=== PATIENT | female | born 1960 | race Caucasian/White ===

== ENCOUNTER 2024-12-14 06:14 | Inpatient (IN) | payer OTHER, SELFPAY ==
[2024-12-14] VITALS (10 sets, daily range): BP systolic 98–126; BP diastolic 49–64; BMI 45.6; BMI 44.3
[2024-12-14 02:16] LABS: % Basophils 0.4 % (0-2); % Eosinophils 2.7 % (0-6); % Immature Granulocytes 0.3 % (0-0.5); % Lymphocytes 16.2 % (20.5-51.1); % Monocytes 7.2 % (1.7-9.3); % Neutrophils 73.2 % (42.2-75.2); Absolute Eosinophils 0.2 10^3/uL (0-0.7); Absolute Lymphocytes 1.2 10^3/uL (1.2-3.4); Absolute Monocytes 0.5 10^3/uL (0.1-0.6); Absolute Neutrophils 5.5 10^3/uL (1.4-6.5); Hematocrit 30.4 % (37.0-47.0); Hemoglobin 9.9 g/dL (12.0-16.0); Mean Corp Hgb Conc. 32.6 g/dL (33.0-37.0); Mean Corpuscular Hgb 28.9 pg (27.0-31.0); Mean Corpuscular Volume 88.6 fL (81.0-99.0); Nucleated Red Blood Cells % 0 %; Platelet Count 250 10^3/uL (130-400); Red Blood Cell Count 3.43 10^6/uL (4.20-5.40); Red Cell Dist. Width 14.7 % (11.5-14.5); White Blood Cell Count 7.5 10^3/uL (4.8-10.8)
--- NOTE | 2024-12-14 02:23 | ED.GENMED ---
History of Present Illness
General
Chief Complaint: Chest Pain
Source: patient
Exam Limitations: none
Time Seen by Provider: 12/14/24 01:48
Nursing documentation reviewed up to this point in time: agreed with
History of Present Illness
History of Present Illness:
Pleasant 63-year-old female presents to the emergency department with substernal chest pain under her left breast. She does report some pain with inspiration. Patient took 2 nitroglycerin prior to arrival with some relief of her pain. EMS gave
aspirin. Patient states that she has an extensive cardiac history and has an ejection fraction of 30%. She recently moved here and spent some time in a psychiatric hospital before being discharged to [facility]. 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
and states that she would like to establish care in [place] with our cardiology group. Patient denies any current chest pain. Reports no fever or chills.
Review of Systems
Review of Systems
Allergies reviewed?: Yes
All Other Systems: ROS reviewed and negative except as documented in HPI and ROS
Constitutional: Reports no symptoms
EENT: Reports no symptoms
Respiratory: Reports no symptoms
Cardiac: Reports chest pain; Denies diaphoresis, palpitations, syncope or other
ABD/GI: Denies no symptoms
: Reports no symptoms
Musculoskeletal: Reports no symptoms
Skin: Reports no symptoms
Neurological: Reports no symptoms
Endocrine: Reports no symptoms
Hematologic/Lymphatic: Reports no symptoms
Psychiatric: Reports no symptoms
Phy Exam
General Physical Exam
General Presentation: well appearing and no apparent distress
General Skin: warm and dry
General Habitus: normal
General Mental: alert
General Hydration: appears well hydrated
ENT Exam
ENT Exam: EOMI, pharynx normal, neck supple and normocephalic
Eye Exam
Eye Exam: PERRL, cornea clear and conjunctiva normal
Cardiovascular Exam
Cardiovascular Exam: regular rate/rhythm, no edema, no murmur and normal peripheral pulses
Pulmonary Exam
Pulmonary Exam: lungs clear, no respiratory distress, no rales, no crackles, no rhonchi, no stridor, no wheezing and no cough
Gastrointestinal Exam
Gastrointestinal Exam: normal bowel sounds, non tender, soft, no organomegaly, no pulsatile mass and non distended
Neurological Exam
Neurological Exam: alert, oriented x3, no motor deficits and speech normal
Musculoskeletal Exam
Musculoskeletal Exam: full ROM and no edema
Skin Exam
Skin Exam: normal color, warm/dry, no rash and no petechia
Psychiatric Exam
Psychiatric Exam: normal mood/affect
Scores
Heart Score for Chest Pain Patients
STEMI patient?: Not applicable
Course
Orders/Labs/Results
Orders:
Orders
12/14/24 01:50
EKG [Electrocardiogram (*1)] Urgent
Reason for Study: Tachycardia
Cardiac Monitoring- Treatment ONCE
EKG- Treatment ONCE
EKG- Treatment ONCE
12/14/24 02:01
Comprehensive Metabolic Panel Urgent
D-Dimer Urgent
Comment: ADDED
Magnesium Urgent
PTT Urgent
Prothrombin Time Urgent
TSH Urgent
12/14/24 02:02
Complete Blood Count/With Diff Urgent
NT-proBNP Urgent
Troponin I Urgent
Comment: ADDED
12/14/24 02:24
Add On- LAB Urgent
Tests Added?: ddimer
12/14/24 04:39
Potassium Chloride [KCl] 20 meq 0.9% Sodium Chloride 150 ml [Nss] 150 ml IV NOW
12/14/24 05:44
Admit/Transfer Patient As Directed
Co-Sign Provider:
Level of Care: Inpatient admission
Assign to:: Telemetry
Physician / Group: Wade
Diagnosis: Chest Pain, Hypokalemia
Reason for Telemetry: Chest Pain syndromes
Date to Stop Telemetry: 12/16/24
Time to Stop Telemetry: 11:00
Reason for Hospitalization: Chest Pain, Hypokalemia
Expected length of stay greater than two midnights?: Yes
ELOS- Estimated Length of Stay in days: 2
I certify the patient meets the requirements for IP care: Yes
12/14/24 05:45
PRN Pain Medication Management As Directed
May give lesser potent ordered pain med per pt: Yes
preference::
Protocol:: Medication orders for pain may be administered in a
manner that supports deferring to patient preference
when the pt is:
- Requesting an ordered lesser potent pain medication.
Least to most potent pain medications are defined
as: acetaminophen < NSAID < tramadol < opioids
(morphine, oxycodone, hydromorphone).
- Requesting a lesser dose of the same medication IF
ORDERED.
- Requesting a less intrusive route of administration
if both routes are prescribed by the provider (PO <
IV).
12/14/24 05:47
Code Status As Directed
Resuscitation Status: Do not resuscitate
Reached after discussion with pt or family/Healthcare POA: Yes
DNR Bracelet Application ONCE
12/14/24 05:59
CR Chest - 2 Views Urgent
Comment:
Reason For Exam: cp
12/14/24 Breakfast
NPO
Allow oral meds: Yes
Allow clear liquids: Sips of Clears
12/14/24 09:54
Acetaminophen [Tylenol] 650 mg PO Q4HPRN PRN
Dextrose 50%-Water [Dextrose 50% Syringe] 12.5 grams IV [id number] PRN
Glucagon [GlucaGen] 1 mg IM PRN PRN
Insulin Aspart Corrective Low [Novolog Flexpen-Low Resistance] See Protocol SC AC
Lorazepam [Ativan] 1 mg IV Q6HPRN PRN
Magnesium Sulfate 2 Gram/50 ml [Magnesium Sulfate] 2 gram in 50 ml IV NOW
Nitroglycerin Sublingual [Nitrostat (Sublingual)] 0.4 mg SL [id number] PRN
12/14/24 09:54
WOUND/OSTOMY CONSULT Routine
Reason for Consult: Abdominal wound / healing incision
Activity As Directed
Activity Level: Ambulate
With Assistance
Bedside Glucose Monitoring As Directed
Frequency: AC&HS
Additional Instructions:: Change to q6h if pt on TPN, tube feeding or not eating
Bladder Scan As Directed
Follow Bladder Retention/Intermittent Cath Algorithm?: Yes
PRN if no void in __ hours: 6
Frequency: Per Retention Algorithm
If Bladder Scan Result >: 400
then:: Straight cath
EKG with chest pain [ECG as needed] As Directed
ECG as needed for:: Chest Pain
I/O [Intake/ Output] As Directed
Frequency: Per unit guidelines
Records Request [Obtain Records] As Directed
Dates of Information to be Released: Most Recent
Type of Information Requested: Entire Record
Obtain Records from: [facility]
Straight Cath As Directed
Frequency: Per Retention Algorithm
Additional Instructions: straight cath as needed per acute urinary retention algorithm for 24 hrs
Additional Instructions: for bladder scan greater than 400 mL
Vital Signs As Directed
Frequency: Per unit guidelines
Weight As Directed
Frequency: Daily
Oxygen Therapy [O2 Therapy] [RESP] Routine
Titrate/Wean O2 to maintain O2 sat greater than (%): 94
Ot Eval And Treat Routine
PT Consult [Pt Eval And Treat] Routine
Activity Level: Ambulate
With Assistance
12/14/24 11:00
Aspirin Chewable [Low Strength Aspirin] 81 mg PO DAILY
Famotidine [Pepcid] 20 mg PO BID
Lamotrigine [Lamictal] 25 mg PO DAILY
Miconazole Nitrate [Desenex/Mitrazol/Zeasorb] 1 applic TOPICAL BID
Tamsulosin [Flomax] 0.4 mg PO DAILY
Ziprasidone [Geodon] 40 mg PO BID
12/14/24 11:48
B12 [Vitamin B12] Routine
BMP [Basic Metabolic Panel] Routine
Folate Routine
Iron Routine
Reticulocyte Count Routine
Total Iron Binding Routine
Troponin I Q6H
12/14/24 12:46
Triamcinolone Cream [Triamcinolone Acetonide 0.1% Cream] See Dose Instructions TOPICAL BID
12/14/24 18:00
Rivaroxaban [Xarelto] 20 mg PO QPM
12/14/24 22:00
Atorvastatin [Lipitor] 40 mg PO HS
12/14/24 23:50
Troponin I Q6H
12/15/24 06:00
EKG [Electrocardiogram (*1)] IN AM
Reason for Study: Chest Pain
12/16/24 11:00
DC Protocol for Telemetry ONCE
Abnormal Lab Results
12/14/24 12/14/24
02:01 02:02
RBC 3.43 L 10^6/uL
(4.20-5.40)
Hgb 9.9 L g/dL
(12.0-16.0)
Hct 30.4 L %
(37.0-47.0)
MCHC 32.6 L g/dL
(33.0-37.0)
RDW 14.7 H %
(11.5-14.5)
Lymphocytes % 16.2 L %
(20.5-51.1)
PT 24.1 H Sec
(11.4-14.6)
APTT 42.6 H Sec
(23.4-35.0)
Potassium 2.4 L* mmol/L
(3.5-5.1)
Chloride 95 L mmol/L
(98-107)
Carbon Dioxide 37 H mmol/L
(22-30)
Creatinine 1.6 H mg/dL
(0.6-1.0)
Glucose 168 H mg/dl
(70-99)
Alkaline Phosphatase 336 H U/L
(38-126)
Total Protein 6.2 L g/dl
(6.3-8.2)
12/14/24 02:02
12/14/24 02:01
Vital Signs
Initial and Last Documented VS:
Initial Vital Signs
Resp Pulse Ox
16 91
12/14/24 01:44 12/14/24 01:44
Last Documented Vital Signs
Temp Pulse Resp BP Pulse Ox
97.5 F 77 16 114/64 97
12/15/24 20:00 12/15/24 20:00 12/15/24 20:00 12/15/24 20:00 12/15/24 20:00
MDM/Problems Addressed
Differential Diagnosis Includes:
63-year-old female from [facility] presents with chest pain. Differential diagnosis is ACS. Patient has a known cardiac history but it is unavailable at this time., Musculoskeletal chest pain, pleuritic chest pain
She also has hypokalemia. We attempted to replenish her potassium. She refused oral potassium. We are giving her IV supplementation. Given the ongoing chest pain, lack of records including old EKGs and previous lab work, the patient being a poor
historian, she will be brought into the continue potassium replenishment.
*Critical Care Note
Total Time (30-74mins, 75-104mins- exclusive of procedures): Not Applicable
Data Reviewed
Source: patient
Patient Management
Social determinants of health affecting care: Living situation and Poor social support
Discussion with other providers: Hospitalist
ED Attending Note
-
Portions of this chart may have been created with voice recognition software.� Occasional wrong word or��sound alike� substitutions may have occurred due to the inherent limitations of voice recognition software.
Discharge Plan
Departure
Patient Disposition: Admit
Date of Disposition: 12/14/24
Time of Disposition: 05:58
Admit to: Med/Surg
Presentation/result/management discussed w/ accepting MD/DO: Hospitalist
Condition: Good
Discharge Problem:
Chest pain, Acute hypokalemia
Interventions
Interventions:
*General Assessment Last Done: 12/14/24 01:48
*Neglect/Abuse Screening Last Done: 12/14/24 01:48
ED- Fall Risk Assessment Last Done: 12/14/24 01:48
*ED COVID-19 Vaccine History Last Done: 12/14/24 01:48
*Nursing Disposition Last Done: 12/14/24 12:40
ED- Cardiac Assessment Last Done: 12/14/24 01:48
Discharge Date and Time
Discharge Date/Time: 12/14/24 12:41
[2024-12-14 02:42] LABS: PT 24.1 Sec (11.4-14.6)
[2024-12-14 02:43] LABS: APTT 42.6 Sec (23.4-35.0)
[2024-12-14 02:53] LABS: Troponin I < 0.012 ng/ml
[2024-12-14 02:58] LABS: ALT (SGPT) 12 U/L (0-35); AST (SGOT) 20 U/L (14-36); Albumin 3.6 g/dl (3.5-5.0); Alkaline Phosphatase 336 U/L (38-126); Blood Urea Nitrogen 17 mg/dl (7-17); Calcium 9.2 mg/dl (8.4-10.2); Carbon Dioxide 37 mmol/L (22-30); Chloride 95 mmol/L (98-107); Estimated Creatinine Clearance 51 ml/min; Glucose 168 mg/dl (70-99); Magnesium 1.6 mg/dl (1.6-2.3); Potassium 2.4 mmol/L (3.5-5.1); Sodium 138 mmol/L (135-145); Total Bilirubin 0.7 mg/dl (0.2-1.3); Total Protein 6.2 g/dl (6.3-8.2); eGFR 36.47
[2024-12-14 03:10] LABS: TSH 1.29 uIU/ml (0.47-4.68)
[2024-12-14 03:11] LABS: NT-proBNP 456 pg/ml
[2024-12-14] MEDS: KCL 160 MEQ IV (05:28)
--- NOTE | 2024-12-14 05:53 | HPS.HSE ---
Family Physician
-
Family Physician: NOT KNOW UNKNOWN - PT DOES
Chief Complaint
-
Chest Pain
History of Present Illness
Patient is a 63y F with PMH significant for major depression, DM-II and A-Fib who presents to ED complaining of chest pain that woke her from sleep. Patient states that she was having palpitations this PM prior to going to sleep. She states
that this is not unusual. She otherwise felt well and had no recent complaints or issues. She woke around 12:30 AM with left-sided chest pain. She indicates pain along the lower anterior chest and the upper anterior chest. Pain worse with deep
breathing. Mild nausea without emesis. No other associated symptoms. Patient reports multiple previous episodes of similar symptoms - reportedly without clear origin / diagnosis. Patient received SL NTG and was transported to the ED for further
evaluation.
At the time of my examination she is pain free.
Patient states that she had a cardiac catheterization on 10/15/24 at [facility]. She states that this showed her 'heart worked at 30%' but did not show any significant coronary disease / 'blockages'.
Patient is on daily diuretic therapy. She does not take any potassium supplementation and notes that oral potassium 'makes me sick'.
Medical History
Past Medical History
Past Medical History: Reports Other
Additional Past Medical History:
Major Depression
Sarcoidosis
Paroxysmal Atrial Fibrillation
Chronic RBBB
Cardiomyopathy - Unknown Type
GERD / Gastroparesis
DM-II
Obesity
Cauda Equina Syndrome
Chronic Urinary Retention
Lumbar DDD
Left 'Drop Foot'
Past Surgical History: Reports Other
Additional Past Surgical History:
Vocal Cord Tumor Excised (benign)
6 Prior Back Surgeries
Hernia Repair
[place] Pouch / Subsequent Reversal
Social History
Tobacco: Non-smoker
Alcohol: None
Drug: None
Living: Prison
Family History
Family History: Diabetes and Other (Father: COPD Mother: Breast Cancer)
Allergies / Home Medications
Allergies reflects when Allergies were last updated in [employer].
Home Medications with original date entered in [employer]
Allergy/Medication List:
Allergies
Allergy/AdvReac Type Severity Reaction Status Date / Time
acetaminophen [From Percocet] Allergy Unknown Verified 12/14/24 02:04
adhesive Allergy Unknown Verified 12/14/24 02:04
oxycodone [From Percocet] Allergy Unknown Verified 12/14/24 02:04
seafood Allergy Unknown Uncoded 12/14/24 02:04
Home Medications
acetaminophen 325 mg tablet 650 mg PO Q6H PRN mild pain / temp > 100.4 12/14/24
atorvastatin 40 mg tablet 40 mg PO HS 12/14/24
baclofen 10 mg tablet 10 mg PO TID PRN spasms 12/14/24
bisacodyl 10 mg rectal suppository 10 mg MN DAILY PRN constipation 12/14/24
bumetanide 1 mg tablet 1 mg PO DAILY 12/14/24
cholecalciferol (vitamin D3) 25 mcg (1,000 unit) tablet 25 mcg PO DAILY 12/14/24
doxepin 25 mg capsule 25 mg PO HS PRN insomnia 12/14/24
famotidine 20 mg tablet 20 mg PO BID 12/14/24
hydroxyzine HCl 25 mg tablet 25 mg PO BID 12/14/24
hydroxyzine HCl 25 mg tablet 25 mg PO Q6HPRN PRN anxiety 12/14/24
insulin lispro 100 unit/mL subcutaneous solution (Humalog U-100 Insulin) 1 sliding scale dose SC DIRECTED 12/14/24
lamotrigine 25 mg tablet 25 mg PO DAILY 12/14/24
lidocaine 4 % topical patch 1 patch topical DAILY PRN pain 12/14/24
nystatin 100,000 unit/gram topical powder 1 applic topical BID 12/14/24
pantoprazole 40 mg tablet,delayed release 40 mg PO BID 12/14/24
rivaroxaban 20 mg tablet 20 mg PO QPM 12/14/24
tamsulosin 0.4 mg capsule 0.4 mg PO DAILY 12/14/24
triamcinolone acetonide 0.1 % topical cream 1 applic topical BID 12/14/24
ziprasidone HCl 40 mg capsule 40 mg PO BID 12/14/24
Review of Systems
-
History Source: Patient
A 12 point ROS was completed and negative except as noted: Yes
Constitutional: Reports Fatigue; Denies Fever or Chills
EENT: Denies Sore Throat
Respiratory: Denies Cough or Trouble Breathing
Cardiac: Reports Chest Pain and Palpitations; Denies Diaphoresis or Syncope
Abdomen/GI: Reports Nausea; Denies Abdominal Pain, Vomiting, Diarrhea or Constipated
: Reports Difficulty Voiding; Denies Dysuria or Frequency
Musculoskeletal: Denies Joint Pain or Edema
Neurological: Denies Dizzy or Headache
Psych: Denies Depression or Anxiety
Physical Exam
Vital Signs
Vital Signs
Temp Pulse Resp BP Pulse Ox
98.0 F 69 16 101/59 97
12/14/24 02:05 12/14/24 02:05 12/14/24 02:05 12/14/24 02:05 12/14/24 02:05
Physical Exam
General: Other (63y F in no acute distress.)
HEENT: Moist mucous membranes, PERRLA and Other (Thick neck. No JVD.)
Respiratory: Clear; No Wheezes, Rales or Rhonchi
Cardiac: S1/S2, Regular Rhythm (with ectopy) and Murmur (II/ SHIRLEY)
GI: Non Tender, Non Distended, Normal Bowel Sounds and Other (Obese. LLQ / anterior selene pouch site with residual wound / healing incision. Hernia superior to this as well. No focal tenderness. Bowel sounds present.)
Musculoskeletal: No Clubbing, No Cyanosis and No Edema
Neuro: AO x 3
Laboratory Results
-
12/14/24 02:02
12/14/24 02:01
Laboratory Results
PT 24.1 Sec (11.4-14.6) H 12/14/24 02:01
INR 2.10 12/14/24 02:01
APTT 42.6 Sec (23.4-35.0) H 12/14/24 02:01
Total Bilirubin 0.7 mg/dl (0.2-1.3) 12/14/24 02:01
AST 20 U/L (14-36) 12/14/24 02:01
ALT 12 U/L (0-35) 12/14/24 02:01
Alkaline Phosphatase 336 U/L (38-126) H 12/14/24 02:01
Troponin I < 0.012 ng/ml 12/14/24 02:02
Troponin I Cancelled 12/14/24 02:02
Impression/Plan
-
A/P: Patient is a 63y F with PMH significant for A-Fib, DM-II and depression who presents to ED complaining of chest pain that woke her from sleep.
Chest Pain
- Admit for further evaluation and treatment.
- EKG with 1st degree AVB, RBBB (known per patient) and occasional PVCs. No prior tracing for comparison.
- Initial troponin is undetectable. Currently pain-free in the ED.
- Monitor for any recurrence of pain.
- Try to obtain records from recent cath done at [facility].
- Follow troponin.
- Cardiology evaluation if recurrent pain or elevation in troponin, etc.
- Continue current CV med regimen including statin, etc.
Hypokalemia
- Likely secondary to loop diuretic use.
- Patient states that she cannot tolerate oral potassium supplementation.
- IV KCl replacement in the ED.
- Will give Mg as well for goal Mg > 2.
- Hold PPI therapy.
- Follow for improvement in lytes (repeat BMP ordered for 10 AM).
Cardiomyopathy
Chronic HF - ? HFrEF by history
- Stable. No evidence of volume overload by exam.
- Hold diuretic for now given hypokalemia.
- Follow I/Os, daily weights, etc.
- Obtain outside records of cardiac function as noted above.
Renal Insufficiency
- SIMÓN v CKD with no prior values for comparison.
- Follow for changes while holding diuretic therapy.
Paroxysmal Atrial Fibrillation
- Stable. In 1st degree AVB at present with PVCs / ectopy.
- Monitor on telemetry.
- Continue Xarelto for stroke risk reduction.
DM-II
- Stable. Follow glucose and cover with SSI as needed.
- Update A1C.
Normocytic Anemia
- Unknown acuity / etiology.
- Obtain prior labs if able.
- Check iron studies, B12, etc.
- Follow for changes.
Lumbar DDD
History of Cauda Equina
Urinary Retention
Chronic Left Drop Foot
- Stable. Bladder scan protocol.
- Straight cath +/- Smith if needed.
- Patient previously had [place] pouch for self-cath to prevent retention. This was reversed; however, she does not cath from below now.
- Wound Care to evaluate prior pouch site / slow healing incision.
- Continue tamsulosin.
GERD / Gastroparesis
- Patient on BID H2 kassy and BID PPI - will hold PPI for now.
- Follow for any changes in symptoms.
Sarcoidosis
- Stable. No evident / active symptoms.
- Not on any chronic rheumatologic / immunosuppressive medications.
Major Depression
- Stable on multidrug regimen.
- Continue with ziprasidone, lamotrigine.
- Hold hydroxyzine for now given QT prolongation interactions. (QTC on EKG = 527).
- Ativan PRN anxiety for now.
Morbid Obesity due to excess calories
- Affects all aspects of care.
- Encourage increased activity as able and healthy diet with goal of weight reduction.
DVT Prophylaxis: Continue Xarelto
Code Status: DNR
[2024-12-14] MEDS: MAGNESIUM SULFATE 50 IV (10:02)
--- NOTE | 2024-12-14 10:16 | W.PN.UPDATE ---
Update Note
Progress Note Update
I saw and evaluated the patient. I reviewed the resident�s note and agree with findings and plan as documented in the resident�s note. Follow up from admission from 552 today.
Currently without CP.
Gen: NAD, AAOx3.
Eyes: EOMI, PERRLA, no scleral icterus.
Neck: supple.
CV: RRR, +S1/S2, no m/r/g.
Resp: CTAB, no rales, wheezes, or rhonchi.
Skin: No rashes.
Neuro: CN 2-12 intact, non-focal.
Psych: Normal mood and affect.
CXR:
1. Mild cardiomegaly.
2. Mild interstitial prominence, suggestive of mild pulmonary vascular congestion.
Chest pain:
-Trops NEG so far
-ECG (read by me)) SR with 1st deg AVB @ 77, L-axis, RBBB
-c/s cards
-obtain records (cath) from [facility] from Oct 2024
Other problems:
Hypokalemia: Apparently pt cannot take PO K? Repleting IV currently. Mg 1.6, received 2g IV Mg. 40meq PO and 40meq IV K now.
? h/o HFrEF
PAF: cont Xarelto
DM2: check a1c, SSI/accuchecks
Morbid obesity due to excess calories
Normocytic anemia: Check B12, folate, Fe studies
Renal insufficiency, baseline Cr unknown, awaiting outside records
Lumbar DDD
History of Cauda Equina Syndrome
Urinary Retention: cont Flomax
Chronic Left Drop Foot
GERD: cont H2 kassy for now but will restart PPI prior to d/c
Sarcoidosis
Major depression: cont ziprasidone/lamotrigine
DNR/Xarelto
Total time spent on today's encounter was 50 minutes which included time spent in counseling the patient/family regarding diagnosis and treatment plan as listed above, goals of care, and symptom management. Case was discussed with nursing staff,
specialists, and care coordinators/case management. All labs and imaging personally reviewed by me. Remainder the time spent in detailed review of previous records, lab data, imaging, and other medical provider documentation.
--- NOTE | 2024-12-14 10:54 | W.PN.HOSP.TC ---
Today's Communication/Plan
-
.
Assessment / Plan
Assessment / Plan
1. Chest Pain
- EKG (12/14): 1st degree AVB, RBBB (known per patient) and occasional PVCs. No prior tracing for comparison.
- Initial troponin is undetectable. Currently pain-free in the ED.
- Monitor for any recurrence of pain.
- Try to obtain records from recent cath done at [facility].
- Cardiology consult
- 2D ECHO
- Continue current CV med regimen including statin, etc.
2. Hypokalemia
- 2/2 Bumex?
- K 2.4 last evening
- Only 20mEQ given last night; 40mEQ oral and 40 mEQ IV today
- Mg repleted last night, follow up BMP at 10 AM
- Hold PPI therapy.
3. Cardiomyopathy
- Chronic HF - ? HFrEF by history (per patient EF ~30%)
- Await records from [facility]
- 2D echo
- Stable. No evidence of volume overload by exam.
- Hold diuretic for now given hypokalemia.
- Follow I/Os, daily weights, etc.
4. Renal Insufficiency
- SIMÓN v CKD with no prior values for comparison.
- Follow for changes while holding diuretic therapy.
5. Paroxysmal Atrial Fibrillation
- Stable. In 1st degree AVB at present with PVCs / ectopy.
- Monitor on telemetry.
- Continue Xarelto for stroke risk reduction.
6. DM-II
- Stable. Follow glucose and cover with SSI as needed.
- Update A1C.
7. Normocytic Anemia
- Unknown acuity / etiology.
- Obtain prior labs if able.
- Check iron studies, B12, etc.
- Follow for changes.
Lumbar DDD
History of Cauda Equina
Urinary Retention
Chronic Left Drop Foot
- Stable. Bladder scan protocol.
- Straight cath +/- Smith if needed.
- Patient previously had Selene pouch for self-cath to prevent retention. This was reversed; however, she does not cath from below now.
- Wound Care to evaluate prior pouch site / slow healing incision.
- Continue tamsulosin.
GERD / Gastroparesis
- Patient on BID H2 kassy and BID PPI - will hold PPI for now.
- Follow for any changes in symptoms.
Sarcoidosis
- Stable. No evident / active symptoms.
- Not on any chronic rheumatologic / immunosuppressive medications.
Major Depression
- Stable on multidrug regimen.
- Continue with ziprasidone, lamotrigine.
- Hold hydroxyzine for now given QT prolongation interactions. (QTC on EKG = 527).
- Ativan PRN anxiety for now.
Morbid Obesity due to excess calories
- Affects all aspects of care.
- Encourage increased activity as able and healthy diet with goal of weight reduction.
DVT Prophylaxis: Continue Xarelto
Code Status: DNR
POA: Colby Forrest
Anticipated Discharge: 24 - 48 hours
Subjective/Interval History
-
Date of Service: December 14, 2024
Patient seen and examined while resting in bed, no acute distress.
Went over the patient's history (thought patient's historical reliability is questionable). Briefly, patient has a history of multiorgan sarcoidosis (not currently on medication). Patient has been having intermittent episodes of chest pain
underneath the left breast, described as achy since August of 2024. Patient is usually given a medication at the [facility] which relieves the pain, but yesterday (pain woke her from sleep), and the medication did not help prompting her ER visit.
Importantly, per the patient, extensive workup has been done to try to find the cause of the chest pain, most recently underwent a cath at [facility]. Per patient, they found her EF to be 30%?, fluid around heart?, and going theory is
cardiomyopathy 2/2 infiltrative disease?.
Patient states chest pain has markedly improved since yesterday, almost resolved. Patient denies any shortness of breath, palpitations, nausea, vomiting, or lower extremity edema. Additionally, patient is agreeable to trying PO potassium, though in
the past it has made her nauseous.
Objective Data
-
Labs:
Laboratory Results
12/14/24 12/14/24 12/14/24
02:01 02:02 09:54
WBC 7.5
Hgb 9.9 L
Hct 30.4 L
Plt Count 250
PT 24.1 H
INR 2.10
APTT 42.6 H
Sodium 138 Pending
Potassium 2.4 L* Pending
Chloride 95 L Pending
Carbon Dioxide 37 H Pending
BUN 17 Pending
Creatinine 1.6 H Pending
Glucose 168 H Pending
Calcium 9.2 Pending
Total Bilirubin 0.7
AST 20
ALT 12
Alkaline Phosphatase 336 H
Vital Signs:
Vital Signs
Temp Pulse Resp BP Pulse Ox
98.0 F 66 14 102/64 94
12/14/24 02:05 12/14/24 08:00 12/14/24 08:00 12/14/24 08:00 12/14/24 08:00
Review of Systems
-
History Source: Patient
Constitutional: Reports No Symptoms
Respiratory: Reports No Symptoms
Cardiac: Denies Chest Pain, Diaphoresis or Palpitations
Abdomen/GI: Reports No Symptoms
Musculoskeletal: Denies Edema
Neuro: Reports No Symptoms
Physical Exam
-
General: No Apparent Distress, Comfortable, Conversant and Other (morbidly obese)
HEENT: Normocephalic and Atraumatic
Respiratory: Clear to Auscultation; Negative Wheezes, Rales or Rhonchi
Cardiac: Regular Rhythm, S1/S2 and Murmur (2/6 systolic ejection murmur)
GI: Soft, Nontender and Nondistended
Musculoskeletal: No Clubbing, No Cyanosis and Other (chronic lymphedematous swelling, no pitting edema, no venous stasis changes)
Skin: Warm and Dry
Neuro: Awake and Alert
Psych: Calm
Data Reviewed
-
Diagnostic Radiology: Report Reviewed by me
Labs: Labs Reviewed by me and Discussed with Patient
--- NOTE | 2024-12-14 11:13 | CON.CAR ---
Addendum entered and electronically signed by Thanh Mesa MD 12/14/24 14:28:
I saw and examined the patient.
The VINEYARDIST's note was reviewed and I agree with the note.
Comment: 63 yo female with paroxysmal Afib on Xarelto, RBBB, cardiomyopathy EF 30-35% (per patient), IDDM, GERD, obesity, chronic urinary retention, and sarcoidosis, who presents from [facility] with complaints of chest pain.
It is unclear what her cause of CP is, my suspicion is MSK in nature. She has negative troponins and per her report no significant CAD on cath jsut a couple of months ago. It appears she has a NICMO and we will start GDMT.
- start spironolactone and dose of lasix
- GDMT as tolerated
.
CONCLUSIONS
Normal LV size with mildly reduced systolic function.
LVEF is 40-45% by visual estimation. Global diffuse hypokinesis.
Normal right ventricular size and function.
Mild mitral regurgitation.
Mild tricuspid regurgitation.
Estimated pulmonary artery pressure of 32 mmHg, assuming a right atrial
pressure of 3 mmHg.
No prior study available for comparison.
Original Note:
Consultation
Consultation Request
Date/Time Consultation Requested: 12/14/24 10:15a
Date/Time Consultation Performed: 12/14/24 11:15a
Requesting Provider: Dr. Singer
Performing Provider: EVERETT Hernandez for Dr. Mesa
Reason for Consultation: chest pain
Medical History
-
Chief Complaint: chest pain
History of Present Illness:
Ms. Forrest is a 63 yo female with paroxysmal Afib on Xarelto, RBBB, cardiomyopathy EF 30-35% (per patient), IDDM, GERD, obesity, chronic urinary retention, and sarcoidosis, who presents from [facility] with complaints of chest pain.
Chest pain woke her from sleeping, sharp pain to left breast area that radiates to her back. It lasted for hours then resolved later after given SL NTG. Initial troponin was < 0.012. She is admitted to the hospitalist service and we are consulted
for chest pain. She states this is the same pain she has been having for several months. Her dye can operator is Dr. Arlen Woodard at [facility] in [place]. She had a cath 10/15/24 at [facility] that showed no obstructive CAD and EF 30%
(per patient), records have been requested. Also by her report, an echo showed EF 35%, which prompted the cath. She did not tolerate GDMT due to hypotension, and Dr. Woodard ordered an outpatient cardiac MRI and etcher hand, which she is
currently wearing. Currently she denies any chest pain. Her EKG does not show ischemia.
She reports having a mental breakdown recently and was hospitalized at [facility], then was placed at [facility] at discharge.
Past Medical History
Past Medical History: Other (as above)
Social History
Tobacco: Non-Smoker
Alcohol: None
Personal: Single
Living: Retirement ([facility])
Family History
Family History: Reviewed & Not Pertinent
Allergies / Home Medications
Allergy/AdvReac Type Severity Reaction Status Date / Time
acetaminophen [From Percocet] Allergy Unknown Verified 12/14/24 02:04
adhesive Allergy Unknown Verified 12/14/24 02:04
oxycodone [From Percocet] Allergy Unknown Verified 12/14/24 02:04
seafood Allergy Unknown Uncoded 12/14/24 02:04
�Medication �Instructions �Recorded �Confirmed �Type
acetaminophen 325 mg tablet 650 mg PO Q6HPRN PRN mild pain / 12/14/24 12/14/24 History
temp > 100.4
atorvastatin 40 mg tablet 40 mg PO HS 12/14/24 12/14/24 History
baclofen 10 mg tablet 10 mg PO TIDPRN PRN spasms 12/14/24 12/14/24 History
bisacodyl 10 mg rectal suppository 10 mg DC DAILYPRN PRN if no bm 12/14/24 12/14/24 History
aftr mom
bumetanide 1 mg tablet 1 mg PO DAILY 12/14/24 12/14/24 History
cholecalciferol (vitamin D3) 25 25 mcg PO DAILY 12/14/24 12/14/24 History
mcg (1,000 unit) tablet
doxepin 25 mg capsule 25 mg PO HSPRN PRN insomnia 12/14/24 12/14/24 History
famotidine 20 mg tablet 20 mg PO BID 12/14/24 12/14/24 History
hydroxyzine pamoate 25 mg capsule 25 mg PO BID 12/14/24 12/14/24 History
hydroxyzine pamoate 25 mg capsule 25 mg PO Q6HPRN PRN anxiety 12/14/24 12/14/24 History
insulin lispro 100 unit/mL 1 sliding scale dose SC ACHS 12/14/24 12/14/24 History
subcutaneous solution (Humalog
U-100 Insulin)
lamotrigine 25 mg tablet 25 mg PO DAILY 12/14/24 12/14/24 History
lidocaine 4 % topical patch 1 patch topical DAILYPRN PRN right 12/14/24 12/14/24 History
shoulder
nystatin 100,000 unit/gram topical 1 applic topical BID breasts and 12/14/24 12/14/24 History
powder groin
pantoprazole 40 mg tablet,delayed 40 mg PO BID 12/14/24 12/14/24 History
release
rivaroxaban 20 mg tablet 20 mg PO QPM 12/14/24 12/14/24 History
sodium phosphates 19 gram-7 118 ml DC DAILYPRN PRN if no bm 12/14/24 12/14/24 History
gram/118 mL enema (Fleet Enema) aftr dulolcax
tamsulosin 0.4 mg capsule 0.4 mg PO DAILY 12/14/24 12/14/24 History
triamcinolone acetonide 0.1 % 1 applic topical BID breasts and 12/14/24 12/14/24 History
topical cream groin
ziprasidone HCl 40 mg capsule 40 mg PO BID 12/14/24 12/14/24 History
Review of Systems
-
History Source: Patient
All other systems: Negative unless noted
Physical Exam
Vital Signs
Temp Pulse Resp BP Pulse Ox
98.0 F 66 14 102/64 94
12/14/24 02:05 12/14/24 08:00 12/14/24 08:00 12/14/24 08:00 12/14/24 08:00
Lab Results
12/14/24 02:02
Troponin I < 0.012 ng/ml 12/14/24 02:02
Troponin I Cancelled 12/14/24 02:02
Jik-H-Tscdqvdpjrb Pept 456 pg/ml 12/14/24 02:02
Physical Exam
General: Well Developed, Well Nourished, No Apparent Distress and Other (morbidly obese)
HEENT: Normocephalic, Anicteric and Moist Mucous Membranes
Respiratory: Clear (diminished b/l bases) and Non Labored Respirations
Cardiac: S1/S2 and Regular Rhythm
Breast: Deferred by me
GI: Soft, Non Tender and Normal Bowel Sounds
Rectal: Deferred by Provider
Genito-urinary: Clear Urine
Musculoskeletal: No Clubbing, No Cyanosis and No Edema
Skin: Warm and Dry
Neuro: AO x 3
Hematologic/Lymphatic: No Lymphadenopathy
Psych: Calm
Impression / Plan
-
Chest pain - recurrent since 10/2024.
- initial troponin was < 0.012, trend.
- recent cath 10/15/24 w/o CAD, will obtain records.
- EKG stable.
- assess for non-cardiac causes as well.
CM - EF 30-35% by patient report.
- will obtain records.
- likely nonischemic cardiomyopathy.
- she states not tolerating GDMT due to hypotension.
- consider Aldactone due to hypokalemia, if BP permits.
- mild pulmonary edema on CXR but with hypotension.
Afib - paroxysmal.
- stable in NSR.
- continue Xarelto for OAC.
- currently wearing a etcher hand from her dye can operator office Dr. Vance SHAIKH [place].
RBBB - chronic, stable.
GERD - stable on PPI.
IDDM - on insulin per hospitalist.
Data Reviewed
-
EKG: Tracing Personally Visualized and interpreted (SR with first degree AVB 77 bpm, RBBB, prior inferior and anterolateral infarct.)
Radiology: Report Reviewed by me (CXR with mild pulmonary edema)
Labs: Labs Reviewed by me
Old Records: Requested
--- NOTE | 2024-12-14 11:31 | WOUNDNOTE ---
[facility] RN note: Patient admitted with chest pain, hypokalemia. Patient admitted from [facility].
See H&P for complete history.
PMH: reversal of Selene pouch 11/2023 with chronic superficial appearing opening and linear scab suspect from hernia, major depression, DM, a fib (Xarelto), cardiac cath at [facility] [place] 10/15/24, sarcoidosis, CM, gastroparesis, urinary retention, lumbar
DDD, L foot drop.
Wound Location and type/assessment: Patient admitted with: chronic superficial appearing opening and linear scab suspect from stretched skin from hernia, s/p reversal of [place] pouch 11/2023. No surrounding erythema, no purulence. Unable to assess
sacral/buttocks d/t patient having an echo. ED GIAN Zimmer stated patient can move self.
Appetite:currently NPO.
Pressure redistribution devices in place: ED stretcher. Patient will be going to room 424-1. Heels off end of stretcher mattress and having no pressure. She is wearing comfortable slippers.
Plan: Silicone border foam applied to LLQ wound.
Will confirm orders with hospitalist and discussed with GIAN Zimmer.
Care plan to be updated and will follow as needed.
Recommend follow up with wound healthcare analyst or at wound care center upon discharge.
[2024-12-14 11:39] LABS: Glucose - Point of Care 116 mg/dl (70-99)
--- NOTE | 2024-12-14 11:50 | WOUNDNOTE ---
[facility] RN note: Patient admitted with chest pain, hypokalemia. Patient admitted from [facility].
See H&P for complete history.
PMH: reversal of Selene pouch 11/2023 with chronic superficial appearing opening and linear scab suspect from hernia, major depression, DM, a fib (Xarelto), cardiac cath at [facility] 10/15/24, sarcoidosis, CM, gastroparesis, urinary retention, lumbar
DDD, L foot drop.
Wound Location and type/assessment: Patient admitted with: chronic superficial appearing opening and linear scab suspect from stretched skin from hernia, s/p reversal of [place] pouch 11/2023. No surrounding erythema, no purulence. Sacral crease
with minimal MASD, skin intact. Small dermal pink and scabbed scratch areas bilateral lateral thigh and knee from patient scratching.
Appetite:currently NPO.
Pressure redistribution devices in place: ED stretcher. Patient stated she can ambulate. She turns self in bed/stretcher. Patient will be going to room 424-1. She is wearing comfortable slippers.
Plan: Silicone border foam applied to LLQ wound. Patient incontinent of urine. She has a PurWick currently. Blossom care given. Heels off bed with pillow. Instructed patient pressure injury prevention measures.
Updated and confirm order with Dr. Garcia who was in to see patient. Discussed with ED RN Charito.
Care plan updated, will sign off. Call if needed.
Recommend follow up with wound direct care supervisor or at wound care center upon discharge.
--- NOTE | 2024-12-14 11:58 | WOUNDNOTE ---
L THIGH (LOWER LATERAL)
--- NOTE | 2024-12-14 11:58 | WOUNDNOTE ---
R THIGH (UPPER LATERAL)
[2024-12-14] MEDS: NOVOLOG FLEXPEN-LOW RESISTANCE SC ×2 (12:06→13:14)
[2024-12-14] MEDS: KCL 40 MEQ PO ×3 (12:12→21:29)
[2024-12-14] MEDS: GEODON 40 MG PO ×2 (12:13→19:20)
[2024-12-14] MEDS: LAMICTAL 25 MG PO (12:13)
[2024-12-14] MEDS: PEPCID 20 MG PO ×2 (12:13→19:22)
[2024-12-14] MEDS: FLOMAX 0.4 MG PO (12:13)
[2024-12-14] MEDS: LOW STRENGTH ASPIRIN 81 MG PO (12:14)
[2024-12-14 12:20] LABS: Blood Urea Nitrogen 17 mg/dl (7-17); Calcium 9.3 mg/dl (8.4-10.2); Carbon Dioxide 38 mmol/L (22-30); Chloride 97 mmol/L (98-107); Estimated Creatinine Clearance 54 ml/min; Glucose 125 mg/dl (70-99); Iron 73 ug/dl (37-170); Potassium 2.8 mmol/L (3.5-5.1); Sodium 139 mmol/L (135-145)
[2024-12-14 12:29] LABS: Percent Saturation 27 % (20-50); Total Iron Binding Capacity 266 ug/dl (265-497)
[2024-12-14 12:32] LABS: Troponin I < 0.012 ng/ml
[2024-12-14 14:08] LABS: Folate 8.5 ng/ml (2.76-20); Vitamin B12 379 pg/ml (239-931)
[2024-12-14 14:23] LABS: Glycohemoglobin (HgbA1c) 6.7 % (4.0-5.6)
[2024-12-14] MEDS: DESENEX/MITRAZOL/ZEASORB 1 APPLIC TOPICAL ×2 (15:24→19:22)
[2024-12-14] MEDS: TRIAMCINOLONE ACETONIDE 0.1% CREAM 1 APPLIC TOPICAL ×2 (15:25→19:23)
[2024-12-14] MEDS: ALDACTONE 12.5 MG PO (15:26)
[2024-12-14] MEDS: LASIX 40 MG IV (15:27)
[2024-12-14 17:58] LABS: Glucose - Point of Care 236 mg/dl (70-99)
[2024-12-14 18:25] LABS: Blood Urea Nitrogen 19 mg/dl (7-17); Calcium 9.1 mg/dl (8.4-10.2); Carbon Dioxide 34 mmol/L (22-30); Chloride 98 mmol/L (98-107); Estimated Creatinine Clearance 53 ml/min; Glucose 204 mg/dl (70-99); Potassium 3.1 mmol/L (3.5-5.1); Sodium 136 mmol/L (135-145)
[2024-12-14] MEDS: NOVOLOG FLEXPEN-LOW RESISTANCE 2 UNITS SC (18:36)
[2024-12-14 18:38] LABS: Troponin I < 0.012 ng/ml
[2024-12-14] MEDS: XARELTO 20 MG PO (18:38)
[2024-12-14] MEDS: LIPITOR 40 MG PO (21:28)
[2024-12-14 22:16] LABS: Glucose - Point of Care 167 mg/dl (70-99)
[2024-12-15] VITALS (7 sets, daily range): BP systolic 101–119; BP diastolic 53–64; BMI 43.6
[2024-12-15 00:25] LABS: Troponin I 0.015 ng/ml
[2024-12-15 02:04] LABS: Blood Urea Nitrogen 18 mg/dl (7-17); Calcium 9.2 mg/dl (8.4-10.2); Carbon Dioxide 36 mmol/L (22-30); Chloride 96 mmol/L (98-107); Estimated Creatinine Clearance 57 ml/min; Glucose 150 mg/dl (70-99); Potassium 3.6 mmol/L (3.5-5.1); Sodium 139 mmol/L (135-145)
--- NOTE | 2024-12-15 03:01 | PTCARENOTE ---
Pt heart rhythm noticed to have changed from NSR, pt denied chest pain. ANESTHESIA TECHNICIAN notified, EKG and labs ordered. VS: BP 113/55, HR 75, O2 97% 2L NC, T98.5, RR16.
[2024-12-15 07:35] LABS: Glucose - Point of Care 182 mg/dl (70-99)
--- NOTE | 2024-12-15 07:35 | W.PN.CD ---
Today's Communication / Plan
-
-With improving creatinine, we will add metoprolol and lisinopril for GDMT.
-Continue diuresis.
Impression / Plan
-
Chest pain - recurrent since 10/2024.
- initial troponin was < 0.012, trend.
- recent cath 10/15/24 w/o CAD, will obtain records.
- EKG stable.
- assess for non-cardiac causes as well.
CM - EF 30-35% by patient report.
- will obtain records.
- likely nonischemic cardiomyopathy.
- she states not tolerating GDMT due to hypotension.
- consider Aldactone due to hypokalemia, if BP permits.
- mild pulmonary edema on CXR but with hypotension.
Afib - paroxysmal.
- stable in NSR.
- continue Xarelto for OAC.
- currently wearing a surveillance system monitor from her emt paramedic office Dr. Vance SHAIKH [place].
RBBB - chronic, stable.
GERD - stable on PPI.
IDDM - on insulin per hospitalist.
Physical Exam
Vital Signs/Labs
Vital Signs
Temp Pulse Resp BP Pulse Ox
98.0 F 65 18 118/53 98
12/15/24 03:00 12/15/24 03:00 12/15/24 03:00 12/15/24 03:00 12/15/24 03:00
12/14/24 12/15/24 12/16/24
06:59 06:59 06:59
Actual Weight 128 kg 122.555 kg
12/14/24 02:02
PT 24.1 Sec (11.4-14.6) H 12/14/24 02:01
INR 2.10 12/14/24 02:01
APTT 42.6 Sec (23.4-35.0) H 12/14/24 02:01
Magnesium 2.0 mg/dl (1.6-2.3) 12/15/24 01:30
TSH 1.29 uIU/ml (0.47-4.68) 12/14/24 02:01
12/14/24
02:02
Ict-H-Sqavneuaako Pept 456
LAB Results
12/14/24 12/14/24 12/14/24
02:02 02:02 11:48
Troponin I < 0.012 Cancelled < 0.012
12/14/24 12/14/24 12/14/24
17:31 18:02 23:50
Troponin I Cancelled < 0.012 0.015 D
Physical Exam
Constitutional: No acute distress, Comfortable and Other (On oxygen nasal)
EENT: Anicteric and Moist mucous membranes
Cardiovascular: Rhythm & rate is regular, Pedal edema present, JVD present and Systolic murmur present
Respiratory: Respiratory effort normal, Crackles Present and Rhonchi Present
GI: Soft, Non tender and Normal bowel sounds
Neuro/Psych: Alert, Oriented and AO x 3
Data Reviewed
-
Date of Service: December 15, 2024
Medical Decision Making: Reviewed Test Results, Independent Historian Assessment, Test Interpretation and Review of Case with other Provider
EKG: Tracing Personally Visualized and interpreted
Echo: Report Reviewed by me
X-Ray/CT/US/MRI/NUC/PET: Image Personally Visualized and interpreted
Labs: Labs Reviewed by me
Old Records: Reviewed
[2024-12-15 08:23] LABS: Blood Urea Nitrogen 20 mg/dl (7-17); Calcium 9.2 mg/dl (8.4-10.2); Carbon Dioxide 31 mmol/L (22-30); Chloride 96 mmol/L (98-107); Estimated Creatinine Clearance 61 ml/min; Glucose 169 mg/dl (70-99); Potassium 3.9 mmol/L (3.5-5.1); Sodium 137 mmol/L (135-145); eGFR 46.78
[2024-12-15] MEDS: NOVOLOG FLEXPEN-LOW RESISTANCE 1 UNITS SC (09:00)
[2024-12-15] MEDS: ALDACTONE 12.5 MG PO (09:02)
[2024-12-15] MEDS: LAMICTAL 25 MG PO (09:03)
[2024-12-15] MEDS: LOW STRENGTH ASPIRIN 81 MG PO (09:03)
[2024-12-15] MEDS: FLOMAX 0.4 MG PO (09:03)
[2024-12-15] MEDS: GEODON 40 MG PO ×2 (09:04→19:24)
[2024-12-15] MEDS: PEPCID 20 MG PO ×2 (09:05→19:24)
[2024-12-15] MEDS: TRIAMCINOLONE ACETONIDE 0.1% CREAM 1 APPLIC TOPICAL ×2 (09:06→19:25)
[2024-12-15] MEDS: DESENEX/MITRAZOL/ZEASORB 1 APPLIC TOPICAL ×2 (09:08→19:22)
--- NOTE | 2024-12-15 09:58 | W.PN.UPDATE ---
Update Note
Progress Note Update
I saw and evaluated the patient. I reviewed the resident�s note and agree with findings and plan as documented in the resident�s note.
Denies chest pain or shortness of breath.
Gen: NAD, AAOx3.
Eyes: EOMI, PERRLA, no scleral icterus.
Neck: supple.
CV: remains RRR, +S1/S2, no m/r/g.
Resp: CTAB anteriorly, no rales, wheezes, or rhonchi.
Skin: No rashes.
Neuro: remains CN 2-12 intact, non-focal.
Psych: Normal mood and affect.
CXR:
1. Mild cardiomegaly.
2. Mild interstitial prominence, suggestive of mild pulmonary vascular congestion.
Echo: Normal LV size with mildly reduced systolic function.
LVEF is 40-45% by visual estimation. Global diffuse hypokinesis.
Normal right ventricular size and function.
Mild mitral regurgitation.
Mild tricuspid regurgitation.
Estimated pulmonary artery pressure of 32 mmHg, assuming a right atrial
pressure of 3 mmHg.
No prior study available for comparison.
Chest pain, noncardiac:
-Trops NEG x 4
-ECG (read by me)) SR with 1st deg AVB @ 77, L-axis, RBBB
-obtain records (cath) from [facility] from Oct 2024
-cards following
Acute on chronic HFrEF:
-echo above
-s/p 1 dose IV lasix
-cont aldactone, adjusting GMDT as per cards
Other problems:
Hypokalemia: resolved with repletion
PAF: cont Xarelto
DM2: a1c 6.7%, SSI/accuchecks
Morbid obesity due to excess calories
Normocytic anemia: B12, folate, Fe studies normal
Renal insufficiency, baseline Cr unknown, awaiting outside records
Lumbar DDD
History of Cauda Equina Syndrome
Urinary Retention: cont Flomax
Chronic Left Drop Foot
GERD: cont H2 kassy for now but will restart PPI prior to d/c
Sarcoidosis
Major depression: cont ziprasidone/lamotrigine
DNR/Xarelto
--- NOTE | 2024-12-15 10:15 | W.PN.HOSP.TC ---
Today's Communication/Plan
-
.
Assessment / Plan
Assessment / Plan
1. Chest Pain
- EKG (12/14): 1st degree AVB, RBBB (known per patient) and occasional PVCs.
- Initial troponin is undetectable.
- Monitor for any recurrence of pain.
- Try to obtain records from recent cath done at [facility].
- Appreciate Cards: non-ischemic cardiomyopathy; patient started on GDMT therapy
- 2D ECHO: LVEF is 40-45% by visual estimation. Global diffuse hypokinesis.
- Continue current CV med regimen including statin, etc.
2. Hypokalemia
- K 2.4 on admission
- s/p 20 mEQ IV, 120 mEQ PO
- K 3.9 this AM
- Mg repleted on admission, stable
- Hold PPI therapy.
3. Nonischemic Cardiomyopathy
- Chronic HF - ? HFrEF by history (per patient EF ~30%)
- 2D echo: - LVEF is 40-45% by visual estimation. Global diffuse hypokinesis.
- Stable. No evidence of volume overload by exam.
- Transitioned to Spiranolactone
- Follow I/Os, daily weights, etc.
4. SIMÓN
- Improving
- Cr 1.3, continue to monitor
5. Paroxysmal Atrial Fibrillation
- Stable. In 1st degree AVB at present with PVCs / ectopy.
- Monitor on telemetry.
- Continue Xarelto for stroke risk reduction.
6. DM-II
- Stable. Follow glucose and cover with SSI as needed.
- Update A1C.
7. Normocytic Anemia
- Unknown acuity / etiology.
- Obtain prior labs if able.
- Check iron studies, B12, etc.
- Follow for changes.
Lumbar DDD
History of Cauda Equina
Urinary Retention
Chronic Left Drop Foot
- Stable. Bladder scan protocol.
- Straight cath +/- Smith if needed.
- Patient previously had Selene pouch for self-cath to prevent retention. This was reversed; however, she does not cath from below now.
- Wound Care to evaluate prior pouch site / slow healing incision.
- Continue tamsulosin.
GERD / Gastroparesis
- Patient on BID H2 kassy and BID PPI - will hold PPI for now.
- Follow for any changes in symptoms.
Sarcoidosis
- Stable. No evident / active symptoms.
- Not on any chronic rheumatologic / immunosuppressive medications.
Major Depression
- Stable on multidrug regimen.
- Continue with ziprasidone, lamotrigine.
- Hold hydroxyzine for now given QT prolongation interactions. (QTC on EKG = 527).
- Ativan PRN anxiety for now.
Morbid Obesity due to excess calories
- Affects all aspects of care.
- Encourage increased activity as able and healthy diet with goal of weight reduction.
DVT Prophylaxis: Continue Xarelto
Code Status: DNR
POA: Colby Forrest
Disposition Planning: Back to [facility], likely tomorrow
Anticipated Discharge: Within 24 hours
Subjective/Interval History
-
Date of Service: December 15, 2024
Patient seen and examined while resting comfortably in bed. Patient has no acute complaints at the current moment. Had more chest pain overnight, EKG was done and did not show ischemia. Patient said CP quickly resolved and has had no episodes since.
Denies shortness of breath, palpitations, lower extremity edema.
Objective Data
-
Labs:
Laboratory Results
12/15/24 12/15/24
01:30 07:06
Sodium 139 137
Potassium 3.6 3.9
Chloride 96 L 96 L
Carbon Dioxide 36 H 31 H
BUN 18 H 20 H
Creatinine 1.4 H 1.3 H
Glucose 150 H 169 H
Calcium 9.2 9.2
Vital Signs:
Vital Signs
Temp Pulse Resp BP Pulse Ox
97.3 F 67 18 119/57 98
12/15/24 08:44 12/15/24 08:44 12/15/24 08:44 12/15/24 08:44 12/15/24 08:44
I&O
12/14/24 12/15/24 12/16/24
06:59 06:59 06:59
Intake Total 1800 / 1800
Balance 1800 / 1800
Review of Systems
-
History Source: Patient
Constitutional: Reports No Symptoms
Respiratory: Reports No Symptoms
Cardiac: Reports No Symptoms
Abdomen/GI: Reports No Symptoms
Neuro: Reports No Symptoms
Physical Exam
-
General: No Apparent Distress, Comfortable, Conversant and Obese
HEENT: Normocephalic, Atraumatic and Moist Mucous Membranes
Respiratory: Clear to Auscultation; Negative Wheezes, Rales or Rhonchi
Cardiac: Regular Rhythm and S1/S2
GI: Soft, Nontender and Nondistended
Musculoskeletal: No Clubbing, No Cyanosis, Edema, Right Lower Extrem (chronic), Edema, Left Lower Extrem (chronic) and Other (no pitting edema)
Skin: Warm and Dry
Neuro: Awake and Alert
Psych: Calm
Data Reviewed
-
Medical Tests (Nuc Med, Echo etc): Report Reviewed by me
Labs: Labs Reviewed by me and Discussed with Patient
[2024-12-15 12:20] LABS: Glucose - Point of Care 256 mg/dl (70-99)
[2024-12-15] MEDS: NOVOLOG FLEXPEN-LOW RESISTANCE 3 UNITS SC (12:40)
[2024-12-15] MEDS: ZESTRIL 2.5 MG PO (12:41)
[2024-12-15] MEDS: LASIX 40 MG IV (12:42)
[2024-12-15 17:18] LABS: Glucose - Point of Care 229 mg/dl (70-99)
[2024-12-15] MEDS: XARELTO 20 MG PO (18:18)
[2024-12-15] MEDS: NOVOLOG FLEXPEN-LOW RESISTANCE 2 UNITS SC (18:19)
[2024-12-15] MEDS: LIPITOR 40 MG PO (21:18)
[2024-12-15 21:54] LABS: Glucose - Point of Care 216 mg/dl (70-99)
[2024-12-16 04:00] VITALS: BP 114/55
[2024-12-16 04:07] VITALS: BMI 44.5
[2024-12-16 07:18] LABS: Glucose - Point of Care 175 mg/dl (70-99)
[2024-12-16 08:11] LABS: Blood Urea Nitrogen 23 mg/dl (7-17); Calcium 9.2 mg/dl (8.4-10.2); Carbon Dioxide 35 mmol/L (22-30); Chloride 91 mmol/L (98-107); Estimated Creatinine Clearance 57 ml/min; Glucose 168 mg/dl (70-99); Potassium 3.8 mmol/L (3.5-5.1); Sodium 135 mmol/L (135-145)
[2024-12-16] MEDS: LAMICTAL 25 MG PO (08:19)
[2024-12-16] MEDS: GEODON 40 MG PO ×2 (08:19→19:28)
[2024-12-16] MEDS: NOVOLOG FLEXPEN-LOW RESISTANCE 1 UNITS SC (08:19)
[2024-12-16] MEDS: PEPCID 20 MG PO ×2 (08:21→19:28)
[2024-12-16] MEDS: LOW STRENGTH ASPIRIN 81 MG PO (08:21)
[2024-12-16] MEDS: TRIAMCINOLONE ACETONIDE 0.1% CREAM 1 APPLIC TOPICAL ×2 (08:22→19:29)
[2024-12-16] MEDS: FLOMAX 0.4 MG PO (08:22)
[2024-12-16] MEDS: DESENEX/MITRAZOL/ZEASORB 1 APPLIC TOPICAL ×2 (08:23→19:28)
[2024-12-16 08:31] VITALS: BP 101/62
[2024-12-16] MEDS: TOPROL XL 12.5 MG PO (09:42)
[2024-12-16] MEDS: ZESTRIL 2.5 MG PO (09:42)
[2024-12-16] MEDS: LASIX 40 MG IV (09:43)
[2024-12-16] MEDS: ALDACTONE 12.5 MG PO (09:43)
--- NOTE | 2024-12-16 09:59 | W.PN.CD ---
Today's Communication / Plan
-
-Stable for discharge from cardiac standpoint.
-Follow-up in cardiology in 2 weeks for
Impression / Plan
-
Chest pain - recurrent since 10/2024.
- initial troponin was < 0.012, trend.
- recent cath 10/15/24 w/o CAD - no intervention
- EKG stable.
- non-cardiac etiologyl.
CM - EF 30-35% by patient report.
- likely nonischemic cardiomyopathy.
- mild pulmonary edema on CXR -status post diuresis.
- she states not tolerating GDMT due to hypotension.
- Started on Metoprolol, lisinopril and aldactone.
- With recent addition of ALIZE, beta-kassy and Aldactone, we will not add ARNI/SGLT2i due to high risks for hypotension and ongoing renal dysfunction.
- Follow-up in cardiology in 2 weeks.
Afib - paroxysmal.
- stable in NSR.
- continue Xarelto for OAC.
- currently wearing a patch driller from her community health consultant office Dr. Vance SHAIKH [place].
RBBB - chronic, stable.
GERD - stable on PPI.
IDDM - on insulin per hospitalist.
Physical Exam
Vital Signs/Labs
Vital Signs
Temp Pulse Resp BP Pulse Ox
98.0 F 67 20 101/62 98
12/16/24 08:31 12/16/24 08:31 12/16/24 08:31 12/16/24 08:31 12/16/24 08:31
12/15/24 12/16/24 12/17/24
06:59 06:59 06:59
Actual Weight 122.555 kg 124.874 kg
12/14/24 02:02
12/16/24 06:45
PT 24.1 Sec (11.4-14.6) H 12/14/24 02:01
INR 2.10 12/14/24 02:01
APTT 42.6 Sec (23.4-35.0) H 12/14/24 02:01
Magnesium 2.0 mg/dl (1.6-2.3) 12/15/24 01:30
TSH 1.29 uIU/ml (0.47-4.68) 12/14/24 02:01
12/14/24
02:02
Ang-P-Inandmgrwxh Pept 456
LAB Results
12/14/24 12/14/24 12/14/24
02:02 02:02 11:48
Troponin I < 0.012 Cancelled < 0.012
12/14/24 12/14/24 12/14/24
17:31 18:02 23:50
Troponin I Cancelled < 0.012 0.015 D
Physical Exam
Constitutional: No acute distress and Comfortable
EENT: Anicteric and Moist mucous membranes
Cardiovascular: Rhythm & rate is regular, JVD pressure is normal, Pedal edema present and Systolic murmur present
Respiratory: Respiratory effort normal and Lungs clear to auscul.
GI: Soft, Normal bowel sounds and Distention present
Neuro/Psych: Alert, Oriented and AO x 3
Data Reviewed
-
Date of Service: December 16, 2024
Medical Decision Making: Reviewed Test Results, Test Interpretation and Review of Case with other Provider
EKG: Tracing Personally Visualized and interpreted
Echo: Report Reviewed by me
Labs: Labs Reviewed by me
Old Records: Reviewed
--- NOTE | 2024-12-16 10:24 | W.PN.HOSP.TC ---
Today's Communication/Plan
-
.
Assessment / Plan
Assessment / Plan
1. Chest Pain
- EKG (12/14): 1st degree AVB, RBBB (known per patient) and occasional PVCs.
- Initial troponin is undetectable.
- Monitor for any recurrence of pain.
- Appreciate Cards: non-ischemic cardiomyopathy; patient started on GDMT therapy
- Has been on Aldactone and 12.5mg Metoprolol in the past, new to Lisinopril.
- Will follow up with this cardiology group after discharge.
- Patient notes her SBPs taken at [facility] usually range in the 90s-100s. Monitor BPs and consider hold parameters on medications on discharge.
- 2D ECHO (12/14): LVEF is 40-45% by visual estimation. Global diffuse hypokinesis.
- Continue current CV med regimen including statin, etc.
2. Hypokalemia (resolved)
- K 2.4 on admission
- s/p 20 mEQ IV, 120 mEQ PO
- K 3.8 this AM stable
- Mg repleted on admission, stable
- Hold PPI therapy.
3. Nonischemic Cardiomyopathy
- Chronic HF - ? HFrEF by history (per patient EF ~30%)
- 2D echo: - LVEF is 40-45% by visual estimation. Global diffuse hypokinesis.
- Stable. No evidence of volume overload by exam.
- Patient started on GDMT this visit
- Patient to follow up with cardiology on outpatient basis
- Follow I/Os, daily weights, etc.
4. SIMÓN
- Improved from admission
- Cr 1.4, continue to monitor
5. Paroxysmal Atrial Fibrillation
- Stable. In 1st degree AVB at present with PVCs / ectopy.
- Monitor on telemetry.
- Continue Xarelto for stroke risk reduction.
6. DM-II
- Stable. Follow glucose and cover with SSI as needed.
- Update A1C.
7. Normocytic Anemia
- Unknown acuity / etiology.
- Obtain prior labs if able.
- Check iron studies, B12, etc.
- Follow for changes.
Lumbar DDD
History of Cauda Equina
Urinary Retention
Chronic Left Drop Foot
- Stable. Bladder scan protocol.
- Straight cath +/- Smith if needed.
- Patient previously had Selene pouch for self-cath to prevent retention. This was reversed; however, she does not cath from below now.
- Wound Care to evaluate prior pouch site / slow healing incision.
- Continue tamsulosin.
GERD / Gastroparesis
- Patient on BID H2 kassy and BID PPI - will hold PPI for now.
- Follow for any changes in symptoms.
Sarcoidosis
- Stable. No evident / active symptoms.
- Not on any chronic rheumatologic / immunosuppressive medications.
Major Depression
- Stable on multidrug regimen.
- Continue with ziprasidone, lamotrigine.
- Hold hydroxyzine for now given QT prolongation interactions. (QTC on EKG = 527).
- Ativan PRN anxiety for now.
Morbid Obesity due to excess calories
- Affects all aspects of care.
- Encourage increased activity as able and healthy diet with goal of weight reduction.
DVT Prophylaxis: Continue Xarelto
Code Status: DNR
POA: Colby Forrest
Disposition Planning: Back to [facility]
Anticipated Discharge: Today
Subjective/Interval History
-
Date of Service: December 16, 2024
Patient seen and examined while resting comfortably in bed. Patient has no acute complaints this AM, particularly denies any dizziness after medication administration, episodes of chest pain over night, and states that he breathing is back to normal.
Objective Data
-
Labs:
Laboratory Results
12/16/24
06:45
Sodium 135
Potassium 3.8
Chloride 91 L
Carbon Dioxide 35 H
BUN 23 H
Creatinine 1.4 H
Glucose 168 H
Calcium 9.2
Vital Signs:
Vital Signs
Temp Pulse Resp BP Pulse Ox
98.0 F 67 20 101/62 98
12/16/24 08:31 12/16/24 08:31 12/16/24 08:31 12/16/24 08:31 12/16/24 08:31
I&O
12/15/24 12/16/24 12/17/24
06:59 06:59 06:59
Intake Total 1800 / 1800 1679 / 1679
Balance 1800 / 1800 1679 / 1679
Review of Systems
-
History Source: Patient
Constitutional: Reports No Symptoms
Respiratory: Reports No Symptoms
Cardiac: Reports No Symptoms
Abdomen/GI: Reports No Symptoms
Neuro: Reports No Symptoms
Physical Exam
-
General: No Apparent Distress, Comfortable and Morbidly Obese
HEENT: Normocephalic, Atraumatic and Anicteric
Respiratory: Clear to Auscultation and Non Labored Respirations; Negative Wheezes, Rales or Rhonchi
Cardiac: Regular Rhythm, S1/S2 and Murmur
GI: Soft and Nontender
Musculoskeletal: No Clubbing, No Cyanosis, Edema, Right Lower Extrem, Edema, Left Lower Extrem and Other (chronic lymphedema, no pitting edema)
Skin: Warm and Dry
Neuro: Awake, Alert and Oriented
Psych: Calm
Data Reviewed
-
Labs: Labs Reviewed by me and Discussed with Patient
[2024-12-16 11:35] VITALS: BP 102/42
[2024-12-16 12:48] LABS: Glucose - Point of Care 244 mg/dl (70-99)
[2024-12-16] MEDS: NOVOLOG FLEXPEN-LOW RESISTANCE 2 UNITS SC ×2 (12:48→16:59)
--- NOTE | 2024-12-16 12:57 | W.PN.UPDATE ---
Update Note
Progress Note Update
I saw and evaluated the patient. I reviewed the resident�s note and agree with findings and plan as documented in the resident�s note.
Denies chest pain or shortness of breath.
Gen: NAD, AAOx3.
Eyes: EOMI, PERRLA, no scleral icterus.
Neck: supple.
CV: Continues to remain RRR, +S1/S2, no m/r/g.
Resp: Remains CTAB anteriorly, no rales, wheezes, or rhonchi.
Skin: No rashes.
Neuro: Continues to remain CN 2-12 intact, non-focal.
Psych: Normal mood and affect.
CXR:
1. Mild cardiomegaly.
2. Mild interstitial prominence, suggestive of mild pulmonary vascular congestion.
Echo: Normal LV size with mildly reduced systolic function.
LVEF is 40-45% by visual estimation. Global diffuse hypokinesis.
Normal right ventricular size and function.
Mild mitral regurgitation.
Mild tricuspid regurgitation.
Estimated pulmonary artery pressure of 32 mmHg, assuming a right atrial
pressure of 3 mmHg.
No prior study available for comparison.
Chest pain, noncardiac:
-Trops NEG x 4
-ECG (read by me)) SR with 1st deg AVB @ 77, L-axis, RBBB
-obtain records (cath) from [facility] from Oct 2024
-cards following
Acute on chronic HFrEF:
-echo above
-diuresed with IV lasix, d/c on Lasix 40mg PO daily
-GDMT: Aldactone/BB/ACEi
-No ARNI/SGLT2i due to hypotension and altered renal fxn (CKD2)
-case discussed with Dr. White over [employer] and the pt is medically cleared for d/c.
Other problems:
Hypokalemia: resolved with repletion
PAF: cont Xarelto
DM2: a1c 6.7%, SSI/accuchecks
Morbid obesity due to excess calories
Normocytic anemia: B12, folate, Fe studies normal
Renal insufficiency, baseline Cr unknown, awaiting outside records
Lumbar DDD
History of Cauda Equina Syndrome
Urinary Retention: cont Flomax
Chronic Left Drop Foot
GERD: cont H2 kassy for now but will restart PPI prior to d/c
Sarcoidosis
Major depression: cont ziprasidone/lamotrigine
DNR/Xarelto
Medically cleared for discharge. Case management aware.
[2024-12-16] MEDS: AFLURIA (36 mos+) 2024-2025 FORMULA 0.5 ML IM (14:13)
--- NOTE | 2024-12-16 14:42 | CM ---
flight operations manager reviewed patient's chart and received a consult from physician that he is clearly patient for discharge today, patient was admitted from [facility] in [place], patient requires 2 liters of oxygen at assisted and assistance with
ambulation, foster care case manager reached out to Joanne and sent referral through [employer], [facility] is aware that patient has refused physical therapy today and foster care case manager is unable to get skilled time. Transport by ambulance.
[facility]
[phone] 1st floor
--- NOTE | 2024-12-16 15:59 | W.DCSUMMARY ---
Discharge Summary
Discharge Data
Date of Admission: 12/14/24
Date of Discharge: 12/16/24
-
Pending Results: No
Hospital Course
Birgit Forrest is a 63 year old female with a past medical history of diabetes, atrial fibrillation, multiorgan sarcoidosis, morbid obesity, heart failure with reduced ejection fraction and a recent cardiac catheterization without evidence of
ischemia who presented to [facility] on 12/14/24 with chest pain. The patient lives in a detention and endorsed a history of chest pain that is usually alleviated by medication given by staff, however on this occasion the chest pain woke
her from sleep and did not subside with medication. The pain was located anteriorly, and inferior to her left breast and was worsened by deep breathing.
ED COURSE
Remarkable laboratory studies in the Emergency Department included a potassium of 2.4 and a creatinine of 1.6. Chest x-ray revealed mild pulmonary vascular congestion. ECG revealed sinus rhythm with a first degree atrioventricular block with
occasional pre-ventricular contractions, evidence of old ischemia but no evidence of acute ischemic disease. The patient was admitted for further cardiologic work up and repletion of hypokalemia.
HOSPITAL COURSE
The patient's hypokalemia was repleted with approximately 120 mEQ of potassium over the first 36 hours of admission. With regards to her chest pain, it was likely caused by a musculoskeletal pain. Regardless, the also received an echocardiogram
which revealed an ejection fraction of 40-45% by visual estimation and global diffuse hypokinesis. The patient was subsequently started on goal directed medical therapy with Lasix, Spironolactone, Metoprolol, and lisinopril. Her home medication
Bumex, was discontinued. The patient tolerated these treatments well. 81 mg aspirin was also added to the patient's medication regimen.
DISCHARGE RECOMMENDATIONS
Continue physical and occupational therapy rehabilitation at the retirement facility.
Bumex was discontinued. The patient was started on goal directed medical therapy with Lasix, Spironolactone, Lisinopril, and Metoprolol. Metoprolol should be held if the patient's systolic blood pressure is less than 100 mmHg.
The patient's fluid intake should be restricted to less than 1500 mL per day.
The patient should get a basic metabolic panel in 1 week to monitor electrolytes and kidney function.
The patient should follow up with her primary care provider in less than 1 week.
The patient has established care with the cardiology team at the hospital, and should arrange a follow up appointment.
Prior to discharge, the patient complained of right foot pain without mechanism of injury. The patient should follow up with MD at the retirement facility, and evaluated by a log marker.
Discharge Plan
-
Patient Disposition: Intermediate/SNF
Discharge Diagnosis/Procedures: Non-ischemic cardiomyopathy
Condition: Fair
Diet: Diabetic, Carb Controlled
Additional Diets: fluid restrict to 1500cc/day
Activity: With assistance and As tolerated
Driving Restrictions: No driving
Blood Work: BMP 1 week, script from PCP
Activity Restrictions/Additional Instructions:
Wound Care Instructions
LLQ wound-clean with saline or soap and water, silicone border foam, change q 3 days and prn loosened dressing (add adaptic prn adherent dressing).
Desenex powder to breast/groin folds, sacral crease bid.
Elevate heels off bed with pillows
Pressure redistributing chair cushion (i.e. Air, gel)
Follow up with wound resident care manager or at wound care center call for an appointment.
Referrals:
Thanh Mesa MD [Active] -
UNKNOWN - PT DOES,NOT KNOW [Family Provider] - in less than 1 week
Prescriptions:
New
spironolactone 25 mg Tablet
12.5 mg PO DAILY Qty: 30 0RF
aspirin 81 mg Tablet,Chewable
81 mg PO DAILY Qty: 30 0RF
metoprolol succinate 25 mg Tablet Extended Release 24 Hr
12.5 mg PO DAILY Qty: 30 0RF
lisinopril 2.5 mg Tablet
2.5 mg PO DAILY Qty: 30 0RF
furosemide [Lasix] 40 mg tablet
40 mg PO DAILY Qty: 30 0RF
Continued
atorvastatin 40 mg Tablet
40 mg PO HS
acetaminophen 325 mg Tablet
650 mg PO Q6HPRN PRN (Reason: mild pain / temp > 100.4)
baclofen 10 mg Tablet
10 mg PO TIDPRN PRN (Reason: spasms)
lidocaine 4 % Adhesive Patch,Medicated
1 patch TOPICAL DAILYPRN PRN (Reason: right shoulder)
doxepin 25 mg Capsule
25 mg PO HSPRN PRN (Reason: insomnia)
triamcinolone acetonide 0.1 % Cream
1 applic TOPICAL BID
lamotrigine 25 mg Tablet
25 mg PO DAILY
famotidine 20 mg Tablet
20 mg PO BID
tamsulosin 0.4 mg Capsule
0.4 mg PO DAILY
bisacodyl 10 mg Suppository
10 mg WV DAILYPRN PRN (Reason: if no bm aftr mom)
pantoprazole 40 mg Tablet,Delayed Release (Dr/Ec)
40 mg PO BID
ziprasidone HCl 40 mg Capsule
40 mg PO BID
nystatin 100,000 unit/gram Powder
1 applic TOPICAL BID
insulin lispro [Humalog U-100 Insulin] 100 unit/mL Solution
1 sliding scale dose SC ACHS
cholecalciferol (vitamin D3) 25 mcg (1,000 unit) Tablet
25 mcg PO DAILY
rivaroxaban 20 mg Tablet
20 mg PO QPM
hydroxyzine pamoate 25 mg Capsule
25 mg PO Q6HPRN PRN (Reason: anxiety)
hydroxyzine pamoate 25 mg Capsule
25 mg PO BID
Held
Fleet Enema 19-7 gram/118 mL Enema
118 ml WV DAILYPRN PRN (Reason: if no bm aftr dulolcax)
Hold Instructions: Possible interaction with new goal directed medical management. Hold until seen by primary care provider.
Discontinued
bumetanide 1 mg Tablet
1 mg PO DAILY
Discharge Orders:
Discharge Patient (As Directed); Ordered 12/16/24
Ordered By: Julio Cesar Singer
Discharge Date and Time
Print Language: ALGERIAN
[2024-12-16 16:16] VITALS: BP 93/50
[2024-12-16] MEDS: TYLENOL 650 MG PO (16:52)
[2024-12-16 16:59] LABS: Glucose - Point of Care 219 mg/dl (70-99)
[2024-12-16] MEDS: XARELTO 20 MG PO (18:44)
== END 2024-12-16 19:48 | DRG 314 ==
LOC: 4 WEST ACU 06:14
PROVIDERS: Nurse Practitioner Family; ADMITTING PHYSICIAN Hospitalist; ATTENDING PHYSICIAN Internal Medicine; CONSULT PHYSICIAN Internal Medicine Cardiovascular Disease; EMERGENCY PHYSICIAN Student in an Organized Health Care Education/Training Program
DX: I42.8 Other cardiomyopathies (principal); I50.23 Acute on chronic systolic (congestive) heart failure; I50.22 Chronic systolic (congestive) heart failure; Z68.41 Body mass index [BMI] 40.0-44.9, adult; F32.9 Major depressive disorder, single episode, unspecified; E11.43 Type 2 diabetes mellitus with diabetic autonomic (poly)neuropathy; E11.22 Type 2 diabetes mellitus with diabetic chronic kidney disease; N18.9 Chronic kidney disease, unspecified; E87.6 Hypokalemia; E66.01 Morbid (severe) obesity due to excess calories; Z66 Do not resuscitate; I48.0 Paroxysmal atrial fibrillation; Z79.01 Long term (current) use of anticoagulants; I45.10 Unspecified right bundle-branch block; K21.9 Gastro-esophageal reflux disease without esophagitis; D64.9 Anemia, unspecified; D86.9 Sarcoidosis, unspecified; K31.84 Gastroparesis; M79.671 Pain in right foot
CPT/HCPCS: 71046; 80048; 80053; 82607; 82746; 82962; 83036; 83540; 83550; 83735; 83880; 84443; 84484; 85025; 85045; 85379; 85610; 85730; 93005; 93306; 96365; 96366; 96375; 99285; Q9950

== ENCOUNTER 2024-12-28 19:24 | Emergency (ER) | payer OTHER, SELFPAY ==
[2024-12-28 19:31] VITALS: BP 78/48; BMI 46.2
[2024-12-28 19:34] VITALS: BP 97/67
[2024-12-28 20:21] LABS: % Basophils 0.4 % (0-2); % Eosinophils 3.5 % (0-6); % Immature Granulocytes 0.4 % (0-0.5); % Monocytes 8.3 % (1.7-9.3); % Neutrophils 69.4 % (42.2-75.2); Absolute Eosinophils 0.2 10^3/uL (0-0.7); Absolute Lymphocytes 1.2 10^3/uL (1.2-3.4); Absolute Monocytes 0.6 10^3/uL (0.1-0.6); Absolute Neutrophils 4.7 10^3/uL (1.4-6.5); Hematocrit 29.8 % (37.0-47.0); Hemoglobin 9.6 g/dL (12.0-16.0); Mean Corp Hgb Conc. 32.2 g/dL (33.0-37.0); Mean Corpuscular Hgb 28.5 pg (27.0-31.0); Mean Corpuscular Volume 88.4 fL (81.0-99.0); Nucleated Red Blood Cells % 0 %; Platelet Count 246 10^3/uL (130-400); Red Blood Cell Count 3.37 10^6/uL (4.20-5.40); Red Cell Dist. Width 13.7 % (11.5-14.5); White Blood Cell Count 6.8 10^3/uL (4.8-10.8)
[2024-12-28 20:32] LABS: Lactic Acid 1.4 mmol/L (0.7-2.0)
[2024-12-28 20:50] LABS: ALT (SGPT) 19 U/L (0-35); AST (SGOT) 19 U/L (14-36); Albumin 3.7 g/dl (3.5-5.0); Alkaline Phosphatase 370 U/L (38-126); Blood Urea Nitrogen 25 mg/dl (7-17); Calcium 8.9 mg/dl (8.4-10.2); Carbon Dioxide 29 mmol/L (22-30); Chloride 101 mmol/L (98-107); Estimated Creatinine Clearance 54 ml/min; Glucose 191 mg/dl (70-99); Potassium 3.5 mmol/L (3.5-5.1); Sodium 135 mmol/L (135-145); Total Bilirubin 0.6 mg/dl (0.2-1.3); Total Protein 5.9 g/dl (6.3-8.2); eGFR 39.16
[2024-12-28 22:00] VITALS: BP 111/46
--- NOTE | 2024-12-28 22:06 | ED.GENMED ---
History of Present Illness
General
Chief Complaint: Abdominal Pain
Source: patient
Exam Limitations: none
Time Seen by Provider: 12/28/24 19:30
History of Present Illness
History of Present Illness:
64-year-old female presents with painful hernias to the abdomen. These are ongoing but the pain increased today and she was concerned for potential obstruction. She denies vomiting. She has been moving her bowels. No fever. No other complaints
at this time
Phy Exam
Physical Exam
Physical Exam:
General: Well-appearing female no acute respiratory distress
HEENT: Normocephalic atraumatic
Heart: Regular rate and rhythm no murmurs
Lungs: Clear no wheeze
Abdomen: Obese soft slightly tender over multiple hernia sites most tender over the left lower quadrant. The hernia she has on her abdomen are soft otherwise. Bowel sounds normal
Extremities: No cyanosis or edema
Course
Orders/Labs/Results
Orders:
Orders
12/28/24 19:37
CT Abd/pelvis W Iv Cont Urgent
Comment:
Reason For Exam: painful hernia
12/28/24 20:15
Complete Blood Count/With Diff Urgent
Comprehensive Metabolic Panel Urgent
Lactic Acid Urgent
Abnormal Lab Results
12/28/24
20:15
RBC 3.37 L 10^6/uL
(4.20-5.40)
Hgb 9.6 L g/dL
(12.0-16.0)
Hct 29.8 L %
(37.0-47.0)
MCHC 32.2 L g/dL
(33.0-37.0)
Lymphocytes % 18.0 L %
(20.5-51.1)
BUN 25 H mg/dl
(7-17)
Creatinine 1.5 H mg/dL
(0.6-1.0)
Glucose 191 H mg/dl
(70-99)
Alkaline Phosphatase 370 H U/L
(38-126)
Total Protein 5.9 L g/dl
(6.3-8.2)
12/28/24 20:15
12/28/24 20:15
Vital Signs
Initial and Last Documented VS:
Initial Vital Signs
Temp
97.6 F
12/28/24 19:27
Last Documented Vital Signs
Temp Pulse Resp BP Pulse Ox
97.6 F 67 18 97/67 92
12/28/24 19:27 12/28/24 20:45 12/28/24 20:45 12/28/24 19:34 12/28/24 20:45
MDM/Problems Addressed
Differential Diagnosis Includes:
Abdominal discomfort over multiple hernias. Concern for obstruction versus incarceration. No skin changes. CT scan of the abdomen shows multiple hernias without evidence of incarceration or obstruction
Reexamined patient she is sleeping comfortably in the room but woke her up and made her aware of these findings. She was reassured. Will be discharged back to [facility]
*Critical Care Note
Total Time (30-74mins, 75-104mins- exclusive of procedures): Not Applicable
ED Attending Note
-
Portions of this chart may have been created with voice recognition software.� Occasional wrong word or��sound alike� substitutions may have occurred due to the inherent limitations of voice recognition software.
Discharge Plan
Departure
Patient Disposition: Home (Routine Discharge)
Date of Disposition: 12/28/24
Time of Disposition: 22:09
Patient with high blood pressure during this ER visit?: No
Discharge Problem:
Hernia
Prescriptions:
No Action
atorvastatin 40 mg Tablet
40 mg PO HS
acetaminophen 325 mg Tablet
650 mg PO Q6HPRN PRN (Reason: mild pain / temp > 100.4)
baclofen 10 mg Tablet
10 mg PO TIDPRN PRN (Reason: spasms)
lidocaine 4 % Adhesive Patch,Medicated
1 patch TOPICAL DAILYPRN PRN (Reason: right shoulder)
doxepin 25 mg Capsule
25 mg PO HSPRN PRN (Reason: insomnia)
triamcinolone acetonide 0.1 % Cream
1 applic TOPICAL BID
lamotrigine 25 mg Tablet
25 mg PO DAILY
famotidine 20 mg Tablet
20 mg PO BID
tamsulosin 0.4 mg Capsule
0.4 mg PO DAILY
bisacodyl 10 mg Suppository
10 mg HI DAILYPRN PRN (Reason: if no bm aftr mom)
pantoprazole 40 mg Tablet,Delayed Release (Dr/Ec)
40 mg PO BID
ziprasidone HCl 40 mg Capsule
40 mg PO BID
nystatin 100,000 unit/gram Powder
1 applic TOPICAL BID
insulin lispro [Humalog U-100 Insulin] 100 unit/mL Solution
1 sliding scale dose SC ACHS
cholecalciferol (vitamin D3) 25 mcg (1,000 unit) Tablet
25 mcg PO DAILY
rivaroxaban 20 mg Tablet
20 mg PO QPM
Fleet Enema 19-7 gram/118 mL Enema
118 ml [place] DAILYPRN PRN (Reason: if no bm aftr dulolcax)
hydroxyzine pamoate 25 mg Capsule
25 mg PO Q6HPRN PRN (Reason: anxiety)
hydroxyzine pamoate 25 mg Capsule
25 mg PO BID
spironolactone 25 mg Tablet
12.5 mg PO DAILY Qty: 30 0RF
aspirin 81 mg Tablet,Chewable
81 mg PO DAILY Qty: 30 0RF
metoprolol succinate 25 mg Tablet Extended Release 24 Hr
12.5 mg PO DAILY Qty: 30 0RF
lisinopril 2.5 mg Tablet
2.5 mg PO DAILY Qty: 30 0RF
furosemide [Lasix] 40 mg tablet
40 mg PO DAILY Qty: 30 0RF
Referrals:
Eladio Greer, [Family Provider] -
Activity Restrictions/Additional Instructions:
As discussed, you have multiple hernias but none of these are new and there is no concerning findings on the CAT scan. Return if needed
Interventions
Interventions:
*Risk Screen - Suicide Last Done: 12/28/24 19:30
*General Assessment Last Done: 12/28/24 19:30
*Neglect/Abuse Screening Last Done: 12/28/24 19:30
*ED COVID-19 Vaccine History Last Done: 12/28/24 19:31
FF-Odgije-Ellfmflwgi Assessment Last Done: 12/28/24 19:32
Discharge Date and Time
Print Language: YAKUT
[2024-12-28 23:00] VITALS: BP 110/56
[2024-12-29] VITALS: BP 124/58
[2024-12-29 01:00] VITALS: BP 117/66
== END 2024-12-29 01:35 | disposition home or self-care (01) ==
LOC: EMR 19:24
PROVIDERS: Physician Assistant; EMERGENCY PHYSICIAN Emergency Medicine; FAMILY PHYSICIAN Internal Medicine
DX: K43.9 Ventral hernia without obstruction or gangrene (principal); Z90.49 Acquired absence of other specified parts of digestive tract
CPT/HCPCS: 99284; 74177; 80053; 83605; 85025; Q9967

== ENCOUNTER 2025-02-13 19:02 | Emergency (ER) | payer OTHER, SELFPAY ==
[2025-02-13] VITALS (10 sets, daily range): BP systolic 75–134; BP diastolic 45–93; BMI 44.1
[2025-02-13 19:34] LABS: COVID-19 Antigen Negative (Negative)
[2025-02-13 20:29] LABS: % Basophils 0.4 % (0-2); % Immature Granulocytes 0.3 % (0-0.5); % Monocytes 10.1 % (1.7-9.3); % Neutrophils 67.2 % (42.2-75.2); Absolute Eosinophils 0.2 10^3/uL (0-0.7); Absolute Lymphocytes 1.3 10^3/uL (1.2-3.4); Absolute Monocytes 0.7 10^3/uL (0.1-0.6); Absolute Neutrophils 4.5 10^3/uL (1.4-6.5); Hematocrit 30.6 % (37.0-47.0); Hemoglobin 10.2 g/dL (12.0-16.0); Mean Corp Hgb Conc. 33.3 g/dL (33.0-37.0); Mean Corpuscular Hgb 28.3 pg (27.0-31.0); Mean Platelet Volume 9.7 fL (7.4-10.4); Nucleated Red Blood Cells % 0 %; Platelet Count 226 10^3/uL (130-400); Red Cell Dist. Width 13.5 % (11.5-14.5); White Blood Cell Count 6.7 10^3/uL (4.8-10.8)
[2025-02-13 20:50] LABS: ALT (SGPT) 33 U/L (0-35); AST (SGOT) 33 U/L (14-36); Albumin 4.1 g/dl (3.5-5.0); Alkaline Phosphatase 428 U/L (38-126); Blood Urea Nitrogen 48 mg/dl (7-17); Carbon Dioxide 24 mmol/L (22-30); Chloride 105 mmol/L (98-107); Estimated Creatinine Clearance 46 ml/min; Glucose 165 mg/dl (70-99); Potassium 4.1 mmol/L (3.5-5.1); Sodium 139 mmol/L (135-145); Total Bilirubin 0.5 mg/dl (0.2-1.3); Total Protein 6.4 g/dl (6.3-8.2)
[2025-02-13 21:19] LABS: Creatine Phosphokinase 22 U/L (30-135)
[2025-02-13] MEDS: NORCO 5/325 1 TABLET PO (21:35)
[2025-02-13 21:58] LABS: Urine Albumin Negative (Neg - Trace); Urine Bilirubin Negative (Negative); Urine Character Clear (Clear); Urine Color Yellow; Urine Glucose Negative (Negative); Urine Ketone Negative (Negative); Urine Leukocyte 3+ (Negative); Urine Nitrite Negative (Negative); Urine Occult Blood Negative (Negative); Urine Urobilinogen Negative (Neg - 1+)
[2025-02-13 22:13] LABS: Urine Bacteria Many (Negative); Urine Red Blood Cell 0-2 /HPF (0-2); Urine White Cell 26-30 /HPF (0-5)
[2025-02-13] MEDS: NSS 1000 IV (22:33)
[2025-02-13] MEDS: ROCEPHIN 1000 MG IV (22:33)
--- NOTE | 2025-02-13 23:10 | ED.GENMED ---
History of Present Illness
General
Chief Complaint: Cold/Flu/URI Symptoms
Time Seen by Provider: 02/13/25 19:32
History of Present Illness
History of Present Illness:
64-year-old female presents to the emergency department from [facility] due to flulike symptoms for the past 24 hours. She reports body aches and general malaise. She is also been coughing for the past 2 weeks. No chest pain,
nausea, or vomiting. She does note that due to recent low blood pressures she has had her beta-blockers and diuretics held however did resume these again today
Review of Systems
Review of Systems
Allergies reviewed?: Yes
All Other Systems: ROS reviewed and negative except as documented in HPI and ROS
Phy Exam
Physical Exam
Physical Exam:
GEN: Well appearing, NAD, WDWN
HEENT: Oral mucosa moist, no scleral icterus
Cardiac: Regular rate
Lung: No respiratory distress, no tachypnea
Abdomen: Grossly soft and nontender obesity limits exam
MSK: No gross deformity or injuries
Skin: Good color, no pallor or jaundice, no rashes
Neuro: AO x3, moves all extremities freely
Psych: Calm, cooperative
Course
Orders/Labs/Results
Orders:
Orders
02/13/25 19:08
COVID-19 Antigen Urgent
Source: Nasal Swab
Influenza A+B Rapid Molecular Urgent
ROZINA Source: Nasal Swab
Specimen Description:
02/13/25 19:52
CR Chest - 2 Views Urgent
Comment:
Reason For Exam: cough
02/13/25 20:08
Complete Blood Count/With Diff Urgent
Comprehensive Metabolic Panel Urgent
Creatine Phosphokinase Urgent
Comment: ADD ON
02/13/25 20:56
Add On- LAB Urgent
Tests Added?: CPK
02/13/25 21:25
Hydrocodone 5/APAP 325 [[place] 5/325] 1 tablet PO NOW STA
02/13/25 21:48
Urinalysis Reflex To Culture Urgent
Date Specimen was Collected: 02/13/25
Time Specimen was Collected: 20:16
Urine Microscopic Reflex Cult Urgent
Urine Culture Urgent
ROZINA Source: U
Specimen Description:
Date Specimen was Collected: 02/13/25
Time Specimen was Collected: 20:16
02/13/25 22:09
Fosfomycin [Monurol] 3 gm PO ONCE ONE
02/13/25 22:29
CT Abd/pel Without Iv Or Oral Urgent
Comment:
Reason For Exam: UTI, SIMÓN
02/13/25 22:30
0.9% Sodium Chloride 1000 ml [Nss] 1,000 ml IV BOLUS
CefTRIAXone [Rocephin] 1,000 mg IV NOW STA
Abnormal Lab Results
02/13/25 02/13/25
20:08 21:48
RBC 3.60 L 10^6/uL
(4.20-5.40)
Hgb 10.2 L g/dL
(12.0-16.0)
Hct 30.6 L %
(37.0-47.0)
Absolute Monos (auto) 0.7 H 10^3/uL
(0.1-0.6)
Lymphocytes % 19.0 L %
(20.5-51.1)
Monocytes % 10.1 H %
(1.7-9.3)
BUN 48 H mg/dl
(7-17)
Creatinine 1.7 H mg/dL
(0.6-1.0)
Glucose 165 H mg/dl
(70-99)
Alkaline Phosphatase 428 H U/L
(38-126)
Creatine Kinase 22 L U/L
(30-135)
Leukocyte Esterase Rfl 3+ A
(Negative)
Urine WBC (Reflex) 26-30 A /HPF
(0-5)
Urine Bacteria (Reflex) Many A
(Negative)
02/13/25 20:08
02/13/25 20:08
Vital Signs
Initial and Last Documented VS:
Initial Vital Signs
Temp Pulse Resp BP Pulse Ox
98.6 F 64 20 134/93 96
02/13/25 19:03 02/13/25 19:03 02/13/25 19:03 02/13/25 19:03 02/13/25 19:03
Last Documented Vital Signs
Temp Pulse Resp BP Pulse Ox
98.6 F 65 15 100/55 94
02/13/25 19:03 02/13/25 23:00 02/13/25 23:00 02/13/25 23:00 02/13/25 22:55
MDM/Problems Addressed
MDM/Problems Addressed:
No evidence of obstructive uropathy. Patient's blood pressure was quite low at times however improved rapidly with IV fluids. Likely medication effect, will recommend to care home to continue to hold beta-blockers but may continue diuretics.
Will start on antibiotics, suitable for discharge home as she has no signs of sepsis
*Critical Care Note
Total Time (30-74mins, 75-104mins- exclusive of procedures): Not Applicable
ED Attending Note
-
Portions of this chart may have been created with voice recognition software.� Occasional wrong word or��sound alike� substitutions may have occurred due to the inherent limitations of voice recognition software.
Discharge Plan
Departure
Patient Disposition: Home (Routine Discharge)
Date of Disposition: 02/13/25
Time of Disposition: 23:14
Patient with high blood pressure during this ER visit?: No
Discharge Problem:
UTI (urinary tract infection)
Instructions: Urinary tract infections in adults
Prescriptions:
New
cefdinir 300 mg capsule
300 mg PO Q12H 6 Days Qty: 12 0RF
No Action
atorvastatin 40 mg Tablet
40 mg PO HS
acetaminophen 325 mg Tablet
650 mg PO Q6HPRN PRN (Reason: mild pain / temp > 100.4)
baclofen 10 mg Tablet
10 mg PO TIDPRN PRN (Reason: spasms)
lidocaine 4 % Adhesive Patch,Medicated
1 patch TOPICAL DAILYPRN PRN (Reason: right shoulder)
doxepin 25 mg Capsule
25 mg PO HSPRN PRN (Reason: insomnia)
triamcinolone acetonide 0.1 % Cream
1 applic TOPICAL BID
lamotrigine 25 mg Tablet
25 mg PO DAILY
famotidine 20 mg Tablet
20 mg PO BID
tamsulosin 0.4 mg Capsule
0.4 mg PO DAILY
bisacodyl 10 mg Suppository
10 mg CA DAILYPRN PRN (Reason: if no bm aftr mom)
pantoprazole 40 mg Tablet,Delayed Release (Dr/Ec)
40 mg PO BID
ziprasidone HCl 40 mg Capsule
40 mg PO BID
nystatin 100,000 unit/gram Powder
1 applic TOPICAL BID
insulin lispro [Humalog U-100 Insulin] 100 unit/mL Solution
1 sliding scale dose SC ACHS
cholecalciferol (vitamin D3) 25 mcg (1,000 unit) Tablet
25 mcg PO DAILY
rivaroxaban 20 mg Tablet
20 mg PO QPM
Fleet Enema 19-7 gram/118 mL Enema
118 ml CA DAILYPRN PRN (Reason: if no bm aftr dulolcax)
hydroxyzine pamoate 25 mg Capsule
25 mg PO Q6HPRN PRN (Reason: anxiety)
hydroxyzine pamoate 25 mg Capsule
25 mg PO BID
spironolactone 25 mg Tablet
12.5 mg PO DAILY Qty: 30 0RF
aspirin 81 mg Tablet,Chewable
81 mg PO DAILY Qty: 30 0RF
metoprolol succinate 25 mg Tablet Extended Release 24 Hr
12.5 mg PO DAILY Qty: 30 0RF
lisinopril 2.5 mg Tablet
2.5 mg PO DAILY Qty: 30 0RF
furosemide [Lasix] 40 mg tablet
40 mg PO DAILY Qty: 30 0RF
Referrals:
Eladio Greer, [Family Provider] -
Activity Restrictions/Additional Instructions:
Please hold patient's beta-kassy until further follow-up with in-house physician due to low blood pressures, please start antibiotic as soon as possible
Interventions
Interventions:
*Risk Screen - Suicide Last Done: 02/13/25 19:03
*General Assessment Last Done: 02/13/25 22:30
*Neglect/Abuse Screening Last Done: 02/13/25 19:03
*ED- Fall Risk Assessment Last Done: 02/13/25 22:30
*ED COVID-19 Vaccine History Last Done: 02/13/25 22:30
ED- Pulmonary Assessment Last Done: 02/13/25 19:33
Discharge Date and Time
Print Language: DIVEHI
[2025-02-14 00:11] VITALS: BP 106/56
== END 2025-02-14 00:23 | disposition home or self-care (01) ==
LOC: EMR 19:02
PROVIDERS: Emergency Medicine; Physician Assistant; EMERGENCY PHYSICIAN Emergency Medicine; FAMILY PHYSICIAN Internal Medicine
DX: N39.0 Urinary tract infection, site not specified (principal); N17.9 Acute kidney failure, unspecified
CPT/HCPCS: 99284; 96374; 96361; 71046; 74176; 80053; 81003; 81015; 82550; 85025; 87086; 87502; 87811

== ENCOUNTER 2025-03-10 23:46 | Inpatient (IN) | payer OTHER, SELFPAY ==
[2025-03-10 19:06] VITALS: BP 82/59
--- NOTE | 2025-03-10 19:16 | ED.GENMED ---
History of Present Illness
General
Chief Complaint: Chest Pain
Source: patient
Exam Limitations: none
Time Seen by Provider: 03/10/25 19:00
History of Present Illness
History of Present Illness:
64-year-old female complaining of ongoing abdominal symptoms throughout the week. Did have a bowel movement today with some improvement in symptoms. However felt lightheaded noted to be hypotensive. Then developed chest pain. Chest pain radiates
slightly to the left shoulder. Some ongoing nausea but that has been there throughout the week no upper back pain shearing pain shortness of breath bloody or tarry stools.
Past History
Past History
ED Past Medical History: Arrthythmia, CHF, Hypercholesterolemia, IDDM and Other (Sarcoidosis)
ED Past Surgical History: Other (Hernia repair)
Review of Systems
Review of Systems
All Other Systems: Not applicable
Constitutional: Denies fever
Respiratory: Denies cough
ABD/GI: Denies diarrhea, bloody stools or black stools
Phy Exam
Physical Exam
Physical Exam:
GENERAL: Alert and oriented in no apparent distress
EYE: Orbits normal.
NECK: Supple
CARDIAC: Regular rhythm and rate
LUNGS: Clear breath sounds,normal
ABDOMEN: Soft, elevated BMI. Multiple abdominal scars and multiple abdominal wall hernias easily reducible but with some tenderness. No erythema. No rebound or guarding no mass or hernia
SKIN: Warm and dry, no rash or lesion, no discoloration, skin intact.
MUSCULOSKELETAL: No edema,no deformity.Good color
PSYCH: Normal and appropriate interaction.
Scores
Heart Score for Chest Pain Patients
STEMI patient?: No
History: Slightly or Non-Suspicious
ECG: Normal
Age: >45 - <65 years
Risk Factors: 1 or 2 Risk Factors
Troponin: </= Normal Limit
Heart Score for Chest Pain Patients: 2
Heart Score Risk: 2.5% MACE over next 6 weeks
Course
Orders/Labs/Results
Orders:
Orders
03/10/25 19:01
EKG [Electrocardiogram (*1)] Urgent
Reason for Study: Chest Pain
EKG- Treatment ONCE
03/10/25 19:02
Cardiac Monitoring- Treatment ONCE
IV Insert/Care/Rem.- Treatment PRN
O2 Therapy [RESP] Urgent
Titrate/Wean O2 to maintain O2 sat greater than (%): 93
Special Instructions: TO MAINTAIN CONTINUOUS O2 SATS >/= 93%
Pulse Ox/cont/shift [RESP] Urgent
Quantity: 1
Special Instructions: continuous pulse ox
03/10/25 19:10
CXR2 [CR Chest - 2 Views ] Urgent
Comment:
Reason For Exam: cp
03/10/25 19:11
CT Abd/pel Without Iv Or Oral Urgent
Comment:
Reason For Exam: Diffuse abdominal pain/hypotension
0.9% Sodium Chloride 500 ml [Nss] 500 ml IV BOLUS
03/10/25 19:49
Complete Blood Count/With Diff Urgent
Comprehensive Metabolic Panel Urgent
Lipase Urgent
NT-proBNP Urgent
Troponin I Urgent
03/10/25 22:40
EKG [Electrocardiogram (*1)] Urgent
Reason for Study: Chest Pain
EKG- Treatment ONCE
03/10/25 22:51
Troponin I Urgent
03/10/25 23:00
Flush (0.9% Sodium Chloride) [Flush (Nss)] See Dose Instructions IV PER PROTOCOL
03/10/25 23:23
Ampicillin/Sulbactam 3 G [Unasyn] 3 gm 0.9% Sodium Chloride 100 ml [Nss] 100 ml IV NOW
03/10/25 23:34
STOOL [C difficile Antigen & Toxins] Urgent
ROZINA Source: Feces/Stool
Specimen Description:
Date Specimen was Collected: 03/10/25
Time Specimen was Collected: 23:28
Stool Culture Urgent
ROZINA Source: Feces/Stool
Specimen Description:
Date Specimen was Collected: 03/10/25
Time Specimen was Collected: 23:28
03/10/25 23:37
Admit/Transfer Patient As Directed
Co-Sign Provider:
Level of Care: Inpatient admission
Assign to:: Telemetry
Physician / Group: lilly
Diagnosis: protocolitis
Reason for Telemetry: Arrhythmia
Date to Stop Telemetry: 03/13/25
Time to Stop Telemetry: 11:00
Reason for Hospitalization: proctocolitis
Expected length of stay greater than two midnights?: Yes
ELOS- Estimated Length of Stay in days: 2
I certify the patient meets the requirements for IP care: Yes
PRN Pain Medication Management As Directed
May give lesser potent ordered pain med per pt: Yes
preference::
Protocol:: Medication orders for pain may be administered in a
manner that supports deferring to patient preference
when the pt is:
- Requesting an ordered lesser potent pain medication.
Least to most potent pain medications are defined
as: acetaminophen < NSAID < tramadol < opioids
(morphine, oxycodone, hydromorphone).
- Requesting a lesser dose of the same medication IF
ORDERED.
- Requesting a less intrusive route of administration
if both routes are prescribed by the provider (PO <
IV).
03/10/25 23:38
Code Status As Directed
Resuscitation Status: Do not resuscitate
Reached after discussion with pt or family/Healthcare POA: Yes
DNR Bracelet Application ONCE
03/11/25 00:36
Acetaminophen [Tylenol] 650 mg PO Q4HPRN PRN
Baclofen [Lioresal] 10 mg PO TIDPRN PRN
Dextrose 50%-Water [Dextrose 50% Syringe] 12.5 grams IV [id number] PRN
Glucagon [GlucaGen] 1 mg IM PRN PRN
HydrOXYZINE [Atarax] 25 mg PO Q6HPRN PRN
03/11/25 00:36
GASTROINTESTINAL CONSULT Routine
Consulting Provider: Tere Concepcion
Was physician already notified: Yes
VTE Contraindication Routine
VTE Mechanical Device Contraindication: Medical Contraindication
Pharmocologic Contraindication: Medical Contraindication
Activity As Directed
Activity Level: As Tolerated
Bedside Glucose Monitoring As Directed
Frequency: AC&HS
Additional Instructions:: Change to q6h if pt on TPN, tube feeding or not eating
Vital Signs As Directed
Frequency: Per unit guidelines
03/11/25 05:49
Complete Blood Count/With Diff IN AM
Comprehensive Metabolic Panel IN AM
Glycohemoglobin (HgbA1c) IN AM
03/11/25 06:00
Piperacillin/Tazo 3.375 Gram [Zosyn] 3.375 gram in 50 ml IV Q6H
03/11/25 07:30
Insulin Aspart Corrective Low [Novolog Flexpen-Low Resistance] See Protocol SC AC
03/11/25 08:00
Aspirin Chewable [Low Strength Aspirin] 81 mg PO DAILY
HydrOXYZINE [Atarax] 25 mg PO BID
Lamotrigine [Lamictal] 25 mg PO DAILY
Metoprolol Xl [Toprol Xl] 25 mg PO DAILY
Pantoprazole [Protonix] 40 mg PO BID
Tamsulosin [Flomax] 0.4 mg PO DAILY
Ziprasidone [Geodon] 40 mg PO BID
03/11/25 Dinner
Clear Liquid
At Your Request: Full Participation
Does patient need a safe tray?: No
03/11/25 18:00
Rivaroxaban [Xarelto] 20 mg PO QPM
03/11/25 22:00
Atorvastatin [Lipitor] 40 mg PO HS
03/13/25 11:00
DC Protocol for Telemetry ONCE
Abnormal Lab Results
03/10/25
19:49
RBC 3.76 L 10^6/uL
(4.20-5.40)
Hgb 10.8 L g/dL
(12.0-16.0)
Hct 32.2 L %
(37.0-47.0)
RDW 14.8 H %
(11.5-14.5)
Absolute Neuts (auto) 7.8 H 10^3/uL
(1.4-6.5)
Neutrophils % 79.1 H %
(42.2-75.2)
Lymphocytes % 12.7 L %
(20.5-51.1)
Potassium 3.4 L mmol/L
(3.5-5.1)
BUN 35 H mg/dl
(7-17)
Creatinine 1.9 H mg/dL
(0.6-1.0)
Glucose 209 H mg/dl
(70-99)
Alkaline Phosphatase 430 H U/L
(38-126)
Total Protein 6.1 L g/dl
(6.3-8.2)
03/10/25 19:49
03/10/25 19:49
Vital Signs
Initial and Last Documented VS:
Initial Vital Signs
Temp Pulse Resp BP Pulse Ox
98.5 F 74 20 82/59 96
03/10/25 19:06 03/10/25 19:06 03/10/25 19:06 03/10/25 19:06 03/10/25 19:06
Last Documented Vital Signs
Temp Pulse Resp BP Pulse Ox
97.5 F 66 18 121/66 94
03/12/25 03:12 03/12/25 03:12 03/12/25 03:12 03/12/25 03:12 03/12/25 03:12
MDM/Problems Addressed
Differential Diagnosis Includes:
Patient complaining of ongoing abdominal symptoms although significantly improved after a bowel movement today. This was followed by some hypotension followed by some chest pain. Nothing definitive to explain symptoms on exam. Nonsurgical
abdomen. EKG is unchanged. Cardiac and abdominal workup in progress.
*Pulse Oximetry
Patient hypoxic: no
*EKG
Interpreted by ED Provider?: Yes
Interpretation: abnormal
Comparison EKG: changes noted
Heart Rate: 81
Rate: normal
Rhythm: sinus and sinus arrhythmia
[place]: left axis deviation
Interval: first degree heart block
QRS Pattern: right bundle branch block
Ischemia: non-specific ST changes
*Interface Analyst Interpretation
Rate: normal
Interpretation: normal
Heart Rate: 82
Rhythm: sinus
*Critical Care Note
Total Time (30-74mins, 75-104mins- exclusive of procedures): Not Applicable
Data Reviewed
Review of Other/Old Records Reveals: Labs, Records, Radiology Studies and Testing
Update Note
Update Note:
2250.... Patient in no distress. Resting comfortably and sleeping. Blood pressure in the high 80s but this was on the forearm. Repeat blood pressure on the upper arm is 95/54. Previous blood pressures have been in similar ranges. She currently
denies chest pain. She does have some ongoing vague abdominal discomfort and nausea. However she is very nontoxic. We will repeat troponin and EKG now. Await CT scan.
Patient CT shows proctocolitis. Patient clinically is uncomfortable. Borderline blood pressure. Chest pain is resolved. Repeat EKG and troponin for completeness. Will be admitted for further medical care
ED Attending Note
-
Portions of this chart may have been created with voice recognition software.� Occasional wrong word or��sound alike� substitutions may have occurred due to the inherent limitations of voice recognition software.
Discharge Plan
Departure
Patient Disposition: Admit
Date of Disposition: 03/10/25
Time of Disposition: 22:54
Presentation/result/management discussed w/ accepting MD/DO: Hospitalist
Discharge Problem:
Proctocolitis, Hypotension, Resolved chest pain, Renal insufficiency
Interventions
Interventions:
*Risk Screen - Suicide Last Done: 03/10/25 19:06
*General Assessment Last Done: 03/10/25 19:06
*Neglect/Abuse Screening Last Done: 03/10/25 19:06
*ED- Fall Risk Assessment Last Done: 03/10/25 19:06
*ED COVID-19 Vaccine History Last Done: 03/10/25 19:06
*Nursing Disposition Last Done: 03/11/25 11:46
ED- Cardiac Assessment Last Done: 03/10/25 19:30
Discharge Date and Time
Discharge Date/Time: 03/11/25 11:52
[2025-03-10 19:24] VITALS: BMI 43.6
[2025-03-10 19:32] VITALS: BP 83/50
[2025-03-10 19:57] LABS: % Basophils 0.3 % (0-2); % Immature Granulocytes 0.3 % (0-0.5); % Lymphocytes 12.7 % (20.5-51.1); % Monocytes 5.6 % (1.7-9.3); % Neutrophils 79.1 % (42.2-75.2); Absolute Eosinophils 0.2 10^3/uL (0-0.7); Absolute Lymphocytes 1.3 10^3/uL (1.2-3.4); Absolute Monocytes 0.6 10^3/uL (0.1-0.6); Absolute Neutrophils 7.8 10^3/uL (1.4-6.5); Hematocrit 32.2 % (37.0-47.0); Hemoglobin 10.8 g/dL (12.0-16.0); Mean Corp Hgb Conc. 33.5 g/dL (33.0-37.0); Mean Corpuscular Hgb 28.7 pg (27.0-31.0); Mean Corpuscular Volume 85.6 fL (81.0-99.0); Mean Platelet Volume 10.3 fL (7.4-10.4); Nucleated Red Blood Cells % 0 %; Platelet Count 241 10^3/uL (130-400); Red Blood Cell Count 3.76 10^6/uL (4.20-5.40); Red Cell Dist. Width 14.8 % (11.5-14.5); White Blood Cell Count 9.9 10^3/uL (4.8-10.8)
[2025-03-10 20:11] LABS: ALT (SGPT) 32 U/L (0-35); AST (SGOT) 33 U/L (14-36); Albumin 3.7 g/dl (3.5-5.0); Alkaline Phosphatase 430 U/L (38-126); Blood Urea Nitrogen 35 mg/dl (7-17); Calcium 9.8 mg/dl (8.4-10.2); Carbon Dioxide 28 mmol/L (22-30); Chloride 101 mmol/L (98-107); Estimated Creatinine Clearance 41 ml/min; Glucose 209 mg/dl (70-99); Lipase 269 U/L (23-300); Potassium 3.4 mmol/L (3.5-5.1); Sodium 140 mmol/L (135-145); Total Bilirubin 0.7 mg/dl (0.2-1.3); Total Protein 6.1 g/dl (6.3-8.2); eGFR 29.49
[2025-03-10 20:39] LABS: Troponin I < 0.012 ng/ml
[2025-03-10] MEDS: NSS 500 IV (20:44)
[2025-03-10 22:11] VITALS: BP 88/56
[2025-03-10 22:11] LABS: NT-proBNP 310 pg/ml
[2025-03-10 22:30] VITALS: BP 82/44
[2025-03-10 22:43] VITALS: BP 95/54
[2025-03-10 23:00] VITALS: BP 96/43
[2025-03-10 23:21] LABS: Troponin I < 0.012 ng/ml
--- NOTE | 2025-03-10 23:41 | HPS.HSE ---
Family Physician
-
Family Physician: Eladio Villagran MD
Chief Complaint
-
abdominal pain
History of Present Illness
64-year-old female past medical history of diabetes, HFrEF, atrial fibrillation on Xarelto, multiorgan sarcoidosis, obesity, presenting with abdominal pain. She has been constipated for several days and she was given an enema at [facility] this
morning. She did have a bowel movement here. Denies any blood in the stool. She also has rectal pain. She has been having abdominal pain for the past week diffusely over the belly. Denies any vomiting.
She has also had chronic pain at the site of her 2 abdominal hernias. She states that she is not a surgical candidate due to cardiac history.
She denies fevers but has been having chills.
She developed chest pain for a few hours prior to arrival described as pressure in her chest. Denies any chest pressure currently. Denies shortness of breath.
She states that her blood pressure is chronically in the 90s.
Denies smoking or alcohol use.
Medical History
Past Medical History
Past Medical History: Reports Other (diabetes, HFrEF, atrial fibrillation on Xarelto, multiorgan sarcoidosis, obesity,)
Past Surgical History: Reports None
Social History
Tobacco: Non-smoker
Alcohol: None
Drug: None
Family History
Family History: Not pertinent
Allergies / Home Medications
Allergies reflects when Allergies were last updated in [facility].
Home Medications with original date entered in [facility]
Allergy/Medication List:
Allergies
Allergy/AdvReac Type Severity Reaction Status Date / Time
acetaminophen [From Percocet] Allergy Unknown Verified 03/10/25 19:06
adhesive Allergy Unknown Verified 03/10/25 19:06
fish derived Allergy SEAFOOD Verified 03/10/25 19:06
oxycodone [From Percocet] Allergy Unknown Verified 03/10/25 19:06
Home Medications
acetaminophen 325 mg tablet 650 mg PO Q6HPRN PRN mild pain / temp > 100.4 12/14/24
atorvastatin 40 mg tablet 40 mg PO HS High Cholesterol 12/14/24
baclofen 10 mg tablet 10 mg PO TIDPRN PRN spasms 12/14/24
bisacodyl 10 mg rectal suppository 10 mg DE DAILYPRN PRN if no bm aftr mom 12/14/24
cholecalciferol (vitamin D3) 25 mcg (1,000 unit) tablet 25 mcg PO DAILY Supplement 12/14/24
doxepin 25 mg capsule 25 mg PO HSPRN PRN insomnia 12/14/24
famotidine 20 mg tablet 20 mg PO BID Gastrointestinal Issue 12/14/24
hydroxyzine pamoate 25 mg capsule 25 mg PO BID Mental Health/Anxiety 12/14/24
hydroxyzine pamoate 25 mg capsule 25 mg PO Q6HPRN PRN anxiety 12/14/24
insulin lispro 100 unit/mL subcutaneous solution (Humalog U-100 Insulin) 1 sliding scale dose SC ACHS Diabetes 12/14/24
lamotrigine 25 mg tablet 25 mg PO DAILY Seizures 12/14/24
lidocaine 4 % topical patch 1 patch topical DAILYPRN PRN right shoulder 12/14/24
nystatin 100,000 unit/gram topical powder 1 applic topical BID breasts and groin 12/14/24
pantoprazole 40 mg tablet,delayed release 40 mg PO BID Gastrointestinal Issue 12/14/24
rivaroxaban 20 mg tablet 20 mg PO QPM Blood Clot Prevention/Tx 12/14/24
sodium phosphates 19 gram-7 gram/118 mL enema (Fleet Enema) 118 ml DE DAILYPRN PRN if no bm aftr dulolcax 12/14/24
tamsulosin 0.4 mg capsule 0.4 mg PO DAILY Urinary Issue 12/14/24
triamcinolone acetonide 0.1 % topical cream 1 applic topical BID breasts and groin 12/14/24
ziprasidone HCl 40 mg capsule 40 mg PO BID Mental Health/Anxiety 12/14/24
aspirin 81 mg chewable tablet 81 mg PO DAILY Heart disease/condition #30 tabs 12/16/24
furosemide 40 mg tablet (Lasix) 40 mg PO DAILY #30 tabs 12/16/24
lisinopril 2.5 mg tablet 2.5 mg PO DAILY #30 tabs 12/16/24
metoprolol succinate 25 mg tablet,extended release 24 hr 12.5 mg (1/2 x 25 mg) PO DAILY #30 tabs 12/16/24
spironolactone 25 mg tablet 12.5 mg (1/2 x 25 mg) PO DAILY #30 tabs 12/16/24
cefdinir 300 mg capsule 300 mg PO Q12H 6 days #12 caps 02/13/25
Review of Systems
-
History Source: Patient
A 12 point ROS was completed and negative except as noted: Yes
Constitutional: Reports No Symptoms
EENT: Reports No Symptoms
Respiratory: Reports No Symptoms
Cardiac: Reports No Symptoms
Abdomen/GI: Reports No Symptoms
: Reports No Symptoms
Musculoskeletal: Reports No Symptoms
Skin: Reports No Symptoms
Neurological: Reports No Symptoms
Endocrine: Reports No Symptoms
Hematologic/Lymphatic: Reports No Symptoms
Psych: Reports No Symptoms
Physical Exam
Vital Signs
Vital Signs
Temp Pulse Resp BP Pulse Ox
98.5 F 66 13 88/56 96
03/10/25 19:06 03/10/25 22:11 03/10/25 22:11 03/10/25 22:11 03/10/25 22:11
Physical Exam
General: Well Developed, Well Nourished and No Apparent Distress
HEENT: NormoCephalic, Moist mucous membranes and Atraumatic
Respiratory: Clear
Cardiac: S1/S2 and Regular Rhythm; No Murmur or Rub
GI: Soft, Non Tender, Non Distended and Normal Bowel Sounds; No Organomegaly
Rectal: Deferred by Provider
Musculoskeletal: No Clubbing, No Cyanosis and No Edema
Skin: No Rash
Neuro: Nonfocal/grossly intact
Laboratory Results
-
03/10/25 19:49
03/10/25 19:49
Laboratory Results
Total Bilirubin 0.7 mg/dl (0.2-1.3) 03/10/25 19:49
AST 33 U/L (14-36) 03/10/25 19:49
ALT 32 U/L (0-35) 03/10/25 19:49
Alkaline Phosphatase 430 U/L (38-126) H 03/10/25 19:49
Troponin I < 0.012 ng/ml 03/10/25 22:51
Lipase 269 U/L (23-300) 03/10/25 19:49
Data Reviewed
-
Lab Data: Labs Reviewed by me
Old Records: Reviewed
Impression/Plan
-
IMPRESSION:
PLAN:
# Acute proctocolitis sigmoid colon/rectum with associated constipation
-Patient hypotensive but not clinically septic without tachycardia or leukocytosis or tachypnea
- CT abdomen pelvis shows acute proctocolitis in sigmoid colon and rectum with moderate to severe circumferential rectal wall thickening mild surrounding perirectal inflammation appearing new
-Stool culture, C. difficile pending
-Clear liquid diet
- Zosyn
- GI consulted
# Chest pressure now resolved
-EKG not available, ordered but pending
- Troponins negative
- Doubt cardiac
# SIMÓN on CKD
-IV fluids given in ER, hold further fluids and caution given history of heart failure
- Hold Lasix, spironolactone, lisinopril
# Hypokalemia
- Replete potassium
Chronic hypotension
- Patient states her blood pressures chronically 90s, currently 80s to 90s
Abdominal hernias
- Patient has tenderness over the hernias but has not pursued surgery due to cardiac history
Type 2 diabetes
- Hold glipizide
- Insulin sliding scale
Chronic HFrEF
- Hold diuretics
Atrial fibrillation
- Continue Xarelto
- Continue preventative aspirin
- Continue metoprolol
Multiorgan sarcoidosis
Obesity
Chronic anemia
- Hemoglobin stable 10.8
Bipolar disorder
- Continue ziprasidone, Lamictal
Glaucoma
Hyperlipidemia
- Continue statin
GERD
- Continue Protonix
DNR/DNI
DVT prophylaxis�Eliquis
Clear liquid diet
[2025-03-11] VITALS (13 sets, daily range): BP systolic 74–114; BP diastolic 37–69; BMI 43.2; BMI 43.7
[2025-03-11] MEDS: FLUSH (NSS) 1 FLUSH IV (00:08)
[2025-03-11] MEDS: UNASYN IV (00:09)
[2025-03-11] MEDS: ZOSYN 50 IV ×3 (05:49→17:33)
[2025-03-11 06:20] LABS: % Basophils 0.3 % (0-2); % Eosinophils 5.1 % (0-6); % Immature Granulocytes 0.2 % (0-0.5); % Lymphocytes 19.4 % (20.5-51.1); % Monocytes 9.2 % (1.7-9.3); % Neutrophils 65.8 % (42.2-75.2); Absolute Eosinophils 0.3 10^3/uL (0-0.7); Absolute Lymphocytes 1.3 10^3/uL (1.2-3.4); Absolute Monocytes 0.6 10^3/uL (0.1-0.6); Absolute Neutrophils 4.2 10^3/uL (1.4-6.5); Hematocrit 28.1 % (37.0-47.0); Hemoglobin 9.3 g/dL (12.0-16.0); Mean Corp Hgb Conc. 33.1 g/dL (33.0-37.0); Mean Corpuscular Hgb 28.2 pg (27.0-31.0); Mean Corpuscular Volume 85.2 fL (81.0-99.0); Mean Platelet Volume 10.6 fL (7.4-10.4); Nucleated Red Blood Cells % 0 %; Platelet Count 196 10^3/uL (130-400); Red Cell Dist. Width 14.9 % (11.5-14.5); White Blood Cell Count 6.4 10^3/uL (4.8-10.8)
[2025-03-11 06:30] LABS: Albumin 3.1 g/dl (3.5-5.0); Blood Urea Nitrogen 34 mg/dl (7-17); Carbon Dioxide 30 mmol/L (22-30); Estimated Creatinine Clearance 39 ml/min; Glucose 104 mg/dl (70-99); Total Bilirubin 0.6 mg/dl (0.2-1.3); Total Protein 5.1 g/dl (6.3-8.2); eGFR 27.73
[2025-03-11 07:03] LABS: ALT (SGPT) 27 U/L (0-35); AST (SGOT) 23 U/L (14-36); Alkaline Phosphatase 400 U/L (38-126); Calcium 9.4 mg/dl (8.4-10.2); Chloride 106 mmol/L (98-107); Potassium 3.3 mmol/L (3.5-5.1); Sodium 142 mmol/L (135-145)
[2025-03-11 08:28] LABS: Glucose - Point of Care 102 mg/dl (70-99)
[2025-03-11] MEDS: ATARAX PO (08:29)
[2025-03-11] MEDS: NOVOLOG FLEXPEN-LOW RESISTANCE SC ×3 (08:30→16:55)
[2025-03-11] MEDS: TOPROL XL PO (08:31)
[2025-03-11] MEDS: PROTONIX 40 MG PO ×2 (08:32→20:39)
[2025-03-11] MEDS: FLOMAX 0.4 MG PO (08:32)
[2025-03-11] MEDS: LOW STRENGTH ASPIRIN 81 MG PO (08:32)
[2025-03-11] MEDS: GEODON 40 MG PO ×2 (08:32→20:40)
[2025-03-11] MEDS: LAMICTAL 25 MG PO (08:32)
[2025-03-11 10:19] LABS: Glycohemoglobin (HgbA1c) 7.4 % (4.0-5.6)
--- NOTE | 2025-03-11 11:31 | CON.GI ---
Addendum entered and electronically signed by Jules Herrera MD 03/12/25 13:01:
work up hypotension as per medical team
Addendum entered and electronically signed by Jules Herrera MD 03/11/25 14:33:
I saw and examined the patient.
The INSPECTOR PLATING's note was reviewed and I agree with the note.
Patient had multiple BMs after enema yesterday as per nursing.
-abdominal/rectal pain/nausea / constipation - CT with proctocolitis. Also MULTIPLE ANTERIOR ABDOMINAL WALL HERNIAS containing air-filled loops of distended colon
-hx IBS with alternating diarrhea and constipation
- hx of colon polyp- last colonoscopy 3 yrs back at [place]
-hypotension on admission with hx chronic hypotension issues
-multi organ sarcoidosis
- Afib on xarelto
plan
ok with Clear liquid diet. Advance diet as tolerated
Continue bowel regimen-like/senna
Antiemetics as needed
Correction electrolytes as per medical team
Further workup for hypertension if indicated as per medical team (history of chronic hypotension)
Surgical evaluation for intra-abdominal wall hernia containing colon loops - prior to outpatient colonoscopy in the future
Recommend continue follow-up with his GI at [facility]
will follow
Original Note:
Consultation
-
Date/Time Consultation Requested: 03/11/25 0030
Date/Time Consultation Performed: 03/11/25 1130
Requesting Provider: Kel Moreira MD
Performing Provider: EVERETT Delatorre, Tere Concepcion DO
Reason for Consultation: constipation
Medical History
Chief Complaint / HPI
Chief Complaint: abdominal pain
History of Present Illness:
Pt is a 64yo with hx IBS, NIDDM, HFrEF, afib on Xarelto,CHF, multiorgan sarcoidosis(eyes, liver lung, heart bone, lymph system), CKD, GERD, HTN, colon polyps, anemia with prior transfusions, multiple hernia repairs, janae pouch that has now
closed, chronic foot drop, obesity, depression/bipolar, prior jose, present with abdominal pain and nausea . She was noted with constipation for several days with laxative and enema use. On admission she also had complaint of rectal pain then
started with multiple stools. She was also noted with hypotension on admission with BP as low as 70/40's and chest pain. Labs noted with hbg 10.8 with normal WBC's. Chemistry with K 3.4 creat 1.9, with BUN 35, glucose 209, bili 0.7, AST 33, alt
32, alk phos 430, normal lipase and troponin. Ct on admission with concern for acute proctocolitis, know multiple abdominal wall with air filled loops of distended colon, neurogenic bladder, HSM, prior jose, DDD, prior lami.
At this time patient states hx IBS with alternating diarrhea and constipation. She states the she began this past week with constipation. She took multiple laxatives then enema. Pain was up to 9/10 in lower abdomen. On admission with stools she
is have some improvement to 7/10. She admits to increased nausea which is still presents. She admits to chronic GERD on Protonix and famotidine BID. She denies any issue with odynophagia, dysphagia, or rectal bleeding. Last EGD/colon
completed at [facility] [address]Christopher Gonzales and due this year in follow up.
Past Medical History
Past Medical History: Arrhythmias (afib on Xarelto), CHF, GERD, HTN, NIDDM, Renal Failure (CKD), Psychiatric (depression, bipolar ) and Other (obesity, multiorgan scarcoidosis, foot drop, anemia with prior transfusions)
Past Surgical History: Cholecystectomy, Gynecological (removal of ovaries and tubes), Orthopedic (prior lami) and Other (multiple hernia repairs,urogenic bladder with prior [place] pouch that has now closed, lymph node removal 1999)
Social History
Tobacco: Non-Smoker
Alcohol: None
Drug: None
Living: Shelter
Employment: Disabled
Family History
Family History: Other (no family hx colon polyps, mother with breast CA, brother with prostate Ca, grandfather with with ? colon vs prostates CA)
Allergies / Home Medications
Allergy/AdvReac Type Severity Reaction Status Date / Time
acetaminophen [From Percocet] Allergy Unknown Verified 03/10/25 19:06
adhesive Allergy Unknown Verified 03/10/25 19:06
fish derived Allergy SEAFOOD Verified 03/10/25 19:06
oxycodone [From Percocet] Allergy Unknown Verified 03/10/25 19:06
�Medication �Instructions �Recorded
acetaminophen 325 mg tablet 650 mg PO Q6HPRN PRN mild pain / 12/14/24
temp > 100.4
atorvastatin 40 mg tablet 40 mg PO HS High Cholesterol 12/14/24
baclofen 10 mg tablet 10 mg PO TIDPRN PRN spasms 12/14/24
bisacodyl 10 mg rectal suppository 10 mg NJ DAILYPRN PRN if no bm 12/14/24
aftr mom
cholecalciferol (vitamin D3) 25 25 mcg PO DAILY Supplement 12/14/24
mcg (1,000 unit) tablet
famotidine 20 mg tablet 20 mg PO BID Gastrointestinal Issue 12/14/24
hydroxyzine pamoate 25 mg capsule 25 mg PO HS Mental Health/Anxiety 12/14/24
hydroxyzine pamoate 25 mg capsule 25 mg PO Q6HPRN PRN anxiety 12/14/24
insulin lispro 100 unit/mL 1 sliding scale dose SC AC Diabetes 12/14/24
subcutaneous solution (Humalog
U-100 Insulin)
lamotrigine 25 mg tablet 25 mg PO BID Seizures 12/14/24
nystatin 100,000 unit/gram topical 1 applic topical BID breasts and 12/14/24
powder groin
pantoprazole 40 mg tablet,delayed 40 mg PO BID Gastrointestinal Issue 12/14/24
release
rivaroxaban 20 mg tablet 20 mg PO QPM Blood Clot 12/14/24
Prevention/Tx
tamsulosin 0.4 mg capsule 0.4 mg PO DAILY Urinary Issue 12/14/24
triamcinolone acetonide 0.1 % 1 applic topical BID breasts and 12/14/24
topical cream groin
ziprasidone HCl 40 mg capsule 40 mg PO BID Mental Health/Anxiety 12/14/24
aspirin 81 mg chewable tablet 81 mg PO DAILY Heart 12/16/24
disease/condition #30 tabs
furosemide 40 mg tablet (Lasix) 40 mg PO DAILY #30 tabs 12/16/24
lisinopril 2.5 mg tablet 2.5 mg PO DAILY #30 tabs 12/16/24
budesonide 0.5 mg/2 mL suspension 0.5 mg inhalation R BID 03/11/25
for nebulization
docusate sodium 100 mg capsule 100 mg PO BID 03/11/25
(Colace)
fluticasone propionate 50 1 spray intranasal BID 03/11/25
mcg/actuation nasal
spray,suspension
glipizide 5 mg tablet 5 mg PO DAILY 03/11/25
lidocaine 4 % topical gel 1 applic topical BIDPRN PRN right 03/11/25
shoulder
magnesium hydroxide 400 mg/5 mL 400 mg PO [id number] PRN if no bm 03/11/25
oral suspension (Milk of Magnesia) aftr mom
metoprolol succinate 25 mg capsule 25 mg PO DAILY 03/11/25
sprinkle, ext. release 24 hr
nitroglycerin 0.4 mg sublingual 0.4 mg sublingual [id number] PRN 03/11/25
tablet chest pain
sennosides 8.6 mg tablet (senna) 8.6 mg PO BID 03/11/25
sodium phosphates 19 gram-7 118 ml NJ DAILYPRN PRN if no bm 03/11/25
gram/118 mL enema (Fleet Enema) aftr dulcolax
spironolactone 25 mg tablet 25 mg PO DAILY 03/11/25
Review of Systems
-
History Source: Patient
Constitutional: Reports Fatigue
EENT: Reports No Symptoms
Cardiac: Reports Chest Pain (at times )
Abdomen/GI: Reports Abdominal Pain, Nausea, Diarrhea and Constipated
: Reports Other (neurogenic bladder )
Musculoskeletal: Reports Joint Pain, Joint Swelling and Other (foot drop)
Skin: Reports No Symptoms
Neurological: Reports Weakness
Endocrine: Reports No Symptoms
Hematologic/Lymphatic: Reports No Symptoms
Vital Signs
Temp Pulse Resp BP Pulse Ox
98.5 F 68 11 97/55 98
03/10/25 19:06 03/11/25 08:31 03/11/25 06:00 03/11/25 08:31 03/11/25 07:00
Physical Exam
Exam
General: Other (pleasant of cooperative obese female in no acute distress )
HEENT: Normocephalic and Anicteric
Respiratory: Clear
Cardiac: Regular Rhythm
GI: Soft, Distended and Other (multiple abdominal hernia and left lower abdomen closed janae pouch )
Musculoskeletal: No Clubbing and No Cyanosis
Skin: Warm and Dry
Neuro: Awake, Alert and AO x 3
Psych: Calm
Results
WBC 6.4 10^3/uL (4.8-10.8) 03/11/25 05:49
Hgb 9.3 g/dL (12.0-16.0) L 03/11/25 05:49
Hct 28.1 % (37.0-47.0) L 03/11/25 05:49
MCV 85.2 fL (81.0-99.0) 03/11/25 05:49
Plt Count 196 10^3/uL (130-400) 03/11/25 05:49
Absolute Neuts (auto) 4.2 10^3/uL (1.4-6.5) 03/11/25 05:49
Sodium 142 mmol/L (135-145) 03/11/25 05:49
Potassium 3.3 mmol/L (3.5-5.1) L 03/11/25 05:49
Chloride 106 mmol/L (98-107) 03/11/25 05:49
Carbon Dioxide 30 mmol/L (22-30) 03/11/25 05:49
BUN 34 mg/dl (7-17) H 03/11/25 05:49
Creatinine 2.0 mg/dL (0.6-1.0) H 03/11/25 05:49
Calcium 9.4 mg/dl (8.4-10.2) 03/11/25 05:49
Total Bilirubin 0.6 mg/dl (0.2-1.3) 03/11/25 05:49
AST 23 U/L (14-36) 03/11/25 05:49
ALT 27 U/L (0-35) 03/11/25 05:49
Alkaline Phosphatase 400 U/L (38-126) H 03/11/25 05:49
Lipase 269 U/L (23-300) 03/10/25 19:49
Diagnostic Image Results:
03/11/25 CT Abd/pel Without Iv Or Oral
1. ACUTE PROCTOCOLITIS in the sigmoid colon and RECTUM with moderate to severe circumferential rectal wall thickening and mild surrounding perirectal inflammation which appears new from 02/13/2025.
2. MULTIPLE ANTERIOR ABDOMINAL WALL HERNIAS containing air-filled loops of distended colon which are similar in appearance to 02/13/2025.
3. Moderate to severe chronic bilateral renal disease.
4. Mild distention and marked irregular shape of the urinary bladder suggesting chronic neurogenic bladder.
5. Mild hepatosplenomegaly.
6. Previous cholecystectomy.
7. Severe multilevel lumbar discogenic degenerative disease and multilevel laminectomies.
8. Mild cardiomegaly.
02/13/25CT Abd/pel Without Iv Or Oral
No findings to suggest obstructive uropathy bilaterally. Kidneys overall slightly smaller in size/volume in comparison to recent prior CT which likely represents a degree of chronic renal disease.
Lobulated atypical configuration of urinary bladder again seen likely with diverticula. No urinary bladder air is seen.
Two separate anterior abdominal wall hernia is without significant change, as detailed above.
2.1 cm low-attenuation mass along the left side of the posterior mediastinum, stable, likely benign.
Additional nonurgent findings, as detailed above.
Prior GI Procedures:
EGD: 3 years ago [facility]
Colonoscopy: 3 years ago [facility] recalls polyps
Assessment / Plan
-
Pt is a 64yo with hx IBS, NIDDM, HFrEF, afib on Xarelto, CHF, multiorgan sarcoidosis(eyes, liver lung, heart bone, lymph system), CKD, GERD, HTN, anemia with prior transfusions, colon polyps, multiple hernia repairs, janae pouch that has now
closed, chronic foot drop, obesity, depression/bipolar , prior jose, present with abdominal pain and nausea. She was noted with constipation for several days with laxative and enema use. On admission she also had complaint of rectal pain then
started with multiple stools. She was also noted with hypotension on admission with BP as low as 70/40's and chest pain. Labs noted with hbg 10.8 with normal WBC's. Chemistry with K 3.4 creat 1.9, with BUN 35, glucose 209, bili 0.7, AST 33, alt
32, alk phos 430, normal lipase and troponin. Ct on admission with concern for acute proctocolitis, know multiple abdominal wall with air filled loops of distended colon, neurogenic bladder, HSM, prior jose, DDD, prior lami. She admits to
chronic GERD on Protonix and famotidine BID. She denies any issue with odynophagia, dysphagia, or rectal bleeding. Last EGD/colon completed at [facility] [address]Christopher Gonzales and due this year in follow up.
-abdominal/rectal pain/constipation - CT with proctocolitis
-nausea
-hx IBS with alternating diarrhea and constipation
-hypotension on admission with hx chronic hypotension issues
-chest pain
-multi organ sarcoidosis-
-SIMÓN with hx CKD
-abdominal hernia with hx closed janae pouch(hx neurogenic bladder), multiple prior abdominal hernia repairs
-hypokalemia
-anemia with hx chronic anemia
other med problems:
-aifib on Xarelto
-NIDDM
-DHF
-hx colon polyps
-obesity
-GERD
-HTN
-anemia with prior transfusions
-foot drop
-depression/bipolar
-prior jose
PLAN:
etiology of symptoms with concern for worsening of constipation with hx IBS-- pt states some new diabetic med 3 weeks ago but cannot state name ? med induced constipation vs other
symptoms now improving with multiple stools since admission
cont to trend stool
monitor nausea with passage of stools to track for improvement
cont abx
cont miralax in am and senna in PM to keep bowel moving
will need OP follow up and consider repeat colonoscopy when improved-- per pt she is due follow up
obtain last EGD/colon from [facility] 3 years ago
ok for clear diet
replete K per medical team
management of hypotension per primary team
-
-
Thank you for consultation and allowing me to participate in the patient's care. Please call the [facility] physician during the after hours with any questions or concerns.
--- NOTE | 2025-03-11 12:37 | CM ---
CM spoke with nursing at [facility]
Pt is a LTC resident
She is AxO 4x at baseline
She is non-ambulatory, able to stand and pivot indep into W/C which she self propel
Pt participates on bathing tasks with supervision and occasional assistance
Pt is on 2L O2 nocturnal
PCP- Eladio Greer
Rx- [facility]
PT/OT orders requested as pt will require [employer] auth if skillable need on dc
Return SNF referral sent via [facility]
Discharge Disposition- return to [facility]
[2025-03-11 13:41] LABS: Glucose - Point of Care 99 mg/dl (70-99)
[2025-03-11] MEDS: DESENEX/MITRAZOL/ZEASORB 1 APPLIC TOPICAL ×2 (14:23→20:41)
--- NOTE | 2025-03-11 14:57 | W.PN.HOSP.TC ---
Today's Communication/Plan
-
pt/ot eval
Assessment / Plan
Assessment / Plan
NAD
Scleral Anicteric
MMM
No JVD
CTABL
RRR, S1/S2
Soft, NT, ND, BS+
Umbilical hernia noted protuberant with some slight pain however this has been ongoing for some time outpatient surgeon knows about this
Warm, Dry
AAOx3
Calm
Proctocolitis secondary to intractable constipation also multiple anterior abdominal wall hernias containing air filled loops of distended colon
Continue enemas and bowel regimen
Antiemetics
Clear liquid diet advance as tolerated
Continue antibiotics per GI recommendations
GI evaluation
Abdominal hernias multiple associated pain
Per GI outpatient surgical evaluation for intra-abdominal wall hernia containing colon loop in the future follow-up with [facility]
Hypokalemia
Refusing all formulations of potassium oral. Will attempt IV
SIMÓN on CKD stage IV
IV fluids given in ER hold further fluids caution given history of heart failure
Hold/avoid nephrotoxic agents such as Lasix Aldactone lisinopril
Chronic hypotension
At baseline
Type 2 diabetes
Hold glipizide continue sliding scale Accu-Cheks goal blood glucose 140-180
Chronic HFrEF
Hold diuretics
Atrial fibrillation
Continue Xarelto beta-kassy aspirin
Bipolar disorder
Continue ziprasidone Lamictal
GERD
Continue PPI
Anticipated Discharge: 24 - 48 hours
Subjective/Interval History
-
Date of Service: March 11, 2025
Seen and examined. No new complaints. No acute overnight events.
Has had multiple small bowel movements however they are liquid
Objective Data
-
Labs:
Laboratory Results
03/11/25
05:49
WBC 6.4
Hgb 9.3 L
Hct 28.1 L
Plt Count 196
Sodium 142
Potassium 3.3 L
Chloride 106
Carbon Dioxide 30
BUN 34 H
Creatinine 2.0 H
Glucose 104 H
Calcium 9.4
Total Bilirubin 0.6
AST 23
ALT 27
Alkaline Phosphatase 400 H
Vital Signs:
Vital Signs
Temp Pulse Resp BP Pulse Ox
98.1 F 65 16 98/60 97
03/11/25 13:00 03/11/25 13:00 03/11/25 13:00 03/11/25 13:00 03/11/25 13:00
[2025-03-11 17:05] LABS: Glucose - Point of Care 112 mg/dl (70-99)
[2025-03-11] MEDS: XARELTO 20 MG PO (17:33)
[2025-03-11] MEDS: ZOFRAN 4 MG IV (17:33)
[2025-03-11] MEDS: TYLENOL 650 MG PO (17:33)
[2025-03-11] MEDS: ProAmatine 5 MG PO (20:40)
[2025-03-11] MEDS: ATARAX 25 MG PO (20:40)
[2025-03-11 21:33] LABS: Glucose - Point of Care 145 mg/dl (70-99)
[2025-03-11] MEDS: LIPITOR 40 MG PO (22:55)
[2025-03-12] VITALS (9 sets, daily range): BP systolic 93–138; BP diastolic 48–90; PULSE 65; BMI 43.7
--- NOTE | 2025-03-12 00:04 | PTCARENOTE ---
Patient transferred from [facility] to . Patient AAOx3. VSS as documented. Assessment as documented. Patient oriented to room. Bed in lowest position. Call zhao within reach.
[2025-03-12] MEDS: MYLICON 80 MG PO (00:47)
[2025-03-12] MEDS: ZOSYN 50 IV ×4 (00:47→18:08)
[2025-03-12 05:37] LABS: Hematocrit 28.3 % (37.0-47.0); Hemoglobin 9.4 g/dL (12.0-16.0); Mean Corp Hgb Conc. 33.2 g/dL (33.0-37.0); Mean Corpuscular Hgb 28.5 pg (27.0-31.0); Mean Corpuscular Volume 85.8 fL (81.0-99.0); Mean Platelet Volume 10.3 fL (7.4-10.4); Platelet Count 188 10^3/uL (130-400); Red Cell Dist. Width 14.9 % (11.5-14.5); White Blood Cell Count 5.6 10^3/uL (4.8-10.8)
[2025-03-12 06:06] LABS: Blood Urea Nitrogen 27 mg/dl (7-17); Calcium 8.8 mg/dl (8.4-10.2); Carbon Dioxide 28 mmol/L (22-30); Chloride 104 mmol/L (98-107); Estimated Creatinine Clearance 43 ml/min; Glucose 99 mg/dl (70-99); Magnesium 1.9 mg/dl (1.6-2.3); Potassium 3.6 mmol/L (3.5-5.1); Sodium 141 mmol/L (135-145); eGFR 31.46
[2025-03-12 07:25] LABS: Glucose - Point of Care 106 mg/dl (70-99)
[2025-03-12] MEDS: PROTONIX 40 MG PO ×2 (09:01→20:28)
[2025-03-12] MEDS: NOVOLOG FLEXPEN-LOW RESISTANCE SC ×2 (09:01→12:20)
[2025-03-12] MEDS: FLOMAX 0.4 MG PO (09:02)
[2025-03-12] MEDS: ATARAX 25 MG PO ×2 (09:02→20:28)
[2025-03-12] MEDS: TOPROL XL 25 MG PO (09:02)
[2025-03-12] MEDS: LOW STRENGTH ASPIRIN 81 MG PO (09:02)
[2025-03-12] MEDS: LAMICTAL 25 MG PO (09:04)
[2025-03-12] MEDS: DESENEX/MITRAZOL/ZEASORB 1 APPLIC TOPICAL ×2 (09:27→20:29)
[2025-03-12] MEDS: GEODON 40 MG PO ×2 (09:31→20:28)
[2025-03-12] MEDS: ZOFRAN 4 MG IV (09:36)
[2025-03-12 12:05] LABS: Glucose - Point of Care 141 mg/dl (70-99)
--- NOTE | 2025-03-12 12:56 | W.PN.GI.CBS2 ---
Today's Communication / Plan
-
continue bowel regimen
low residual diet
Assessment / Plan
-
Pt is a 64yo with hx IBS, NIDDM, HFrEF, afib on Xarelto, CHF, multiorgan sarcoidosis(eyes, liver lung, heart bone, lymph system), CKD, GERD, HTN, anemia with prior transfusions, colon polyps, multiple hernia repairs, janae pouch that has now
closed, chronic foot drop, obesity, depression/bipolar , prior jose, present with abdominal pain and nausea. She was noted with constipation for several days with laxative and enema use. On admission she also had complaint of rectal pain then
started with multiple stools. She was also noted with hypotension on admission with BP as low as 70/40's and chest pain. Labs noted with hbg 10.8 with normal WBC's. Chemistry with K 3.4 creat 1.9, with BUN 35, glucose 209, bili 0.7, AST 33, alt
32, alk phos 430, normal lipase and troponin. Ct on admission with concern for acute proctocolitis, know multiple abdominal wall with air filled loops of distended colon, neurogenic bladder, HSM, prior jose, DDD, prior lami. She admits to
chronic GERD on Protonix and famotidine BID. She denies any issue with odynophagia, dysphagia, or rectal bleeding. Last EGD/colon completed at [facility] [address]Christopher Gonzales and due this year in follow up.
-abdominal/rectal pain/constipation - CT with proctocolitis
-nausea
-hx IBS with alternating diarrhea and constipation
-hypotension on admission with hx chronic hypotension issues
-chest pain
-multi organ sarcoidosis-
-SIMÓN with hx CKD
-abdominal hernia with hx closed janae pouch(hx neurogenic bladder), multiple prior abdominal hernia repairs
-hypokalemia
-anemia with hx chronic anemia
other med problems:
-aifib on Xarelto
-NIDDM
-DHF
-hx colon polyps
-obesity
-GERD
-HTN
-anemia with prior transfusions
-foot drop
-depression/bipolar
-prior jose
PLAN:
Continue bowel regimen
Antiemetics as needed
Okay to advance to low residual diet
surgical eval for abdominal wall hernia
No further GI recommendation at this point. Follow-up with her [facility] as outpatient. will s/o
Total Time Spent with Patient (in minutes): 35
Subjective
Subjective
Date of Service: March 12, 2025
Having bowel movements as per nursing. Abdominal pain is better. Denies any nausea or vomiting
Objective
Data Reviewed
Laboratory Data:
Laboratory Results
03/12/25 06:00
03/12/25 06:00
Laboratory Results
Magnesium Cancelled 03/12/25 06:00
Total Bilirubin 0.6 mg/dl (0.2-1.3) 03/11/25 05:49
AST 23 U/L (14-36) 03/11/25 05:49
ALT 27 U/L (0-35) 03/11/25 05:49
Alkaline Phosphatase 400 U/L (38-126) H 03/11/25 05:49
Lipase 269 U/L (23-300) 03/10/25 19:49
Vital Signs and I&O:
Vital Signs
Temp Pulse Resp BP Pulse Ox
98.2 F 68 18 105/63 94
03/12/25 11:19 03/12/25 11:19 03/12/25 11:19 03/12/25 11:19 03/12/25 11:19
Physical Exam
Physical Exam
GI: Soft (Abdominal wall hernias + tender on palpation)
--- NOTE | 2025-03-12 13:24 | W.PN.HOSP.TC ---
Today's Communication/Plan
-
Assessment / Plan
Assessment / Plan
NAD
Scleral Anicteric
MMM
No JVD
CTABL
RRR, S1/S2
Soft, NT, ND, BS+
Umbilical hernia noted protuberant with some slight pain however this has been ongoing for some time outpatient surgeon knows about this
Warm, Dry
AAOx3
Calm
Proctocolitis secondary to intractable constipation also multiple anterior abdominal wall hernias containing air filled loops of distended colon
Continue enemas and bowel regimen
Antiemetics
GI plans to advance to
Continue antibiotics per GI recommendations
GI following
GI recommending surgery consult
Abdominal hernias multiple associated pain
Per GI outpatient surgical evaluation for intra-abdominal wall hernia containing colon loop in the future follow-up with [facility]
Hypokalemia
Refusing all formulations of potassium oral. Will attempt IV
SIMÓN on CKD stage IV
IV fluids given in ER hold further fluids caution given history of heart failure
Hold/avoid nephrotoxic agents such as Lasix Aldactone lisinopril
Chronic hypotension
At baseline
Type 2 diabetes
Hold glipizide continue sliding scale Accu-Cheks goal blood glucose 140-180
Chronic HFrEF
Hold diuretics
Atrial fibrillation
Continue Xarelto beta-kassy aspirin
Bipolar disorder
Continue ziprasidone Lamictal
GERD
Continue PPI
Anticipated Discharge: Within 24 hours
Subjective/Interval History
-
Date of Service: March 12, 2025
Seen and examined. No new complaints. No acute overnight events
Objective Data
-
Labs:
Laboratory Results
03/12/25
05:24
WBC 5.6
Hgb 9.4 L
Hct 28.3 L
Plt Count 188
Sodium 141
Potassium 3.6
Chloride 104
Carbon Dioxide 28
BUN 27 H
Creatinine 1.8 H
Glucose 99
Calcium 8.8
Vital Signs:
Vital Signs
Temp Pulse Resp BP Pulse Ox
98.2 F 68 18 105/63 94
03/12/25 11:19 03/12/25 11:19 03/12/25 11:19 03/12/25 11:19 03/12/25 11:19
--- NOTE | 2025-03-12 14:48 | PTCARENOTE ---
Patient reports feeling as though she is not completely emptying her bladder; Hx urinary retention; bladder scanned patient after she was incontinent of large amount; bladder scan showed 637 ml; Dr. Tripp notified for straight cath order; straight
cath'd for 750 ml of cloudy yellow urine; will continue to monitor and follow bladder scan/straight cath protocol.
[2025-03-12 17:01] LABS: Glucose - Point of Care 219 mg/dl (70-99)
[2025-03-12] MEDS: NOVOLOG FLEXPEN-LOW RESISTANCE 2 UNITS SC (18:07)
[2025-03-12] MEDS: XARELTO 20 MG PO (18:08)
--- NOTE | 2025-03-12 18:09 | CON.GS ---
Medical History
-
Chief Complaint: Abdominal discomfort
History of Present Illness:
Patient is a 64 yo F with a PMH notable for morbid obesity (BMI > 40), bipolar disorder, HTN, HLD, CHF, A-fib (on Xarelto), NIDDM, CKD, multiorgan sarcoidosis, chronic anemia, s/p cholecystectomy, s/p bilateral salpingo-oophorectomy, lumbar
laminectomy, neurogenic bladder s/p bladder augmentation with an [place] pouch at [facility], and s/p multiple ventral incisional hernia repairs with mesh. She presents with acute on chronic abdominal discomfort and reports of rectal pain. She has
intermittent crampy abdominal discomfort. She reports nausea but denies any vomiting. She has known recurrent ventral incisional hernias. She has previously used an abdominal binder with good success, however, she currently does not have an
abdominal binder and has not been using this. She reports passing flatus and multiple loose stools with laxatives and enemas. She fluctuates from constipation to diarrhea. She received a straight cath today with improvement in symptoms.
Of note, all of her prior surgical procedures have been performed at [facility]. Her most recent hernia repair was performed in November 2023 complicated by immediate recurrence. She has been following with a General Surgeon at [facility]. She had
tentative plans for a recurrent ventral incisional hernia repair with mesh in the fall 2023. Just prior to her procedure she was noted to have issues with heart failure and a EF of 30%. Because of this her surgery was delayed and she was
instructed to have outpatient cardiac workup. She has yet to complete this workup. She reports a history of a [place] pouch. She denies having her bladder removed. This procedure was most likely an augmentation of her bladder. She had
difficulties with catheterization of her [place] pouch this area has closed down. She has been instructed to catheterize from her urethra, but has also been unable to perform this due to her body habitus.
Past Medical History
Past Medical History: Arrhythmias (Afib), CHF, HTN, Hypercholesterolemia, NIDDM, Psychiatric (Bipolar), Renal Failure and Other (Multiorgan sarcoid, anemia)
Past Surgical History: Cholecystectomy, Gynecological (Bl salpingooopherectomy), Hernia Repair (Multiple ventral incisional hernia repairs with mesh), Orthopedic (Laminectomy) and Urological (Neurogenic bladder s/p bladder augmentation with an
[place] pouch at [facility])
Social History
Tobacco: Non-Smoker
Alcohol: None
Drug: None
Living: [facility]
Family History
Family History: Reviewed & Not Pertinent
Allergies / Home Medications
Allergy/AdvReac Type Severity Reaction Status Date / Time
acetaminophen [From Percocet] Allergy Unknown Verified 03/10/25 19:06
adhesive Allergy Unknown Verified 03/10/25 19:06
fish derived Allergy SEAFOOD Verified 03/10/25 19:06
oxycodone [From Percocet] Allergy Unknown Verified 03/10/25 19:06
�Medication �Instructions �Recorded �Confirmed �Type
acetaminophen 325 mg tablet 650 mg PO Q6HPRN PRN mild pain / 12/14/24 03/11/25 History
temp > 100.4
atorvastatin 40 mg tablet 40 mg PO HS High Cholesterol 12/14/24 03/11/25 History
baclofen 10 mg tablet 10 mg PO TIDPRN PRN spasms 12/14/24 03/11/25 History
bisacodyl 10 mg rectal suppository 10 mg NV DAILYPRN PRN if no bm 12/14/24 03/11/25 History
aftr mom
cholecalciferol (vitamin D3) 25 25 mcg PO DAILY Supplement 12/14/24 03/11/25 History
mcg (1,000 unit) tablet
famotidine 20 mg tablet 20 mg PO BID Gastrointestinal Issue 12/14/24 03/11/25 History
hydroxyzine pamoate 25 mg capsule 25 mg PO HS Mental Health/Anxiety 12/14/24 03/11/25 History
hydroxyzine pamoate 25 mg capsule 25 mg PO Q6HPRN PRN anxiety 12/14/24 03/11/25 History
insulin lispro 100 unit/mL 1 sliding scale dose SC AC Diabetes 12/14/24 03/11/25 History
subcutaneous solution (Humalog
U-100 Insulin)
lamotrigine 25 mg tablet 25 mg PO BID Seizures 12/14/24 03/11/25 History
nystatin 100,000 unit/gram topical 1 applic topical BID breasts and 12/14/24 03/11/25 History
powder groin
pantoprazole 40 mg tablet,delayed 40 mg PO BID Gastrointestinal Issue 12/14/24 03/11/25 History
release
rivaroxaban 20 mg tablet 20 mg PO QPM Blood Clot 12/14/24 03/11/25 History
Prevention/Tx
tamsulosin 0.4 mg capsule 0.4 mg PO DAILY Urinary Issue 12/14/24 03/11/25 History
triamcinolone acetonide 0.1 % 1 applic topical BID breasts and 12/14/24 03/11/25 History
topical cream groin
ziprasidone HCl 40 mg capsule 40 mg PO BID Mental Health/Anxiety 12/14/24 03/11/25 History
aspirin 81 mg chewable tablet 81 mg PO DAILY Heart 12/16/24 03/11/25 Rx
disease/condition #30 tabs
furosemide 40 mg tablet (Lasix) 40 mg PO DAILY #30 tabs 12/16/24 03/11/25 Rx
lisinopril 2.5 mg tablet 2.5 mg PO DAILY #30 tabs 12/16/24 03/11/25 Rx
budesonide 0.5 mg/2 mL suspension 0.5 mg inhalation R BID 03/11/25 03/11/25 History
for nebulization
docusate sodium 100 mg capsule 100 mg PO BID 03/11/25 03/11/25 History
(Colace)
fluticasone propionate 50 1 spray intranasal BID 03/11/25 03/11/25 History
mcg/actuation nasal
spray,suspension
glipizide 5 mg tablet 5 mg PO DAILY 03/11/25 03/11/25 History
lidocaine 4 % topical gel 1 applic topical BIDPRN PRN right 03/11/25 03/11/25 History
shoulder
magnesium hydroxide 400 mg/5 mL 400 mg PO [id number] PRN if no bm 03/11/25 03/11/25 History
oral suspension (Milk of Magnesia) aftr mom
metoprolol succinate 25 mg capsule 25 mg PO DAILY 03/11/25 03/11/25 History
sprinkle, ext. release 24 hr
nitroglycerin 0.4 mg sublingual 0.4 mg sublingual [id number] PRN 03/11/25 03/11/25 History
tablet chest pain
sennosides 8.6 mg tablet (senna) 8.6 mg PO BID 03/11/25 03/11/25 History
sodium phosphates 19 gram-7 118 ml NV DAILYPRN PRN if no bm 03/11/25 03/11/25 History
gram/118 mL enema (Fleet Enema) aftr dulcolax
spironolactone 25 mg tablet 25 mg PO DAILY 03/11/25 03/11/25 History
Review of Systems
-
A 10 point review of systems was completed, and was negative except as per HPI.
Physical Exam
Vital Signs
Temp Pulse Resp BP Pulse Ox
98.3 F 59 16 138/90 94
03/12/25 15:45 03/12/25 15:45 03/12/25 15:45 03/12/25 15:45 03/12/25 15:45
03/11/25 03/12/25 03/13/25
06:59 06:59 06:59
Actual Weight 122.5 kg 122.833 kg
Body Mass Index (BMI) 43.7
Lab Results
03/12/25 06:00
03/12/25 06:00
WBC Cancelled 03/12/25 06:00
Hgb Cancelled 03/12/25 06:00
Hct Cancelled 03/12/25 06:00
Plt Count Cancelled 03/12/25 06:00
Abs Immat Gran (auto) 0.0 10^3/uL (0-0.05) 03/11/25 05:49
Neutrophils % 65.8 % (42.2-75.2) 03/11/25 05:49
Physical Exam
General: Well Developed, Well Nourished and No Apparent Distress
HEENT: Normocephalic and Anicteric
Respiratory: Non Labored Respirations
Cardiac: Regular Rhythm
GI: Soft, Tender (Generalized discomfort, tender overlying hernias), Incisions (Well healed, slight ulceration at prior stoma), Obese and Other (Multiple ventral incisional hernias, soft, reducible, no overlying skin changes, fascial defects 3-4 cm)
Musculoskeletal: No Edema
Skin: Warm and Dry
Neuro: Nonfocal/Grossly Intact
Data Reviewed
-
CT Scan: Image Personally Visualized and interpreted and Report Reviewed by me
Labs: Labs Reviewed by me
Assessment / Plan
-
Patient is a 64 yo F p/w abdominal discomfort and rectal pain
Difficult to tell exactly what her current issues are though likely a combination of symptomatic ventral incisional hernias with underlying IBS/constipation and an incompletely decompressed bladder due to an inability to self catheterize. Recurrent
ventral incisional hernias related to a distended and neurogenic bladder causing increased intra-abdominal pressurization combined with morbid obesity and multiple bladder abdominal operations. Unlikely that these hernias are causing a true
obstruction, though possible that they could be contributing to a partial obstruction particularly the one at her LEFT mid abdomen. Currently these hernias are soft and reducible. No indication or role for urgent surgical intervention or
management. Ms. Forrest's had significantly increased risk for operative complications related to her hernias due to her multiple prior operations, her altered anatomy with her [place] pouch, and severe morbid obesity. She is at increased risks for
bowel injury, infectious complications, recurrence and cardiopulmonary issues. Any future surgical intervention as a relates to hernias would best be performed at a tertiary care center. All questions answered. Outpatient follow-up with a surgeon
at a tertiary care center (as noted above she has had all her prior care at [facility] and previously been evaluated for hernia repair).
-- No plans or indication for acute surgical intervention (any future surgical intervention as a relates to hernias would best be performed at a tertiary care center, recommend continued outpatient follow-up)
-- Diet as tolerated
-- Abdominal binder
-- Needs assistance and plan for self catheterization to decompress her bladder
-- Please call with questions or concerns
[2025-03-12 21:30] LABS: Glucose - Point of Care 173 mg/dl (70-99)
[2025-03-12] MEDS: LIPITOR 40 MG PO (22:00)
[2025-03-13] VITALS (7 sets, daily range): BP systolic 80–107; BP diastolic 42–65; BMI 43.9
[2025-03-13] MEDS: ZOSYN 50 IV ×5 (00:11→23:05)
[2025-03-13 05:21] LABS: Urine Albumin 1+ (Neg - Trace); Urine Bilirubin Negative (Negative); Urine Character Clear (Clear); Urine Color Yellow; Urine Glucose Negative (Negative); Urine Ketone Negative (Negative); Urine Leukocyte 3+ (Negative); Urine Nitrite Negative (Negative); Urine Occult Blood Negative (Negative); Urine Urobilinogen Negative (Neg - 1+)
--- NOTE | 2025-03-13 05:32 | PTCARENOTE ---
Patient unable to urinate last night. Bladder scanned twice during shift for over +600. Straight cathed at beginning of shift for 700. Messaged MANAGER OF FINANCIAL for Smith Catheter order. Smith placed at 05:00 for 600. Patient reports lightheadedness. HR dropped
to high 30s for a short period of time and has been in and out of AFIB on the monitor. Patient now at normal HR. MANAGER OF FINANCIAL added labs regarding new lightheadedness and HR changes.
[2025-03-13] MEDS: ZOFRAN 4 MG IV (05:45)
[2025-03-13 05:54] LABS: Urine Red Blood Cell None Seen /HPF (0-2)
[2025-03-13 07:48] LABS: Glucose - Point of Care 131 mg/dl (70-99)
[2025-03-13] MEDS: NOVOLOG FLEXPEN-LOW RESISTANCE SC ×3 (07:55→16:56)
[2025-03-13] MEDS: FLOMAX 0.4 MG PO (08:48)
[2025-03-13] MEDS: TOPROL XL 25 MG PO (08:48)
[2025-03-13] MEDS: GEODON 40 MG PO ×2 (08:48→20:14)
[2025-03-13] MEDS: LAMICTAL 25 MG PO (08:48)
[2025-03-13] MEDS: DESENEX/MITRAZOL/ZEASORB 1 APPLIC TOPICAL ×2 (08:49→20:14)
[2025-03-13] MEDS: ATARAX 25 MG PO ×2 (08:49→20:14)
[2025-03-13] MEDS: LOW STRENGTH ASPIRIN 81 MG PO (08:49)
[2025-03-13] MEDS: PROTONIX 40 MG PO ×2 (08:49→20:14)
[2025-03-13 09:03] LABS: % Basophils 0.7 % (0-2); % Eosinophils 5.8 % (0-6); % Immature Granulocytes 0.2 % (0-0.5); % Lymphocytes 17.2 % (20.5-51.1); % Monocytes 8.6 % (1.7-9.3); % Neutrophils 67.5 % (42.2-75.2); Absolute Eosinophils 0.3 10^3/uL (0-0.7); Absolute Lymphocytes 0.9 10^3/uL (1.2-3.4); Absolute Monocytes 0.5 10^3/uL (0.1-0.6); Absolute Neutrophils 3.6 10^3/uL (1.4-6.5); Hematocrit 27.6 % (37.0-47.0); Mean Corp Hgb Conc. 32.6 g/dL (33.0-37.0); Mean Platelet Volume 10.6 fL (7.4-10.4); Nucleated Red Blood Cells % 0 %; Platelet Count 177 10^3/uL (130-400); Red Blood Cell Count 3.21 10^6/uL (4.20-5.40); White Blood Cell Count 5.3 10^3/uL (4.8-10.8)
--- NOTE | 2025-03-13 09:04 | PN.CDI ---
CDI
- -
CDI:
Physician Documentation Request
Admit Date: 03/10/25 23:46
Dear Doctor,
Please review the following and provide your response in the progress notes.
Clinical Indicators:
Pt admitted with Proctocolitis secondary to intractable constipation also multiple anterior abdominal wall hernias containing air filled loops of distended colon
Documented pt with history of Atrial fibrillation on Xarelto.
If possible, please provide further specificity regarding atrial fibrillation, such as:
Paroxysmal atrial fibrillation - terminates spontaneously or with intervention within 7 days of onset
Persistent atrial fibrillation - episodes of continuous AF that last more than 7 days and do not self-terminate
Permanent atrial fibrillation - when a decision has been made to accept the presence of AF and there is no further attempt to restore or maintain sinus rhythm
Other - please specify
Unable to further specify
Use of terms such as suspected, likely, concern for, or probable (associated with a specific diagnosis that is being evaluated, monitored, or treated as if it exists) are acceptable and can be coded in the inpatient setting, when documented at the
time of discharge.
Thank you,
Crystal Bang RN, BSN
CDI Specialist
[place] [facility]
Please use your independent medical judgment in providing your response.
[2025-03-13 09:41] LABS: Blood Urea Nitrogen 21 mg/dl (7-17); Calcium 8.9 mg/dl (8.4-10.2); Carbon Dioxide 28 mmol/L (22-30); Chloride 104 mmol/L (98-107); Estimated Creatinine Clearance 43 ml/min; Glucose 125 mg/dl (70-99); Potassium 3.6 mmol/L (3.5-5.1); Sodium 140 mmol/L (135-145); eGFR 31.46
[2025-03-13 12:04] LABS: Glucose - Point of Care 135 mg/dl (70-99)
--- NOTE | 2025-03-13 12:07 | W.PN.HOSP.TC ---
Addendum entered and electronically signed by Dipak Tripp MD 03/13/25 16:19:
Paroxysmal atrial fibrillation
Original Note:
Today's Communication/Plan
-
Assessment / Plan
Assessment / Plan
NAD
Scleral Anicteric
MMM
No JVD
CTABL
RRR, S1/S2
Soft, NT, ND, BS+
Umbilical hernia noted protuberant with some slight pain however this has been ongoing for some time outpatient surgeon knows about this
Warm, Dry
AAOx3
Calm
Proctocolitis secondary to intractable constipation also multiple anterior abdominal wall hernias containing air filled loops of distended colon
Continue enemas and bowel regimen
Antiemetics
GI plans to advance to
Continue antibiotics per GI recommendations
GI following
GI recommending surgery consult
Abdominal hernias multiple associated pain
Per GI outpatient surgical evaluation for intra-abdominal wall hernia containing colon loop in the future follow-up with Andrew
Hypokalemia
Refusing all formulations of potassium oral. Will attempt IV
SIMÓN on CKD stage IV
IV fluids given in ER hold further fluids caution given history of heart failure
Hold/avoid nephrotoxic agents such as Lasix Aldactone lisinopril
Chronic hypotension
At baseline
Type 2 diabetes
Hold glipizide continue sliding scale Accu-Cheks goal blood glucose 140-180
Chronic HFrEF
Hold diuretics
Atrial fibrillation
Continue Xarelto beta-kassy aspirin
Sinus bradycardia with AV block
May need to discontinue beta-kassy. However will monitor on telemetry. Consult cardiology.
I did review EKG personally which confirmed first-degree AV block with a WV interval of 330 and sinus bradycardia
Bipolar disorder
Continue ziprasidone Lamictal
GERD
Continue PPI
Anticipated Discharge: > 48 hours
Subjective/Interval History
-
Date of Service: March 13, 2025
Complaining of dizziness. That began last night. Telemetry reviewed as it was reported to me by nursing that she was in and out of atrial fibrillation currently sinus bradycardia however no twelve-lead was obtained during atrial fibrillation
moments.
I reviewed overnight telemetry was not really seeing atrial fibrillation. I did was able to see P waves but she definitely has a first-degree AV block that is prolonged along with PACs. This was confirmed on EKG data obtained this morning.
Objective Data
-
Labs:
Laboratory Results
03/13/25
08:52
WBC 5.3
Hgb 9.0 L
Hct 27.6 L
Plt Count 177
Sodium 140
Potassium 3.6
Chloride 104
Carbon Dioxide 28
BUN 21 H
Creatinine 1.8 H
Glucose 125 H
Calcium 8.9
Vital Signs:
Vital Signs
Temp Pulse Resp BP Pulse Ox
98.1 F 59 16 104/53 95
03/13/25 11:01 03/13/25 11:01 03/13/25 11:01 03/13/25 11:01 03/13/25 11:01
I&O
03/12/25 03/13/25 03/14/25
06:59 06:59 06:59
Intake Total 1740 / 1740 480 / 480
Output Total 3400 / 3400 750 / 750
Balance -1660 / -1660 -270 / -270
--- NOTE | 2025-03-13 12:31 | CON.CAR ---
Addendum entered and electronically signed by Ivan Valerio MD 03/13/25 18:00:
64 yo female with PMH of paroxysmal A fib on xarelto, 1st degree AVB, RBBB is admitted with proctocolitis. We are asked to comment on her A fib. She denies palps, but does feel some dizziness with changes in position. Exam with RRR, no murmurs,
trace LE edema. Tele shows sinus lani, sinus arrhythmia, no evidence of A fib.
Paroxysmal A fib. Stable in sinus. No severe lani or tachy arrhythmias. Continue Toprol 25mg daily and Xarelto 20mg daily.
Please call us back with additional questions.
Original Note:
Consultation
Consultation Request
Date/Time Consultation Requested: 03/13/25 1206
Date/Time Consultation Performed: 03/13/25 1356
Requesting Provider: Dr. Tripp
Performing Provider: Tanika FLODY for Dr. Valerio
Reason for Consultation: PAF, 1st degree AVB
Medical History
-
Chief Complaint: GI discomfort
History of Present Illness:
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 Arlen Woodard, [facility], [facility]- saw us in office in December, but will be following with her previous holder pile driving at [place] Dr. Charly Riley) with PAF (on Xarelto), RBBB, 1st degree AVB, NICM, IDDM, GERD,
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 Also with hypokalemia and SIMÓN. We are consulted since she was
reported to have PAF and 1st degree AVB, and reports dizziness. She is in no distress at the time of my assessment. I have reviewed EKG's and telemetry and she has SB/SR with 1st degree AVB. She is not having any afib on telemetry. Her dizziness
actually sounds more like vertigo (room spinning when she moves around in the bed).
Past Medical History
Past Medical History: Arrhythmias, GERD, IDDM and Other (as above)
Social History
Tobacco: Non-Smoker
Alcohol: None
Living: Residential ([facility])
Family History
Family History: Reviewed & Not Pertinent
Allergies / Home Medications
Allergy/AdvReac Type Severity Reaction Status Date / Time
acetaminophen [From Percocet] Allergy Unknown Verified 03/10/25 19:06
adhesive Allergy Unknown Verified 03/10/25 19:06
fish derived Allergy SEAFOOD Verified 03/10/25 19:06
oxycodone [From Percocet] Allergy Unknown Verified 03/10/25 19:06
�Medication �Instructions �Recorded �Confirmed �Type
acetaminophen 325 mg tablet 650 mg PO Q6HPRN PRN mild pain / 12/14/24 03/11/25 History
temp > 100.4
atorvastatin 40 mg tablet 40 mg PO HS High Cholesterol 12/14/24 03/11/25 History
baclofen 10 mg tablet 10 mg PO TIDPRN PRN spasms 12/14/24 03/11/25 History
bisacodyl 10 mg rectal suppository 10 mg WV DAILYPRN PRN if no bm 12/14/24 03/11/25 History
aftr mom
cholecalciferol (vitamin D3) 25 25 mcg PO DAILY Supplement 12/14/24 03/11/25 History
mcg (1,000 unit) tablet
famotidine 20 mg tablet 20 mg PO BID Gastrointestinal Issue 12/14/24 03/11/25 History
hydroxyzine pamoate 25 mg capsule 25 mg PO HS Mental Health/Anxiety 12/14/24 03/11/25 History
hydroxyzine pamoate 25 mg capsule 25 mg PO Q6HPRN PRN anxiety 12/14/24 03/11/25 History
insulin lispro 100 unit/mL 1 sliding scale dose SC AC Diabetes 12/14/24 03/11/25 History
subcutaneous solution (Humalog
U-100 Insulin)
lamotrigine 25 mg tablet 25 mg PO BID Seizures 12/14/24 03/11/25 History
nystatin 100,000 unit/gram topical 1 applic topical BID breasts and 12/14/24 03/11/25 History
powder groin
pantoprazole 40 mg tablet,delayed 40 mg PO BID Gastrointestinal Issue 12/14/24 03/11/25 History
release
rivaroxaban 20 mg tablet 20 mg PO QPM Blood Clot 12/14/24 03/11/25 History
Prevention/Tx
tamsulosin 0.4 mg capsule 0.4 mg PO DAILY Urinary Issue 12/14/24 03/11/25 History
triamcinolone acetonide 0.1 % 1 applic topical BID breasts and 12/14/24 03/11/25 History
topical cream groin
ziprasidone HCl 40 mg capsule 40 mg PO BID Mental Health/Anxiety 12/14/24 03/11/25 History
aspirin 81 mg chewable tablet 81 mg PO DAILY Heart 12/16/24 03/11/25 Rx
disease/condition #30 tabs
furosemide 40 mg tablet (Lasix) 40 mg PO DAILY #30 tabs 12/16/24 03/11/25 Rx
lisinopril 2.5 mg tablet 2.5 mg PO DAILY #30 tabs 12/16/24 03/11/25 Rx
budesonide 0.5 mg/2 mL suspension 0.5 mg inhalation R BID 03/11/25 03/11/25 History
for nebulization
docusate sodium 100 mg capsule 100 mg PO BID 03/11/25 03/11/25 History
(Colace)
fluticasone propionate 50 1 spray intranasal BID 03/11/25 03/11/25 History
mcg/actuation nasal
spray,suspension
glipizide 5 mg tablet 5 mg PO DAILY 03/11/25 03/11/25 History
lidocaine 4 % topical gel 1 applic topical BIDPRN PRN right 03/11/25 03/11/25 History
shoulder
magnesium hydroxide 400 mg/5 mL 400 mg PO [id number] PRN if no bm 03/11/25 03/11/25 History
oral suspension (Milk of Magnesia) aftr mom
metoprolol succinate 25 mg capsule 25 mg PO DAILY 03/11/25 03/11/25 History
sprinkle, ext. release 24 hr
nitroglycerin 0.4 mg sublingual 0.4 mg sublingual [id number] PRN 03/11/25 03/11/25 History
tablet chest pain
sennosides 8.6 mg tablet (senna) 8.6 mg PO BID 03/11/25 03/11/25 History
sodium phosphates 19 gram-7 118 ml WV DAILYPRN PRN if no bm 03/11/25 03/11/25 History
gram/118 mL enema (Fleet Enema) aftr dulcolax
spironolactone 25 mg tablet 25 mg PO DAILY 03/11/25 03/11/25 History
Review of Systems
-
History Source: Patient and Other (and chart)
All other systems: Negative unless noted
Abdomen/GI: Abdominal Pain and Nausea
Physical Exam
Vital Signs
Temp Pulse Resp BP Pulse Ox
98.1 F 59 16 104/53 95
03/13/25 11:01 03/13/25 11:01 03/13/25 11:01 03/13/25 11:01 03/13/25 11:01
Lab Results
03/13/25 08:52
03/13/25 08:52
Troponin I < 0.012 ng/ml 03/10/25 22:51
Xjb-Q-Zfiaefzlozo Pept 310 pg/ml 03/10/25 19:49
Physical Exam
General: Well Developed and No Apparent Distress
HEENT: Normocephalic and Anicteric
Respiratory: Clear and Non Labored Respirations
Cardiac: Regular Rhythm
Musculoskeletal: No Edema
Skin: Warm and Dry
Neuro: AO x 3
Psych: Calm
Impression / Plan
-
GI issues:
-CT scan: ACUTE PROCTOCOLITIS in the sigmoid colon and RECTUM with moderate to severe circumferential rectal wall thickening and mild surrounding perirectal inflammation which appears new from 02/13/2025. MULTIPLE ANTERIOR ABDOMINAL WALL HERNIAS
containing air-filled loops of distended colon which are similar in appearance to 02/13/2025. Moderate to severe chronic bilateral renal disease. Mild distention and marked irregular shape of the urinary bladder suggesting chronic neurogenic
bladder. Mild hepatosplenomegaly. Previous cholecystectomy. Severe multilevel lumbar discogenic degenerative disease and multilevel laminectomies. Mild cardiomegaly.
-surgery and GI have both been on the case
-no pain at present
PAF:
-stable in SR/SB
-We are consulted since she was reported to have PAF and 1st degree AVB, and reports dizziness. I have reviewed EKG's and telemetry and she has SB/SR with 1st degree AVB. She is not having any afib on telemetry. There are no prolonged pauses or
advanced HB. She certainly has cardiac conduction disease with 1st degree AVB and RBBB. However, her dizziness actually sounds more like vertigo (room spinning when she moves around in the bed). No indication for PPM at this time. Continue
metoprolol for NICM.
-follow telemetry
-continue Xarelto
NICM:
-EF 40-45%
-she is having OP work-up, including MRI
-GDMT limited by hypotension and renal function
-on BB. ACEI and spironolactone held.
Data Reviewed
-
EKG: Tracing Personally Visualized and interpreted (SB at 56 BPM with 1st degree AVB)
Radiology: Report Reviewed by me (CXR 03/10/25: Mild cardiomegaly without radiographic evidence for acute pulmonary edema. Mildly decreased bilateral lung volumes. )
Medical Tests (Nuc Med, Echo etc): Report Reviewed by me (echo 12/14/24: Normal LV size with mildly reduced systolic function. LVEF is 40-45% by visual estimation. Global diffuse hypokinesis. Normal right ventricular size and function. Mild mitral
regurgitation. Mild tricuspid regurgitation. Estimated pulmonary artery pressure of 32 mmHg)
Labs: Labs Reviewed by me
--- NOTE | 2025-03-13 12:32 | CM ---
Addendum entered by Clara Adames RN 03/13/25 12:36:
Call report to: [phone]
Fax report to: [phone]
Original Note:
Reviewed the chart notes. Per notes auth will need to be attempted prior to facility accepting the patient back. CM continues to be available to patient/family and is monitoring medical plan for needs at discharge.
[facility] NPI # [id number]
Dr. Greer
Plan: Discharge back to [facility] when medically stable. Prior auth will need to be attempted.
[2025-03-13 16:57] LABS: Glucose - Point of Care 135 mg/dl (70-99)
[2025-03-13] MEDS: XARELTO 20 MG PO (17:52)
[2025-03-13] MEDS: LIPITOR 40 MG PO (21:12)
[2025-03-13 21:51] LABS: Glucose - Point of Care 138 mg/dl (70-99)
[2025-03-13] MEDS: ProAmatine 5 MG PO (23:05)
[2025-03-14] VITALS (8 sets, daily range): BP systolic 95–116; BP diastolic 50–66; PULSE 53–87
[2025-03-14] MEDS: ZOSYN 50 IV ×4 (05:22→23:48)
[2025-03-14 07:09] LABS: Glucose - Point of Care 122 mg/dl (70-99)
[2025-03-14] MEDS: NOVOLOG FLEXPEN-LOW RESISTANCE SC ×3 (07:45→18:17)
--- NOTE | 2025-03-14 09:11 | CM ---
Reviewed the chart notes. Auth obtained for [facility]. #[id number]; 03/14-03/20. Facility notified. CM continues to be available to patient/family and is monitoring medical plan for needs at discharge.
Plan: Discharge to [facility] today.
Call report to: [phone]
Fax report to: [phone]
Medical necessity and transport forms on chart.
[2025-03-14] MEDS: ANTIVERT 12.5 MG PO ×2 (09:46→18:18)
[2025-03-14] MEDS: GEODON 40 MG PO ×2 (09:46→20:51)
[2025-03-14] MEDS: FLOMAX 0.4 MG PO (09:47)
[2025-03-14] MEDS: ATARAX 25 MG PO ×2 (09:47→20:51)
[2025-03-14] MEDS: LAMICTAL 25 MG PO (09:47)
[2025-03-14] MEDS: PROTONIX 40 MG PO ×2 (09:48→20:51)
[2025-03-14] MEDS: LOW STRENGTH ASPIRIN 81 MG PO (09:48)
[2025-03-14] MEDS: DESENEX/MITRAZOL/ZEASORB 1 APPLIC TOPICAL ×2 (09:51→20:51)
[2025-03-14] MEDS: ZOFRAN 4 MG IV (09:56)
[2025-03-14] MEDS: TOPROL XL PO (11:19)
--- NOTE | 2025-03-14 11:45 | W.PN.HOSP.TC ---
Today's Communication/Plan
-
Assessment / Plan
Assessment / Plan
NAD
Scleral Anicteric
MMM
No JVD
CTABL
RRR, S1/S2
Soft, NT, ND, BS+
Umbilical hernia noted protuberant with some slight pain however this has been ongoing for some time outpatient surgeon knows about this
Warm, Dry
AAOx3
Calm
Proctocolitis secondary to intractable constipation also multiple anterior abdominal wall hernias containing air filled loops of distended colon
Continue enemas and bowel regimen
Antiemetics
GI plans to advance to
Continue antibiotics per GI recommendations
GI following
GI recommending surgery consult3
Vertigo
Obtain CT brain which was negative for acute CVA/bleed. Room spinning sensation dizziness began yesterday.
Discussed with physical therapy will see her for vestibular therapy today
Meclizine 12.5 mg ordered
Abdominal hernias multiple associated pain
Per GI outpatient surgical evaluation for intra-abdominal wall hernia containing colon loop in the future follow-up with Andrew LOAIZA
Hypokalemia
Refusing all formulations of potassium oral. Will attempt IV
SIMÓN on CKD stage IV
IV fluids given in ER hold further fluids caution given history of heart failure
Hold/avoid nephrotoxic agents such as Lasix Aldactone lisinopril
Chronic hypotension
At baseline
Type 2 diabetes
Hold glipizide continue sliding scale Accu-Cheks goal blood glucose 140-180
Chronic HFrEF
Hold diuretics
Atrial fibrillation
Continue Xarelto beta-kassy aspirin
Sinus bradycardia with AV block
May need to discontinue beta-kassy. However will monitor on telemetry. Consult cardiology.
I did review EKG personally which confirmed first-degree AV block with a [place] interval of 330 and sinus bradycardia
Bipolar disorder
Continue ziprasidone Lamictal
GERD
Continue PPI
Discharge clear for SNF when bed available
Anticipated Discharge: Today
Subjective/Interval History
-
Date of Service: March 14, 2025
Seen and examined. Laying in bed comfortable. Has intermittent notes. Described as room spinning sensation. Consistent with vertigo.
Objective Data
-
Vital Signs:
Vital Signs
Temp Pulse Resp BP Pulse Ox
98.2 F 53 16 102/54 92
03/14/25 11:26 03/14/25 11:26 03/14/25 11:26 03/14/25 11:26 03/14/25 11:26
I&O
03/13/25 03/14/25 03/15/25
06:59 06:59 06:59
Intake Total 1740 / 1740 3140 / 3140
Output Total 3400 / 3400 2350 / 2350
Balance -1660 / -1660 790 / 790
--- NOTE | 2025-03-14 11:47 | W.DCSUMMARY ---
Addendum entered and electronically signed by Dipak Tripp MD 03/15/25 14:48:
Charge date 03/15/25
Original Note:
Discharge Summary
Discharge Data
Date of Admission: 03/10/25
Date of Discharge: 03/14/25
-
Pending Results: No
Hospital Course
64-year-old female past medical history of diabetes, HFrEF, atrial fibrillation on Xarelto, multiorgan sarcoidosis, obesity
Presented with inability to defecate for several days CT abdomen pelvis demonstrated proctocolitis secondary to constipation and multiple anterior abdominal wall hernias containing areas filled loops of distended colon. Evaluated by
gastroenterology recommended bowel regimen. Evaluated by general surgery recommended outpatient continued follow-up at a tertiary care center with primary surgeon. Should be noted as well on telemetry there was concerns for bradycardia and atrial
fibrillation with first-degree AV block with dizziness. Therefore cardiology was consulted believe this was more related to vertigo in terms of the dizziness and there was no evidence of atrial fibrillation on telemetry. Though there is a
first-degree AV block and bradycardia in not a candidate/indication for PPM at this time with recommendations to continue Toprol and Xarelto. Will require continued outpatient cardiology follow-up. Head CT was completed for ongoing dizziness this
did not show acute cva. PT consult placed rec snf and continue vestibular training.
Additionally, has urinary retention requiring boswell placement. Will need to see urology as an outpatient
Physical therapy to continue to see for vestibular rehab
Head CT
IMPRESSION:
No acute intracranial abnormality.
Discharge Plan
-
Patient Disposition: Assisted/SNF
Discharge Diagnosis/Procedures: Proctocolitis
Condition: Good
Diet: As tolerated
Activity: As tolerated
Activity Restrictions/Additional Instructions:
Presented with inability to defecate for several days CT abdomen pelvis demonstrated proctocolitis secondary to constipation and multiple anterior abdominal wall hernias containing areas filled loops of distended colon. Evaluated by
gastroenterology recommended bowel regimen. Evaluated by general surgery recommended outpatient continued follow-up at a tertiary care center with primary surgeon. Should be noted as well on telemetry there was concerns for bradycardia and atrial
fibrillation with first-degree AV block with dizziness. Therefore cardiology was consulted believe this was more related to vertigo in terms of the dizziness and there was no evidence of atrial fibrillation on telemetry. Though there is a
first-degree AV block and bradycardia in not a candidate/indication for PPM at this time with recommendations to continue Toprol and Xarelto. Will require continued outpatient cardiology follow-up. Head CT was completed for ongoing dizziness this
did not show acute cva. PT consult placed rec snf and continue vestibular training.
Additionally, has urinary retention requiring boswell placement. Will need to see urology as an outpatient
Physical therapy to continue to see for vestibular rehab
Referrals:
Ivan Valerio MD [Active] -
Eladio Greer DO [Family Provider] -
Sanford Blakely MD [Active] - in less than 1 week
Tere Concepcion DO [Active] -
Additional Discharge Medication Instructions: follow up with Andrew LOAIZA to review for colonoscopy
Prescriptions:
Continued
atorvastatin 40 mg Tablet
40 mg PO HS
acetaminophen 325 mg Tablet
650 mg PO Q6HPRN PRN (Reason: mild pain / temp > 100.4)
baclofen 10 mg Tablet
10 mg PO TIDPRN PRN (Reason: spasms)
triamcinolone acetonide 0.1 % Cream
1 applic TOPICAL BID
lamotrigine 25 mg Tablet
25 mg PO BID
famotidine 20 mg Tablet
20 mg PO BID
tamsulosin 0.4 mg Capsule
0.4 mg PO DAILY
bisacodyl 10 mg Suppository
10 mg [place] DAILYPRN PRN (Reason: if no bm aftr mom)
pantoprazole 40 mg Tablet,Delayed Release (Dr/Ec)
40 mg PO BID
ziprasidone HCl 40 mg Capsule
40 mg PO BID
nystatin 100,000 unit/gram Powder
1 applic TOPICAL BID
insulin lispro [Humalog U-100 Insulin] 100 unit/mL Solution
1 sliding scale dose SC AC
Rx Instructions:
251-300=4units, 301-350=6units
cholecalciferol (vitamin D3) 25 mcg (1,000 unit) Tablet
25 mcg PO DAILY
rivaroxaban 20 mg Tablet
20 mg PO QPM
hydroxyzine pamoate 25 mg Capsule
25 mg PO Q6HPRN PRN (Reason: anxiety)
hydroxyzine pamoate 25 mg Capsule
25 mg PO HS
aspirin 81 mg Tablet,Chewable
81 mg PO DAILY Qty: 30 0RF
lisinopril 2.5 mg Tablet
2.5 mg PO DAILY Qty: 30 0RF
furosemide [Lasix] 40 mg tablet
40 mg PO DAILY Qty: 30 0RF
sennosides [senna] 8.6 mg Tablet
8.6 mg PO BID
magnesium hydroxide [Milk of Magnesia] 400 mg/5 mL Suspension
400 mg PO Q29MGQT PRN (Reason: if no bm aftr mom)
nitroglycerin 0.4 mg Tablet, Sublingual
0.4 mg SUBLINGUAL [id number] PRN (Reason: chest pain)
docusate sodium [Colace] 100 mg Capsule
100 mg PO BID
budesonide 0.5 mg/2 mL Suspension For Nebulization
0.5 mg INHALATION R BID
fluticasone propionate 50 mcg/actuation [place],Suspension
1 spray INTRANASAL BID
glipizide 5 mg Tablet
5 mg PO DAILY
metoprolol succinate 25 mg Capsule,Sprinkle,Er 24hr
25 mg PO DAILY
spironolactone 25 mg tablet
25 mg PO DAILY
Fleet Enema 19-7 gram/118 mL Enema
118 ml [place] DAILYPRN PRN (Reason: if no bm aftr dulcolax)
lidocaine 4 % Gel
1 applic TOPICAL BIDPRN PRN (Reason: right shoulder)
Discharge Date and Time
Print Language: GERMAN
[2025-03-14 11:55] LABS: Glucose - Point of Care 125 mg/dl (70-99)
[2025-03-14 16:30] LABS: Glucose - Point of Care 128 mg/dl (70-99)
[2025-03-14] MEDS: XARELTO 20 MG PO (18:19)
[2025-03-14 21:22] LABS: Glucose - Point of Care 169 mg/dl (70-99)
[2025-03-14] MEDS: LIPITOR 40 MG PO (21:39)
[2025-03-15 03:25] VITALS: BP 106/43
[2025-03-15 05:02] VITALS: BMI 44.0
[2025-03-15] MEDS: ZOSYN 50 IV ×2 (05:49→12:24)
[2025-03-15 07:31] VITALS: BP 114/56
[2025-03-15] MEDS: ANTIVERT 12.5 MG PO (08:45)
[2025-03-15] MEDS: GEODON 40 MG PO (08:46)
[2025-03-15] MEDS: LAMICTAL 25 MG PO (08:46)
[2025-03-15] MEDS: FLOMAX 0.4 MG PO (08:46)
[2025-03-15] MEDS: ATARAX 25 MG PO (08:46)
[2025-03-15] MEDS: DESENEX/MITRAZOL/ZEASORB 1 APPLIC TOPICAL (08:46)
[2025-03-15] MEDS: LOW STRENGTH ASPIRIN 81 MG PO (08:47)
[2025-03-15] MEDS: PROTONIX 40 MG PO (08:47)
[2025-03-15] MEDS: TOPROL XL 25 MG PO (08:47)
[2025-03-15] MEDS: NOVOLOG FLEXPEN-LOW RESISTANCE SC (08:55)
[2025-03-15 08:56] LABS: Glucose - Point of Care 136 mg/dl (70-99)
--- NOTE | 2025-03-15 09:00 | CM ---
Addendum entered by Clara Adames RN 03/15/25 16:16:
CM spoke with the patient's brother Colby via telephone. Updated on discharge plan of back to [facility].
Original Note:
Reviewed the chart notes. Patient was expected to discharge back to [facility] yesterday. Auth had been obtained for [facility]. #[id number]; 03/14-03/20. Facility notified. CM continues to be available to patient/family and is monitoring
medical plan for needs at discharge.
Plan: Discharge to [facility] today.
Call report to: [phone]
Fax report to: [phone]
Medical necessity and transport forms on chart.
[2025-03-15 11:09] VITALS: BP 120/62
[2025-03-15 12:06] LABS: Glucose - Point of Care 155 mg/dl (70-99)
[2025-03-15] MEDS: NOVOLOG FLEXPEN-LOW RESISTANCE 1 UNITS SC ×2 (12:25→16:12)
--- NOTE | 2025-03-15 13:22 | W.PN.HOSP.TC ---
Today's Communication/Plan
-
pending snf
Assessment / Plan
Assessment / Plan
NAD
Scleral Anicteric
MMM
No JVD
CTABL
RRR, S1/S2
Soft, NT, ND, BS+
Umbilical hernia noted protuberant with some slight pain however this has been ongoing for some time outpatient surgeon knows about this
Warm, Dry
AAOx3
Calm
Proctocolitis secondary to intractable constipation also multiple anterior abdominal wall hernias containing air filled loops of distended colon
Continue enemas and bowel regimen
Antiemetics
Continue antibiotics per GI recommendations
GI following
GI recommending surgery consult3
Vertigo
Obtain CT brain which was negative for acute CVA/bleed. Room spinning sensation dizziness began yesterday.
Discussed with physical therapy will see her for vestibular therapy today
Meclizine 12.5 mg ordered
Abdominal hernias multiple associated pain
Per GI outpatient surgical evaluation for intra-abdominal wall hernia containing colon loop in the future follow-up with Andrew LOAIZA
Hypokalemia
Refusing all formulations of potassium oral. Will attempt IV
SIMÓN on CKD stage IV
IV fluids given in ER hold further fluids caution given history of heart failure
Hold/avoid nephrotoxic agents such as Lasix Aldactone lisinopril
Chronic hypotension
At baseline
Type 2 diabetes
Hold glipizide continue sliding scale Accu-Cheks goal blood glucose 140-180
Chronic HFrEF
Hold diuretics
Atrial fibrillation
Continue Xarelto beta-kassy aspirin
Sinus bradycardia with AV block
May need to discontinue beta-kassy. However will monitor on telemetry. Consult cardiology.
I did review EKG personally which confirmed first-degree AV block with a [place] interval of 330 and sinus bradycardia
Bipolar disorder
Continue ziprasidone Lamictal
GERD
Continue PPI
Discharge clear for SNF when bed available
Anticipated Discharge: Today
Subjective/Interval History
-
Date of Service: March 15, 2025
seen and examined. no new complaints. no acute overnight events
Objective Data
-
Vital Signs:
Vital Signs
Temp Pulse Resp BP Pulse Ox
98.2 F 67 18 120/62 94
03/15/25 11:09 03/15/25 11:09 03/15/25 11:09 03/15/25 11:09 03/15/25 11:09
I&O
03/14/25 03/15/25 03/16/25
06:59 06:59 06:59
Intake Total 3140 / 3140 1930 / 1930
Output Total 2350 / 2350 2500 / 2500
Balance 790 / 790 -570 / -570
[2025-03-15 15:43] VITALS: BP 106/57
[2025-03-15 16:12] LABS: Glucose - Point of Care 166 mg/dl (70-99)
[2025-03-15] MEDS: XARELTO 20 MG PO (17:04)
[2025-03-15] MEDS: ZOSYN IV (17:37)
== END 2025-03-15 19:00 | DRG 386 ==
LOC: 2 NORTH 23:46
PROVIDERS: Nurse Practitioner Family; Nurse Practitioner Gerontology; ADMITTING PHYSICIAN Hospitalist; ATTENDING PHYSICIAN Hospitalist; CONSULT PHYSICIAN Internal Medicine; CONSULT PHYSICIAN Surgery; EMERGENCY PHYSICIAN Emergency Medicine; FAMILY PHYSICIAN Internal Medicine
DX: K51.318 Ulcerative (chronic) rectosigmoiditis with other complication (principal); I13.0 Hypertensive heart and chronic kidney disease with heart failure and stage 1 through stage 4 chronic kidney disease, or unspecified chronic kidney disease; N17.9 Acute kidney failure, unspecified; I42.8 Other cardiomyopathies; N18.4 Chronic kidney disease, stage 4 (severe); I50.22 Chronic systolic (congestive) heart failure; Z68.41 Body mass index [BMI] 40.0-44.9, adult; Z66 Do not resuscitate; K59.00 Constipation, unspecified; I95.89 Other hypotension; E11.22 Type 2 diabetes mellitus with diabetic chronic kidney disease; E87.6 Hypokalemia; Z79.01 Long term (current) use of anticoagulants; D86.9 Sarcoidosis, unspecified; E66.9 Obesity, unspecified; D64.9 Anemia, unspecified; F31.9 Bipolar disorder, unspecified; H40.9 Unspecified glaucoma; K21.9 Gastro-esophageal reflux disease without esophagitis; I44.0 Atrioventricular block, first degree; I48.0 Paroxysmal atrial fibrillation; K46.9 Unspecified abdominal hernia without obstruction or gangrene; Z79.4 Long term (current) use of insulin; Z79.82 Long term (current) use of aspirin; Z79.899 Other long term (current) drug therapy; Z86.0100 Personal history of colon polyps, unspecified; Z90.49 Acquired absence of other specified parts of digestive tract
CPT/HCPCS: 70450; 71046; 74176; 80048; 80053; 81003; 81015; 82962; 83036; 83690; 83735; 83880; 84484; 85025; 85027; 87045; 87046; 87086; 87324; 87427; 87449; 93005; 96360; 96361; 97112; 97163; 97167; 97535; 99285

== ENCOUNTER 2025-03-21 12:01 | Emergency (ER) | payer OTHER, SELFPAY ==
[2025-03-21 12:01] VITALS: BMI 41.3
[2025-03-21 12:03] VITALS: BP 102/59
--- NOTE | 2025-03-21 13:50 | EDRN ---
Pt brought back to decon #2 from waiting area where she was acting out, behaviors included knocking over trashcans, pushing over hand technical fellow station, kicking chairs and squeezing her Smith bag until it bursted and then screaming about having
urine on her nightgown. Pt hard to redirect and states she is from [facility] and has been having a headache that is not going away after Tylenol and Imitrex.
[2025-03-21 14:00] VITALS: BP 113/64
[2025-03-21 16:33] VITALS: BP 90/55
[2025-03-21] MEDS: FIORICET 1 TAB PO (17:05)
[2025-03-21 17:41] LABS: % Basophils 0.2 % (0-2); % Eosinophils 1.4 % (0-6); % Immature Granulocytes 0.3 % (0-0.5); % Lymphocytes 12.1 % (20.5-51.1); % Monocytes 7.5 % (1.7-9.3); % Neutrophils 78.5 % (42.2-75.2); Absolute Eosinophils 0.1 10^3/uL (0-0.7); Absolute Lymphocytes 1.2 10^3/uL (1.2-3.4); Absolute Monocytes 0.7 10^3/uL (0.1-0.6); Absolute Neutrophils 7.6 10^3/uL (1.4-6.5); Hematocrit 29.8 % (37.0-47.0); Mean Corp Hgb Conc. 33.6 g/dL (33.0-37.0); Mean Corpuscular Hgb 28.2 pg (27.0-31.0); Mean Corpuscular Volume 84.2 fL (81.0-99.0); Mean Platelet Volume 10.4 fL (7.4-10.4); Nucleated Red Blood Cells % 0 %; Platelet Count 216 10^3/uL (130-400); Red Blood Cell Count 3.54 10^6/uL (4.20-5.40); Red Cell Dist. Width 15.8 % (11.5-14.5); White Blood Cell Count 9.7 10^3/uL (4.8-10.8)
--- NOTE | 2025-03-21 17:47 | ED.GENMED ---
History of Present Illness
<Radha Matos PA-C - Last Filed: 03/22/25 11:04>
General
Chief Complaint: Headache
Source: patient
Exam Limitations: none
Time Seen by Provider: 03/21/25 15:48
Nursing documentation reviewed up to this point in time: agreed with
History of Present Illness
History of Present Illness:
64 y/o F with h/o AF on xarelto
CHF on lasix
sarcoidosis, obesity, dm
here from [place]
for frontal headache
she bent over 2 days ago to deal with her boswell bag and hti her head on her walker with bruising to her forehead. she has had a headache ever since
pt says she has not had vision chagnes but mild nausea
SHE DENIED ABDOMINLA PAIN TO ME INTIIALLY, STATING IT WAS NAUSEA WITH HER HEADACHE
no h/o migraines
at the [place] she was given tylenol and immitrex and says her pain is no different
10/10 pain
nothing makes it better, light makes it worse
pt was recently admitted for constipation and abd pain and her CT showed proctocolitis secondary to constipation; gi recommended bowel regiment; she also had multipel abdominal wall hernias without obstruction; pt also was seen by cards for
dizziness, she had AF with bradycardia; pt was to continue toprol and xarelto
her head ct was neg at the time (dizziness)
pt has not had any enw abdomianl pain
she last had bm 2 days ago
says she is on bowel regimen
pt has neurogenic bladder and a foely was placed while she was here
she still has the boswell in
Past History
<Radha Matos PA-C - Last Filed: 03/22/25 11:04>
Past History
ED Past Medical History: Arrthythmia, CHF, Hypercholesterolemia, IDDM and Other (Sarcoidosis)
ED Past Surgical History: Other (Hernia repair)
Review of Systems
<Radha Matos PA-C - Last Filed: 03/22/25 11:04>
Review of Systems
Allergies reviewed?: Yes
All Other Systems: Not applicable
Phy Exam
<Radha Matos PA-C - Last Filed: 03/22/25 11:04>
Physical Exam
Physical Exam:
GENERAL: Alert , in no apparent distress
HEAD: R frtonal bruising silight STS tendenress
EYE: pupils equal and reactive 2mm, no nystagmus, minimal photophobia
NECK: Supple,full rom, nontender
ENT: o/p clr, mmm.
CARDIAC: Regular rate and rhythm . no edema
LUNGS: Clear breath sounds bilaterally, no acute respiratory distress, no wheezes/rales/rhonchi
ABDOMEN: Soft large abd wall hernias reducible; normal bowel sounds; tender over hernias which reduce; obese no r/g, no cvat
NEUROLOGICAL: Alert and orientedx 4, cn intact, no facial asymmetry, 5/5 strength in UE/LE, sensation intact, romberg neg, neg pronator drift
SKIN: Warm and dry, skin intact.
MUSCULOSKELETAL: No edema, well perfused.
PSYCH: Normal and appropriate interaction.
Course
<Radha Matos PA-C - Last Filed: 03/22/25 11:04>
Orders/Labs/Results
Orders:
Orders
03/21/25 16:27
CT Head W/o Iv Contrast Urgent
Comment:
Reason For Exam: bumped head
03/21/25 16:28
Butalb/Acetaminophen/Caffeine [Fioricet] 1 tab PO NOW STA
03/21/25 17:28
Basic Metabolic Panel Urgent
Complete Blood Count/With Diff Urgent
03/21/25 18:19
0.9% Sodium Chloride 250 ml [Nss] 250 ml IV BOLUS
Metoclopramide [Reglan] 5 mg IV NOW STA
03/21/25 18:47
EKG [Electrocardiogram (*1)] Urgent
Reason for Study: Tachycardia
EKG- Treatment ONCE
Abnormal Lab Results
03/21/25
17:28
RBC 3.54 L 10^6/uL
(4.20-5.40)
Hgb 10.0 L g/dL
(12.0-16.0)
Hct 29.8 L %
(37.0-47.0)
RDW 15.8 H %
(11.5-14.5)
Absolute Neuts (auto) 7.6 H 10^3/uL
(1.4-6.5)
Absolute Monos (auto) 0.7 H 10^3/uL
(0.1-0.6)
Neutrophils % 78.5 H %
(42.2-75.2)
Lymphocytes % 12.1 L %
(20.5-51.1)
BUN 36 H mg/dl
(7-17)
Creatinine 1.9 H mg/dL
(0.6-1.0)
03/21/25 17:28
03/21/25 17:28
Vital Signs
Initial and Last Documented VS:
Initial Vital Signs
Temp Pulse Resp BP Pulse Ox
36.8 C 66 18 102/59 97
03/21/25 12:03 03/21/25 12:03 03/21/25 12:03 03/21/25 12:03 03/21/25 12:03
Last Documented Vital Signs
Temp Pulse Resp BP Pulse Ox
36.8 C 72 16 97/53 91
03/21/25 12:03 03/21/25 18:38 03/21/25 18:38 03/21/25 18:38 03/21/25 18:38
<Gurwinder Fritz, DO - Last Filed: 03/21/25 19:40>
Orders/Labs/Results
Orders:
Orders
03/21/25 16:27
CT Head W/o Iv Contrast Urgent
Comment:
Reason For Exam: bumped head
03/21/25 16:28
Butalb/Acetaminophen/Caffeine [Fioricet] 1 tab PO NOW STA
03/21/25 17:28
Basic Metabolic Panel Urgent
Complete Blood Count/With Diff Urgent
03/21/25 18:19
0.9% Sodium Chloride 250 ml [Nss] 250 ml IV BOLUS
Metoclopramide [Reglan] 5 mg IV NOW STA
03/21/25 18:47
EKG [Electrocardiogram (*1)] Urgent
Reason for Study: Tachycardia
EKG- Treatment ONCE
Abnormal Lab Results
03/21/25
17:28
RBC 3.54 L 10^6/uL
(4.20-5.40)
Hgb 10.0 L g/dL
(12.0-16.0)
Hct 29.8 L %
(37.0-47.0)
RDW 15.8 H %
(11.5-14.5)
Absolute Neuts (auto) 7.6 H 10^3/uL
(1.4-6.5)
Absolute Monos (auto) 0.7 H 10^3/uL
(0.1-0.6)
Neutrophils % 78.5 H %
(42.2-75.2)
Lymphocytes % 12.1 L %
(20.5-51.1)
BUN 36 H mg/dl
(7-17)
Creatinine 1.9 H mg/dL
(0.6-1.0)
03/21/25 17:28
03/21/25 17:28
Vital Signs
Initial and Last Documented VS:
Initial Vital Signs
Temp Pulse Resp BP Pulse Ox
36.8 C 66 18 102/59 97
03/21/25 12:03 03/21/25 12:03 03/21/25 12:03 03/21/25 12:03 03/21/25 12:03
Last Documented Vital Signs
Temp Pulse Resp BP Pulse Ox
36.8 C 72 16 97/53 91
03/21/25 12:03 03/21/25 18:38 03/21/25 18:38 03/21/25 18:38 03/21/25 18:38
<Radha Matos PA-C - Last Filed: 03/22/25 11:04>
MDM/Problems Addressed
Differential Diagnosis Includes:
head injury, migraine, dehydration
MDM/Problems Addressed:
64 y/o F
from [place]
hit head on walker 2 days ago, has headahce, bruising
on xarelto
mild nausea
neuro exam nonfocal
pt has some mild photophobita
complained 10/10 pain but looks in no distress
she was initially given fioricet because there was potential interaction with her psych meds and reglan
however she says the fioricet only reduced dk headache to 7/[address]
pt mildly soft bps, but was sleeping
repeated
bp 97/60
d/w ed attending
ordered reglan 5 mg to go in slowly
prior to reglan given, pt c/o chest pain
her ekg is unchanged nonischemic
seen byu ed attending
ok to d/ chome back to [place]
<Radha Matos PA-C - Last Filed: 03/22/25 11:04>
*Critical Care Note
Total Time (30-74mins, 75-104mins- exclusive of procedures): Not Applicable
ED Attending Note
<Radha Matos PA-C - Last Filed: 03/22/25 11:04>
-
Portions of this chart may have been created with voice recognition software.� Occasional wrong word or��sound alike� substitutions may have occurred due to the inherent limitations of voice recognition software.
<Gurwinder Fritz DO - Last Filed: 03/21/25 19:40>
ED Attending Note
Patient seen and examined by attending physician: Yes
I performed the substantive portion of visit, reviewed & personally made and approve the management plan that is documented in note by myself or SAUMYA.: Yes
ED Attending Note:
I have seen and evaluated the patient with a [id number] encounter. I have spoken to the advance practicer provider and involved in the medical history, the physical exam, medical decision making.
Evaluation and management service: agree unless noted differently below.
Results interpretation: agree unless noted differently below.
Focused HPI: 64-year-old female presenting with multiple complaints. Patient initially complains of a headache. She then complains of nausea abdominal pain and indigestion. During her stay, she then develops chest pain
Physical exam: Sitting in bed comfortably. No acute distress. Abdomen soft and nontender. Palpable hernias that are reducible
Medical Decision Making: During my first interaction with the patient, I questioned her abdominal pain. Patient states she feels like she has indigestion and is requesting sheldon caty. Patient in no acute distress
CT head negative. Blood work without significantly abnormal findings. EKG nonischemic and unchanged from prior. Patient feeling better after sheldon caty and feels comfortable going home
Discharge Plan
Departure
Patient Disposition: Home (Routine Discharge)
Date of Disposition: 03/21/25
Time of Disposition: 19:48
Patient with high blood pressure during this ER visit?: No
Condition: Fair
Covid-19: Not Applicable
Discharge Problem:
Headache, Minor closed head injury
Instructions: Headache, Adult (DC)
Prescriptions:
No Action
atorvastatin 40 mg Tablet
40 mg PO HS
acetaminophen 325 mg Tablet
650 mg PO Q6HPRN PRN (Reason: mild pain / temp > 100.4)
baclofen 10 mg Tablet
10 mg PO TIDPRN PRN (Reason: spasms)
triamcinolone acetonide 0.1 % Cream
1 applic TOPICAL BID
lamotrigine 25 mg Tablet
25 mg PO BID
famotidine 20 mg Tablet
20 mg PO BID
tamsulosin 0.4 mg Capsule
0.4 mg PO DAILY
bisacodyl 10 mg Suppository
10 mg [place] DAILYPRN PRN (Reason: if no bm aftr mom)
pantoprazole 40 mg Tablet,Delayed Release (Dr/Ec)
40 mg PO BID
ziprasidone HCl 40 mg Capsule
40 mg PO BID
nystatin 100,000 unit/gram Powder
1 applic TOPICAL BID
insulin lispro [Humalog U-100 Insulin] 100 unit/mL Solution
1 sliding scale dose SC AC
Rx Instructions:
251-300=4units, 301-350=6units
cholecalciferol (vitamin D3) 25 mcg (1,000 unit) Tablet
25 mcg PO DAILY
rivaroxaban 20 mg Tablet
20 mg PO QPM
hydroxyzine pamoate 25 mg Capsule
25 mg PO Q6HPRN PRN (Reason: anxiety)
hydroxyzine pamoate 25 mg Capsule
25 mg PO HS
aspirin 81 mg Tablet,Chewable
81 mg PO DAILY Qty: 30 0RF
lisinopril 2.5 mg Tablet
2.5 mg PO DAILY Qty: 30 0RF
furosemide [Lasix] 40 mg tablet
40 mg PO DAILY Qty: 30 0RF
sennosides [senna] 8.6 mg Tablet
8.6 mg PO BID
magnesium hydroxide [Milk of Magnesia] 400 mg/5 mL Suspension
400 mg PO [id number] PRN (Reason: if no bm aftr mom)
nitroglycerin 0.4 mg Tablet, Sublingual
0.4 mg SUBLINGUAL [id number] PRN (Reason: chest pain)
docusate sodium [Colace] 100 mg Capsule
100 mg PO BID
budesonide 0.5 mg/2 mL Suspension For Nebulization
0.5 mg INHALATION R BID
fluticasone propionate 50 mcg/actuation [place],Suspension
1 spray INTRANASAL BID
glipizide 5 mg Tablet
5 mg PO DAILY
metoprolol succinate 25 mg Capsule,Sprinkle,Er 24hr
25 mg PO DAILY
spironolactone 25 mg tablet
25 mg PO DAILY
Fleet Enema 19-7 gram/118 mL Enema
118 ml [place] DAILYPRN PRN (Reason: if no bm aftr dulcolax)
lidocaine 4 % Gel
1 applic TOPICAL BIDPRN PRN (Reason: right shoulder)
Referrals:
Eladio Greer, [Family Provider] -
Activity Restrictions/Additional Instructions:
WE DID A CAT SCAN OF YOUR HEAD WHICH WAS NEGATIVE
YOUR HEADACHE ISPROBABLY FROM A MINOR HEAD INJURY
TAKE TYLENOL EVERY 6 HOURS NEEDED FOR HEADACHE
BLAND DIET
AVOID READING, CELLPHONE, TV FOR A FEW DAYS
RETURN FOR ANY CONCERNS.
Interventions
Interventions:
*Risk Screen - Suicide Last Done: 03/21/25 12:03
*General Assessment Last Done: 03/21/25 12:03
*Neglect/Abuse Screening Last Done: 03/21/25 12:49
*ED- Fall Risk Assessment Last Done: 03/21/25 12:49
*ED COVID-19 Vaccine History Last Done: 03/21/25 16:33
*Nursing Disposition Last Done: 03/21/25 20:38
ED- Neurological Assessment Last Done: 03/21/25 12:49
Discharge Date and Time
Discharge Date/Time: 03/21/25 20:39
Print Language: [place]
[2025-03-21 17:51] LABS: Blood Urea Nitrogen 36 mg/dl (7-17); Calcium 9.4 mg/dl (8.4-10.2); Carbon Dioxide 29 mmol/L (22-30); Chloride 103 mmol/L (98-107); Estimated Creatinine Clearance 40 ml/min; Glucose 74 mg/dl (70-99); Sodium 142 mmol/L (135-145); eGFR 29.49
[2025-03-21 18:38] VITALS: BP 97/53
[2025-03-21] MEDS: NSS 250 IV (18:43)
[2025-03-21] MEDS: REGLAN 5 MG IV (18:44)
== END 2025-03-21 20:39 | disposition home or self-care (01) ==
LOC: EMR 12:01
PROVIDERS: Physician Assistant; EMERGENCY PHYSICIAN Student in an Organized Health Care Education/Training Program; FAMILY PHYSICIAN Internal Medicine
DX: R51.9 Headache, unspecified (principal); S09.90XA Unspecified injury of head, initial encounter; X58.XXXA Exposure to other specified factors, initial encounter; I48.91 Unspecified atrial fibrillation; E11.9 Type 2 diabetes mellitus without complications; D86.9 Sarcoidosis, unspecified; E78.00 Pure hypercholesterolemia, unspecified; K59.00 Constipation, unspecified; I50.9 Heart failure, unspecified; E66.9 Obesity, unspecified; Z79.01 Long term (current) use of anticoagulants
CPT/HCPCS: 99284; 96374; 96361; 70450; 80048; 85025; 93005

== ENCOUNTER 2025-03-23 09:55 | Emergency (ER) | payer OTHER, SELFPAY ==
[2025-03-23] VITALS (8 sets, daily range): BP systolic 82–100; BP diastolic 39–73; BMI 44.7
--- NOTE | 2025-03-23 10:24 | ED.GENMED ---
History of Present Illness
General
Chief Complaint: Musculo-Skeletal Complaint
Source: patient
Exam Limitations: none
Time Seen by Provider: 03/23/25 10:13
Nursing documentation reviewed up to this point in time: agreed with
History of Present Illness
History of Present Illness:
Patient is a 64-year-old female with history of sarcoidosis, atrial fibrillation on Xarelto, diabetes presenting to the emergency department via EMS from nursing facility for evaluation of right shoulder pain. Patient reports pain over the past two
days although significantly worse this morning. She reports a sharp pain in her right shoulder, which is worse with moving. She has limited range of motion and shoulder due to pain. She denies any trauma or inciting event. She denied any recent
falls.
Patient unsure of pain may be secondary to sarcoidosis.
Patient denies any associated chest pain. She does have somewhat chronic shortness of breath and occasionally use oxygen at her nursing facility.
She denies any fevers, chills, or cough.
She took Tylenol at her facility this morning with little to no improvement.
Past History
Past History
ED Past Medical History: Arrthythmia, CHF, Hypercholesterolemia, IDDM and Other (Sarcoidosis)
ED Past Surgical History: Other (Hernia repair)
Review of Systems
Review of Systems
Allergies reviewed?: Yes
All Other Systems: ROS reviewed and negative except as documented in HPI and ROS
Phy Exam
Physical Exam
Physical Exam:
Vitals: BP soft (which is baseline for patient). Afebrile
General: Patient is resting comfortably on my initial evaluation
Skin: Warm and dry, no rashes or lesions
Head: Normocephalic, atraumatic
Throat: Protecting airway
Neck: Normal ROM, no cervical spine tenderness
Cardiac: Regular rate
Pulm: On 2L NC. Shallow breaths without any rales, rhonchi, or wheeze.
Abdomen: Nondistended
Extremities:Diffuse bony tenderness of right shoulder with limited abduction past 90 degrees due to pain. No obvious deformity of right shoulder. No erythem or warmth of right shoulder. Full ROM in right elbow. 2+ palpable right brachial and radial
pulse with normal capillary refill.
Neuro: Grossly intact
Psychiatric: Normal affect.
Course
Orders/Labs/Results
Orders:
Orders
03/23/25 10:01
Shoulder, Right 2 Views [CR Shoulder - Right Min 2 View] Urgent
Comment:
Reason For Exam: pain
03/23/25 10:24
CR Chest - 2 Views Urgent
Comment:
Reason For Exam: Right shoulder pain
03/23/25 10:25
Electrocardiogram (*1) Urgent
Reason for Study: Shortness of Breath
EKG- Treatment ONCE
03/23/25 11:36
Oxycodone [Roxicodone] 5 mg PO NOW STA
03/23/25 12:34
Sling Right-Treatment ONCE
Vital Signs
Initial and Last Documented VS:
Initial Vital Signs
Pulse Ox
82
03/23/25 10:00
Last Documented Vital Signs
Temp Pulse Resp BP Pulse Ox
99 F 63 22 82/39 94
03/23/25 10:14 03/23/25 14:15 03/23/25 14:15 03/23/25 14:15 03/23/25 14:15
MDM/Problems Addressed
Differential Diagnosis Includes:
Not limited to: shoulder dislocation, proximal humerus fracture, AC joint separation, tendonitis, progression of sarcoidosis, etc
MDM/Problems Addressed:
64-year-old female with two days of atraumatic right shoulder pain. No associated fever, chest pain. Patient does intermittently use O2 at home given sarcoidosis. No recent cough however patient is requiring supplemental O2 today. Patient has soft
BP in ED which appears to be close to baseline for patient. Physical exam as above. No obvious deformity or erythema of right shoulder or upper extremity. However � she does have some diffuse bony tenderness of right shoulder and near AC joint. Do
not suspect infectious process. X-ray of right shoulder has no acute abnormalities. Patient was given a dose of oral oxycodone emergency with some improvement in pain. Symptoms possibly secondary to sarcoidosis vs MSK etiology such as tendonitis.
Will place patient in sling and provide very short course of pain medicine at home.
In addition � given need for supplemental O2 today a CXR was obtained which reveals no acute abnormalities. Patient with O2 sats in upper 90s only on 1-2 L nasal cannula. She appears to be in no distress. She is resting comfortable now that pain
under better control. She feels comfortable with discharge home. Return precautions discussed. Patient was seen an examined at bedside in conjunction with attending physician.
Chronic conditions affecting care:
Sarcoidosis, atrial fibrillation on xarelto
Acute Exacerbation and/or Progression of Chronic Illness:
N/A
*Radiology
Radiology exam reviewed: radiology read reviewed
*Pulse Oximetry
Patient hypoxic: no
*EKG
Interpreted by ED Provider?: Yes
EKG Intrepretation Date: 03/23/25
Interpretation: abnormal
Comparison EKG: changes noted
Heart Rate: 63
Rate: normal
Rhythm: sinus and sinus arrhythmia
[place]: left axis deviation
Interval: first degree heart block
QRS Pattern: right bundle branch block
Ischemia: no ischemia
*Telephone Lines Repairer Interpretation
Rate: normal
Interpretation: normal
Heart Rate: 68
Rhythm: sinus
*Critical Care Note
Total Time (30-74mins, 75-104mins- exclusive of procedures): Not Applicable
Patient Management
Escalation/DeEscalation of care consider admission/obs:
Admit not indicated
ED Attending Note
-
Portions of this chart may have been created with voice recognition software.� Occasional wrong word or��sound alike� substitutions may have occurred due to the inherent limitations of voice recognition software.
Discharge Plan
Departure
Patient Disposition: Home (Routine Discharge)
Date of Disposition: 03/23/25
Time of Disposition: 12:34
Patient with high blood pressure during this ER visit?: No
Condition: Good
Covid-19: Not Applicable
Discharge Problem:
Acute pain of right shoulder
Instructions: How to Use a Shoulder Sling, Shoulder pain - ED discharge instructions
Prescriptions:
New
oxycodone 5 mg tablet
5 mg PO Q8H PRN (Reason: Pain) Qty: 5 0RF
No Action
atorvastatin 40 mg Tablet
40 mg PO HS
acetaminophen 325 mg Tablet
650 mg PO Q6HPRN PRN (Reason: mild pain / temp > 100.4)
baclofen 10 mg Tablet
10 mg PO TIDPRN PRN (Reason: spasms)
triamcinolone acetonide 0.1 % Cream
1 applic TOPICAL BID
lamotrigine 25 mg Tablet
25 mg PO BID
famotidine 20 mg Tablet
20 mg PO BID
tamsulosin 0.4 mg Capsule
0.4 mg PO DAILY
bisacodyl 10 mg Suppository
10 mg [place] DAILYPRN PRN (Reason: if no bm aftr mom)
pantoprazole 40 mg Tablet,Delayed Release (Dr/Ec)
40 mg PO BID
ziprasidone HCl 40 mg Capsule
40 mg PO BID
nystatin 100,000 unit/gram Powder
1 applic TOPICAL BID
insulin lispro [Humalog U-100 Insulin] 100 unit/mL Solution
1 sliding scale dose SC AC
Rx Instructions:
251-300=4units, 301-350=6units
cholecalciferol (vitamin D3) 25 mcg (1,000 unit) Tablet
25 mcg PO DAILY
rivaroxaban 20 mg Tablet
20 mg PO QPM
hydroxyzine pamoate 25 mg Capsule
25 mg PO Q6HPRN PRN (Reason: anxiety)
hydroxyzine pamoate 25 mg Capsule
25 mg PO HS
aspirin 81 mg Tablet,Chewable
81 mg PO DAILY Qty: 30 0RF
lisinopril 2.5 mg Tablet
2.5 mg PO DAILY Qty: 30 0RF
furosemide [Lasix] 40 mg tablet
40 mg PO DAILY Qty: 30 0RF
sennosides [senna] 8.6 mg Tablet
8.6 mg PO BID
magnesium hydroxide [Milk of Magnesia] 400 mg/5 mL Suspension
400 mg PO [id number] PRN (Reason: if no bm aftr mom)
nitroglycerin 0.4 mg Tablet, Sublingual
0.4 mg SUBLINGUAL [id number] PRN (Reason: chest pain)
docusate sodium [Colace] 100 mg Capsule
100 mg PO BID
budesonide 0.5 mg/2 mL Suspension For Nebulization
0.5 mg INHALATION R BID
fluticasone propionate 50 mcg/actuation [place],Suspension
1 spray INTRANASAL BID
glipizide 5 mg Tablet
5 mg PO DAILY
metoprolol succinate 25 mg Capsule,Sprinkle,Er 24hr
25 mg PO DAILY
spironolactone 25 mg tablet
25 mg PO DAILY
Fleet Enema 19-7 gram/118 mL Enema
118 ml [place] DAILYPRN PRN (Reason: if no bm aftr dulcolax)
lidocaine 4 % Gel
1 applic TOPICAL BIDPRN PRN (Reason: right shoulder)
Referrals:
Wes Oscar MD [Active] - Call in 1-3 days for appt
Eladio Greer DO [Family Provider] -
Activity Restrictions/Additional Instructions:
RETURN TO THE EMERGENCY DEPARTMENT WITH ANY FEVERS, CHEST PAIN/SHORTNESS OF BREATH OR DIFFICULTY BREATHING, INTRACTABLE PAIN IN RIGHT ARM, NUMBNESS/TINGLING IN RIGHT ARM, DIZZINESS/LIGHTHEADEDNESS, WORSENING CURRENT SYMPTOMS, OR ANY OTHER CONCERNS
-As discussed�your x-ray of your right shoulder showed no evidence of fracture or dislocation. We are unsure the exact cause of your shoulder pain although it may be related to your sarcoidosis or tendinitis.
- You were given a shoulder sling to wear in the emergency department for comfort. Please be sure to move your shoulder around frequently throughout the day to prevent frozen shoulder.
- You can take Tylenol as needed for pain. A prescription for oxycodone has been sent to the pharmacy you can take up to every 8 hours as needed for intractable, severe pain. This may cause drowsiness.
- Follow-up with primary care and orthopedics for further evaluation/management. You may require further imaging
Monitor your symptoms closely and return to the emergency department with any acute worsening/new symptoms or any other concerns
Interventions
Interventions:
*Risk Screen - Suicide Last Done: 03/23/25 10:06
*General Assessment Last Done: 03/23/25 10:06
*Neglect/Abuse Screening Last Done: 03/23/25 10:06
*ED- Fall Risk Assessment Last Done: 03/23/25 10:06
*ED COVID-19 Vaccine History Last Done: 03/23/25 10:06
*Nursing Disposition Last Done: 03/23/25 15:20
ED-Musculoskeletal Assessment Last Done: 03/23/25 10:06
Discharge Date and Time
Discharge Date/Time: 03/23/25 15:26
Print Language: BELARUSIAN
[2025-03-23] MEDS: ROXICODONE 5 MG PO (12:13)
== END 2025-03-23 15:26 | disposition home or self-care (01) ==
LOC: EMR 09:55
PROVIDERS: EMERGENCY PHYSICIAN Emergency Medicine; FAMILY PHYSICIAN Internal Medicine
DX: M25.511 Pain in right shoulder (principal); R06.02 Shortness of breath; I44.0 Atrioventricular block, first degree; I45.10 Unspecified right bundle-branch block; I48.91 Unspecified atrial fibrillation; D86.9 Sarcoidosis, unspecified; E11.9 Type 2 diabetes mellitus without complications; I50.9 Heart failure, unspecified; E78.00 Pure hypercholesterolemia, unspecified; K21.9 Gastro-esophageal reflux disease without esophagitis; F41.9 Anxiety disorder, unspecified; F32.A Depression, unspecified; D50.9 Iron deficiency anemia, unspecified; Z79.01 Long term (current) use of anticoagulants; Z79.4 Long term (current) use of insulin; Z99.81 Dependence on supplemental oxygen; Z88.5 Allergy status to narcotic agent; Z91.018 Allergy to other foods; Z91.048 Other nonmedicinal substance allergy status
CPT/HCPCS: 99284; 71046; 73030; 93005

== ENCOUNTER 2025-03-28 01:05 | Emergency (ER) | payer OTHER, SELFPAY ==
[2025-03-28 01:08] VITALS: BP 87/69
[2025-03-28 01:09] VITALS: BP 90/55; BMI 43.6
[2025-03-28 01:10] VITALS: BP 90/55
--- NOTE | 2025-03-28 01:31 | ED.GENMED ---
History of Present Illness
General
Chief Complaint: Bowel Problem
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 )
Exam Limitations: none
Time Seen by Provider: 03/28/25 01:07
Nursing documentation reviewed up to this point in time: agreed with
History of Present Illness
History of Present Illness:
This is a 64-year-old woman with history of diabetes, heart failure with reduced EF, atrial fibrillation on Xarelto, multiorgan sarcoidosis, obesity, neurogenic bladder with indwelling Smith catheter. Chronic resident of a local snf.
Recently hospitalized March 10 to March 14 with complaints of ongoing abdominal pain, nausea, CT noted constipation/proctocolitis, treated with bowel regimen. She is also noted to have multiple abdominal wall hernias without incarceration. During that
hospitalization she had been complaining of headache, intermittent dizziness, CT of the head was unremarkable.
Noted to be hypotensive with systolic blood pressure in the 80s to 90s which appears to be her baseline.
Intermittent bradycardia with first-degree AV block, evaluated by cardiology, no indication for PPM nor change in medication.
Since that hospitalization she has been maintained on twice daily senna, twice daily Colace. She presents with ongoing lower abdominal discomfort, intermittent nausea without vomiting and complains of constipation for the past 4 days. She was
given a dose of milk of magnesia yesterday and a dose of sorbitol today.
She has not had a fever nor chills. No change in appetite.
She complains of some rectal pressure, urge to defecate and has been bearing down without success. She has noticed intermittent scant blood with wiping.
She follows with a psychologist personnel and notes that psychologist personnel office is scheduled to call her tomorrow to arrange for prompt follow-up.
She complains of an intermittent headache which has been an ongoing issue, similar headache noted during hospitalization earlier this month as well as during ED visit March 21. Unremarkable CT of the head on both occasions.
Past History
Past History
ED Past Medical History: Arrthythmia (Paroxysmal atrial fibrillation), CHF, Hypercholesterolemia, IDDM, Renal failure (Chronic kidney disease) and Other (Sarcoidosis, neurogenic bladder, chronic constipation, chronic hypotension)
ED Past Surgical History: Other (Hernia repair)
Social History
Tobacco: Non-smoker
Personal: Single
Living: snf
Employment: Disabled
Family History
Family History: Other (Noncontributory)
Phy Exam
Physical Exam
Physical Exam:
GENERAL: 64-year-old woman appears somewhat older than stated age, awake and alert, pleasant, appears in no acute distress.
EYE: anicteric
NECK: Supple, nontender, no meningismus, no significant adenopathy.
ENT: oral mucosa is moist. No rhinorrhea.
CARDIAC: Regular rate and rhythm. no murmur.
LUNGS: Clear breath sounds bilaterally, no acute respiratory distress, no wheezes/rales/rhonchi
ABDOMEN: Rotund, soft, nondistended, multiple abdominal wall hernias, large and easily reduced, nontender, no r/g, no cvat. normoactive BS. Smith catheter in place draining pale yellow urine.
Rectal exam reveals dark brown soft stool high up in the rectum. No gross blood. No rectal masses. Stool is mildly heme positive.
NEUROLOGICAL: Alert and oriented x3, no focal neuro deficits.
SKIN: Warm and dry, normal color, skin intact. No rash.
MUSCULOSKELETAL: No C/C/E. peripheral pulses are full and equal b/l. No palpable tenderness.
PSYCH: Mildly blunted affect. Easily communicative.
Course
Orders/Labs/Results
Orders:
Orders
03/28/25 01:28
CR Obstruct Series W/pa Chest Urgent
Comment:
Reason For Exam: abd pain, constipation x 4 d
03/28/25 01:34
Complete Blood Count/With Diff Urgent
Comprehensive Metabolic Panel Urgent
03/28/25 02:48
Enema- Treatment ONCE
Type: Milk of Molasses
Abnormal Lab Results
03/28/25
01:34
RBC 3.28 L 10^6/uL
(4.20-5.40)
Hgb 9.2 L g/dL
(12.0-16.0)
Hct 27.9 L %
(37.0-47.0)
RDW 15.3 H %
(11.5-14.5)
Immature Gran % 0.6 H %
(0-0.5)
Monocytes % 10.8 H %
(1.7-9.3)
BUN 31 H mg/dl
(7-17)
Creatinine 2.0 H mg/dL
(0.6-1.0)
Glucose 120 H mg/dl
(70-99)
Alkaline Phosphatase 545 H U/L
(38-126)
03/28/25 01:34
03/28/25 01:34
Vital Signs
Initial and Last Documented VS:
Initial Vital Signs
BP
87/69
03/28/25 01:08
Last Documented Vital Signs
Temp Pulse Resp BP Pulse Ox
97.7 F 72 18 90/55 95
03/28/25 01:09 03/28/25 01:09 03/28/25 01:09 03/28/25 01:10 03/28/25 01:10
MDM/Problems Addressed
Differential Diagnosis Includes:
Concern for acute on chronic constipation, other consideration is bowel obstruction.
Overall comfortable in appearance.
Systolic blood pressure 90, similar to previous readings and appears to be patient's baseline over the past several months.
There is been no report of fever and patient is afebrile. Infectious process, sepsis is unlikely.
History of chronic kidney disease, creatinine ranges 1.8-2.0. Over the past month however this has trended up from 3 months ago where creatinine had been running 1.3-1.5. Will reassess, assess for potential worsening of chronic kidney disease.
History of chronic anemia hemoglobin ranges 9-10. Patient reports some rectal bleeding. Chronically maintained on Xarelto. Rectal exam reveals no gross blood but heme positive stool. Will check CBC.
Will check obstruction series.
Chronic conditions affecting care: DM, Arrhythmia, Neurological disorder, Previous abdomnial surgery and Kidney disease
*Radiology
Radiology exam reviewed: preliminary read by ED provider (Obstruction series shows some stool within the rectum, few scattered scattered bowel gas but no evidence of significant constipation, no evidence of obstruction. Chest x-ray is clear.)
*Pulse Oximetry
Patient hypoxic: no
*Critical Care Note
Total Time (30-74mins, 75-104mins- exclusive of procedures): Not Applicable
Update Note
Update Note:
02:45
Patient continues to appear comfortable, easily communicative.
Labs reveal mild but stable anemia.
Creatinine 2.0, similar to previous throughout the past month.
Obstruction series shows some stool within the rectum but otherwise no evidence of significant constipation, no evidence of obstruction. Will trial a milk of molasses enema.
Lengthy discussion with patient regarding options for chronic constipation. We discussed initiation of daily MiraLAX but patient reports significant nausea with MiraLAX in the past.
She has tolerated Linzess in the past but this was discontinued due to onset of diarrhea. She had been maintained on the highest dose of Linzess, 290 mg daily. We could trial lower dose, 72 mg daily.
Encouraged prompt follow-up with her psychologist personnel, Dr. Gonzales as well as recommended follow-up with nephrology due to upward trend in creatinine since December.
04:00
Patient has successfully passed moderate-sized soft stool after enema.
No further abdominal pain or rectal pressure.
No rectal bleeding.
Discharge back to snf with plan as above.
ED Attending Note
-
Portions of this chart may have been created with voice recognition software.� Occasional wrong word or��sound alike� substitutions may have occurred due to the inherent limitations of voice recognition software.
Discharge Plan
Departure
Patient Disposition: Skilled Nursing/SNF
Date of Disposition: 03/28/25
Time of Disposition: 03:51
Patient with high blood pressure during this ER visit?: No
Condition: Good
Discharge Problem:
Exacerbation of constipation, Chronic renal disease, stage IV
Instructions: Constipation, Adult (DC), Chronic kidney disease
Prescriptions:
New
Linzess 72 mcg capsule
72 mcg PO DAILY Qty: 30 0RF
No Action
atorvastatin 40 mg Tablet
40 mg PO HS
acetaminophen 325 mg Tablet
650 mg PO Q6HPRN PRN (Reason: mild pain / temp > 100.4)
baclofen 10 mg Tablet
10 mg PO TIDPRN PRN (Reason: spasms)
triamcinolone acetonide 0.1 % Cream
1 applic TOPICAL BID
lamotrigine 25 mg Tablet
25 mg PO BID
famotidine 20 mg Tablet
20 mg PO BID
tamsulosin 0.4 mg Capsule
0.4 mg PO DAILY
bisacodyl 10 mg Suppository
10 mg [place] DAILYPRN PRN (Reason: if no bm aftr mom)
pantoprazole 40 mg Tablet,Delayed Release (Dr/Ec)
40 mg PO BID
ziprasidone HCl 40 mg Capsule
40 mg PO BID
nystatin 100,000 unit/gram Powder
1 applic TOPICAL BID
insulin lispro [Humalog U-100 Insulin] 100 unit/mL Solution
1 sliding scale dose SC AC
Rx Instructions:
251-300=4units, 301-350=6units
cholecalciferol (vitamin D3) 25 mcg (1,000 unit) Tablet
25 mcg PO DAILY
rivaroxaban 20 mg Tablet
20 mg PO QPM
hydroxyzine pamoate 25 mg Capsule
25 mg PO Q6HPRN PRN (Reason: anxiety)
hydroxyzine pamoate 25 mg Capsule
25 mg PO HS
aspirin 81 mg Tablet,Chewable
81 mg PO DAILY Qty: 30 0RF
lisinopril 2.5 mg Tablet
2.5 mg PO DAILY Qty: 30 0RF
furosemide [Lasix] 40 mg tablet
40 mg PO DAILY Qty: 30 0RF
sennosides [senna] 8.6 mg Tablet
8.6 mg PO BID
magnesium hydroxide [Milk of Magnesia] 400 mg/5 mL Suspension
400 mg PO [id number] PRN (Reason: if no bm aftr mom)
nitroglycerin 0.4 mg Tablet, Sublingual
0.4 mg SUBLINGUAL [id number] PRN (Reason: chest pain)
docusate sodium [Colace] 100 mg Capsule
100 mg PO BID
budesonide 0.5 mg/2 mL Suspension For Nebulization
0.5 mg INHALATION R BID
fluticasone propionate 50 mcg/actuation [place],Suspension
1 spray INTRANASAL BID
glipizide 5 mg Tablet
5 mg PO DAILY
metoprolol succinate 25 mg Capsule,Sprinkle,Er 24hr
25 mg PO DAILY
spironolactone 25 mg tablet
25 mg PO DAILY
Fleet Enema 19-7 gram/118 mL Enema
118 ml [place] DAILYPRN PRN (Reason: if no bm aftr dulcolax)
lidocaine 4 % Gel
1 applic TOPICAL BIDPRN PRN (Reason: right shoulder)
oxycodone 5 mg tablet
5 mg PO Q8H PRN (Reason: Pain) Qty: 5 0RF
Referrals:
Eladio Greer DO [Family Provider] - Call in 1-3 days for appt
Bandar Gonzales MD [Non-Admitting Privileges] - Next open appointment
Michele Springer MD [Active] - Call in 1-3 days for appt
Activity Restrictions/Additional Instructions:
Continue twice daily Senokot and Colace. We are adding Linzess, 72 mg once daily.
Follow-up with your psychologist personnel as already planned.
Due to up-trend in creatinine over the past 3 months, recommend evaluation with senior project controls specialist as well.
Interventions
Interventions:
*Risk Screen - Suicide Last Done: 03/28/25 01:12
*General Assessment Last Done: 03/28/25 01:12
*Neglect/Abuse Screening Last Done: 03/28/25 01:12
*ED- Fall Risk Assessment Last Done: 03/28/25 01:12
*ED COVID-19 Vaccine History Last Done: 03/28/25 01:12
LR-Dzpupo-Derjysbgna Assessment Last Done: 03/28/25 01:42
Discharge Date and Time
Print Language: EGYPTIAN
[2025-03-28 01:41] LABS: % Basophils 0.8 % (0-2); % Eosinophils 4.4 % (0-6); % Immature Granulocytes 0.6 % (0-0.5); % Lymphocytes 25.5 % (20.5-51.1); % Monocytes 10.8 % (1.7-9.3); % Neutrophils 57.9 % (42.2-75.2); Absolute Eosinophils 0.2 10^3/uL (0-0.7); Absolute Lymphocytes 1.3 10^3/uL (1.2-3.4); Absolute Monocytes 0.5 10^3/uL (0.1-0.6); Absolute Neutrophils 2.9 10^3/uL (1.4-6.5); Hematocrit 27.9 % (37.0-47.0); Hemoglobin 9.2 g/dL (12.0-16.0); Mean Corpuscular Volume 85.1 fL (81.0-99.0); Mean Platelet Volume 10.1 fL (7.4-10.4); Nucleated Red Blood Cells % 0 %; Platelet Count 239 10^3/uL (130-400); Red Blood Cell Count 3.28 10^6/uL (4.20-5.40); Red Cell Dist. Width 15.3 % (11.5-14.5)
[2025-03-28 02:05] LABS: ALT (SGPT) 23 U/L (0-35); AST (SGOT) 27 U/L (14-36); Albumin 3.8 g/dl (3.5-5.0); Alkaline Phosphatase 545 U/L (38-126); Blood Urea Nitrogen 31 mg/dl (7-17); Calcium 9.2 mg/dl (8.4-10.2); Carbon Dioxide 29 mmol/L (22-30); Chloride 103 mmol/L (98-107); Estimated Creatinine Clearance 39 ml/min; Glucose 120 mg/dl (70-99); Potassium 3.8 mmol/L (3.5-5.1); Sodium 140 mmol/L (135-145); Total Bilirubin 0.5 mg/dl (0.2-1.3); Total Protein 6.3 g/dl (6.3-8.2); eGFR 27.73
[2025-03-28 09:29] VITALS: BP 109/76
== END 2025-03-28 09:34 ==
LOC: EMR 01:05
PROVIDERS: EMERGENCY PHYSICIAN Emergency Medicine; FAMILY PHYSICIAN Internal Medicine
DX: K59.00 Constipation, unspecified (principal); E11.22 Type 2 diabetes mellitus with diabetic chronic kidney disease; N18.4 Chronic kidney disease, stage 4 (severe); I48.0 Paroxysmal atrial fibrillation; I50.20 Unspecified systolic (congestive) heart failure
CPT/HCPCS: 99284; 74022; 80053; 85025

== ENCOUNTER 2025-04-04 13:49 | Emergency (ER) | payer OTHER, SELFPAY ==
[2025-04-04 13:53] VITALS: BP 107/43
[2025-04-04 14:00] VITALS: BP 102/52
[2025-04-04 14:08] VITALS: BMI 41.3
[2025-04-04 14:09] VITALS: BP 102/52
--- NOTE | 2025-04-04 14:27 | ED.GENMED ---
History of Present Illness
General
Chief Complaint: Headache
Time Seen by Provider: 04/04/25 14:16
History of Present Illness
History of Present Illness:
TIME OF INITIAL ENCOUNTER: 2:30 PM
HPI: Patient came in by ambulance from [facility]. Woke up 11:30 DIAZ described as 10/10 at top of head described as pressure and blurred vision which is acute on chronic. Associated w/ photophobia. Of note, the patient was seen here 2 weeks ago
with similar symptoms and was given Fioricet and Reglan at that time. She tells me that the vision has worsened but also tells me that she does not wear glasses because her eyes are too bad.
EXAM:
GENERAL: The patient appears somewhat chronically weak and debilitated, appears fairly comfortable.
HEENT: Moist oral mucosa
CARDIOVASCULAR: No murmurs, normal heart rate, regular rhythm, No chest wall tenderness
PULMONARY: No respiratory distress, breath sounds are clear and equal
ABDOMEN: Soft with no peritoneal signs, no tenderness
NEUROLOGIC: Excellent strength all extremities, no coordination deficits
PSYCHIATRIC: Appropriate mental status, normal insight and judgement
EXTREMITIES: Nontender, trace lower extremity edema, moves all extremities equally
SKIN: No rash, no lesions
NUMBER AND COMPLEXITY OF PROBLEMS ADDRESSED AT THE ENCOUNTER
� Chronic conditions affecting care: CKD, sarcoidosis
� Acute Exacerbation and/or Progression of Chronic Illness: This is an acute problem
� Differential Diagnosis includes: Migraine type of headache, tension headache, very low suspicion for intracranial mass as two CTs from earlier this month were unremarkable
AMOUNT AND/OR COMPLEXITY OF DATA TO BE REVIEWED AND ANALYZED
� I performed an independent evaluation of and my interpretation is:
EKG:
CT:
X-rays:
Laboratory Studies: CBC and chemistries unremarkable other than creatinine 1.7 which is near baseline
Other:
� Review of other/old records: I reviewed records. The patient was also seen here on 515 with a headache and at that time also described as 10 out of 10. The patient had 2 CAT scans of the brain earlier this month which were
unremarkable.
� Clinical information was obtained by an independent historian: None needed
� Prescriptions/Medications Considered but not given:
� Further testing considered but not performed: Did not perform CT brain as she had [address] brains.
RISK OF COMPLICATIONS AND/OR MORBIDITY OR MORTALITY OF PATIENT MANAGEMENT
� Social determinants of health affecting care: Resides at [facility]
� Discussion with other providers:
� Escalation of care including admission/observation vs risk of discharge considered: The patient has multiple ED visits recently. She has a nonfocal neurologic exam with recent CT imaging.
ANY OTHER UPDATES:
On reassessment after medications given, she does feel improved.
Past History
Past History
ED Past Medical History: Arrthythmia (Paroxysmal atrial fibrillation), CHF, Hypercholesterolemia, IDDM, Renal failure (Chronic kidney disease) and Other (Sarcoidosis, neurogenic bladder, chronic constipation, chronic hypotension)
ED Past Surgical History: Other (Hernia repair)
Social History
Tobacco: Non-smoker
Personal: Single
Living: [facility]
Employment: Disabled
Family History
Family History: Other (Noncontributory)
Phy Exam
Physical Exam
Physical Exam:
See HPI
Course
Orders/Labs/Results
Orders:
Orders
04/04/25 14:38
0.9% Sodium Chloride 500 ml [Nss] 500 ml IV BOLUS
Butalb/Acetaminophen/Caffeine [Fioricet] 1 tab PO NOW STA
Diphenhydramine [Benadryl] 25 mg IV NOW STA
Metoclopramide [Reglan] 10 mg IV NOW STA
04/04/25 15:12
Complete Blood Count/With Diff Urgent
04/04/25 16:14
Comprehensive Metabolic Panel Urgent
04/04/25 16:15
Comprehensive Metabolic Panel Urgent
Abnormal Lab Results
04/04/25 04/04/25
15:12 16:15
RBC 3.34 L 10^6/uL
(4.20-5.40)
Hgb 9.4 L g/dL
(12.0-16.0)
Hct 28.4 L %
(37.0-47.0)
RDW 14.7 H %
(11.5-14.5)
Absolute Lymphs (auto) 0.9 L 10^3/uL
(1.2-3.4)
Lymphocytes % 14.7 L %
(20.5-51.1)
Chloride 108 H mmol/L
(98-107)
BUN 24 H mg/dl
(7-17)
Creatinine 1.7 H mg/dL
(0.6-1.0)
Alkaline Phosphatase 360 H U/L
(38-126)
Total Protein 5.9 L g/dl
(6.3-8.2)
04/04/25 15:12
04/04/25 16:15
Vital Signs
Initial and Last Documented VS:
Initial Vital Signs
BP
107/43
04/04/25 13:53
Last Documented Vital Signs
Temp Pulse Resp BP Pulse Ox
37.1 C 66 23 102/52 99
04/04/25 14:09 04/04/25 16:00 04/04/25 16:00 04/04/25 14:09 04/04/25 16:00
*Critical Care Note
Total Time (30-74mins, 75-104mins- exclusive of procedures): Not Applicable
ED Attending Note
-
Portions of this chart may have been created with voice recognition software.� Occasional wrong word or��sound alike� substitutions may have occurred due to the inherent limitations of voice recognition software.
Discharge Plan
Departure
Patient Disposition: Home (Routine Discharge)
Date of Disposition: 04/04/25
Time of Disposition: 16:53
Patient with high blood pressure during this ER visit?: Yes
Discharge Problem:
Headache
Instructions: Headache, Adult (DC)
Prescriptions:
No Action
atorvastatin 40 mg Tablet
40 mg PO HS
acetaminophen 325 mg Tablet
650 mg PO Q6HPRN PRN (Reason: mild pain / temp > 100.4)
baclofen 10 mg Tablet
10 mg PO TIDPRN PRN (Reason: spasms)
triamcinolone acetonide 0.1 % Cream
1 applic TOPICAL BID
lamotrigine 25 mg Tablet
25 mg PO BID
famotidine 20 mg Tablet
20 mg PO BID
tamsulosin 0.4 mg Capsule
0.4 mg PO DAILY
bisacodyl 10 mg Suppository
10 mg MS DAILYPRN PRN (Reason: if no bm aftr mom)
pantoprazole 40 mg Tablet,Delayed Release (Dr/Ec)
40 mg PO BID
ziprasidone HCl 40 mg Capsule
40 mg PO BID
nystatin 100,000 unit/gram Powder
1 applic TOPICAL BID
insulin lispro [Humalog U-100 Insulin] 100 unit/mL Solution
1 sliding scale dose SC AC
Rx Instructions:
251-300=4units, 301-350=6units
cholecalciferol (vitamin D3) 25 mcg (1,000 unit) Tablet
25 mcg PO DAILY
rivaroxaban 20 mg Tablet
20 mg PO QPM
hydroxyzine pamoate 25 mg Capsule
25 mg PO Q6HPRN PRN (Reason: anxiety)
hydroxyzine pamoate 25 mg Capsule
25 mg PO HS
aspirin 81 mg Tablet,Chewable
81 mg PO DAILY Qty: 30 0RF
lisinopril 2.5 mg Tablet
2.5 mg PO DAILY Qty: 30 0RF
furosemide [Lasix] 40 mg tablet
40 mg PO DAILY Qty: 30 0RF
sennosides [senna] 8.6 mg Tablet
8.6 mg PO BID
magnesium hydroxide [Milk of Magnesia] 400 mg/5 mL Suspension
400 mg PO [id number] PRN (Reason: if no bm aftr mom)
nitroglycerin 0.4 mg Tablet, Sublingual
0.4 mg SUBLINGUAL [id number] PRN (Reason: chest pain)
docusate sodium [Colace] 100 mg Capsule
100 mg PO BID
budesonide 0.5 mg/2 mL Suspension For Nebulization
0.5 mg INHALATION R BID
fluticasone propionate 50 mcg/actuation [place],Suspension
1 spray INTRANASAL BID
glipizide 5 mg Tablet
5 mg PO DAILY
metoprolol succinate 25 mg Capsule,Sprinkle,Er 24hr
25 mg PO DAILY
spironolactone 25 mg tablet
25 mg PO DAILY
Fleet Enema 19-7 gram/118 mL Enema
118 ml MS DAILYPRN PRN (Reason: if no bm aftr dulcolax)
lidocaine 4 % Gel
1 applic TOPICAL BIDPRN PRN (Reason: right shoulder)
oxycodone 5 mg tablet
5 mg PO Q8H PRN (Reason: Pain) Qty: 5 0RF
Linzess 72 mcg capsule
72 mcg PO DAILY Qty: 30 0RF
Referrals:
Eladio Greer DO [Family Provider, Internal Medicine]
Activity Restrictions/Additional Instructions:
The cause of your symptoms is unclear. I reviewed your records. You had 2 normal CAT scans of the brain earlier this month. Your white blood cell count is normal today. Your hemoglobin is slightly low but similar to baseline. We gave you
Fioricet and Reglan with Benadryl today.
Interventions
Interventions:
*Risk Screen - Suicide Last Done: 04/04/25 14:57
*General Assessment Last Done: 04/04/25 14:57
*Neglect/Abuse Screening Last Done: 04/04/25 14:57
*ED- Fall Risk Assessment Last Done: 04/04/25 14:12
*ED COVID-19 Vaccine History Last Done: 04/04/25 14:12
ED- Neurological Assessment Last Done: 04/04/25 14:57
Discharge Date and Time
Print Language: MONTENEGRIN
[2025-04-04] MEDS: REGLAN 10 MG IV (15:19)
[2025-04-04] MEDS: BENADRYL 25 MG IV (15:19)
[2025-04-04] MEDS: FIORICET 1 TAB PO (15:20)
[2025-04-04 15:22] LABS: % Basophils 0.2 % (0-2); % Eosinophils 3.2 % (0-6); % Immature Granulocytes 0.5 % (0-0.5); % Lymphocytes 14.7 % (20.5-51.1); % Monocytes 7.7 % (1.7-9.3); % Neutrophils 73.7 % (42.2-75.2); Absolute Eosinophils 0.2 10^3/uL (0-0.7); Absolute Lymphocytes 0.9 10^3/uL (1.2-3.4); Absolute Monocytes 0.5 10^3/uL (0.1-0.6); Absolute Neutrophils 4.6 10^3/uL (1.4-6.5); Hematocrit 28.4 % (37.0-47.0); Hemoglobin 9.4 g/dL (12.0-16.0); Mean Corp Hgb Conc. 33.1 g/dL (33.0-37.0); Mean Corpuscular Hgb 28.1 pg (27.0-31.0); Mean Platelet Volume 9.5 fL (7.4-10.4); Nucleated Red Blood Cells % 0 %; Platelet Count 255 10^3/uL (130-400); Red Blood Cell Count 3.34 10^6/uL (4.20-5.40); Red Cell Dist. Width 14.7 % (11.5-14.5); White Blood Cell Count 6.2 10^3/uL (4.8-10.8)
[2025-04-04] MEDS: NSS 500 IV (15:26)
[2025-04-04 17:03] LABS: ALT (SGPT) 20 U/L (0-35); AST (SGOT) 25 U/L (14-36); Albumin 3.6 g/dl (3.5-5.0); Alkaline Phosphatase 360 U/L (38-126); Blood Urea Nitrogen 24 mg/dl (7-17); Calcium 9.6 mg/dl (8.4-10.2); Carbon Dioxide 28 mmol/L (22-30); Chloride 108 mmol/L (98-107); Estimated Creatinine Clearance 44 ml/min; Glucose 75 mg/dl (70-99); Potassium 3.8 mmol/L (3.5-5.1); Sodium 142 mmol/L (135-145); Total Bilirubin 0.5 mg/dl (0.2-1.3); Total Protein 5.9 g/dl (6.3-8.2)
[2025-04-04 18:00] VITALS: BP 112/69
== END 2025-04-04 18:50 | disposition home or self-care (01) ==
LOC: EMR 13:49
PROVIDERS: EMERGENCY PHYSICIAN Emergency Medicine; FAMILY PHYSICIAN Internal Medicine
DX: R51.9 Headache, unspecified (principal); I48.0 Paroxysmal atrial fibrillation; E11.22 Type 2 diabetes mellitus with diabetic chronic kidney disease; N18.9 Chronic kidney disease, unspecified; I50.9 Heart failure, unspecified; E78.00 Pure hypercholesterolemia, unspecified; D86.9 Sarcoidosis, unspecified
CPT/HCPCS: 99283; 96374; 96375; 96361; 80053; 85025

== ENCOUNTER 2025-04-07 19:43 | Emergency (ER) | payer OTHER, SELFPAY ==
[2025-04-07 19:48] VITALS: BP 92/50
[2025-04-07 19:54] VITALS: BMI 43.7
[2025-04-07 20:00] VITALS: BP 94/68
[2025-04-07 21:00] VITALS: BP 98/64
[2025-04-07 21:10] LABS: Urine Albumin 2+ (Neg - Trace); Urine Bilirubin Negative (Negative); Urine Character Cloudy (Clear); Urine Color Yellow; Urine Glucose Negative (Negative); Urine Ketone Negative (Negative); Urine Leukocyte 3+ (Negative); Urine Nitrite Negative (Negative); Urine Occult Blood 4+ (Negative); Urine Specific Gravity 1.015 (<1.030); Urine Urobilinogen Negative (Neg - 1+); Urine pH 6.5 (5.0-9.0)
--- NOTE | 2025-04-07 21:19 | ED.GENMED ---
History of Present Illness
General
Chief Complaint: Urinary Symptoms
Source: patient, ambulance crew and [facility]
Exam Limitations: none
Time Seen by Provider: 04/07/25 19:47
Nursing documentation reviewed up to this point in time: agreed with
History of Present Illness
History of Present Illness:
64-year-old female past medical history of A-fib currently on Xarelto, CHF hypertension hyperlipidemia presenting to the emergency department today with concerns of her Smith catheter falling out yesterday. Difficulty with urinating since.
Past History
Past History
ED Past Medical History: Arrthythmia (Paroxysmal atrial fibrillation), CHF, Hypercholesterolemia, IDDM, Renal failure (Chronic kidney disease) and Other (Sarcoidosis, neurogenic bladder, chronic constipation, chronic hypotension)
ED Past Surgical History: Other (Hernia repair)
Social History
Tobacco: Non-smoker
Personal: Single
Living: [facility]
Employment: Disabled
Family History
Family History: Other (Noncontributory)
Review of Systems
Review of Systems
Allergies reviewed?: Yes
All Other Systems: ROS reviewed and negative except as documented in HPI and ROS
Phy Exam
Physical Exam
Physical Exam:
GENERAL: Alert , in no apparent distress
EYE: pupils equal and reactive
NECK: Supple, no significant adenopathy.
ENT: o/p clr, mmm.
CARDIAC: Regular rate and rhythm .
LUNGS: Clear breath sounds bilaterally, no acute respiratory distress, no wheezes/rales/rhonchi
ABDOMEN: Soft, without focal tenderness, no r/g, no cvat
NEUROLOGICAL: Alert and oriented, no focal neuro deficits
SKIN: Warm and dry, skin intact.
MUSCULOSKELETAL: No edema, well perfused.
PSYCH: Normal and appropriate interaction.
Course
Orders/Labs/Results
Orders:
Orders
04/07/25 20:50
Smith Placement- Treatment ONCE
Reason for insertion: Acute Retention
04/07/25 21:00
Urinalysis Reflex To Culture Urgent
Date Specimen was Collected: 04/07/25
Time Specimen was Collected: 20:50
Urine Microscopic Reflex Cult Urgent
Urine Culture Urgent
ROZINA Source: U
Specimen Description:
Obtained by: Random
Date Specimen was Collected: 04/07/25
Time Specimen was Collected: 20:50
04/07/25 21:59
Cefdinir [Omnicef] 300 mg PO NOW STA
Abnormal Lab Results
04/07/25
21:00
Ur Occult Blood Reflex 4+ A
(Negative)
Leukocyte Esterase Rfl 3+ A
(Negative)
Urine RBC 26-30 A /HPF
(0-2)
Urine WBC (Reflex) >100 A /HPF
(0-5)
Urine Bacteria (Reflex) Moderate A
(Negative)
Urine Albumin (Reflex) 2+ A
(Neg - Trace)
Vital Signs
Initial and Last Documented VS:
Initial Vital Signs
Temp Pulse Resp BP Pulse Ox
98.4 F 90 18 92/50 95
04/07/25 19:48 04/07/25 19:48 04/07/25 19:48 04/07/25 19:48 04/07/25 19:48
Last Documented Vital Signs
Temp Pulse Resp BP Pulse Ox
98.4 F 82 15 98/64 98
04/07/25 19:48 04/07/25 21:00 04/07/25 21:00 04/07/25 21:00 04/07/25 21:00
MDM/Problems Addressed
MDM/Problems Addressed:
64-year-old female presenting to the emergency department today with concerns of her Smith catheter coming out last night difficulty urinating today. On arrival patient in no distress patient close she does have some fullness to the area of the
bladder is not able to urinate on command. Here she tried to urinate was able to get a very small amount out but had roughly 400 cc left. Concerning her retention new Smith catheter was placed. Otherwise here she was noted to have slightly low
blood pressure in the 90s over 60s but appears to be always be around this level with multiple previous hospital visits. She denies any lightheadedness chest pain or shortness of breath. Urine appears to be consistent with UTI patient started on
antibiotic otherwise stable with urology in 10 days.
*Critical Care Note
Total Time (30-74mins, 75-104mins- exclusive of procedures): Not Applicable
ED Attending Note
-
Portions of this chart may have been created with voice recognition software.� Occasional wrong word or��sound alike� substitutions may have occurred due to the inherent limitations of voice recognition software.
Discharge Plan
Departure
Patient Disposition: Home (Routine Discharge)
Date of Disposition: 04/07/25
Time of Disposition: 22:01
Patient with high blood pressure during this ER visit?: No
Condition: Good
Covid-19: Not Applicable
Discharge Problem:
UTI (urinary tract infection)
Instructions: Urinary Tract Infection, Adult (DC)
Prescriptions:
New
cefpodoxime 200 mg tablet
200 mg PO BID 7 Days Qty: 14 0RF
No Action
atorvastatin 40 mg Tablet
40 mg PO HS
acetaminophen 325 mg Tablet
650 mg PO Q6HPRN PRN (Reason: mild pain / temp > 100.4)
baclofen 10 mg Tablet
10 mg PO TIDPRN PRN (Reason: spasms)
triamcinolone acetonide 0.1 % Cream
1 applic TOPICAL BID
lamotrigine 25 mg Tablet
25 mg PO BID
famotidine 20 mg Tablet
20 mg PO BID
tamsulosin 0.4 mg Capsule
0.4 mg PO DAILY
bisacodyl 10 mg Suppository
10 mg DC DAILYPRN PRN (Reason: if no bm aftr mom)
pantoprazole 40 mg Tablet,Delayed Release (Dr/Ec)
40 mg PO BID
ziprasidone HCl 40 mg Capsule
40 mg PO BID
nystatin 100,000 unit/gram Powder
1 applic TOPICAL BID
insulin lispro [Humalog U-100 Insulin] 100 unit/mL Solution
1 sliding scale dose SC AC
Rx Instructions:
251-300=4units, 301-350=6units
cholecalciferol (vitamin D3) 25 mcg (1,000 unit) Tablet
25 mcg PO DAILY
rivaroxaban 20 mg Tablet
20 mg PO QPM
hydroxyzine pamoate 25 mg Capsule
25 mg PO Q6HPRN PRN (Reason: anxiety)
hydroxyzine pamoate 25 mg Capsule
25 mg PO HS
aspirin 81 mg Tablet,Chewable
81 mg PO DAILY Qty: 30 0RF
lisinopril 2.5 mg Tablet
2.5 mg PO DAILY Qty: 30 0RF
furosemide [Lasix] 40 mg tablet
40 mg PO DAILY Qty: 30 0RF
sennosides [senna] 8.6 mg Tablet
8.6 mg PO BID
magnesium hydroxide [Milk of Magnesia] 400 mg/5 mL Suspension
400 mg PO [id number] PRN (Reason: if no bm aftr mom)
nitroglycerin 0.4 mg Tablet, Sublingual
0.4 mg SUBLINGUAL [id number] PRN (Reason: chest pain)
docusate sodium [Colace] 100 mg Capsule
100 mg PO BID
budesonide 0.5 mg/2 mL Suspension For Nebulization
0.5 mg INHALATION R BID
fluticasone propionate 50 mcg/actuation [place],Suspension
1 spray INTRANASAL BID
glipizide 5 mg Tablet
5 mg PO DAILY
metoprolol succinate 25 mg Capsule,Sprinkle,Er 24hr
25 mg PO DAILY
spironolactone 25 mg tablet
25 mg PO DAILY
Fleet Enema 19-7 gram/118 mL Enema
118 ml DC DAILYPRN PRN (Reason: if no bm aftr dulcolax)
lidocaine 4 % Gel
1 applic TOPICAL BIDPRN PRN (Reason: right shoulder)
oxycodone 5 mg tablet
5 mg PO Q8H PRN (Reason: Pain) Qty: 5 0RF
Linzess 72 mcg capsule
72 mcg PO DAILY Qty: 30 0RF
Referrals:
Eladio Greer, [Family Provider, Internal Medicine]
Activity Restrictions/Additional Instructions:
You came to the emergency department today with concerns of urinary catheter issue. Also your urine appears to be infected. Please take the prescribed antibiotic and follow-up closely with urology. Return for any worsening, new or concerning
symptoms.
Interventions
Interventions:
*Risk Screen - Suicide Last Done: 04/07/25 19:53
*General Assessment Last Done: 04/07/25 19:53
*Neglect/Abuse Screening Last Done: 04/07/25 19:53
*ED- Fall Risk Assessment Last Done: 04/07/25 19:53
*ED COVID-19 Vaccine History Last Done: 04/07/25 19:53
ED-Female Genitourinary Assessment Last Done: 04/07/25 20:01
Discharge Date and Time
Print Language: MONGOLIAN
[2025-04-07 21:20] LABS: Urine Bacteria Moderate (Negative); Urine Red Blood Cell 26-30 /HPF (0-2); Urine Squamous Cell 0-2 /LPF (Few); Urine White Cell >100 /HPF (0-5)
[2025-04-07] MEDS: OMNICEF 300 MG PO (22:49)
[2025-04-07 22:51] VITALS: BP 93/60
== END 2025-04-08 02:10 | disposition home or self-care (01) ==
LOC: EMR 19:43
PROVIDERS: Physician Assistant; EMERGENCY PHYSICIAN Emergency Medicine; FAMILY PHYSICIAN Internal Medicine
DX: N39.0 Urinary tract infection, site not specified (principal); Z43.6 Encounter for attention to other artificial openings of urinary tract; I48.0 Paroxysmal atrial fibrillation; I13.0 Hypertensive heart and chronic kidney disease with heart failure and stage 1 through stage 4 chronic kidney disease, or unspecified chronic kidney disease; I50.9 Heart failure, unspecified; N18.9 Chronic kidney disease, unspecified; E78.00 Pure hypercholesterolemia, unspecified; N31.9 Neuromuscular dysfunction of bladder, unspecified; E11.22 Type 2 diabetes mellitus with diabetic chronic kidney disease; D86.9 Sarcoidosis, unspecified; Z79.4 Long term (current) use of insulin; Z79.01 Long term (current) use of anticoagulants; Z88.1 Allergy status to other antibiotic agents; Z91.040 Latex allergy status; Z88.5 Allergy status to narcotic agent; Z88.8 Allergy status to other drugs, medicaments and biological substances; Z91.018 Allergy to other foods; Z91.048 Other nonmedicinal substance allergy status
CPT/HCPCS: 99285; 51702; 51798 ×2; 81003; 81015; 87077; 87086

== ENCOUNTER 2025-04-20 14:08 | Emergency (ER) | payer OTHER, SELFPAY ==
--- NOTE | 2025-04-20 14:33 | ED.GENMED ---
History of Present Illness
General
Chief Complaint: Bowel Problem
Source: patient
Time Seen by Provider: 04/20/25 14:19
History of Present Illness
History of Present Illness:
The patient is a 64-year-old female with a history of constipation who presents with no bowel movements for the past nine days. The patient reports no vomiting but experiences nausea. She notes a sensation of hernias bulging and some abdominal pain.
The patient does not report a high fever, with a maximum temperature of 99�F during this period. She has a history of having constipation and, on a previous visit two weeks ago, received two enemas which resolved the issue temporarily. Since then,
her regular regimen of medication, which includes linzess and stool softeners, has not been effective in relieving her constipation. She feels her abdomen is distended and her hernias are bulging more than usual. The patient does not experience
significant chest pain, only heartburn, and denies being short of breath.
Past History
Past History
ED Past Medical History: Arrthythmia (Paroxysmal atrial fibrillation), CHF, Hypercholesterolemia, IDDM, Renal failure (Chronic kidney disease) and Other (Sarcoidosis, neurogenic bladder, chronic constipation, chronic hypotension)
ED Past Surgical History: Other (Hernia repair)
Social History
Tobacco: Non-smoker
Personal: Single
Living: [facility]
Employment: Disabled
Family History
Family History: Other (Noncontributory)
Phy Exam
Physical Exam
Physical Exam:
HEart: RRR
Lungs: CTA
- Abdomen: Tender with large hernias noted, although soft
Rectal: no significant stool in the rectum
Course
Orders/Labs/Results
Orders:
Orders
04/20/25 14:29
Enema- Treatment ONCE
Type: Milk of Molasses
Vital Signs
Initial and Last Documented VS:
Initial Vital Signs
Temp Pulse Resp Pulse Ox
98.9 F 89 18 96
04/20/25 14:23 04/20/25 14:23 04/20/25 14:23 04/20/25 14:23
Last Documented Vital Signs
Temp Pulse Resp Pulse Ox
98.9 F 89 18 96
04/20/25 14:23 04/20/25 14:23 04/20/25 14:23 04/20/25 14:23
MDM/Problems Addressed
Differential Diagnosis Includes:
The Differential Diagnosis includes, in no particular order and is not limited to:
1. Fecal impaction
2. Irritable bowel syndrome
3. Slow-transit constipation
Administer an enema as patient reports this has been effective in the past. Avoid imaging studies at this time due to a known issue of constipation. Evaluate the efficacy of the enema before considering further interventions.
*Pulse Oximetry
Patient hypoxic: no
*Critical Care Note
Total Time (30-74mins, 75-104mins- exclusive of procedures): Not Applicable
Update Note
Update Note:
Patient received MOM enema and had large BM. STable for d/c back to [facility].
ED Attending Note
-
Portions of this chart may have been created with voice recognition software.� Occasional wrong word or��sound alike� substitutions may have occurred due to the inherent limitations of voice recognition software.
Discharge Plan
Departure
Patient Disposition: Home (Routine Discharge)
Date of Disposition: 04/20/25
Time of Disposition: 17:49
Patient with high blood pressure during this ER visit?: No
Discharge Problem:
Constipation
Instructions: Constipation, Adult (DC)
Prescriptions:
No Action
atorvastatin 40 mg Tablet
40 mg PO HS
acetaminophen 325 mg Tablet
650 mg PO Q6HPRN PRN (Reason: mild pain / temp > 100.4)
baclofen 10 mg Tablet
10 mg PO TIDPRN PRN (Reason: spasms)
triamcinolone acetonide 0.1 % Cream
1 applic TOPICAL BID
lamotrigine 25 mg Tablet
25 mg PO BID
famotidine 20 mg Tablet
20 mg PO BID
tamsulosin 0.4 mg Capsule
0.4 mg PO DAILY
bisacodyl 10 mg Suppository
10 mg [place] DAILYPRN PRN (Reason: if no bm aftr mom)
pantoprazole 40 mg Tablet,Delayed Release (Dr/Ec)
40 mg PO BID
ziprasidone HCl 40 mg Capsule
40 mg PO BID
nystatin 100,000 unit/gram Powder
1 applic TOPICAL BID
insulin lispro [Humalog U-100 Insulin] 100 unit/mL Solution
1 sliding scale dose SC AC
Rx Instructions:
251-300=4units, 301-350=6units
cholecalciferol (vitamin D3) 25 mcg (1,000 unit) Tablet
25 mcg PO DAILY
rivaroxaban 20 mg Tablet
20 mg PO QPM
hydroxyzine pamoate 25 mg Capsule
25 mg PO Q6HPRN PRN (Reason: anxiety)
hydroxyzine pamoate 25 mg Capsule
25 mg PO HS
aspirin 81 mg Tablet,Chewable
81 mg PO DAILY Qty: 30 0RF
lisinopril 2.5 mg Tablet
2.5 mg PO DAILY Qty: 30 0RF
furosemide [Lasix] 40 mg tablet
40 mg PO DAILY Qty: 30 0RF
sennosides [senna] 8.6 mg Tablet
8.6 mg PO BID
magnesium hydroxide [Milk of Magnesia] 400 mg/5 mL Suspension
400 mg PO [id number] PRN (Reason: if no bm aftr mom)
nitroglycerin 0.4 mg Tablet, Sublingual
0.4 mg SUBLINGUAL [id number] PRN (Reason: chest pain)
docusate sodium [Colace] 100 mg Capsule
100 mg PO BID
budesonide 0.5 mg/2 mL Suspension For Nebulization
0.5 mg INHALATION R BID
fluticasone propionate 50 mcg/actuation [place],Suspension
1 spray INTRANASAL BID
glipizide 5 mg Tablet
5 mg PO DAILY
metoprolol succinate 25 mg Capsule,Sprinkle,Er 24hr
25 mg PO DAILY
spironolactone 25 mg tablet
25 mg PO DAILY
Fleet Enema 19-7 gram/118 mL Enema
118 ml [place] DAILYPRN PRN (Reason: if no bm aftr dulcolax)
lidocaine 4 % Gel
1 applic TOPICAL BIDPRN PRN (Reason: right shoulder)
oxycodone 5 mg tablet
5 mg PO Q8H PRN (Reason: Pain) Qty: 5 0RF
Linzess 72 mcg capsule
72 mcg PO DAILY Qty: 30 0RF
cefpodoxime 200 mg tablet
200 mg PO BID 7 Days Qty: 14 0RF
amoxicillin-pot clavulanate 875-125 mg tablet
1 tab PO BID 7 Days Qty: 14 0RF
Referrals:
UNKNOWN - PT DOES,NOT KNOW [Family Provider]
Activity Restrictions/Additional Instructions:
Continue bowel regimen. Return if needed.
Discharge Date and Time
Print Language: BULGARIAN
== END 2025-04-20 19:35 | disposition home or self-care (01) ==
LOC: EMR 14:08
PROVIDERS: EMERGENCY PHYSICIAN Emergency Medicine
DX: K59.00 Constipation, unspecified (principal); E11.22 Type 2 diabetes mellitus with diabetic chronic kidney disease; N18.9 Chronic kidney disease, unspecified; I50.9 Heart failure, unspecified; E78.00 Pure hypercholesterolemia, unspecified; I48.0 Paroxysmal atrial fibrillation; Z79.4 Long term (current) use of insulin
CPT/HCPCS: 99283

== ENCOUNTER 2025-05-02 23:16 | Emergency (ER) | payer OTHER, SELFPAY ==
[2025-05-02 23:19] VITALS: BP 96/63; BMI 43.2
--- NOTE | 2025-05-03 00:11 | ED.GENMED ---
History of Present Illness
<Lilian Tee PA-C - Last Filed: 05/03/25 11:32>
General
Chief Complaint: Bowel Problem
Source: patient
Exam Limitations: none
Time Seen by Provider: 05/02/25 23:47
History of Present Illness
History of Present Illness:
64yoF with a history of CHF, sarcoidosis, type 2 diabetes, atrial fibrillation, obesity, chronic constipation, and multiple prior abdominal surgeries presenting via EMS for evaluation of constipation and abdominal pain. Patient had a small bowel
movement 3 days ago but otherwise has not had a bowel movement in over a week. She has tried numerous OTC medications including Colace, Milk of magnesia, and fleets enema without improvement. She developed abdominal pain today and states that her
hernias appear large. She reports nausea but denies any vomiting. She is passing a small amount of flatus. Of note, patient was seen in the ED on 04/20/25 for constipation and was given an enema with relief. Prior abdominal surgeries include
multiple hernia repairs, an Selene pouch now closed, and cholecystectomy.
Past History
<Lilian Tee PA-C - Last Filed: 05/03/25 11:32>
Past History
ED Past Medical History: Arrthythmia (Paroxysmal atrial fibrillation), CHF, Hypercholesterolemia, IDDM, Renal failure (Chronic kidney disease) and Other (Sarcoidosis, neurogenic bladder, chronic constipation, chronic hypotension)
ED Past Surgical History: Other (Hernia repair)
Social History
Tobacco: Non-smoker
Personal: Single
Living: snf
Employment: Disabled
Family History
Family History: Other (Noncontributory)
Phy Exam
<Lilian Tee PA-C - Last Filed: 05/03/25 11:32>
Physical Exam
Physical Exam:
Chronically ill appearing, no acute distress
General Physical Exam
General Presentation: no apparent distress
General Skin: warm and dry
General Habitus: normal
ENT Exam
ENT Exam: normocephalic
Cardiovascular Exam
Cardiovascular Exam: regular rate/rhythm
Pulmonary Exam
Pulmonary Exam: lungs clear, no respiratory distress, no rales, no crackles and no rhonchi
Gastrointestinal Exam
Gastrointestinal Exam: soft, non distended, surgical scar and other (Several hernias noted that are all soft and reducible. +RLQ tenderness. No rebound or guarding..)
Neurological Exam
Neurological Exam: alert
William Coma Scale
Eye Opening: Spontaneous
Verbal Response: Oriented
Motor Response: Obeys Commands
GCS Total Score: 15
Skin Exam
Skin Exam: normal color and warm/dry
Psychiatric Exam
Psychiatric Exam: normal mood/affect
Course
Jazlynlt;Lilian Tee PA-C - Last Filed: 05/03/25 11:32>
Orders/Labs/Results
Orders:
Orders
05/03/25 00:10
0.9% Sodium Chloride 500 ml [Nss] 500 ml IV BOLUS
Iohexol [Omnipaque] See Protocol PO NOW STA
05/03/25 00:39
CT Abd/pel Without Iv Or Oral Urgent
Comment:
Reason For Exam: abd pain, constipation
05/03/25 01:05
Complete Blood Count/With Diff Urgent
Comprehensive Metabolic Panel Urgent
Lactate Level [Lactic Acid] Urgent
Lipase Urgent
05/03/25 02:52
Enema- Treatment ONCE
Type: Milk of Molasses
Abnormal Lab Results
05/03/25
01:05
RBC 3.76 L 10^6/uL
(4.20-5.40)
Hgb 10.5 L g/dL
(12.0-16.0)
Hct 31.8 L %
(37.0-47.0)
MPV 10.9 H fL
(7.4-10.4)
Absolute Neuts (auto) 7.4 H 10^3/uL
(1.4-6.5)
Absolute Lymphs (auto) 1.1 L 10^3/uL
(1.2-3.4)
Absolute Monos (auto) 0.7 H 10^3/uL
(0.1-0.6)
Neutrophils % 78.4 H %
(42.2-75.2)
Lymphocytes % 11.1 L %
(20.5-51.1)
BUN 42 H mg/dl
(7-17)
Creatinine 1.8 H mg/dL
(0.6-1.0)
Glucose 100 H mg/dl
(70-99)
Alkaline Phosphatase 242 H U/L
(38-126)
Lipase 318 H U/L
(23-300)
05/03/25 01:05
05/03/25 01:05
Vital Signs
Initial and Last Documented VS:
Initial Vital Signs
Temp Pulse Resp BP Pulse Ox
97.6 F 69 18 96/63 97
05/02/25 23:19 05/02/25 23:19 05/02/25 23:19 05/02/25 23:19 05/02/25 23:19
Last Documented Vital Signs
Temp Pulse Resp BP Pulse Ox
97.6 F 72 18 108/60 93
05/02/25 23:19 05/03/25 05:30 05/03/25 05:30 05/03/25 05:30 05/03/25 05:30
Jazlynlt;Keaton Marroquin, - Last Filed: 05/03/25 02:03>
Orders/Labs/Results
Orders:
Orders
05/03/25 00:10
0.9% Sodium Chloride 500 ml [Nss] 500 ml IV BOLUS
Iohexol [Omnipaque] See Protocol PO NOW STA
05/03/25 00:39
CT Abd/pel Without Iv Or Oral Urgent
Comment:
Reason For Exam: abd pain, constipation
05/03/25 01:05
Complete Blood Count/With Diff Urgent
Comprehensive Metabolic Panel Urgent
Lactate Level [Lactic Acid] Urgent
Lipase Urgent
05/03/25 02:52
Enema- Treatment ONCE
Type: Milk of Molasses
Abnormal Lab Results
05/03/25
01:05
RBC 3.76 L 10^6/uL
(4.20-5.40)
Hgb 10.5 L g/dL
(12.0-16.0)
Hct 31.8 L %
(37.0-47.0)
MPV 10.9 H fL
(7.4-10.4)
Absolute Neuts (auto) 7.4 H 10^3/uL
(1.4-6.5)
Absolute Lymphs (auto) 1.1 L 10^3/uL
(1.2-3.4)
Absolute Monos (auto) 0.7 H 10^3/uL
(0.1-0.6)
Neutrophils % 78.4 H %
(42.2-75.2)
Lymphocytes % 11.1 L %
(20.5-51.1)
BUN 42 H mg/dl
(7-17)
Creatinine 1.8 H mg/dL
(0.6-1.0)
Glucose 100 H mg/dl
(70-99)
Alkaline Phosphatase 242 H U/L
(38-126)
Lipase 318 H U/L
(23-300)
05/03/25 01:05
05/03/25 01:05
Vital Signs
Initial and Last Documented VS:
Initial Vital Signs
Temp Pulse Resp BP Pulse Ox
97.6 F 69 18 96/63 97
05/02/25 23:19 05/02/25 23:19 05/02/25 23:19 05/02/25 23:19 05/02/25 23:19
Last Documented Vital Signs
Temp Pulse Resp BP Pulse Ox
97.6 F 72 18 108/60 93
05/02/25 23:19 05/03/25 05:30 05/03/25 05:30 05/03/25 05:30 05/03/25 05:30
<Lilian Tee PA-C - Last Filed: 05/03/25 11:32>
MDM/Problems Addressed
Differential Diagnosis Includes:
64yoF here for constipation and abdominal pain. Hx of chronic constipation and multiple prior abd surgeries. BP 96/63 which appears baseline for patient. She has multiple abdominal hernias which are all reducible. No signs of peritonitis.
Differential diagnosis includes but is not limited to: Constipation, bowel obstruction, fecal impaction
Initial ED plan: Check abdominal labs, lactate, and CT abdomen. Oral contrast was initially ordered but patient is refusing stating that she gets hives from this. Will proceed with non-contrast CT.
<Lilian Tee PA-C - Last Filed: 05/03/25 11:32>
*Pulse Oximetry
SaO2: 97
Oxygen Mode of Delivery: Room air
Patient hypoxic: no (97%)
*Critical Care Note
Total Time (30-74mins, 75-104mins- exclusive of procedures): Not Applicable
<Lilian Tee PA-C - Last Filed: 05/03/25 11:32>
Update Note
Update Note:
Labs overall unremarkable. Creatinine at baseline. White count and lactate within normal limits. Preliminary [facility] radiology report for CT shows no obstruction or suspicious inflammatory changes. Milk of molasses enema ordered. Patient stable
for discharge back to her nursing facility.
ED Attending Note
<Lilian Tee PA-C - Last Filed: 05/03/25 11:32>
-
Portions of this chart may have been created with voice recognition software.� Occasional wrong word or��sound alike� substitutions may have occurred due to the inherent limitations of voice recognition software.
<Keaton Marroquin DO - Last Filed: 05/03/25 02:03>
ED Attending Note
Patient seen and examined by attending physician: Yes
I performed the substantive portion of visit, reviewed & personally made and approve the management plan that is documented in note by myself or SAUMYA.: Yes
ED Attending Note:
64-year-old female with multiple abdominal surgeries complaint abdominal pain constipation on my exam patient has easily reducible hernias. No evidence of incarceration. Mild diffuse. Await CT reports
Discharge Plan
Departure
Patient Disposition: Home (Routine Discharge)
Date of Disposition: 05/03/25
Time of Disposition: 03:10
Patient with high blood pressure during this ER visit?: No
Discharge Problem:
Constipation, Abdominal pain
Instructions: Constipation, Adult (DC)
Prescriptions:
No Action
atorvastatin 40 mg Tablet
40 mg PO HS
acetaminophen 325 mg Tablet
650 mg PO Q6HPRN PRN (Reason: mild pain / temp > 100.4)
baclofen 10 mg Tablet
10 mg PO TIDPRN PRN (Reason: spasms)
triamcinolone acetonide 0.1 % Cream
1 applic TOPICAL BID
lamotrigine 25 mg Tablet
25 mg PO BID
famotidine 20 mg Tablet
20 mg PO BID
tamsulosin 0.4 mg Capsule
0.4 mg PO DAILY
bisacodyl 10 mg Suppository
10 mg [place] DAILYPRN PRN (Reason: if no bm aftr mom)
pantoprazole 40 mg Tablet,Delayed Release (Dr/Ec)
40 mg PO BID
ziprasidone HCl 40 mg Capsule
40 mg PO BID
nystatin 100,000 unit/gram Powder
1 applic TOPICAL BID
insulin lispro [Humalog U-100 Insulin] 100 unit/mL Solution
1 sliding scale dose SC AC
Rx Instructions:
251-300=4units, 301-350=6units
cholecalciferol (vitamin D3) 25 mcg (1,000 unit) Tablet
25 mcg PO DAILY
rivaroxaban 20 mg Tablet
20 mg PO QPM
hydroxyzine pamoate 25 mg Capsule
25 mg PO Q6HPRN PRN (Reason: anxiety)
hydroxyzine pamoate 25 mg Capsule
25 mg PO HS
aspirin 81 mg Tablet,Chewable
81 mg PO DAILY Qty: 30 0RF
lisinopril 2.5 mg Tablet
2.5 mg PO DAILY Qty: 30 0RF
furosemide [Lasix] 40 mg tablet
40 mg PO DAILY Qty: 30 0RF
sennosides [senna] 8.6 mg Tablet
8.6 mg PO BID
magnesium hydroxide [Milk of Magnesia] 400 mg/5 mL Suspension
400 mg PO [id number] PRN (Reason: if no bm aftr mom)
nitroglycerin 0.4 mg Tablet, Sublingual
0.4 mg SUBLINGUAL [id number] PRN (Reason: chest pain)
docusate sodium [Colace] 100 mg Capsule
100 mg PO BID
budesonide 0.5 mg/2 mL Suspension For Nebulization
0.5 mg INHALATION R BID
fluticasone propionate 50 mcg/actuation [place],Suspension
1 spray INTRANASAL BID
glipizide 5 mg Tablet
5 mg PO DAILY
metoprolol succinate 25 mg Capsule,Sprinkle,Er 24hr
25 mg PO DAILY
spironolactone 25 mg tablet
25 mg PO DAILY
Fleet Enema 19-7 gram/118 mL Enema
118 ml [place] DAILYPRN PRN (Reason: if no bm aftr dulcolax)
lidocaine 4 % Gel
1 applic TOPICAL BIDPRN PRN (Reason: right shoulder)
oxycodone 5 mg tablet
5 mg PO Q8H PRN (Reason: Pain) Qty: 5 0RF
Linzess 72 mcg capsule
72 mcg PO DAILY Qty: 30 0RF
cefpodoxime 200 mg tablet
200 mg PO BID 7 Days Qty: 14 0RF
amoxicillin-pot clavulanate 875-125 mg tablet
1 tab PO BID 7 Days Qty: 14 0RF
Referrals:
Eladio Greer DO [Family Provider, Internal Medicine]
Activity Restrictions/Additional Instructions:
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 Return to the ER with any new or worsening symptoms.
Interventions
Interventions:
*Risk Screen - Suicide Last Done: 05/02/25 23:19
*General Assessment Last Done: 05/02/25 23:19
*Neglect/Abuse Screening Last Done: 05/02/25 23:19
*ED- Fall Risk Assessment Last Done: 05/02/25 23:19
*ED COVID-19 Vaccine History Last Done: 05/02/25 23:19
*Nursing Disposition Last Done: 05/03/25 05:30
[facility]-Wcxsxm-Ynncinivvp Assessment Last Done: 05/02/25 23:31
Discharge Date and Time
Discharge Date/Time: 05/03/25 05:32
Print Language: OCCITAN
[2025-05-03] MEDS: NSS 500 IV (01:07)
[2025-05-03 02:00] LABS: Lactic Acid 1.5 mmol/L (0.7-2.0)
[2025-05-03 02:01] LABS: % Basophils 0.2 % (0-2); % Eosinophils 2.1 % (0-6); % Immature Granulocytes 0.4 % (0-0.5); % Lymphocytes 11.1 % (20.5-51.1); % Monocytes 7.8 % (1.7-9.3); % Neutrophils 78.4 % (42.2-75.2); Absolute Eosinophils 0.2 10^3/uL (0-0.7); Absolute Lymphocytes 1.1 10^3/uL (1.2-3.4); Absolute Monocytes 0.7 10^3/uL (0.1-0.6); Absolute Neutrophils 7.4 10^3/uL (1.4-6.5); Hematocrit 31.8 % (37.0-47.0); Hemoglobin 10.5 g/dL (12.0-16.0); Mean Corpuscular Hgb 27.9 pg (27.0-31.0); Mean Corpuscular Volume 84.6 fL (81.0-99.0); Mean Platelet Volume 10.9 fL (7.4-10.4); Nucleated Red Blood Cells % 0 %; Platelet Count 181 10^3/uL (130-400); Red Blood Cell Count 3.76 10^6/uL (4.20-5.40); Red Cell Dist. Width 14.2 % (11.5-14.5); White Blood Cell Count 9.5 10^3/uL (4.8-10.8)
[2025-05-03 02:03] LABS: ALT (SGPT) 26 U/L (0-35); AST (SGOT) 22 U/L (14-36); Albumin 4.3 g/dl (3.5-5.0); Alkaline Phosphatase 242 U/L (38-126); Blood Urea Nitrogen 42 mg/dl (7-17); Calcium 9.6 mg/dl (8.4-10.2); Carbon Dioxide 25 mmol/L (22-30); Chloride 107 mmol/L (98-107); Estimated Creatinine Clearance 43 ml/min; Glucose 100 mg/dl (70-99); Lipase 318 U/L (23-300); Potassium 4.2 mmol/L (3.5-5.1); Sodium 143 mmol/L (135-145); Total Bilirubin 0.6 mg/dl (0.2-1.3); Total Protein 6.8 g/dl (6.3-8.2); eGFR 31.46
[2025-05-03 05:30] VITALS: BP 108/60
== END 2025-05-03 05:32 | disposition home or self-care (01) ==
LOC: EMR 23:16
PROVIDERS: Physician Assistant; EMERGENCY PHYSICIAN Emergency Medicine; FAMILY PHYSICIAN Internal Medicine
DX: K59.00 Constipation, unspecified (principal); D86.9 Sarcoidosis, unspecified; E11.22 Type 2 diabetes mellitus with diabetic chronic kidney disease; I50.9 Heart failure, unspecified; N18.9 Chronic kidney disease, unspecified; E66.9 Obesity, unspecified; E78.00 Pure hypercholesterolemia, unspecified; Z90.49 Acquired absence of other specified parts of digestive tract
CPT/HCPCS: 99284; 74176; 80053; 83605; 83690; 85025

== ENCOUNTER 2025-05-17 17:03 | Emergency (ER) | payer OTHER, SELFPAY ==
[2025-05-17 17:07] VITALS: BP 100/67
[2025-05-17 17:52] LABS: Hematocrit 33.7 % (37.0-47.0); Hemoglobin 11.0 g/dL (12.0-16.0); Mean Corp Hgb Conc. 32.6 g/dL (33.0-37.0); Mean Corpuscular Volume 86.4 fL (81.0-99.0); Nucleated Red Blood Cells % 0 %; Platelet Count 233 10^3/uL (130-400); Red Cell Dist. Width 14.0 % (11.5-14.5)
[2025-05-17 17:57] LABS: ALT (SGPT) 24 U/L (0-35); AST (SGOT) 24 U/L (14-36); Albumin 4.3 g/dl (3.5-5.0); Alkaline Phosphatase 239 U/L (38-126); Blood Urea Nitrogen 38 mg/dl (7-17); Calcium 9.5 mg/dl (8.4-10.2); Carbon Dioxide 28 mmol/L (22-30); Chloride 102 mmol/L (98-107); Glucose 226 mg/dl (70-99); Lipase 183 U/L (23-300); Potassium 4.1 mmol/L (3.5-5.1); Sodium 138 mmol/L (135-145); Total Protein 6.6 g/dl (6.3-8.2); eGFR 33.70
[2025-05-17 20:17] VITALS: BP 130/61; BMI 44.9
--- NOTE | 2025-05-18 | EDRN ---
Patient updated on results and plan for discharge
[2025-05-18 00:12] VITALS: BP 107/49
--- NOTE | 2025-05-18 01:00 | EDRN ---
Patient sleeping and waiting on a ride at this time.
--- NOTE | 2025-05-18 01:57 | ED.GENMED ---
History of Present Illness
General
Chief Complaint: Abdominal Symptoms
Source: patient
Exam Limitations: none
Time Seen by Provider: 05/17/25 19:29
Nursing documentation reviewed up to this point in time: agreed with
History of Present Illness
History of Present Illness:
Patient to ED from senior care with complaint of infrequent stools, difficulty passing stools and enlarging abdominal hernia. States she was recently treated with MOM enema for constipation and has been taking dulcolax and senna since but does not
feel like she is getting any results. Generalzied abd. pain. Denies fever/chills. Brought to ED via EMS for eval.
Past History
Past History
ED Past Medical History: Arrthythmia (Paroxysmal atrial fibrillation), CHF, Hypercholesterolemia, IDDM, Renal failure (Chronic kidney disease) and Other (Sarcoidosis, neurogenic bladder, chronic constipation, chronic hypotension)
ED Past Surgical History: Other (Hernia repair)
Social History
Tobacco: Non-smoker
Personal: Single
Living: senior care
Employment: Disabled
Family History
Family History: Other (Noncontributory)
Review of Systems
Review of Systems
Allergies reviewed?: Yes
All Other Systems: ROS reviewed and negative except as documented in HPI and ROS
Constitutional: Reports no symptoms
EENT: Reports no symptoms
Respiratory: Reports no symptoms
Cardiac: Reports no symptoms
ABD/GI: Reports abdominal pain and constipated
: Reports no symptoms
Musculoskeletal: Reports no symptoms
Skin: Reports no symptoms
Neurological: Reports no symptoms
Psychiatric: Reports no symptoms
Phy Exam
General Physical Exam
General Presentation: well appearing and no apparent distress
General age: appears stated age
General Skin: warm and dry
General Habitus: normal
General Mental: alert
Cardiovascular Exam
Cardiovascular Exam: regular rate/rhythm
Pulmonary Exam
Pulmonary Exam: lungs clear and no respiratory distress
Gastrointestinal Exam
Gastrointestinal Exam: normal bowel sounds, soft, no organomegaly, no pulsatile mass, non distended and no cva tenderness
Musculoskeletal Exam
Musculoskeletal Exam: full ROM and neuro vasc intact
Skin Exam
Skin Exam: normal color, warm/dry and no rash
Psychiatric Exam
Psychiatric Exam: normal mood/affect
Course
Orders/Labs/Results
Orders:
Orders
05/17/25 17:22
Complete Blood Count/With Diff Urgent
Comprehensive Metabolic Panel Urgent
Lipase Urgent
05/17/25 19:19
Obstruct Series W/PA Chest [CR Obstruct Series W/pa Chest] Urgent
Comment:
Reason For Exam: full of stool
05/17/25 22:29
CT Abd/pel Without Iv Or Oral Urgent
Comment:
Reason For Exam: diffuse abd pain
Abnormal Lab Results
05/17/25
17:22
RBC 3.90 L 10^6/uL
(4.20-5.40)
Hgb 11.0 L g/dL
(12.0-16.0)
Hct 33.7 L %
(37.0-47.0)
MCHC 32.6 L g/dL
(33.0-37.0)
Absolute Neuts (auto) 7.3 H 10^3/uL
(1.4-6.5)
Absolute Lymphs (auto) 0.7 L 10^3/uL
(1.2-3.4)
Neutrophils % 85.9 H %
(42.2-75.2)
Lymphocytes % 8.6 L %
(20.5-51.1)
BUN 38 H mg/dl
(7-17)
Creatinine 1.7 H mg/dL
(0.6-1.0)
Glucose 226 H mg/dl
(70-99)
Alkaline Phosphatase 239 H U/L
(38-126)
05/17/25 17:22
05/17/25 17:22
Vital Signs
Initial and Last Documented VS:
Initial Vital Signs
Temp Pulse Resp BP Pulse Ox
98 F 76 16 100/67 98
05/17/25 17:07 05/17/25 17:07 05/17/25 17:07 05/17/25 17:07 05/17/25 17:07
Last Documented Vital Signs
Temp Pulse Resp BP Pulse Ox
98 F 90 16 107/49 90
05/17/25 17:07 05/18/25 00:12 05/18/25 00:12 05/18/25 00:12 05/18/25 01:59
*Radiology
Radiology exam reviewed: radiology read reviewed
*Pulse Oximetry
SaO2: 90
Oxygen Mode of Delivery: Room air
Patient hypoxic: no
*Critical Care Note
Total Time (30-74mins, 75-104mins- exclusive of procedures): Not Applicable
Update Note
Update Note:
Patient to ED with comlaint of infrequent stools, generalilzed abd pain. Ct report reviewed with her. No obstruction, no incarcerated hernia. Liquid stool noted in colon, possible enteritis . Labs reveiwed, no concerning findings. [facility], close follow up with PCP. given isntructions on s/s to return to ED and she is agreeable to plan.
ED Attending Note
-
Portions of this chart may have been created with voice recognition software.� Occasional wrong word or��sound alike� substitutions may have occurred due to the inherent limitations of voice recognition software.
Discharge Plan
Departure
Patient Disposition: Home (Routine Discharge)
Date of Disposition: 05/17/25
Time of Disposition: 23:56
Patient with high blood pressure during this ER visit?: No
Condition: Good
Covid-19: Not Applicable
Discharge Problem:
Enteritis
Instructions: Abdominal Pain
Prescriptions:
No Action
atorvastatin 40 mg Tablet
40 mg PO HS
acetaminophen 325 mg Tablet
650 mg PO Q6HPRN PRN (Reason: mild pain / temp > 100.4)
baclofen 10 mg Tablet
10 mg PO TIDPRN PRN (Reason: spasms)
triamcinolone acetonide 0.1 % Cream
1 applic TOPICAL BID
lamotrigine 25 mg Tablet
25 mg PO BID
famotidine 20 mg Tablet
20 mg PO BID
tamsulosin 0.4 mg Capsule
0.4 mg PO DAILY
bisacodyl 10 mg Suppository
10 mg [place] DAILYPRN PRN (Reason: if no bm aftr mom)
pantoprazole 40 mg Tablet,Delayed Release (Dr/Ec)
40 mg PO BID
ziprasidone HCl 40 mg Capsule
40 mg PO BID
nystatin 100,000 unit/gram Powder
1 applic TOPICAL BID
insulin lispro [Humalog U-100 Insulin] 100 unit/mL Solution
1 sliding scale dose SC AC
Rx Instructions:
251-300=4units, 301-350=6units
cholecalciferol (vitamin D3) 25 mcg (1,000 unit) Tablet
25 mcg PO DAILY
rivaroxaban 20 mg Tablet
20 mg PO QPM
hydroxyzine pamoate 25 mg Capsule
25 mg PO Q6HPRN PRN (Reason: anxiety)
hydroxyzine pamoate 25 mg Capsule
25 mg PO HS
aspirin 81 mg Tablet,Chewable
81 mg PO DAILY Qty: 30 0RF
lisinopril 2.5 mg Tablet
2.5 mg PO DAILY Qty: 30 0RF
furosemide [Lasix] 40 mg tablet
40 mg PO DAILY Qty: 30 0RF
sennosides [senna] 8.6 mg Tablet
8.6 mg PO BID
magnesium hydroxide [Milk of Magnesia] 400 mg/5 mL Suspension
400 mg PO [id number] PRN (Reason: if no bm aftr mom)
nitroglycerin 0.4 mg Tablet, Sublingual
0.4 mg SUBLINGUAL [id number] PRN (Reason: chest pain)
docusate sodium [Colace] 100 mg Capsule
100 mg PO BID
budesonide 0.5 mg/2 mL Suspension For Nebulization
0.5 mg INHALATION R BID
fluticasone propionate 50 mcg/actuation [place],Suspension
1 spray INTRANASAL BID
glipizide 5 mg Tablet
5 mg PO DAILY
metoprolol succinate 25 mg Capsule,Sprinkle,Er 24hr
25 mg PO DAILY
spironolactone 25 mg tablet
25 mg PO DAILY
Fleet Enema 19-7 gram/118 mL Enema
118 ml [place] DAILYPRN PRN (Reason: if no bm aftr dulcolax)
lidocaine 4 % Gel
1 applic TOPICAL BIDPRN PRN (Reason: right shoulder)
oxycodone 5 mg tablet
5 mg PO Q8H PRN (Reason: Pain) Qty: 5 0RF
Linzess 72 mcg capsule
72 mcg PO DAILY Qty: 30 0RF
cefpodoxime 200 mg tablet
200 mg PO BID 7 Days Qty: 14 0RF
amoxicillin-pot clavulanate 875-125 mg tablet
1 tab PO BID 7 Days Qty: 14 0RF
Referrals:
[facility] [place], [Other]
Eladio Greer DO [Family Provider, Internal Medicine] - Follow up in 2-3 days
Interventions
Interventions:
*Risk Screen - Suicide Last Done: 05/17/25 17:07
*General Assessment Last Done: 05/17/25 20:17
*Neglect/Abuse Screening Last Done: 05/17/25 17:07
*ED- Fall Risk Assessment Last Done: 05/17/25 20:17
*ED COVID-19 Vaccine History Last Done: 05/17/25 20:17
*Nursing Disposition Last Done: 05/18/25 03:51
SH-Mlecdz-Gnlvokadqv Assessment Last Done: 05/17/25 20:52
Discharge Date and Time
Discharge Date/Time: 05/18/25 03:52
Print Language: SLOVAK
== END 2025-05-18 03:52 | disposition home or self-care (01) ==
LOC: EMR 17:03
PROVIDERS: Emergency Medicine; EMERGENCY PHYSICIAN Emergency Medicine; FAMILY PHYSICIAN Internal Medicine
DX: K52.9 Noninfective gastroenteritis and colitis, unspecified (principal); E11.22 Type 2 diabetes mellitus with diabetic chronic kidney disease; N18.9 Chronic kidney disease, unspecified; E78.00 Pure hypercholesterolemia, unspecified; I48.0 Paroxysmal atrial fibrillation; I50.9 Heart failure, unspecified
CPT/HCPCS: 99284; 74022; 74176; 80053; 83690; 85025

== ENCOUNTER 2025-05-26 10:22 | Inpatient (IN) | payer OTHER, SELFPAY ==
[2025-05-25] VITALS (11 sets, daily range): BP systolic 91–132; BP diastolic 51–85; BMI 43.3; BMI 42.5
--- NOTE | 2025-05-25 06:06 | ED.GENMED ---
History of Present Illness
<Irma Graham DO - Last Filed: 05/25/25 07:01>
General
Chief Complaint: Urinary Symptoms
Time Seen by Provider: 05/25/25 06:09
History of Present Illness
History of Present Illness:
64-year-old female with multiple comorbidities including urinary retention with chronic indwelling Smith, diabetes, A-fib on Xarelto, CKD, bipolar disorder, abdominal hernias presenting to the emergency department for generally feeling unwell. Per
nursing facility, noticed blood in her urine Smith bag, sent to the ER for further evaluation. Patient notes that she is generally feeling unwell with some lower abdominal discomfort and nausea. Also notes some indigestion, has underlying history
of. Denies fever. History of UTI in the past. Denies vomiting. Denies additional acute medical complaints
Past History
<Prateek Reilly, DO - Last Filed: >
Past History
ED Past Medical History: Arrthythmia (Paroxysmal atrial fibrillation), CHF, Hypercholesterolemia, IDDM, Renal failure (Chronic kidney disease) and Other (Sarcoidosis, neurogenic bladder, chronic constipation, chronic hypotension)
ED Past Surgical History: Other (Hernia repair)
Social History
Tobacco: Non-smoker
Personal: Single
Living: [facility]
Employment: Disabled
Family History
Family History: Other (Noncontributory)
Phy Exam
<Irma Graham DO - Last Filed: 05/25/25 07:01>
Physical Exam
Physical Exam:
General: Well-appearing, no clinical signs of dehydration, nontoxic and in no acute distress
HEENT: protecting airway
Neck: appears supple
CV: Normal heart rate, regular rhythm
Resp: No accessory muscle use, no increased work of breathing, lungs clear to auscultation bilaterally
Abd: Soft and non-distended, large ventral hernia, reducible. Mild generalized discomfort to the lower abdomen, nonfocal, no rebound or guarding
Extremities: No deformities, no swelling, no erythema, pulses and sensation intact
Neuro: alert, no focal neurologic deficit
: deferred
Rectal: deferred
Psych: Normal affect
Skin: Intact
Course
<Irma Gladys, DO - Last Filed: 05/25/25 07:01>
Orders/Labs/Results
Orders:
Orders
05/25/25 05:35
IV Insert/Care/Rem.- Treatment PRN
05/25/25 06:03
Complete Blood Count/With Diff Urgent
Comprehensive Metabolic Panel Urgent
Lipase Urgent
Urinalysis Reflex To Culture Urgent
Date Specimen was Collected: 05/25/25
Time Specimen was Collected: 05:35
Urine Microscopic Reflex Cult Urgent
Urine Culture Urgent
ROZINA Source: U
Specimen Description:
Date Specimen was Collected: 05/25/25
Time Specimen was Collected: 05:35
05/25/25 06:28
Smith Placement- Treatment ONCE
Reason for insertion: Chronic Smith on Admit
Abnormal Lab Results
05/25/25
06:03
RBC 3.84 L 10^6/uL
(4.20-5.40)
Hgb 10.9 L g/dL
(12.0-16.0)
Hct 33.1 L %
(37.0-47.0)
MCHC 32.9 L g/dL
(33.0-37.0)
Abs Immat Gran (auto) 0.1 H 10^3/uL
(0-0.05)
Immature Gran % 0.8 H %
(0-0.5)
Lymphocytes % 19.3 L %
(20.5-51.1)
Potassium 3.2 L mmol/L
(3.5-5.1)
BUN 49 H mg/dl
(7-17)
Creatinine 1.8 H mg/dL
(0.6-1.0)
Glucose 130 H mg/dl
(70-99)
Alkaline Phosphatase 211 H U/L
(38-126)
Ur Occult Blood Reflex 3+ A
(Negative)
Urine Nitrite (Reflex) Positive A
(Negative)
Leukocyte Esterase Rfl 3+ A
(Negative)
Urine WBC (Reflex) >100 A /HPF
(0-5)
Urine Bacteria (Reflex) Many A
(Negative)
Urine Albumin (Reflex) 2+ A
(Neg - Trace)
05/25/25 06:03
05/25/25 06:03
Vital Signs
Initial and Last Documented VS:
Initial Vital Signs
BP
114/68
05/25/25 05:06
Last Documented Vital Signs
Temp Pulse Resp BP Pulse Ox
98.5 F 61 16 115/71 98
05/25/25 06:40 05/25/25 06:45 05/25/25 06:45 05/25/25 06:40 05/25/25 06:40
<Prateek Reilly, DO - Last Filed: >
Orders/Labs/Results
Orders:
Orders
05/25/25 05:35
IV Insert/Care/Rem.- Treatment PRN
05/25/25 06:03
Complete Blood Count/With Diff Urgent
Comprehensive Metabolic Panel Urgent
Lipase Urgent
Urinalysis Reflex To Culture Urgent
Date Specimen was Collected: 05/25/25
Time Specimen was Collected: 05:35
Urine Microscopic Reflex Cult Urgent
Urine Culture Urgent
ROZINA Source: U
Specimen Description:
Date Specimen was Collected: 05/25/25
Time Specimen was Collected: 05:35
05/25/25 06:28
Smith Placement- Treatment ONCE
Reason for insertion: Chronic Smith on Admit
Abnormal Lab Results
05/25/25
06:03
RBC 3.84 L 10^6/uL
(4.20-5.40)
Hgb 10.9 L g/dL
(12.0-16.0)
Hct 33.1 L %
(37.0-47.0)
MCHC 32.9 L g/dL
(33.0-37.0)
Abs Immat Gran (auto) 0.1 H 10^3/uL
(0-0.05)
Immature Gran % 0.8 H %
(0-0.5)
Lymphocytes % 19.3 L %
(20.5-51.1)
Potassium 3.2 L mmol/L
(3.5-5.1)
BUN 49 H mg/dl
(7-17)
Creatinine 1.8 H mg/dL
(0.6-1.0)
Glucose 130 H mg/dl
(70-99)
Alkaline Phosphatase 211 H U/L
(38-126)
Ur Occult Blood Reflex 3+ A
(Negative)
Urine Nitrite (Reflex) Positive A
(Negative)
Leukocyte Esterase Rfl 3+ A
(Negative)
Urine WBC (Reflex) >100 A /HPF
(0-5)
Urine Bacteria (Reflex) Many A
(Negative)
Urine Albumin (Reflex) 2+ A
(Neg - Trace)
05/25/25 06:03
05/25/25 06:03
Vital Signs
Initial and Last Documented VS:
Initial Vital Signs
BP
114/68
05/25/25 05:06
Last Documented Vital Signs
Temp Pulse Resp BP Pulse Ox
98.5 F 61 16 115/71 98
05/25/25 06:40 05/25/25 06:45 05/25/25 06:45 05/25/25 06:40 05/25/25 06:40
<Irma Graham DO - Last Filed: 05/25/25 07:01>
MDM/Problems Addressed
MDM/Problems Addressed:
64-year-old female with history of chronic indwelling Smith and history of UTIs presenting for concern of blood in her Smith bag and generally feeling well. Vital signs on arrival are normal.
On exam, patient is resting comfortably, no acute distress, nontoxic. On evaluation of patient's Smith bag, no significant hematuria. There is sediment, cloudiness. Suspect an UTI. Will plan to change Smith catheter. Urinalysis sent prior to my
assessment, positive for UTI. On review of EMR, patient had a UTI back in April, ESBL with multiple drug resistances. Pending laboratory analysis. Abdominal exam, no focal tenderness, chronic hernia, reducible. Suspect discomfort to lower abdomen
secondary to UTI. Without present concern for additional acute intra-abdominal process or infection
07:00 - Labs unremarkable. Given multiple drug resistances, no oral option for treatment. For this reason we will plan for admission for antibiotic treatment
<Irma Graham DO - Last Filed: 05/25/25 07:01>
*Pulse Oximetry
Patient hypoxic: no
*Critical Care Note
Total Time (30-74mins, 75-104mins- exclusive of procedures): Not Applicable
<Prateek Reilly, DO - Last Filed: >
*Pulse Oximetry
SaO2: 96
Oxygen Mode of Delivery: Room air
ED Attending Note
<Prateek Reilly, DO - Last Filed: >
-
Portions of this chart may have been created with voice recognition software.� Occasional wrong word or��sound alike� substitutions may have occurred due to the inherent limitations of voice recognition software.
Discharge Plan
Departure
Prescriptions:
No Action
atorvastatin 40 mg Tablet
40 mg PO HS
acetaminophen 325 mg Tablet
650 mg PO Q6HPRN PRN (Reason: mild pain / temp > 100.4)
baclofen 10 mg Tablet
10 mg PO TIDPRN PRN (Reason: spasms)
triamcinolone acetonide 0.1 % Cream
1 applic TOPICAL BID
lamotrigine 25 mg Tablet
50 mg PO BID
famotidine 20 mg Tablet
20 mg PO BID
tamsulosin 0.4 mg Capsule
0.4 mg PO DAILY
bisacodyl 10 mg Suppository
10 mg NH DAILYPRN PRN (Reason: if no bm aftr mom)
pantoprazole 40 mg Tablet,Delayed Release (Dr/Ec)
40 mg PO BID
ziprasidone HCl 40 mg Capsule
40 mg PO BID
nystatin 100,000 unit/gram Powder
1 applic TOPICAL BID
insulin lispro [Humalog U-100 Insulin] 100 unit/mL Solution
1 sliding scale dose SC AC
Rx Instructions:
251-300=4units, 301-350=6units
cholecalciferol (vitamin D3) 25 mcg (1,000 unit) Tablet
25 mcg PO DAILY
rivaroxaban 20 mg Tablet
20 mg PO QPM
hydroxyzine pamoate 25 mg Capsule
25 mg PO Q6HPRN PRN (Reason: anxiety)
hydroxyzine pamoate 25 mg Capsule
25 mg PO HS
aspirin 81 mg Tablet,Chewable
81 mg PO DAILY Qty: 30 0RF
lisinopril 2.5 mg Tablet
2.5 mg PO DAILY Qty: 30 0RF
furosemide [Lasix] 40 mg tablet
40 mg PO DAILY Qty: 30 0RF
sennosides [senna] 8.6 mg Tablet
8.6 mg PO BID
magnesium hydroxide [Milk of Magnesia] 400 mg/5 mL Suspension
400 mg PO [id number] PRN (Reason: if no bm aftr mom)
nitroglycerin 0.4 mg Tablet, Sublingual
0.4 mg SUBLINGUAL [id number] PRN (Reason: chest pain)
docusate sodium [Colace] 100 mg Capsule
100 mg PO BID
budesonide 0.5 mg/2 mL Suspension For Nebulization
0.5 mg INHALATION R BID
fluticasone propionate 50 mcg/actuation [place],Suspension
1 spray INTRANASAL BID
glipizide 5 mg Tablet
5 mg PO DAILY
metoprolol succinate 25 mg Capsule,Sprinkle,Er 24hr
25 mg PO DAILY
spironolactone 25 mg tablet
25 mg PO DAILY
Fleet Enema 19-7 gram/118 mL Enema
118 ml NH DAILYPRN PRN (Reason: if no bm aftr dulcolax)
lidocaine 4 % Gel
1 applic TOPICAL BIDPRN PRN (Reason: right shoulder)
Linzess 72 mcg capsule
72 mcg PO DAILY Qty: 30 0RF
ondansetron HCl [Zofran] 4 mg Tablet
4 mg PO Q8H PRN (Reason: nausea)
prednisone 5 mg Tablet
5 mg PO DAILY
melatonin 3 mg Tablet
6 mg PO HS
meclizine 25 mg Tablet
25 mg PO Q8 PRN (Reason: dizziness)
benzonatate [Tessalon Perles] 100 mg Capsule
200 mg PO Q12
Referrals:
Eladio Greer DO [Family Provider, Internal Medicine]
Interventions
Interventions:
*Risk Screen - Suicide Last Done: 05/25/25 05:09
*General Assessment Last Done: 05/25/25 05:09
*Neglect/Abuse Screening Last Done: 05/25/25 05:09
*ED- Fall Risk Assessment Last Done: 05/25/25 05:09
*ED COVID-19 Vaccine History Last Done: 05/25/25 05:20
ED-Female Genitourinary Assessment Last Done: 05/25/25 06:00
Discharge Date and Time
Print Language: PRYDEINIG
[2025-05-25 06:10] LABS: Hematocrit 33.1 % (37.0-47.0); Hemoglobin 10.9 g/dL (12.0-16.0); Mean Corp Hgb Conc. 32.9 g/dL (33.0-37.0); Mean Corpuscular Volume 86.2 fL (81.0-99.0); Nucleated Red Blood Cells % 0 %; Platelet Count 224 10^3/uL (130-400); Red Cell Dist. Width 14.0 % (11.5-14.5)
[2025-05-25 06:11] LABS: Urine Character Cloudy (Clear)
[2025-05-25 06:33] LABS: ALT (SGPT) 25 U/L (0-35); AST (SGOT) 20 U/L (14-36); Albumin 4.2 g/dl (3.5-5.0); Alkaline Phosphatase 211 U/L (38-126); Blood Urea Nitrogen 49 mg/dl (7-17); Calcium 9.9 mg/dl (8.4-10.2); Carbon Dioxide 28 mmol/L (22-30); Chloride 103 mmol/L (98-107); Estimated Creatinine Clearance 43 ml/min; Glucose 130 mg/dl (70-99); Lipase 258 U/L (23-300); Potassium 3.2 mmol/L (3.5-5.1); Sodium 140 mmol/L (135-145); Total Protein 6.7 g/dl (6.3-8.2); eGFR 31.46
[2025-05-25 06:42] LABS: Urine Squamous Cell >30 /LPF (Few); Urine Urothelial Cell >30 /LPF (FEW)
[2025-05-25 06:45] LABS: Urine White Cell >100 /HPF (0-5)
--- NOTE | 2025-05-25 07:58 | HPS.HSE ---
Family Physician
-
Family Physician: Eladio Francisf, DO
Chief Complaint
-
Abd pain/discomfort
History of Present Illness
64F ext pmhx including sarcoidosis neurogenic bladder Chronic Boswell, diabetes, A-fib Xarelto, CKD III, bipolar disorder, abdominal hernias s/p repair p/w general malaise abd pain/discomfort past 2 weeks. Per nursing facility, noted blood in her
urine Boswell bag, prompting ER evaluation. Hematuria not noted here. Boswell changed in ED noted infected appearance, corroborated by urinalysis. Patient also reports significant constipation with associate nausea, denies vomiting, coughing, chills
and burning with urination past 2 weeks. Denies fever
Medical History
Past Medical History
Past Medical History: Reports Other (as above)
Past Surgical History: Reports Other (as above)
Social History
Tobacco: Non-smoker
Alcohol: None
Drug: None
Living: Residential
Family History
Family History: Not pertinent (reviewed)
Allergies / Home Medications
Allergies reflects when Allergies were last updated in [facility].
Home Medications with original date entered in [facility]
Allergy/Medication List:
Allergies
Allergy/AdvReac Type Severity Reaction Status Date / Time
adhesive Allergy Unknown Verified 05/17/25 17:11
cephalexin Allergy Rash Verified 05/17/25 17:11
clopidogrel Allergy gerd Verified 05/17/25 17:11
erythromycin base Allergy n/v Verified 05/17/25 17:11
fish derived Allergy SEAFOOD Verified 05/17/25 17:11
ketorolac Allergy Anaphylaxis Verified 05/17/25 17:11
latex Allergy Rash Verified 05/17/25 17:11
metformin Allergy diarrhea Verified 05/17/25 17:11
oxycodone (From Percocet) Allergy Unknown Verified 05/17/25 17:11
Home Medications
acetaminophen 325 mg tablet 650 mg PO Q6HPRN PRN mild pain / temp > 100.4 12/14/24
atorvastatin 40 mg tablet 40 mg PO HS High Cholesterol 12/14/24
baclofen 10 mg tablet 10 mg PO TIDPRN PRN spasms 12/14/24
bisacodyl 10 mg rectal suppository 10 mg IA DAILYPRN PRN if no bm aftr mom 12/14/24
cholecalciferol (vitamin D3) 25 mcg (1,000 unit) tablet 25 mcg PO DAILY Supplement 12/14/24
famotidine 20 mg tablet 20 mg PO BID Gastrointestinal Issue 12/14/24
hydroxyzine pamoate 25 mg capsule 25 mg PO HS Mental Health/Anxiety 12/14/24
hydroxyzine pamoate 25 mg capsule 25 mg PO Q6HPRN PRN anxiety 12/14/24
insulin lispro 100 unit/mL subcutaneous solution (Humalog U-100 Insulin) 1 sliding scale dose SC AC Diabetes 12/14/24
lamotrigine 25 mg tablet 50 mg PO BID Seizures 12/14/24
nystatin 100,000 unit/gram topical powder 1 applic topical BID breasts and groin 12/14/24
pantoprazole 40 mg tablet,delayed release 40 mg PO BID Gastrointestinal Issue 12/14/24
rivaroxaban 20 mg tablet 20 mg PO QPM Blood Clot Prevention/Tx 12/14/24
tamsulosin 0.4 mg capsule 0.4 mg PO DAILY Urinary Issue 12/14/24
triamcinolone acetonide 0.1 % topical cream 1 applic topical BID breasts and groin 12/14/24
ziprasidone HCl 40 mg capsule 40 mg PO BID Mental Health/Anxiety 12/14/24
aspirin 81 mg chewable tablet 81 mg PO DAILY Heart disease/condition #30 tabs 12/16/24
furosemide 40 mg tablet (Lasix) 40 mg PO DAILY #30 tabs 12/16/24
lisinopril 2.5 mg tablet 2.5 mg PO DAILY #30 tabs 12/16/24
budesonide 0.5 mg/2 mL suspension for nebulization 0.5 mg inhalation R BID 03/11/25
docusate sodium 100 mg capsule (Colace) 100 mg PO BID 03/11/25
fluticasone propionate 50 mcg/actuation nasal spray,suspension 1 spray intranasal BID 03/11/25
glipizide 5 mg tablet 5 mg PO DAILY 03/11/25
lidocaine 4 % topical gel 1 applic topical BIDPRN PRN right shoulder 03/11/25
magnesium hydroxide 400 mg/5 mL oral suspension (Milk of Magnesia) 400 mg PO [id number] PRN if no bm aftr mom 03/11/25
metoprolol succinate 25 mg capsule sprinkle, ext. release 24 hr 25 mg PO DAILY 03/11/25
nitroglycerin 0.4 mg sublingual tablet 0.4 mg sublingual [id number] PRN chest pain 03/11/25
sennosides 8.6 mg tablet (senna) 8.6 mg PO BID 03/11/25
sodium phosphates 19 gram-7 gram/118 mL enema (Fleet Enema) 118 ml IA DAILYPRN PRN if no bm aftr dulcolax 03/11/25
spironolactone 25 mg tablet 25 mg PO DAILY 03/11/25
linaclotide 72 mcg capsule (Linzess) 72 mcg PO DAILY #30 caps 03/28/25
benzonatate 100 mg capsule 200 mg PO Q12 05/25/25
meclizine 25 mg tablet 25 mg PO Q8 PRN dizziness 05/25/25
melatonin 3 mg tablet 6 mg PO HS 05/25/25
ondansetron HCl 4 mg tablet 4 mg PO Q8H PRN nausea 05/25/25
prednisone 5 mg tablet 5 mg PO DAILY 05/25/25
Review of Systems
-
A 12 point ROS was completed and negative except as noted: Yes
Constitutional: Reports Other (as below)
Physical Exam
Vital Signs
Vital Signs
Temp Pulse Resp BP Pulse Ox
98.5 F 61 16 115/71 96
05/25/25 06:40 05/25/25 06:45 05/25/25 06:45 05/25/25 06:40 05/25/25 06:56
Physical Exam
General: Other (as below)
Laboratory Results
-
05/25/25 06:03
05/25/25 06:03
Laboratory Results
Total Bilirubin 0.4 mg/dl (0.2-1.3) 05/25/25 06:03
AST 20 U/L (14-36) 05/25/25 06:03
ALT 25 U/L (0-35) 05/25/25 06:03
Alkaline Phosphatase 211 U/L (38-126) H 05/25/25 06:03
Lipase 258 U/L (23-300) 05/25/25 06:03
Impression/Plan
-
ROS
General: Reports chills Denies fever night sweats unexpected weight loss
Neuro: Denies seizure shaking loss of consciousness dizziness vertigo
Psych: denies depression hallucinations confusion manic episodes
Endocrine: Denies polyuria polydipsia polyphagia heat intolerance
HEENT: Denies blindness visual disturbances epistaxis
Pulmonary: reports coughing denies hemoptysis sneezing sob dyspnea on exertion
Cardiovascular: denies chest pain palpitations leg swelling
Hematology: denies signs symptoms of anemia easy bruising/bleeding
Gastrointestinal: reports nausea constipation denies vomiting hematemesis hematochezia melena
Genito-Urinary: chronic boswell, reports burning sensation on urination
Musculoskeletal: denies joint pain weakness
Dermatology: denies rash laceration bruising
Physical Exam
General: No pallor, cyanosis, or jaundice.
HEENT: Throat clear. PERRLA Normocephalic atraumatic
NECK: Supple. No JVD Carotid Bruits
RESPIRATORY: Lungs clear to auscultation. No crackles wheezes stridor
CVS: S1, S2 normal. RRR. No murmur, rub or gallop.
ABDOMEN: Soft, mild tenderness. Obese. decresased bowel sounds
: Boswell in place
EXTREMITIES: No peripheral cyanosis or edema.
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
IMPRESSION:
64F from [facility] ext pmhx including Morbid Obesity GERD HFmrEF sarcoidosis neurogenic bladder Chronic Boswell, diabetes, A-fib Xarelto, CKD III, bipolar disorder, abdominal hernias s/p repair p/w general malaise abd pain/discomfort past 2 weeks.
Per nursing facility, noted blood in her urine Boswell bag, prompting ER evaluation. Hematuria not noted here. Boswell changed in ED noted infected appearance, corroborated by urinalysis. Patient also reports significant constipation with associate
nausea, denies vomiting, coughing, chills and burning with urination past 2 weeks. Denies fever
PLAN:
Neurogenic Bladder Chronic Boswell
Urinary Tract Infection hx ESBL
-cont empiric zosyn for now
-follow urine cx
Constipation
-cont home bowel regimen
-once milk and molasses enema 05/25
Diabetes
-recent A1c 7.4
-cont home glipizide
-sliding scale
paroxysmal Afib
-cont home Xarelto, reduced to renal dosing 15 mg qpm d/t CrCl <50 but >15
-cont home metoprolol
2 wks Cough
-stable respiratory status on room air
-sputum cx if possible
-check COVID/Flu
-check Chest X-ray
chronic HFmrEF
-appears euvolemic at this time
-stable respiratory satus on room air
-daily weights I/O
-cont home Lasix spironolactone Lisinopril Metoprolol w holding parameters
CKDIII
-Cr appears baseline
-monitor renal function
Bipolar
Insomnia
-cont home ziprasidone, lamictal, prn and scheduled Hydroxyzine
-cont home melatonin
Morbid Obesity
-affects all aspects of care
-wt loss counseled
Sarcoidosis
-cont home prednisone
GERD
-cont home Protonix and Pepcid
dvt ppx Xarelto
Full Code
I spent a total of 80 minutes with the patient or on the floor. More than 50% of this time involved counseling and coordination of care.
[2025-05-25] MEDS: ZOSYN 100 IV (08:37)
--- NOTE | 2025-05-25 10:39 | CM ---
Met with patient in ED at bedside; Observation Letter explained; form signed @ 1030
Pharmacy verified: [facility]
Patient resides at [facility]
PLOF: reported she sometimes needs assistance with personal care; ambulates w/ Rollator or mobilizes w/ manual wheelchair; chronic Smith Catheter in place
DME: Oxygen 2 liters via NC at night
Will need ambulance for transport
Plan: Return to [facility] when medically stable; referral sent via [facility]
--- NOTE | 2025-05-25 11:06 | EDRN ---
this RN called the receiving unit and notified them that paper report was going to be tubed up
--- NOTE | 2025-05-25 11:12 | EDRN ---
this RN heard the pt screaming 'help someone help me', this RN entered the pts room and the pt started yelling at this RN stating this RN won't help her and that this RN didn't give the pt the call zhao and this RN stated that this RN would be happy
to help the pt with anything that she needed and that the call zhao was right at the pts right side by her right hand, and the pt stated, 'I want fucking something to fucking eat and i want to go to my fucking room i have been here all fucking night
long', this RN apologized to the pt for her frustrations and that she was upset and offered the pt a menu to order breakfast and the pt stated, 'Just get me to my room', will continue to monitor the pt closely
[2025-05-25 13:24] LABS: Glucose - Point of Care 142 mg/dl (70-99)
[2025-05-25] MEDS: KCL 270 MEQ IV (13:25)
[2025-05-25] MEDS: NOVOLOG FLEXPEN-LOW RESISTANCE SC (13:28)
[2025-05-25] MEDS: ZOSYN 50 IV ×2 (13:32→20:49)
[2025-05-25] MEDS: PROTONIX 40 MG PO ×2 (13:32→20:49)
[2025-05-25] MEDS: MAALOX 30 ML PO (13:45)
[2025-05-25] MEDS: LIDOCAINE 4% PATCH 1 PATCH TOPICAL (13:45)
[2025-05-25 16:56] LABS: Glucose - Point of Care 187 mg/dl (70-99)
[2025-05-25] MEDS: NOVOLOG FLEXPEN-LOW RESISTANCE 1 UNITS SC (17:01)
[2025-05-25] MEDS: XARELTO 15 MG PO (17:13)
[2025-05-25] MEDS: PULMICORT 0.5 MG INH (20:22)
[2025-05-25] MEDS: TESSALON PERLES 200 MG PO (20:48)
[2025-05-25] MEDS: GEODON 40 MG PO (20:49)
[2025-05-25] MEDS: ATARAX 25 MG PO (20:49)
[2025-05-25] MEDS: SENOKOT 8.6 MG PO (20:49)
[2025-05-25] MEDS: LIPITOR 40 MG PO (20:49)
[2025-05-25] MEDS: COLACE 100 MG PO (20:49)
[2025-05-25] MEDS: LAMICTAL 50 MG PO (20:51)
[2025-05-25] MEDS: TRIAMCINOLONE ACETONIDE 0.1% CREAM 1 APPLIC TOPICAL (20:51)
[2025-05-25] MEDS: MELATONIN 6 MG PO (20:51)
[2025-05-25] MEDS: DESENEX/MITRAZOL/ZEASORB 1 APPLIC TOPICAL (21:00)
[2025-05-25 21:09] LABS: COVID-19 Antigen Negative (Negative)
[2025-05-25 21:09] LABS: Glucose - Point of Care 165 mg/dl (70-99)
[2025-05-26] MEDS: ZOSYN 50 IV ×4 (02:20→19:40)
--- NOTE | 2025-05-26 05:22 | PTCARENOTE ---
Patient requested to have enema given early in AM. Milk and Molasses enema given to patient - able to stand at bedside to sit on commode. Awaiting results from enema at this time. Call zhao at bedside. Will monitor.
[2025-05-26 05:35] VITALS: BMI 42.7
[2025-05-26 07:23] VITALS: BP 106/49
--- NOTE | 2025-05-26 07:23 | W.PN.HOSP.TC ---
Today's Communication/Plan
-
cont empiric abx
follow urine cx
mucinex, prn robitussin
PT/OT
Assessment / Plan
Assessment / Plan
Physical Exam
General: No pallor, cyanosis, or jaundice.
HEENT: Throat clear. PERRLA Normocephalic atraumatic
NECK: Supple. No JVD Carotid Bruits
RESPIRATORY: Lungs clear to auscultation. No crackles wheezes stridor
CVS: S1, S2 normal. RRR. No murmur, rub or gallop.
ABDOMEN: Soft, mild tenderness. Obese. decresased bowel sounds
: Smith in place
EXTREMITIES: No peripheral cyanosis or edema.
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
IMPRESSION:
64F from [facility] ext pmhx including Morbid Obesity GERD HFmrEF sarcoidosis neurogenic bladder Chronic Smith, diabetes, A-fib Xarelto, CKD III, bipolar disorder, abdominal hernias s/p repair p/w general malaise abd pain/discomfort past 2 weeks.
Per nursing facility, noted blood in her urine Smith bag, prompting ER evaluation. Hematuria not noted here. Smith changed in ED noted infected appearance, corroborated by urinalysis. Patient also reports significant constipation with associate
nausea, denies vomiting, coughing, chills and burning with urination past 2 weeks. Denies fever
PLAN:
Neurogenic Bladder Chronic Smith
Urinary Tract Infection hx ESBL
-cont empiric zosyn for now
-follow urine cx
Constipation
-cont home bowel regimen
-once milk and molasses enema 05/25 constipation since resolved
Diabetes
-recent A1c 7.4
-cont home glipizide
-sliding scale
paroxysmal Afib
-cont home Xarelto, reduced to renal dosing 15 mg qpm d/t CrCl <50 but >15
-cont home metoprolol
2 wks Cough
-stable respiratory status on room air
-sputum cx if possible
-COVID/Flu neg
-Chest X-ray no acute abn's
-cont tessalon, added mucinex prn robitussin
chronic HFmrEF
-appears euvolemic at this time
-stable respiratory satus on room air
-daily weights I/O
-cont home Lasix spironolactone Lisinopril Metoprolol w holding parameters
CKDIII
-Cr appears baseline
-monitor renal function
Bipolar
Insomnia
-cont home ziprasidone, lamictal, prn and scheduled Hydroxyzine
-cont home melatonin
Morbid Obesity
-affects all aspects of care
-wt loss counseled
Sarcoidosis
-cont home prednisone
GERD
-cont home Protonix and Pepcid
dvt ppx Xarelto
Full Code
I spent a total of 45 minutes with the patient or on the floor. More than 50% of this time involved counseling and coordination of care.
Anticipated Discharge: 24 - 48 hours
Subjective/Interval History
-
Date of Service: May 26, 2025
No acute distress. Overall reports feeling well. Denies new acute issues at this time. Burning sensation urination improved.
Objective Data
-
Labs:
Laboratory Results
05/26/25
06:29
WBC Pending
Hgb Pending
Hct Pending
Plt Count Pending
Sodium Pending
Potassium Pending
Chloride Pending
Carbon Dioxide Pending
BUN Pending
Creatinine Pending
Glucose Pending
Calcium Pending
Vital Signs:
Vital Signs
Temp Pulse Resp BP Pulse Ox
97.9 F 62 18 106/49 99
05/26/25 07:23 05/26/25 07:23 05/26/25 07:23 05/26/25 07:23 05/26/25 07:23
I&O
05/25/25 05/26/25 05/27/25
06:59 06:59 06:59
Intake Total 480 / 480
Output Total 300 / 300 4200 / 4200
Balance -300 / -300 -3720 / -3720
[2025-05-26 07:27] LABS: Hematocrit 30.5 % (37.0-47.0); Hemoglobin 9.9 g/dL (12.0-16.0); Mean Corp Hgb Conc. 32.5 g/dL (33.0-37.0); Mean Corpuscular Volume 88.2 fL (81.0-99.0); Platelet Count 216 10^3/uL (130-400); Red Cell Dist. Width 14.3 % (11.5-14.5)
[2025-05-26 07:41] LABS: Glucose - Point of Care 114 mg/dl (70-99)
[2025-05-26] MEDS: PULMICORT 0.5 MG INH ×2 (07:49→20:01)
[2025-05-26 08:05] LABS: Blood Urea Nitrogen 37 mg/dl (7-17); Calcium 9.3 mg/dl (8.4-10.2); Carbon Dioxide 29 mmol/L (22-30); Chloride 103 mmol/L (98-107); Estimated Creatinine Clearance 45 ml/min; Glucose 98 mg/dl (70-99); Magnesium 2.1 mg/dl (1.6-2.3); Potassium 4.0 mmol/L (3.5-5.1); Sodium 140 mmol/L (135-145); eGFR 33.70
[2025-05-26] MEDS: NOVOLOG FLEXPEN-LOW RESISTANCE SC ×3 (08:58→16:47)
[2025-05-26] MEDS: PROTONIX 40 MG PO ×2 (09:04→19:40)
[2025-05-26] MEDS: DELTASONE 5 MG PO (09:05)
[2025-05-26] MEDS: VITAMIN D3 (cholecalciferol) 25 MCG PO (09:05)
[2025-05-26] MEDS: LAMICTAL 50 MG PO ×2 (09:06→19:43)
[2025-05-26] MEDS: LASIX 40 MG PO (09:06)
[2025-05-26] MEDS: PEPCID 20 MG PO (09:06)
[2025-05-26] MEDS: GEODON 40 MG PO ×2 (09:06→19:40)
[2025-05-26] MEDS: LOW STRENGTH ASPIRIN 81 MG PO (09:07)
[2025-05-26] MEDS: SENOKOT 8.6 MG PO ×2 (09:07→19:42)
[2025-05-26] MEDS: TESSALON PERLES 200 MG PO ×2 (09:07→19:40)
[2025-05-26] MEDS: COLACE 100 MG PO ×2 (09:07→19:41)
[2025-05-26] MEDS: GLUCOTROL 5 MG PO (09:07)
[2025-05-26] MEDS: TOPROL XL 25 MG PO (09:07)
[2025-05-26] MEDS: TRIAMCINOLONE ACETONIDE 0.1% CREAM 1 APPLIC TOPICAL ×2 (09:08→19:42)
[2025-05-26] MEDS: DESENEX/MITRAZOL/ZEASORB 1 APPLIC TOPICAL ×2 (09:09→19:41)
[2025-05-26] MEDS: LINZESS PO (09:18)
[2025-05-26 11:46] LABS: Glucose - Point of Care 125 mg/dl (70-99)
[2025-05-26] MEDS: MUCINEX 600 MG PO ×2 (11:47→19:40)
[2025-05-26] MEDS: ANTIVERT 25 MG PO (15:25)
[2025-05-26 15:33] VITALS: BP 103/52
[2025-05-26 16:43] LABS: Glucose - Point of Care 123 mg/dl (70-99)
[2025-05-26] MEDS: XARELTO 15 MG PO (17:34)
[2025-05-26 21:37] LABS: Glucose - Point of Care 182 mg/dl (70-99)
[2025-05-26] MEDS: LIPITOR 40 MG PO (22:05)
[2025-05-26] MEDS: ATARAX 25 MG PO (22:05)
[2025-05-26] MEDS: MELATONIN 6 MG PO (22:05)
[2025-05-26 23:01] VITALS: BP 91/56
[2025-05-27] MEDS: ZOSYN 50 IV ×3 (02:20→14:12)
[2025-05-27 04:53] VITALS: BMI 42.2
[2025-05-27 06:15] LABS: Hematocrit 30.1 % (37.0-47.0); Hemoglobin 10.1 g/dL (12.0-16.0); Mean Corp Hgb Conc. 33.6 g/dL (33.0-37.0); Mean Corpuscular Volume 86.0 fL (81.0-99.0); Platelet Count 191 10^3/uL (130-400); Red Cell Dist. Width 14.0 % (11.5-14.5)
[2025-05-27 06:39] LABS: Blood Urea Nitrogen 36 mg/dl (7-17); Calcium 9.4 mg/dl (8.4-10.2); Carbon Dioxide 30 mmol/L (22-30); Chloride 101 mmol/L (98-107); Estimated Creatinine Clearance 42 ml/min; Glucose 94 mg/dl (70-99); Magnesium 2.2 mg/dl (1.6-2.3); Potassium 3.6 mmol/L (3.5-5.1); Sodium 139 mmol/L (135-145); eGFR 31.46
[2025-05-27 07:20] VITALS: BP 95/50
[2025-05-27] MEDS: PULMICORT 0.5 MG INH ×2 (07:21→19:10)
[2025-05-27 07:42] LABS: Glucose - Point of Care 106 mg/dl (70-99)
[2025-05-27] MEDS: NOVOLOG FLEXPEN-LOW RESISTANCE SC ×2 (08:49→12:21)
[2025-05-27] MEDS: SENOKOT 8.6 MG PO ×2 (09:11→21:04)
[2025-05-27] MEDS: LASIX PO (09:11)
[2025-05-27] MEDS: MUCINEX 600 MG PO ×2 (09:12→21:04)
[2025-05-27] MEDS: PEPCID 20 MG PO (09:12)
[2025-05-27] MEDS: LAMICTAL 50 MG PO ×2 (09:12→21:04)
[2025-05-27] MEDS: GLUCOTROL 5 MG PO (09:12)
[2025-05-27] MEDS: COLACE 100 MG PO ×2 (09:12→21:04)
[2025-05-27] MEDS: GEODON 40 MG PO ×2 (09:12→21:03)
--- NOTE | 2025-05-27 09:12 | W.PN.HOSP.TC ---
Today's Communication/Plan
-
see a/p
Assessment / Plan
Assessment / Plan
Physical Exam
General: No pallor, cyanosis, or jaundice.
HEENT: Throat clear. PERRLA Normocephalic atraumatic
NECK: Supple. No JVD Carotid Bruits
RESPIRATORY: Lungs clear to auscultation. No crackles wheezes stridor
CVS: S1, S2 normal. RRR. No murmur, rub or gallop.
ABDOMEN: Soft, mild tenderness. Obese. decresased bowel sounds
: Smith in place
EXTREMITIES: No peripheral cyanosis or edema.
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
IMPRESSION:
64F from [facility] ext pmhx including Morbid Obesity GERD HFmrEF sarcoidosis neurogenic bladder Chronic Smith, diabetes, A-fib Xarelto, CKD III, bipolar disorder, abdominal hernias s/p repair p/w general malaise abd pain/discomfort past 2 weeks.
Per nursing facility, noted blood in her urine Smith bag, prompting ER evaluation. Hematuria not noted here. Smith changed in ED noted infected appearance, corroborated by urinalysis. Patient also reports significant constipation with associate
nausea, denies vomiting, coughing, chills and burning with urination past 2 weeks. Denies fever
PLAN:
Neurogenic Bladder Chronic Smith
Urinary Tract Infection hx ESBL
-cont empiric zosyn for now
-urine cx noted no significant growth, probable contamination
-ID eval requested
Constipation
-cont home bowel regimen
-once milk and molasses enema 05/25 constipation since resolved
Diabetes
-recent A1c 7.4
-cont home glipizide
-sliding scale
paroxysmal Afib
-cont home Xarelto, reduced to renal dosing 15 mg qpm d/t CrCl <50 but >15
-cont home metoprolol
2 wks Cough
-stable respiratory status on room air
-sputum cx if possible
-COVID/Flu neg
-Chest X-ray no acute abn's
-cont tessalon, added mucinex prn robitussin
chronic HFmrEF
-appears euvolemic at this time
-stable respiratory satus on room air
-daily weights I/O
-cont home Lasix spironolactone Lisinopril Metoprolol w holding parameters
CKDIII
-Cr appears baseline
-monitor renal function
Bipolar
Insomnia
-cont home ziprasidone, lamictal, prn and scheduled Hydroxyzine
-cont home melatonin
Morbid Obesity
-affects all aspects of care
-wt loss counseled
Sarcoidosis
-cont home prednisone
GERD
-cont home Protonix and Pepcid
dvt ppx Xarelto
Full Code
I spent a total of 40 minutes with the patient or on the floor. More than 50% of this time involved counseling and coordination of care.
Anticipated Discharge: 24 - 48 hours
Subjective/Interval History
-
Date of Service: May 27, 2025
No acute distress, overall reports feeling well. Denies new acute issues. Dysuria resolved.
Objective Data
-
Labs:
Laboratory Results
05/27/25
05:59
WBC 6.3
Hgb 10.1 L
Hct 30.1 L
Plt Count 191
Sodium 139
Potassium 3.6
Chloride 101
Carbon Dioxide 30
BUN 36 H
Creatinine 1.8 H
Glucose 94
Calcium 9.4
Vital Signs:
Vital Signs
Temp Pulse Resp BP Pulse Ox
97.9 F 61 15 95/50 98
05/27/25 07:20 05/27/25 07:24 05/27/25 07:24 05/27/25 07:20 05/27/25 07:24
I&O
05/26/25 05/27/25 05/28/25
06:59 06:59 06:59
Intake Total 480 / 480 2600 / 2600
Output Total 4200 / 4200 3800 / 3800
Balance -3720 / -3720 -1200 / -1200
[2025-05-27] MEDS: DELTASONE 5 MG PO (09:13)
[2025-05-27] MEDS: TESSALON PERLES 200 MG PO ×2 (09:14→21:04)
[2025-05-27] MEDS: LOW STRENGTH ASPIRIN 81 MG PO (09:14)
[2025-05-27] MEDS: VITAMIN D3 (cholecalciferol) 25 MCG PO (09:14)
[2025-05-27] MEDS: TOPROL XL PO (09:14)
[2025-05-27] MEDS: PROTONIX 40 MG PO ×2 (09:14→21:04)
[2025-05-27] MEDS: TRIAMCINOLONE ACETONIDE 0.1% CREAM 1 APPLIC TOPICAL ×2 (09:16→21:04)
[2025-05-27] MEDS: LINZESS PO (09:17)
[2025-05-27 11:47] LABS: Glucose - Point of Care 94 mg/dl (70-99)
[2025-05-27 12:01] VITALS: BP 97/75; PULSE 76; O2SAT 90
[2025-05-27 12:06] VITALS: BP 97/75; PULSE 72; O2SAT 91
--- NOTE | 2025-05-27 12:18 | PTOTSP ---
pt currently requires supervision to complete simple ADLs, functional transfers. pt reports she is close, if not at her baseline. no overt deficits noted from pt's baseline, no acute OT needs identified. will sign off.
[2025-05-27] MEDS: DESENEX/MITRAZOL/ZEASORB TOPICAL (12:20)
--- NOTE | 2025-05-27 14:11 | CON.ID ---
Consultation
-
Date/Time Consultation Requested: 05/27/2025 1221
Date/Time Consultation Performed: 05/27/2025 1400
Requesting Provider: Dr. Johnson
Performing Provider: Dr. Fay
Reason for Consultation: Complicated urinary tract infection
Chief Complaint / Past History
History of Present Illness
Birgit Forrest is a 64-year-old female being evaluated at the request of Dr. Johnson in regards to a complicated urinary tract infection. History is obtained from chart review, along with patient interview.
The patient has a significant past medical history of neurogenic bladder with a chronic Smith catheter and presented to [facility] on 05/25/2025 with complaints of feeling generally unwell. As per the nursing facility documentation, the
patient was noted to have blood in her Smith catheter bag and she was sent to the emergency room for further evaluation. She admitted to some ongoing lower abdominal discomfort, along with nausea. No history of fevers prior to admission.
Workup in the emergency room did not reveal a leukocytosis or left shift, but urinalysis revealed cloudy yellow urine with positive nitrates and greater than 100 WBCs. Squamous epithelial cells were also noted. Urine culture revealed growth of
ESBL E. coli, and Infectious Diseases is asked to comment upon further antimicrobial therapy.
Patient reports that she has an underlying history of sarcoidosis and notes that she has been having some increasing cough over the past several days. She also notes that she is followed by [facility]
Past History
Additional Past Medical History:
pA-fib
CHF
HLD
DM
CKD
Sarcoidosis
Neurogenic bladder with chronic Smith catheter
Bipolar disorder
Additional Past Surgical History:
Multiple ventral hernia repairs
Cholecystectomy
JAVIER/BSO
Laminectomy
Neurogenic bladder s/p bladder augmentation with an [place] pouch at [facility]
Allergy History:
adhesive Allergy (Verified 05/17/25 17:11)
Unknown
cephalexin Allergy (Verified 05/17/25 17:11)
Rash
clopidogrel Allergy (Verified 05/17/25 17:11)
gerd
erythromycin base Allergy (Verified 05/17/25 17:11)
n/v
fish derived Allergy (Verified 05/17/25 17:11)
SEAFOOD
ketorolac Allergy (Verified 05/17/25 17:11)
Anaphylaxis
latex Allergy (Verified 05/17/25 17:11)
Rash
metformin Allergy (Verified 05/17/25 17:11)
diarrhea
oxycodone (From Percocet) Allergy (Verified 05/17/25 17:11)
Unknown
Medications Reviewed: Yes
Current Antibiotics:
Zosyn 3.375 gm IV q.6 hours (d#3)
Social History
Tobacco: Non-Smoker
Alcohol: None
Drug: None
Personal: Single
Living: Residential
Employment: Disabled
Family History
Family History: Not Pertinent
Review of Systems
Vital Signs
Temp Pulse Resp BP Pulse Ox
97.9 F 61 15 95/50 98
05/27/25 07:20 05/27/25 07:24 05/27/25 07:24 05/27/25 07:20 05/27/25 07:24
Physical Exam
Physical Exam
Constitutional: No Acute Distress, Comfortable, Chronically Ill, Non-toxic and Obese
Eyes: No Conjunctival Hemorrhage and Sclera Anicteric
Oral: No Thrush and No Ulcers
Cardiovascular: Regular Rate and S1/S2; Negative S3/S4 or Murmur
Pulmonary: Clear; Negative Wheezes or Rhonchi
Gastrointestinal: Soft, Tender (Diffusely), Non Distended and Other (ventral hernias noted.)
Genito-Urinary: Smith and Clear Urine
Extremities: Edema; Negative Cyanosis or Erythema
Neurological: Awake and Alert
Psychological: Calm
Lab / Diagnostic Study Results
05/27/25 05:59
05/27/25 05:59
Abs Immat Gran (auto) 0.1 10^3/uL (0-0.05) H 05/25/25 06:03
Absolute Neuts (auto) 4.6 10^3/uL (1.4-6.5) 05/25/25 06:03
Absolute Lymphs (auto) 1.3 10^3/uL (1.2-3.4) 05/25/25 06:03
Absolute Monos (auto) 0.5 10^3/uL (0.1-0.6) 05/25/25 06:03
Absolute Basos (auto) 0.0 10^3/uL (0-0.2) 05/25/25 06:03
Immature Gran % 0.8 % (0-0.5) H 05/25/25 06:03
Neutrophils % 70.1 % (42.2-75.2) 05/25/25 06:03
Lymphocytes % 19.3 % (20.5-51.1) L 05/25/25 06:03
Monocytes % 7.9 % (1.7-9.3) 05/25/25 06:03
Eosinophils % 1.4 % (0-6) 05/25/25 06:03
Basophils % 0.5 % (0-2) 05/25/25 06:03
Ur Squamous Epith Cells >30 /LPF (Few) 05/25/25 06:03
Microbiology Results
Micro:
05/27/25 09:44 Respiratory Culture - Pending
Sputum Gram Stain - Pending
05/25/25 06:03 Urine Culture - Final
Urine
05/25/25 20:41 Influenza Types A & B (MARIALUISA) - Final
Nasal Swab Negative for Influenza A & B, NAAT
Negative results must be combined with clinical observations
and patient history.
Nucleic Acid Amplification test (NAAT)performed on the
[employer] platform.
Imaging:
05/17/2025 CT abdomen/pelvis without contrast: moderate size ventral hernia containing portions of large bowel without obstruction again seen, similar to prior exam. Moderate fluid distention of majority of the large bowel. No small bowel
dilatation, intestinal obstruction or free air noted. Prior cholecystectomy noted. Smith catheter within an empty urinary bladder. Please see full dictation for additional detail.
Assessment / Plan
Impression:
Hematuria; resolved
Bacteriuria, pyuria; suspect secondary to chronic Smith presence.
Cough; may be related to underlying sarcoid. No infiltrate or abnormality noted on CXR
Constipation
pA-fib
CHF
HLD
DM (uncontrolled; HbA1c = 7.4)
CKD stage III
Sarcoidosis
Neurogenic bladder with chronic Smith catheter
Bipolar disorder
Recommendations:
Urine culture reveals only mixed paddy, and likely represents bacterial colonization of the patient's chronic Smith catheter.
Cephalexin allergy noted, but patient is currently tolerating Zosyn.
Prior hematuria has resolved. At admission, patient was without leukocytosis, left shift or fever.
Moving forward, can likely discontinue further antibiotic therapy with close clinical follow-up.
Patient will need to maintain good fluid intake in order to maintain good urine output to decrease overall urinary bioburden.
Patient will need close outpatient follow-up with Urology. While a Smith catheter is maintained, she remains at risk for further development of a complicated urinary tract infection/CAUTI
[2025-05-27 15:24] VITALS: BP 97/45
[2025-05-27 16:36] LABS: Glucose - Point of Care 251 mg/dl (70-99)
[2025-05-27] MEDS: XARELTO 15 MG PO (17:24)
[2025-05-27] MEDS: NOVOLOG FLEXPEN-LOW RESISTANCE 3 UNITS SC (17:25)
[2025-05-27] MEDS: LIPITOR 40 MG PO (21:04)
[2025-05-27] MEDS: ATARAX 25 MG PO (21:04)
[2025-05-27] MEDS: MELATONIN 6 MG PO (21:04)
[2025-05-27] MEDS: DESENEX/MITRAZOL/ZEASORB 1 APPLIC TOPICAL (21:05)
[2025-05-27 21:14] LABS: Glucose - Point of Care 217 mg/dl (70-99)
[2025-05-27 23:07] VITALS: BP 122/63
--- NOTE | 2025-05-28 02:24 | DOWNTIME ---
There was a [employer] Downtime on 05/28/2025 from 0100 to 05/28/2025 at 0220. Downtime documentation of patient's care, including medication administrations, has been reconciled in the electronic record per guidelines. Refer to the
patient's paper chart under the miscellaneous tab to see printed paper medication records and downtime forms.
[2025-05-28] MEDS: TYLENOL 650 MG PO (04:07)
[2025-05-28 05:28] VITALS: BMI 42.7
[2025-05-28 06:19] LABS: Hematocrit 28.8 % (37.0-47.0); Hemoglobin 9.5 g/dL (12.0-16.0); Mean Corp Hgb Conc. 33.0 g/dL (33.0-37.0); Mean Corpuscular Volume 85.5 fL (81.0-99.0); Platelet Count 186 10^3/uL (130-400); Red Cell Dist. Width 13.8 % (11.5-14.5)
[2025-05-28 06:26] LABS: Blood Urea Nitrogen 33 mg/dl (7-17); Calcium 9.5 mg/dl (8.4-10.2); Carbon Dioxide 34 mmol/L (22-30); Chloride 102 mmol/L (98-107); Estimated Creatinine Clearance 45 ml/min; Glucose 93 mg/dl (70-99); Magnesium 2.2 mg/dl (1.6-2.3); Potassium 3.5 mmol/L (3.5-5.1); Sodium 138 mmol/L (135-145); eGFR 33.70
[2025-05-28] MEDS: PULMICORT 0.5 MG INH (07:19)
[2025-05-28 07:43] LABS: Glucose - Point of Care 103 mg/dl (70-99)
[2025-05-28] MEDS: NOVOLOG FLEXPEN-LOW RESISTANCE SC ×2 (07:45→12:01)
[2025-05-28 07:59] VITALS: BP 90/45
[2025-05-28] MEDS: TOPROL XL PO (08:41)
[2025-05-28] MEDS: LASIX PO (08:41)
[2025-05-28] MEDS: TESSALON PERLES 200 MG PO (08:49)
[2025-05-28] MEDS: GEODON 40 MG PO (08:49)
[2025-05-28] MEDS: GLUCOTROL 5 MG PO (08:49)
[2025-05-28] MEDS: LAMICTAL 50 MG PO (08:49)
[2025-05-28] MEDS: SENOKOT 8.6 MG PO (08:50)
[2025-05-28] MEDS: LOW STRENGTH ASPIRIN 81 MG PO (08:50)
[2025-05-28] MEDS: VITAMIN D3 (cholecalciferol) 25 MCG PO (08:50)
[2025-05-28] MEDS: PROTONIX 40 MG PO (08:50)
[2025-05-28] MEDS: COLACE 100 MG PO (08:50)
[2025-05-28] MEDS: MUCINEX 600 MG PO (08:50)
[2025-05-28] MEDS: PEPCID 20 MG PO (08:50)
[2025-05-28] MEDS: DESENEX/MITRAZOL/ZEASORB 1 APPLIC TOPICAL (08:50)
[2025-05-28] MEDS: TRIAMCINOLONE ACETONIDE 0.1% CREAM 1 APPLIC TOPICAL (09:24)
[2025-05-28] MEDS: DELTASONE 5 MG PO (09:24)
[2025-05-28] MEDS: LINZESS 72 MCG PO (09:33)
--- NOTE | 2025-05-28 09:39 | W.PN.HOSP.TC ---
Today's Communication/Plan
-
discharge
Assessment / Plan
Assessment / Plan
Physical Exam
General: No pallor, cyanosis, or jaundice.
HEENT: Throat clear. PERRLA Normocephalic atraumatic
NECK: Supple. No JVD Carotid Bruits
RESPIRATORY: Lungs clear to auscultation. No crackles wheezes stridor
CVS: S1, S2 normal. RRR. No murmur, rub or gallop.
ABDOMEN: Soft, mild tenderness. Obese. decresased bowel sounds
: Smith in place, clear yellow urine
EXTREMITIES: No peripheral cyanosis or edema.
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
IMPRESSION:
64F from [facility] ext pmhx including Morbid Obesity GERD HFmrEF sarcoidosis neurogenic bladder Chronic Smith, diabetes, A-fib Xarelto, CKD III, bipolar disorder, abdominal hernias s/p repair p/w general malaise abd pain/discomfort past 2 weeks.
Per nursing facility, noted blood in her urine Smith bag, prompting ER evaluation. Hematuria not noted here. Smith changed in ED noted infected appearance, corroborated by urinalysis. Patient also reports significant constipation with associate
nausea, denies vomiting, coughing, chills and burning with urination past 2 weeks. Denies fever
PLAN:
Neurogenic Bladder Chronic Smith
Urinary Tract Infection hx ESBL
-cont empiric zosyn for now
-urine cx noted no significant growth, probable contamination
-ID eval appreciated abx treatment completed
Constipation
-cont home bowel regimen
-once milk and molasses enema 05/25 constipation since resolved
Diabetes
-recent A1c 7.4
-cont home glipizide
-sliding scale
paroxysmal Afib
-cont home Xarelto, reduced to renal dosing 15 mg qpm d/t CrCl <50 but >15
-cont home metoprolol
2 wks Cough
-stable respiratory status on room air
-sputum cx if possible
-COVID/Flu neg
-Chest X-ray no acute abn's
-cont tessalon, added mucinex prn robitussin
chronic HFmrEF
-appears euvolemic at this time
-stable respiratory satus on room air
-daily weights I/O
-cont home Lasix spironolactone Lisinopril Metoprolol w holding parameters
-Metoprolol Spironolactone doses cut in half due to low pressures/borderline hypotensive
CKDIII
-Cr appears baseline
-monitor renal function
Bipolar
Insomnia
-cont home ziprasidone, lamictal, prn and scheduled Hydroxyzine
-cont home melatonin
Morbid Obesity
-affects all aspects of care
-wt loss counseled
Sarcoidosis
-cont home prednisone
GERD
-cont home Protonix and Pepcid
dvt ppx Xarelto
Full Code
Medically stable for discharge home with outpatient follow up recommendations.
Total Time Preparing Discharge ___40____ minutes including examination of the patient, summary of the hospital stay, instructions for continuing care to all relevant caregivers; and preparation of discharge records, prescriptions, and referral
forms if necessary.
Anticipated Discharge: Today
Subjective/Interval History
-
Date of Service: May 28, 2025
No acute distress. Overall reports feeling well. Denies new acute issues at this time. Looking forward to discharge.
Objective Data
-
Labs:
Laboratory Results
05/28/25
05:50
WBC 6.2
Hgb 9.5 L
Hct 28.8 L
Plt Count 186
Sodium 138
Potassium 3.5
Chloride 102
Carbon Dioxide 34 H
BUN 33 H
Creatinine 1.7 H
Glucose 93
Calcium 9.5
Vital Signs:
Vital Signs
Temp Pulse Resp BP Pulse Ox
97.9 F 69 17 90/45 94
05/28/25 07:59 05/28/25 08:42 05/28/25 07:59 05/28/25 08:42 05/28/25 07:59
I&O
05/27/25 05/28/25 05/29/25
06:59 06:59 06:59
Intake Total 2600 / 2600 720 / 720
Output Total 3800 / 3800 2200 / 2200
Balance -1200 / -1200 -1480 / -1480
--- NOTE | 2025-05-28 11:40 | W.PN.ID1 ---
Date of Service
Date of Service: May 28, 2025
Today's Communication
Sign off
Assessment / Plan
Impression:
Hematuria; resolved
Bacteriuria, pyuria; suspect secondary to chronic Smith presence.
Cough; may be related to underlying sarcoid. No infiltrate or abnormality noted on CXR
Constipation
pA-fib
CHF
HLD
DM (uncontrolled; HbA1c = 7.4)
CKD stage III
Sarcoidosis
Neurogenic bladder with chronic Smith catheter
Bipolar disorder
Recommendations:
Urine culture reveals only mixed paddy, and likely represents bacterial colonization of the patient's chronic Smith catheter.
Patient will need to maintain good fluid intake in order to maintain good urine output to decrease overall urinary bioburden.
Patient will need close outpatient follow-up with Urology. While a Smith catheter is maintained, she remains at risk for further development of a complicated urinary tract infection/CAUTI
Little more to offer from a Infectious Disease standpoint.
Will see again at your request.
����������������������������������������������������������
Chief Complaint
-: UTI
Subjective / Review of Systems
Review of Systems: No Fever and No Chills
Vital Signs / Physical Exam
Vital Signs
Vital Signs
Temp Pulse Resp BP Pulse Ox
97.9 F 69 17 90/45 94
05/28/25 07:59 05/28/25 08:42 05/28/25 07:59 05/28/25 08:42 05/28/25 08:42
Physical Exam
Constitutional: No Acute Distress, Comfortable, Chronically Ill and Obese
Eyes: Sclera Anicteric
Pulmonary: Non Labored
Gastrointestinal: Non Distended
Genito-Urinary: Smith and Clear Urine
Neurological: Awake, Alert and Oriented
Psychological: Calm
Objective Data
Lab Data
Lab Results
05/28/25 05:50
05/28/25 05:50
Estimated Creat Clear 45 ml/min 05/28/25 05:50
Total Bilirubin 0.4 mg/dl (0.2-1.3) 05/25/25 06:03
AST 20 U/L (14-36) 05/25/25 06:03
ALT 25 U/L (0-35) 05/25/25 06:03
Alkaline Phosphatase 211 U/L (38-126) H 05/25/25 06:03
Most recent labs reviewed.
Micro Results:
05/27/25 09:44 Respiratory Culture - Preliminary
Sputum Usual Respiratory Paddy
Gram Stain - Preliminary
05/25/25 06:03 Urine Culture - Final
Urine
05/25/25 20:41 Influenza Types A & B (MARIALUISA) - Final
Nasal Swab Negative for Influenza A & B, NAAT
Negative results must be combined with clinical observations
and patient history.
Nucleic Acid Amplification test (NAAT)performed on the
[employer] platform.
Imaging:
05/17/2025 CT abdomen/pelvis without contrast: moderate size ventral hernia containing portions of large bowel without obstruction again seen, similar to prior exam. Moderate fluid distention of majority of the large bowel. No small bowel
dilatation, intestinal obstruction or free air noted. Prior cholecystectomy noted. Smith catheter within an empty urinary bladder. Please see full dictation for additional detail.
[2025-05-28 12:00] LABS: Glucose - Point of Care 89 mg/dl (70-99)
--- NOTE | 2025-05-28 13:30 | CM ---
Addendum entered by Zainab Awan 05/28/25 15:33:
1730 transport - updated Joanne at [facility]
Addendum entered by Zainab Awan 05/28/25 13:41:
notified Colby jett petra today back to [facility]
Original Note:
met with patient
Spoke with Yolanda at [facility] DT - ok to return today, no auth needed
updated careport
IMM n/a
PLAN: [facility] [place]
Report #: [phone], 3rd floor
fax #: [phone]
transportation forms on chart
--- NOTE | 2025-05-28 13:51 | W.DCSUMMARY ---
Discharge Summary
Discharge Data
Date of Admission: 05/26/25
Date of Discharge: 05/28/25
-
Pending Results: Yes
Additional Pending Results:
respiratory culture official results
Discharge Plan
-
Patient Disposition: Jail/SNF
Discharge Diagnosis/Procedures: Urinary Tract Infection related to Chronic Smith
Constipation
Anemia
Chronic Kidney Disease Stage III
Diabetes
Condition: Good
Diet: Diabetic, Carb Controlled
Activity: As tolerated
Driving Restrictions: As prior to admission
Bathing Restrictions: None
Blood Work: Repeat CBC and BMP with primary care provider in 1 week of discharge
Activity Restrictions/Additional Instructions:
Follow up with primary care provider in 1 week of discharge. 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
Xarelto dose reduced to 15mg for renal dosing due to chronic kidney disease.
Metoprolol reduced to 12.5 mg daily due to low pressures/borderline hypotension.
Spironolactone also reduced to 12.5 mg daily due to low pressures/borderline hypotension.
Please take medications as prescribed/recommended and follow up with primary care provider and/or other healthcare provider involved in your care for refills and/or further adjustment to your medication regimen as necessary.
Referrals:
Eladio Greer, [Family Provider, Internal Medicine] - in one week
Prescriptions:
New
spironolactone 25 mg Tablet
12.5 mg PO DAILY Qty: 30 0RF
metoprolol succinate 25 mg Tablet Extended Release 24 Hr
12.5 mg PO DAILY Qty: 30 0RF
Xarelto 15 mg Tablet
15 mg PO QPM Qty: 30 0RF
Continued
atorvastatin 40 mg Tablet
40 mg PO HS
acetaminophen 325 mg Tablet
650 mg PO Q6HPRN PRN (Reason: mild pain / temp > 100.4)
baclofen 10 mg Tablet
10 mg PO TIDPRN PRN (Reason: spasms)
triamcinolone acetonide 0.1 % Cream
1 applic TOPICAL BID
lamotrigine 25 mg Tablet
50 mg PO BID
famotidine 20 mg Tablet
20 mg PO BID
tamsulosin 0.4 mg Capsule
0.4 mg PO DAILY
bisacodyl 10 mg Suppository
10 mg OK DAILYPRN PRN (Reason: if no bm aftr mom)
pantoprazole 40 mg Tablet,Delayed Release (Dr/Ec)
40 mg PO BID
ziprasidone HCl 40 mg Capsule
40 mg PO BID
nystatin 100,000 unit/gram Powder
1 applic TOPICAL BID
insulin lispro [Humalog U-100 Insulin] 100 unit/mL Solution
1 sliding scale dose SC AC
Rx Instructions:
251-300=4units, 301-350=6units
cholecalciferol (vitamin D3) 25 mcg (1,000 unit) Tablet
25 mcg PO DAILY
hydroxyzine pamoate 25 mg Capsule
25 mg PO Q6HPRN PRN (Reason: anxiety)
hydroxyzine pamoate 25 mg Capsule
25 mg PO HS
aspirin 81 mg Tablet,Chewable
81 mg PO DAILY Qty: 30 0RF
lisinopril 2.5 mg Tablet
2.5 mg PO DAILY Qty: 30 0RF
furosemide [Lasix] 40 mg tablet
40 mg PO DAILY Qty: 30 0RF
sennosides [senna] 8.6 mg Tablet
8.6 mg PO BID
magnesium hydroxide [Milk of Magnesia] 400 mg/5 mL Suspension
400 mg PO [id number] PRN (Reason: if no bm aftr mom)
nitroglycerin 0.4 mg Tablet, Sublingual
0.4 mg SUBLINGUAL [id number] PRN (Reason: chest pain)
docusate sodium [Colace] 100 mg Capsule
100 mg PO BID
budesonide 0.5 mg/2 mL Suspension For Nebulization
0.5 mg INHALATION R BID
fluticasone propionate 50 mcg/actuation [place],Suspension
1 spray INTRANASAL BID
glipizide 5 mg Tablet
5 mg PO DAILY
Fleet Enema 19-7 gram/118 mL Enema
118 ml OK DAILYPRN PRN (Reason: if no bm aftr dulcolax)
lidocaine 4 % Gel
1 applic TOPICAL BIDPRN PRN (Reason: right shoulder)
Linzess 72 mcg capsule
72 mcg PO DAILY Qty: 30 0RF
ondansetron HCl 4 mg Tablet
4 mg PO Q8H PRN (Reason: nausea)
prednisone 5 mg Tablet
5 mg PO DAILY
melatonin 3 mg Tablet
6 mg PO HS
meclizine 25 mg Tablet
25 mg PO Q8 PRN (Reason: dizziness)
benzonatate 100 mg Capsule
200 mg PO Q12
Discontinued
rivaroxaban 20 mg Tablet
20 mg PO QPM
metoprolol succinate 25 mg Capsule,Sprinkle,Er 24hr
25 mg PO DAILY
spironolactone 25 mg tablet
25 mg PO DAILY
Discharge Orders:
Discharge Patient (As Directed); Ordered 05/28/25
Ordered By: Frank Johnson
Discharge Date and Time
Print Language: FAROESE
[2025-05-28 15:48] VITALS: BP 95/52
[2025-05-28] MEDS: XARELTO 15 MG PO (16:51)
[2025-05-28] MEDS: NOVOLOG FLEXPEN-LOW RESISTANCE 1 UNITS SC (16:52)
[2025-05-28 16:54] LABS: Glucose - Point of Care 158 mg/dl (70-99)
== END 2025-05-28 17:47 | DRG 699 ==
LOC: 3 WEST ACU 10:22
PROVIDERS: Emergency Medicine; ADMITTING PHYSICIAN Internal Medicine; CONSULT PHYSICIAN Internal Medicine Infectious Disease; EMERGENCY PHYSICIAN Student in an Organized Health Care Education/Training Program; FAMILY PHYSICIAN Internal Medicine
DX: T83.511A Infection and inflammatory reaction due to indwelling urethral catheter, initial encounter (principal); I50.22 Chronic systolic (congestive) heart failure; Z68.41 Body mass index [BMI] 40.0-44.9, adult; N39.0 Urinary tract infection, site not specified; Y84.6 Urinary catheterization as the cause of abnormal reaction of the patient, or of later complication, without mention of misadventure at the time of the procedure; Y73.2 Prosthetic and other implants, materials and accessory gastroenterology and urology devices associated with adverse incidents; N31.9 Neuromuscular dysfunction of bladder, unspecified; N18.30 Chronic kidney disease, stage 3 unspecified; E11.22 Type 2 diabetes mellitus with diabetic chronic kidney disease; I48.0 Paroxysmal atrial fibrillation; F31.9 Bipolar disorder, unspecified; G47.00 Insomnia, unspecified; E66.01 Morbid (severe) obesity due to excess calories; D86.9 Sarcoidosis, unspecified; K21.9 Gastro-esophageal reflux disease without esophagitis; K59.09 Other constipation; R31.9 Hematuria, unspecified; D64.9 Anemia, unspecified; Z11.52 Encounter for screening for COVID-19; Z79.01 Long term (current) use of anticoagulants; Z79.84 Long term (current) use of oral hypoglycemic drugs; Z79.4 Long term (current) use of insulin; Z87.440 Personal history of urinary (tract) infections; Z79.899 Other long term (current) drug therapy
CPT/HCPCS: 51702; 71046; 80048; 80053; 81003; 81015; 82962; 83690; 83735; 84100; 85025; 85027; 87070; 87086; 87205; 87502; 87811; 94640; 96365; 97162; 97166; 99284

== ENCOUNTER 2025-06-18 00:33 | Inpatient (IN) | payer OTHER, SELFPAY ==
[2025-06-17 21:51] VITALS: BP 91/57
[2025-06-17 21:54] VITALS: BP 91/57
[2025-06-17 22:00] VITALS: BP 84/59; BMI 44.8
--- NOTE | 2025-06-17 22:20 | ED.GENMED ---
History of Present Illness
General
Chief Complaint: Breathing Problem
Source: patient
Time Seen by Provider: 06/17/25 22:07
History of Present Illness
History of Present Illness:
64-year-old female the history of multiorgan sarcoidosis, heart failure, diabetes, A-fib, etc. who presents emergency department with a nonproductive new cough for the last 3 days associated with feeling today at approximately 4 PM like she cannot
really get a good deep breath. Of note, patient is fully anticoagulated given her history of atrial fibrillation. She normally wears oxygen only at night or as needed. She denies chest pain or pressure, vomiting, anorexia, and ate all meals today
without difficulty. She denies new leg swelling, abdominal pain, back pain, fever, chills, sore throat, rhinorrhea. She does have a mild headache which has been present all day without associated visual changes, numbness, tingling, or other
abnormalities/complaints.
Past History
Past History
ED Past Medical History: Arrthythmia (Paroxysmal atrial fibrillation), CHF, Hypercholesterolemia, IDDM, Renal failure (Chronic kidney disease) and Other (Sarcoidosis, neurogenic bladder, chronic constipation, chronic hypotension)
ED Past Surgical History: Other (Hernia repair)
Social History
Tobacco: Non-smoker
Alcohol: None
Drug: None
Personal: Single
Living: [facility]dc
Employment: Disabled
Family History
Family History: Other (Noncontributory)
Phy Exam
Physical Exam
Physical Exam:
GENERAL: Alert , in no apparent distress, obese
EYE: pupils equal and reactive, conjunctive a pink
NECK: Supple, no significant adenopathy.
ENT: o/p clr, mmm.
CARDIAC: Regular rate and rhythm .
LUNGS: Equal and clear breath sounds bilaterally, no acute respiratory distress, no wheezes/rales/rhonchi, occasional nonproductive cough noted, speaks in full sentences easily
ABDOMEN: Soft, without focal tenderness, reducible abdominal hernia noted, no r/g, no cvat
NEUROLOGICAL: Alert and oriented, no focal neuro deficits
SKIN: Warm and dry, skin intact.
MUSCULOSKELETAL: Trace bilateral lower extremity edema, well perfused.
PSYCH: Normal and appropriate interaction.
Scores
Heart Failure Risk
Heart Failure Risk Score: Not Applicable
Course
Orders/Labs/Results
Orders:
Orders
06/17/25 21:59
Electrocardiogram (*1) Urgent
Reason for Study: Shortness of Breath
EKG- Treatment ONCE
06/17/25 22:11
CMP [Comprehensive Metabolic Panel] Urgent
Complete Blood Count/With Diff Urgent
Magnesium Urgent
06/17/25 22:18
Cardiac Monitoring- Treatment ONCE
Pulse Ox/cont/shift [RESP] Stat
Quantity: 1
06/17/25 22:19
CR Chest - 2 Views Urgent
Comment:
Reason For Exam: hx sarcoidosis, now cough/sob
06/17/25 22:27
COVID-19 Antigen Urgent
Source: Nasal Swab
NT-proBNP Urgent
Troponin I Urgent
Influenza A+B Rapid Molecular Urgent
ROZINA Source: Nasal Swab
Specimen Description:
06/17/25 23:36
Potassium Chloride [KCl] 40 meq 0.9% Sodium Chloride 250 ml [Nss] 250 ml IV NOW
06/18/25 00:04
Admit/Transfer Patient As Directed
Co-Sign Provider:
Level of Care: Inpatient admission
Assign to:: Telemetry
Physician / Group: Jennifer
Diagnosis: Pulmonary Sarcoid, Hypokalemia
Reason for Telemetry: Arrhythmia
Date to Stop Telemetry: 06/21/25
Time to Stop Telemetry: 11:00
Reason for Hospitalization: Pulmonary Sarcoid, Hypokalemia
Expected length of stay greater than two midnights?: Yes
ELOS- Estimated Length of Stay in days: 3
I certify the patient meets the requirements for IP care: Yes
06/18/25 00:05
PRN Pain Medication Management As Directed
May give lesser potent ordered pain med per pt: Yes
preference::
Protocol:: Medication orders for pain may be administered in a
manner that supports deferring to patient preference
when the pt is:
- Requesting an ordered lesser potent pain medication.
Least to most potent pain medications are defined
as: acetaminophen < NSAID < tramadol < opioids
(morphine, oxycodone, hydromorphone).
- Requesting a lesser dose of the same medication IF
ORDERED.
- Requesting a less intrusive route of administration
if both routes are prescribed by the provider (PO <
IV).
06/18/25 00:08
Code Status As Directed
Resuscitation Status: Do not resuscitate
Reached after discussion with pt or family/Healthcare POA: Yes
06/18/25 00:09
DNR Bracelet Application ONCE
06/18/25 00:18
Add On- LAB Urgent
Tests Added?: Magnesium
06/18/25 00:53
Acetaminophen [Tylenol] 650 mg PO Q4HPRN PRN
Albuterol Nebs [Ventolin Nebules] 2.5 mg INH R Q4HPRN PRN
Baclofen [Lioresal] 10 mg PO TIDPRN PRN spasms
Benzonatate [Tessalon Perles] 200 mg PO TIDPRN PRN cough cough
Dextrose 50%-Water [Dextrose 50% Syringe] 12.5 grams IV [id number] PRN
Glucagon [GlucaGen] 1 mg IM PRN PRN
06/18/25 00:53
Consult Notification Routine
Specialty to Notify: Pulmonary
PULMONARY CONSULT Routine
Consulting Provider: Loco Rutherford
Was physician already notified: No
Reason for consult: Pulmonary Sarcoid / Cough
Activity As Directed
Activity Level: Ambulate
With Assistance
Bedside Glucose Monitoring As Directed
Frequency: AC&HS
Additional Instructions:: Change to q6h if pt on TPN, tube feeding or not eating
EKG with chest pain [ECG as needed] As Directed
ECG as needed for:: Chest Pain
I/O [Intake/ Output] As Directed
Frequency: Per unit guidelines
Vital Signs As Directed
Frequency: Per unit guidelines
Weight As Directed
Frequency: Daily
Oxygen Therapy [O2 Therapy] [RESP] Routine
Titrate/Wean O2 to maintain O2 sat greater than (%): 94
PT Consult [Pt Eval And Treat] Routine
Activity Level: Ambulate
With Assistance
06/18/25 01:00
Dexamethasone Sod Phosphate [Decadron] 4 mg IV Q12H
KCl 40 Meq/0.9%Sodchl 1000 ml [NSS with KCL 40 MEQ] 40 meq in 1,000 ml IV 100 mls/hr
06/18/25 Breakfast
2000 calorie (17 carb) Diabetic
Basic Metabolic Panel IN AM
Complete Blood Count/No Diff IN AM
Glycohemoglobin (HgbA1c) IN AM
06/18/25 07:30
Insulin Aspart Corrective Low [Novolog Flexpen-Low Resistance] See Protocol SC AC
06/18/25 08:00
Aspirin Chewable [Low Strength Aspirin] 81 mg PO DAILY
Budesonide [Pulmicort] 0.5 mg INH R BID
Famotidine [Pepcid] 20 mg PO BID
Lamotrigine [Lamictal] 50 mg PO BID
Linaclotide [Linzess] 290 mcg PO DAILY
Metoprolol Xl [Toprol Xl] 12.5 mg PO DAILY
Prednisolone Acetate [Pred Forte 1% Eye Drops] 1 drop OPHTH QID
Sennosides [Senokot] 17.2 mg PO BID
Tamsulosin [Flomax] 0.4 mg PO DAILY
Ziprasidone [Geodon] 40 mg PO BID
06/18/25 18:00
Rivaroxaban [Xarelto] 15 mg PO QPM
06/18/25 22:00
Atorvastatin [Lipitor] 40 mg PO HS
HydrOXYZINE [Atarax] 25 mg PO HS
Melatonin 6 mg PO HS
06/21/25 11:00
DC Protocol for Telemetry ONCE
Abnormal Lab Results
06/17/25
22:11
RBC 3.42 L 10^6/uL
(4.20-5.40)
Hgb 9.5 L g/dL
(12.0-16.0)
Hct 28.7 L %
(37.0-47.0)
Abs Immat Gran (auto) 0.1 H 10^3/uL
(0-0.05)
Absolute Monos (auto) 0.8 H 10^3/uL
(0.1-0.6)
Immature Gran % 0.8 H %
(0-0.5)
Potassium 2.7 L* mmol/L
(3.5-5.1)
Chloride 108 H mmol/L
(98-107)
BUN 24 H mg/dl
(7-17)
Creatinine 1.5 H mg/dL
(0.6-1.0)
Glucose 120 H mg/dl
(70-99)
Alkaline Phosphatase 247 H U/L
(38-126)
Total Protein 5.9 L g/dl
(6.3-8.2)
06/17/25 22:18
06/17/25 22:11
Vital Signs
Initial and Last Documented VS:
Initial Vital Signs
Temp Pulse Resp BP Pulse Ox
97.9 F 74 16 91/57 100
06/17/25 21:51 06/17/25 21:51 06/17/25 21:51 06/17/25 21:51 06/17/25 21:51
Last Documented Vital Signs
Temp Pulse Resp BP Pulse Ox
97.9 F 68 18 93/50 95
06/17/25 21:51 06/18/25 01:22 06/18/25 01:22 06/18/25 01:22 06/18/25 04:19
*Pulse Oximetry
SaO2: 98
Nasal Cannula flow liters per minute: 5
Oxygen Mode of Delivery: Room air
Patient hypoxic: no
*Critical Care Note
Total Time (30-74mins, 75-104mins- exclusive of procedures): Not Applicable
Update Note
Update Note:
Patient presents to the Emergency Department with __cough and dyspnea
Number and Complexity of Problems Addressed at the Encounter
� Chronic conditions affecting care:
� Acute Exacerbation and/or Progression of Chronic Illness:
� Differential Diagnosis includes: But not limited to sarcoidosis exacerbation, pneumonia, COVID, flu, heart failure, ACS, PE, etc. etc.
Amount and/or Complexity of Data to be Reviewed and Analyzed
� I performed an independent evaluation of and my interpretation is:
EKG: Read by me, LAD,, nonspecific T wave flattening which is unchanged from prior
CT:
Xrays: Read by me and radiology NAD, loop recorder noted
Laboratory Studies: Severe hypokalemia noted, no associated acidosis or hypoglycemia, troponin and BNP unremarkable
Other:
� Review of other/old records reveals: Reviewed [facility] medications, patient is on Lasix which could have contributed to her hypokalemia noted here
� Clinical information was obtained by an independent historian:
� Prescriptions/Medications Considered but not given:
� Further testing considered but not performed: Consideration for PE workup however I think this is exceedingly unlikely given patient is fully anticoagulated, denies pleuritic chest pain, not hypoxic, etc.
Risk of Complications and/or Morbidity or Mortality of Patient Management
� Social determinants of health affecting care:
� Discussion with other providers (PCP, Hospitalists, Consultants, etc):
� Escalation of care including admission/observation vs risk of discharge considered: Patient noted to be slightly hypotensive here without associated symptoms such as dizziness. She has 'chronic hypotension' listed in her PMH
here. Does not have associated fever or tachycardia to suggest sepsis. Does not appear to be volume depleted. Will monitor closely.
Workup unremarkable for heart failure exacerbation, ACS, pneumonia/acute infectious process as a cause of her symptoms. She does however have severe hypokalemia, and repletion has been initiated here, will need to be admitted for close monitoring
regarding. Symptoms of dyspnea and cough may be related to a sarcoidosis exacerbation. Of note, patient just had an MRI of her brain and heart on Tuesday although she does not know the results that she may be a candidate for infusions related to
her multiorgan sarcoidosis. Will discuss with Dr. Olvera for admission
ED Attending Note
-
Portions of this chart may have been created with voice recognition software.� Occasional wrong word or��sound alike� substitutions may have occurred due to the inherent limitations of voice recognition software.
Discharge Plan
Departure
Patient Disposition: Admit
Date of Disposition: 06/17/25
Time of Disposition: 23:29
Admit to: Telemetry
Admit to doctor: jennifer
Presentation/result/management discussed w/ accepting MD/DO: Hospitalist
Discharge Problem:
Acute hypokalemia
Interventions
Interventions:
*Risk Screen - Suicide Last Done: 06/17/25 22:00
*General Assessment Last Done: 06/17/25 22:00
*Neglect/Abuse Screening Last Done: 06/17/25 22:00
*ED- Fall Risk Assessment Last Done: 06/17/25 22:00
*ED COVID-19 Vaccine History Last Done: 06/17/25 22:00
ED- Cardiac Assessment Last Done: 06/17/25 22:00
ED- Pulmonary Assessment Last Done: 06/17/25 22:00
[2025-06-17 22:23] LABS: Hematocrit 28.7 % (37.0-47.0); Hemoglobin 9.5 g/dL (12.0-16.0); Mean Corp Hgb Conc. 33.1 g/dL (33.0-37.0); Mean Corpuscular Volume 83.9 fL (81.0-99.0); Nucleated Red Blood Cells % 0 %; Platelet Count 262 10^3/uL (130-400); Red Cell Dist. Width 14.2 % (11.5-14.5)
[2025-06-17 22:54] VITALS: BP 105/79
[2025-06-17 23:00] VITALS: BP 102/56
[2025-06-17 23:03] LABS: COVID-19 Antigen Negative (Negative); Troponin I < 0.012 ng/ml
[2025-06-17 23:06] LABS: ALT (SGPT) 18 U/L (0-35); AST (SGOT) 15 U/L (14-36); Albumin 3.6 g/dl (3.5-5.0); Alkaline Phosphatase 247 U/L (38-126); Blood Urea Nitrogen 24 mg/dl (7-17); Calcium 9.7 mg/dl (8.4-10.2); Carbon Dioxide 26 mmol/L (22-30); Chloride 108 mmol/L (98-107); Estimated Creatinine Clearance 53 ml/min; Glucose 120 mg/dl (70-99); Potassium 2.7 mmol/L (3.5-5.1); Sodium 140 mmol/L (135-145); Total Protein 5.9 g/dl (6.3-8.2); eGFR 39.16
[2025-06-17] MEDS: KCL 270 MEQ IV (23:50)
[2025-06-18] VITALS (21 sets, daily range): BP systolic 89–116; BP diastolic 47–88; PULSE 68; O2SAT 97
--- NOTE | 2025-06-18 00:11 | HPS.HSE ---
Family Physician
-
Family Physician: Eladio Greer, DO
Chief Complaint
-
Cough
History of Present Illness
Patient is a 64y F with PMH significant for multiorgan sarcoidosis, bipolar depression and paroxysmal A-Fib who presents to ED complaining of cough. Patient states that she has had increasing cough and some SOB since Tuesday. Cough is not
productive. She has some chills but no fever. No chest pain. No GI or complaints. Patient notes that she is currently in the process of outpatient evaluation for her sarcoid - including upcoming Rheumatology evaluation. At present she is on
prednisone 5mg daily as well as inhaled and intranasal steroids.
Patient denies any recent changes in her medication regimen.
On evaluation in the ED today, she is noted to have significant hypokalemia.
Medical History
Past Medical History
Past Medical History: Reports Other
Additional Past Medical History:
Major Depression
Multiorgan Sarcoidosis
Paroxysmal Atrial Fibrillation
Chronic RBBB
Cardiomyopathy - Unknown Type
GERD / Gastroparesis
DM-II
Obesity
Cauda Equina Syndrome
Chronic Urinary Retention
Lumbar DDD
Left 'Drop Foot'
Past Surgical History: Reports Other
Additional Past Surgical History:
Vocal Cord Tumor Excised (benign)
6 Prior Back Surgeries
Hernia Repair
Kenedy Pouch / Subsequent Reversal
Social History
Tobacco: Non-smoker
Alcohol: None
Drug: None
Living: [facility]
Family History
Family History: Diabetes and Other (Father: COPD Mother: Breast Cancer)
Allergies / Home Medications
Allergies reflects when Allergies were last updated in [email or web address].
Home Medications with original date entered in [email or web address]
Allergy/Medication List:
Allergies
Allergy/AdvReac Type Severity Reaction Status Date / Time
adhesive Allergy Unknown Verified 06/17/25 21:51
cephalexin Allergy Rash Verified 06/17/25 21:51
clopidogrel Allergy gerd Verified 06/17/25 21:51
erythromycin base Allergy n/v Verified 06/17/25 21:51
fish derived Allergy SEAFOOD Verified 06/17/25 21:51
ketorolac Allergy Anaphylaxis Verified 06/17/25 21:51
latex Allergy Rash Verified 06/17/25 21:51
metformin Allergy diarrhea Verified 06/17/25 21:51
oxycodone (From Percocet) Allergy Unknown Verified 06/17/25 21:51
Home Medications
acetaminophen 325 mg tablet 650 mg PO Q6HPRN PRN mild pain / temp > 100.4 12/14/24
atorvastatin 40 mg tablet 40 mg PO HS High Cholesterol 12/14/24
baclofen 10 mg tablet 10 mg PO TIDPRN PRN spasms 12/14/24
bisacodyl 10 mg rectal suppository 10 mg OK DAILYPRN PRN if no bm aftr mom 12/14/24
cholecalciferol (vitamin D3) 25 mcg (1,000 unit) tablet 25 mcg PO DAILY Supplement 12/14/24
famotidine 20 mg tablet 20 mg PO BID Gastrointestinal Issue 12/14/24
hydroxyzine pamoate 25 mg capsule 25 mg PO HS Mental Health/Anxiety 12/14/24
hydroxyzine pamoate 25 mg capsule 25 mg PO Q6HPRN PRN anxiety 12/14/24
lamotrigine 25 mg tablet 50 mg PO BID Seizures 12/14/24
nystatin 100,000 unit/gram topical powder 1 applic topical BID breasts and groin 12/14/24
pantoprazole 40 mg tablet,delayed release 40 mg PO BID Gastrointestinal Issue 12/14/24
tamsulosin 0.4 mg capsule 0.4 mg PO DAILY Urinary Issue 12/14/24
triamcinolone acetonide 0.1 % topical cream 1 applic topical BID breasts and groin 12/14/24
ziprasidone HCl 40 mg capsule 40 mg PO BID Mental Health/Anxiety 12/14/24
aspirin 81 mg chewable tablet 81 mg PO DAILY Heart disease/condition #30 tabs 12/16/24
furosemide 40 mg tablet (Lasix) 40 mg PO DAILY #30 tabs 12/16/24
lisinopril 2.5 mg tablet 2.5 mg PO DAILY #30 tabs 12/16/24
budesonide 0.5 mg/2 mL suspension for nebulization 0.5 mg inhalation R BID 03/11/25
docusate sodium 100 mg capsule (Colace) 100 mg PO BID 03/11/25
fluticasone propionate 50 mcg/actuation nasal spray,suspension 1 spray intranasal BID 03/11/25
glipizide 5 mg tablet 5 mg PO DAILY 03/11/25
lidocaine 4 % topical gel 1 applic topical BIDPRN PRN right shoulder 03/11/25
magnesium hydroxide 400 mg/5 mL oral suspension (Milk of Magnesia) 400 mg PO [id number] PRN if no bm aftr mom 03/11/25
nitroglycerin 0.4 mg sublingual tablet 0.4 mg sublingual [id number] PRN chest pain 03/11/25
sennosides 8.6 mg tablet (senna) 17.2 mg PO BID 03/11/25
sodium phosphates 19 gram-7 gram/118 mL enema (Fleet Enema) 118 ml OK DAILYPRN PRN if no bm aftr dulcolax 03/11/25
benzonatate 100 mg capsule 200 mg PO Q12 05/25/25
meclizine 25 mg tablet 25 mg PO Q8 PRN dizziness 05/25/25
melatonin 3 mg tablet 6 mg PO HS 05/25/25
ondansetron HCl 4 mg tablet 4 mg PO Q8H PRN nausea 05/25/25
prednisone 5 mg tablet 5 mg PO DAILY 05/25/25
metoprolol succinate 25 mg tablet,extended release 24 hr 12.5 mg (1/2 x 25 mg) PO DAILY #30 tabs 05/28/25
rivaroxaban 15 mg tablet (Xarelto) 15 mg PO QPM #30 tabs 05/28/25
spironolactone 25 mg tablet 12.5 mg (1/2 x 25 mg) PO DAILY #30 tabs 05/28/25
linaclotide 290 mcg capsule (Linzess) 290 mcg PO DAILY 06/17/25
prednisolone acetate 1 % eye drops,suspension 1 drp ophthalmic (eye) QID 06/17/25
Review of Systems
-
History Source: Patient
A 12 point ROS was completed and negative except as noted: Yes
Constitutional: Reports Fatigue and Chills; Denies Fever
EENT: Denies Sore Throat
Respiratory: Reports Cough and Trouble Breathing; Denies Hemoptysis
Cardiac: Denies Chest Pain or Palpitations
Abdomen/GI: Denies Abdominal Pain, Nausea, Vomiting or Diarrhea
: Denies Dysuria, Frequency or Flank Pain
Musculoskeletal: Denies Joint Pain or Edema
Neurological: Denies Dizzy or Headache
Physical Exam
Vital Signs
Vital Signs
Temp Pulse Resp BP Pulse Ox
97.9 F 66 19 105/79 93
06/17/25 21:51 06/17/25 22:54 06/17/25 22:54 06/17/25 22:54 06/17/25 22:54
Physical Exam
General: Other (64y F in no acute distress. Hacking cough appreciated during exam.)
HEENT: Moist mucous membranes and PERRLA
Respiratory: Clear; No Wheezes, Rales or Rhonchi
Cardiac: S1/S2 and Regular Rhythm; No Murmur
GI: Soft, Non Tender, Non Distended, Normal Bowel Sounds and Other (Anterior abdominal hernia - not tender.)
Musculoskeletal: No Clubbing, No Cyanosis and No Edema
Neuro: AO x 3
Laboratory Results
-
06/17/25 22:18
06/17/25 22:11
Laboratory Results
Total Bilirubin 0.3 mg/dl (0.2-1.3) 08/11/25 22:11
AST 15 U/L (14-36) 06/17/25 22:11
ALT 18 U/L (0-35) 06/17/25 22:11
Alkaline Phosphatase 247 U/L (38-126) H 06/17/25 22:11
Troponin I < 0.012 ng/ml 06/17/25 22:27
Impression/Plan
-
A/P: Patient is a 64y F with PMH significant for multorgan sarcoid, A-Fib, DM-II and depression who presents to ED complaining of cough and SOB x 4 days
Multiorgan Sarcoidosis
Cough
- Admit for further evaluation and treatment.
- CXR unremarkable.
- Patient reports similar symptoms in the past attributed to her sarcoid.
- IV steroids for now. Continue inhaled medications.
- Pulmonary evaluation for additional recommendations
- Follow for clinical improvement.
Hypokalemia
- Likely secondary to loop diuretic use.
- Patient states that she cannot tolerate oral potassium supplementation.
- IV KCl replacement in the ED. Continue IVFs with supplemental KCl.
- Check Mg and replete if needed.
- Hold PPI therapy.
- Follow for improvement in lytes.
Cardiomyopathy
Chronic HFmrEF
- Stable. No evidence of volume overload by exam.
- Hold diuretic for now given hypokalemia.
- Follow I/Os, daily weights, etc.
CKD III
- Stable. Renal function is at / near known baseline.
- Follow for changes.
Paroxysmal Atrial Fibrillation
- Stable. Monitor on telemetry.
- Continue Xarelto for stroke risk reduction.
DM-II
- Stable. Follow glucose and cover with SSI as needed.
- Hold oral hypoglycemic agents acutely.
- Update A1C.
Chronic Normocytic Anemia
- Stable. Hgb is at / near known baseline.
- Follow for any changes.
GERD / Gastroparesis
- Patient on BID H2 kassy and BID PPI - will hold PPI for now.
- Follow for any changes in symptoms.
Major Depression
- Stable on multidrug regimen.
- Continue with ziprasidone, lamotrigine.
- Hold hydroxyzine for now given QT prolongation interactions. (QTC on EKG = 527).
- Ativan PRN anxiety for now.
Morbid Obesity due to excess calories
- Affects all aspects of care.
- Encourage increased activity as able and healthy diet with goal of weight reduction.
DVT Prophylaxis: Continue Xarelto
Code Status: DNR
[2025-06-18 01:07] LABS: Magnesium 1.8 mg/dl (1.6-2.3)
[2025-06-18] MEDS: DECADRON 4 MG IV ×2 (01:21→13:11)
[2025-06-18] MEDS: NSS with KCL 40 MEQ 1000 IV ×2 (05:16→23:00)
[2025-06-18 06:37] LABS: Hematocrit 26.7 % (37.0-47.0); Hemoglobin 8.8 g/dL (12.0-16.0); Mean Corp Hgb Conc. 33.0 g/dL (33.0-37.0); Mean Corpuscular Volume 83.2 fL (81.0-99.0); Platelet Count 238 10^3/uL (130-400); Red Cell Dist. Width 14.3 % (11.5-14.5)
[2025-06-18 07:14] LABS: Blood Urea Nitrogen 24 mg/dl (7-17); Calcium 9.5 mg/dl (8.4-10.2); Carbon Dioxide 23 mmol/L (22-30); Chloride 113 mmol/L (98-107); Estimated Creatinine Clearance 57 ml/min; Glucose 175 mg/dl (70-99); Potassium 3.5 mmol/L (3.5-5.1); Sodium 141 mmol/L (135-145); eGFR 42.54
[2025-06-18] MEDS: PULMICORT 0.5 MG INH (07:37)
[2025-06-18] MEDS: VENTOLIN NEBULES 2.5 MG INH (07:38)
--- NOTE | 2025-06-18 08:10 | CON.PUL ---
Consultation
Consultation Request
Date/Time Consultation Requested: 06/18
Date/Time Consultation Performed: 06/18
Reason for Consultation: Cough, history of sarcoid
Medical History
-
History of Present Illness:
History obtained from the patient and reviewing medical records. Patient is a 64-year-old female with complex medical history including diagnosis of sarcoid around 2015 at [place]. She underwent bronchoscopy with lung biopsy in 2013 which was
apparently inconclusive. She had ophthalmic involvement of sarcoid which was diagnosed at [facility] in 2015 which unfortunately proceeded to vision issues, now almost legally blind. She had been treated with methotrexate in the past, did not
tolerate and Humira, did not tolerate. Because of progressive health issues she has been in a long term since November 2024. Recently, she has been complaining of increasing cough and shortness of breath. She denies fevers, sweats, falls,
syncope. She does have chronic abdominal discomfort from a hernia and is also on chronic steroid therapy. Upon arrival to [facility], she is afebrile, pulse 74, breathing at 16, blood pressure 97/57, 98% saturation. ED record suggest
that she required 5 L. She was found to have severe hypokalemia and admitted for further management. We are asked to comment on her pulmonary process
Of note, she is on chronic oxygen therapy for 5 years, recently improved and only using nocturnal oxygen. She is currently being worked up for cardiac sarcoid and awaiting MRI of the brain and heart results at [place]
.
PMH: Sarcoidosis diagnosed by ophthalmology at [facility] in 2015, lung biopsy in 2013 nondiagnostic, atrial fibrillation on anticoagulation, chronic RBBB, history of cardiomyopathy details unclear, GERD/gastroparesis, diabetes, liver disease
secondary to sarcoid, chronic urinary retention, left dropfoot, chronic hypotension per records, history of left lower extremity DVT many years ago, bipolar disorder. History of hernia repair, multiple back surgery, vocal cord nodule removal,
history of cholecystectomy
Past Medical History
Past Medical History: None (See above)
Past Surgical History: None (See above)
Social History
Tobacco: Non-smoker
Alcohol: None
Drug: None
Personal: Single
Living: Assisted (Since November 2024. Prior to that was living in a house)
Employment: Not Employed ()
Family History
Family History: Other (1 brother from COVID. 1 brother 1 sister alive. Mother from breast cancer age 58. Father?. No children)
Allergies / Home Medications
Allergies
Allergy/AdvReac Type Severity Reaction Status Date / Time
adhesive Allergy Unknown Verified 06/17/25 21:51
cephalexin Allergy Rash Verified 06/17/25 21:51
clopidogrel Allergy gerd Verified 06/17/25 21:51
erythromycin base Allergy n/v Verified 06/17/25 21:51
fish derived Allergy SEAFOOD Verified 06/17/25 21:51
ketorolac Allergy Anaphylaxis Verified 06/17/25 21:51
latex Allergy Rash Verified 06/17/25 21:51
metformin Allergy diarrhea Verified 06/17/25 21:51
oxycodone (From Percocet) Allergy Unknown Verified 06/17/25 21:51
Home Medications
�Medication �Instructions �Recorded �Confirmed �Last Taken �Type
acetaminophen 325 mg tablet 650 mg PO Q6HPRN PRN mild pain / 12/14/24 06/18/25 Unknown History
temp > 100.4
atorvastatin 40 mg tablet 40 mg PO HS High Cholesterol 12/14/24 06/18/25 Unknown History
baclofen 10 mg tablet 10 mg PO TIDPRN PRN spasms 12/14/24 06/18/25 Unknown History
bisacodyl 10 mg rectal suppository 10 mg MD DAILYPRN PRN if no bm 12/14/24 06/18/25 Unknown History
aftr mom
cholecalciferol (vitamin D3) 25 25 mcg PO DAILY Supplement 12/14/24 06/18/25 Unknown History
mcg (1,000 unit) tablet
famotidine 20 mg tablet 20 mg PO BID Gastrointestinal Issue 12/14/24 06/18/25 Unknown History
hydroxyzine pamoate 25 mg capsule 25 mg PO HS Mental Health/Anxiety 12/14/24 06/18/25 Unknown History
hydroxyzine pamoate 25 mg capsule 25 mg PO Q6HPRN PRN anxiety 12/14/24 06/18/25 Unknown History
lamotrigine 25 mg tablet 50 mg PO BID Seizures 12/14/24 06/18/25 Unknown History
nystatin 100,000 unit/gram topical 1 applic topical BID breasts and 12/14/24 06/18/25 Unknown History
powder groin
pantoprazole 40 mg tablet,delayed 40 mg PO BID Gastrointestinal Issue 12/14/24 06/18/25 Unknown History
release
tamsulosin 0.4 mg capsule 0.4 mg PO DAILY Urinary Issue 12/14/24 06/18/25 Unknown History
triamcinolone acetonide 0.1 % 1 applic topical BID breasts and 12/14/24 06/18/25 Unknown History
topical cream groin
ziprasidone HCl 40 mg capsule 40 mg PO BID Mental Health/Anxiety 12/14/24 06/18/25 Unknown History
aspirin 81 mg chewable tablet 81 mg PO DAILY Heart 12/16/24 06/18/25 Unknown Rx
disease/condition #30 tabs
furosemide 40 mg tablet (Lasix) 40 mg PO DAILY #30 tabs 12/16/24 06/18/25 Unknown Rx
lisinopril 2.5 mg tablet 2.5 mg PO DAILY #30 tabs 12/16/24 06/18/25 Unknown Rx
budesonide 0.5 mg/2 mL suspension 0.5 mg inhalation R BID 03/11/25 06/18/25 Unknown History
for nebulization
docusate sodium 100 mg capsule 100 mg PO BID 03/11/25 06/18/25 Unknown History
(Colace)
fluticasone propionate 50 1 spray intranasal BID 03/11/25 06/18/25 Unknown History
mcg/actuation nasal
spray,suspension
glipizide 5 mg tablet 5 mg PO DAILY 03/11/25 06/18/25 Unknown History
lidocaine 4 % topical gel 1 applic topical BIDPRN PRN right 03/11/25 06/18/25 Unknown History
shoulder
magnesium hydroxide 400 mg/5 mL 400 mg PO [id number] PRN if no bm 03/11/25 06/18/25 Unknown History
oral suspension (Milk of Magnesia) aftr mom
nitroglycerin 0.4 mg sublingual 0.4 mg sublingual [id number] PRN 03/11/25 06/18/25 Unknown History
tablet chest pain
sennosides 8.6 mg tablet (senna) 17.2 mg PO BID 03/11/25 06/18/25 Unknown History
sodium phosphates 19 gram-7 118 ml MD DAILYPRN PRN if no bm 03/11/25 06/18/25 Unknown History
gram/118 mL enema (Fleet Enema) aftr dulcolax
benzonatate 100 mg capsule 200 mg PO Q12 05/25/25 06/18/25 Unknown History
meclizine 25 mg tablet 25 mg PO Q8 PRN dizziness 05/25/25 06/18/25 Unknown History
melatonin 3 mg tablet 6 mg PO HS 05/25/25 06/18/25 Unknown History
ondansetron HCl 4 mg tablet 4 mg PO Q8H PRN nausea 05/25/25 06/18/25 Unknown History
prednisone 5 mg tablet 5 mg PO DAILY 05/25/25 06/18/25 Unknown History
metoprolol succinate 25 mg 12.5 mg (1/2 x 25 mg) PO DAILY #30 05/28/25 06/18/25 Unknown Rx
tablet,extended release 24 hr tabs
rivaroxaban 15 mg tablet (Xarelto) 15 mg PO QPM #30 tabs 05/28/25 06/18/25 Unknown Rx
spironolactone 25 mg tablet 12.5 mg (1/2 x 25 mg) PO DAILY #30 05/28/25 06/18/25 Unknown Rx
tabs
linaclotide 290 mcg capsule 290 mcg PO DAILY 06/17/25 06/18/25 Unknown History
(Linzess)
prednisolone acetate 1 % eye 1 drp ophthalmic (eye) QID 06/17/25 06/18/25 Unknown History
drops,suspension
Review of Systems
-
All other systems: Negative unless noted (Patient has lost 60 pounds over the past year intentionally. She has chronic orthopnea, sleeps with a wedge pillow. She denies history of sleep apnea)
Vitals / Labs / Diagnostic Testing
Vital Signs
Temp Pulse Resp BP Pulse Ox
97.9 F 71 18 93/50 98
06/17/25 21:51 06/18/25 07:41 06/18/25 07:41 06/18/25 01:22 06/18/25 07:41
Lab Data
06/18/25 05:40
06/18/25 05:40
Microbiology
06/17/25 22:27 Nasal Swab Influenza Types A & B (MARIALUISA) - Final
Negative for Influenza A & B, NAAT
Negative results must be combined with clinical observations
and patient history.
Nucleic Acid Amplification test (NAAT)performed on the
[employer] platform.
Diagnostic Testing:
Physical Exam
-
HEENT: Normocephalic, Anicteric and Other (Large tongue)
Cardiovascular: S1/S2, Irregular Rhythm, Murmur (2/6 systolic murmur), Peripheral Edema (n) and Calf Tenderness (n)
Respiratory: Wheeze (n), Rales (n), Rhonchi (n) and Non-Labored Respirations
GI: Soft, Non Distended (Morbidly obese) and Tender (Left lower quadrant hernia with some tenderness, no rebound)
Neurology: Awake, Alert, Oriented and No Motor Deficits (Generally weak but moves all extremities)
Skin: Good Color and Other (No rash, no clubbing)
General: Comfortable (Conversant)
Assessment
-
64-year-old female with history of sarcoidosis diagnosed 2016 with multiorgan involvement (ophthalmology, renal, hepatic) on chronic steroid therapy (intolerant to methotrexate, Humira in the past) followed at [place], presents with cough,
shortness of breath x 1 week, found to have hypokalemia, being admitted for further management
Cough, shortness of breath x 1 week
Describes worsened orthopnea, PND
Severe hypokalemia, potassium 2.7
Renal insufficiency, creatinine 1.4
Elevated proBNP
Sarcoid with multiorgan involvement
Ophthalmologic (blind), renal, hepatic
Diagnosed 2015 at [facility] eye
Lung biopsy at [place] 2013, inconclusive
Intolerant to methotrexate, Humira therapy in the past
On chronic prednisone therapy
Brain and cardiac MRI pending at [place]
Ventral hernia, mild tenderness on exam
Conditions present prior to admission
Cardiomyopathy, EF 40% per echo 12/14/2024
Mild pulm hypertension, PA systolic pressure 32
Right bundle branch block, chronic per patient
Diabetes
Atrial fibrillation on anticoagulation
Distant history of DVT
GERD/gastroparesis
Chronic urinary retention with history of Smith catheter placement
Multiple back surgeries
60 pound weight loss, intentional
History of bipolar disorder
Suspected sleep disordered breathing
Nocturnal oxygen currently
Chronic hypoxia for 5 years, improved per patient
DNR
Plan/recommendations
At this time, patient appears to be comfortable. She is feeling better since admission, less short of breath, less cough
Chest x-ray per my review without acute findings
Recent abdominal imaging, lung bases are clear
Chest exam is clear, no wheezing
Moving forward
Differential is broad for her pulmonary symptoms
Cardiomyopathy, elevated proBNP, questionable worsening orthopnea/PND noted
Patient awaiting cardiac MRI at [place]
For now, would continue with pulmonary management which includes outpatient Pulmicort inhaler therapy twice a day, steroid therapy. She is currently on IV Decadron 4 mg every 12 hours
Consider transition to oral in the next 24 hours with taper down to baseline
Would not pursue any further pulmonary testing at this time, unless clinical status changes
Patient on chronic anticoagulation for atrial fibrillation
Suspect sleep disordered breathing but patient denies this
She has nocturnal oxygen therapy and pursues positional therapy has lost 60 pounds intentionally
Replete potassium
IV fluids
PPI therapy being held
Diuretics being held
Follow blood sugars
Follow-up with [place] sarcoid clinic (Dr. Chisholm) post discharge
We will follow
[2025-06-18 08:22] LABS: Glycohemoglobin (HgbA1c) 6.6 % (4.0-5.6)
[2025-06-18] MEDS: LAMICTAL 50 MG PO ×2 (08:38→19:29)
[2025-06-18] MEDS: TOPROL XL 12.5 MG PO (08:38)
[2025-06-18] MEDS: FLOMAX 0.4 MG PO (08:39)
[2025-06-18] MEDS: LOW STRENGTH ASPIRIN 81 MG PO (08:39)
[2025-06-18] MEDS: SENOKOT 17.2 MG PO ×2 (08:39→19:29)
[2025-06-18] MEDS: PEPCID 20 MG PO ×2 (08:39→19:28)
[2025-06-18] MEDS: NOVOLOG FLEXPEN-LOW RESISTANCE 1 UNITS SC (08:40)
[2025-06-18] MEDS: PRED FORTE 1% EYE DROPS 1 DROP OPHTH ×4 (08:40→21:12)
[2025-06-18] MEDS: GEODON 40 MG PO ×2 (09:35→19:30)
[2025-06-18] MEDS: LINZESS 290 MCG PO (09:36)
--- NOTE | 2025-06-18 11:32 | W.PN.HOSP.TC ---
Today's Communication/Plan
-
see A/P
Assessment / Plan
Assessment / Plan
64 yo F with PMH significant for multiorgan sarcoidosis, bipolar depression and paroxysmal A-Fib; who presented to ED complaining of cough. Patient states that she has had increasing cough and some SOB since Tuesday. Cough is not productive. She
has some chills but no fever.
No chest pain. No GI or complaints.
Patient notes that she is currently in the process of outpatient evaluation for her sarcoid - including upcoming Rheumatology evaluation.
At present she is on prednisone 5mg daily as well as inhaled and intranasal steroids. Patient denies any recent changes in her medication regimen.
On evaluation in the ED today, she is noted to have significant hypokalemia.
A/P:
# Multiorgan Sarcoidosis
# Non-productive cough
CXR unremarkable.
Patient reports similar symptoms in the past attributed to her sarcoid.
Cont IV steroids Decadron 4 mg every 12 hours
Continue inhaled medications outpatient Pulmicort
Appreciate Pulmonary input
Follow-up with [place] [facility] clinic (Dr. Chisholm) post discharge
# Hypokalemia
Likely secondary to loop diuretic use.
repleted
Hold PPI therapy acutely.
# Cardiomyopathy
# Chronic HFmrEF
Stable. No evidence of volume overload by exam.
Hold diuretic for now given hypokalemia.
Follow I/Os, daily weights, etc.
# CKD III, Stable.
Renal function is at / near known baseline. Follow for changes.
# Paroxysmal Atrial Fibrillation, Stable.
Monitor on telemetry.
Continue Xarelto for stroke risk reduction.
# DM-II, Stable.
Follow glucose and cover with SSI as needed.
Hold oral hypoglycemic agents acutely.
Update A1C.
# Chronic Normocytic Anemia, Stable.
Hgb is at / near known baseline.
Follow for any changes.
# GERD / Gastroparesis
Patient on BID H2 kassy and BID PPI - will hold PPI for now.
Follow for any changes in symptoms.
# Major Depression
Stable on multidrug regimen. Continue with ziprasidone, lamotrigine.
Hold hydroxyzine for now given QT prolongation interactions. (QTC on EKG = 527).
Ativan PRN anxiety for now.
# Morbid Obesity due to excess calories
Affects all aspects of care.
Encourage increased activity as able and healthy diet with goal of weight reduction.
DVT Prophylaxis: Continue [employer] Xarelto
Code Status: DNR
Anticipated Discharge: 24 - 48 hours
Subjective/Interval History
-
Date of Service: June 18, 2025
Objective Data
-
Labs:
Laboratory Results
06/17/25 06/18/25
22:18 05:40
WBC Cancelled 8.5
Hgb Cancelled 8.8 L
Hct Cancelled 26.7 L
Plt Count Cancelled 238
Sodium 141
Potassium 3.5 D
Chloride 113 H
Carbon Dioxide 23
BUN 24 H
Creatinine 1.4 H
Glucose 175 H
Calcium 9.5
Vital Signs:
Vital Signs
Temp Pulse Resp BP Pulse Ox
36.6 C 69 16 104/88 100
06/17/25 21:51 06/18/25 08:45 06/18/25 08:45 06/18/25 08:00 06/18/25 09:00
Review of Systems
-
History Source: Patient
Respiratory: Reports Cough and Trouble Breathing (mild and improved )
Physical Exam
-
General: Well Developed, Well Nourished, No Apparent Distress, Comfortable, Conversant and Morbidly Obese
HEENT: Normocephalic, Atraumatic and Oxygen (2L NC for symptoms control )
Respiratory: Clear to Auscultation and Non Labored Respirations; Negative Wheezes, Rales, Rhonchi or Accessory Resp Muscle Use
Cardiac: Regular Rhythm and S1/S2
GI: Soft and Nontender
Musculoskeletal: No Clubbing, No Cyanosis and Other (chronic lymphedema, no pitting edema)
Skin: Warm and Dry
Neuro: Awake and Alert
Psych: Calm and Intact Judgement/Insight
Data Reviewed
-
Diagnostic Radiology: Image personally visualized and interpreted and Report Reviewed by me
Labs: Labs Reviewed by me
[2025-06-18 12:24] LABS: Glucose - Point of Care 281 mg/dl (70-99)
[2025-06-18] MEDS: NSS with KCL 40 MEQ IV (13:01)
[2025-06-18] MEDS: NOVOLOG FLEXPEN-LOW RESISTANCE 3 UNITS SC ×2 (13:02→17:01)
[2025-06-18 16:58] LABS: Glucose - Point of Care 299 mg/dl (70-99)
[2025-06-18] MEDS: XARELTO 15 MG PO (17:57)
[2025-06-18] MEDS: TESSALON PERLES 200 MG PO (19:45)
[2025-06-18] MEDS: DESENEX/MITRAZOL/ZEASORB 1 APPLIC TOPICAL (20:31)
[2025-06-18] MEDS: PULMICORT INH (20:38)
[2025-06-18] MEDS: LIPITOR 40 MG PO (21:11)
[2025-06-18] MEDS: ATARAX 25 MG PO (21:11)
[2025-06-18] MEDS: MELATONIN 6 MG PO (21:11)
[2025-06-18 21:56] LABS: Glucose - Point of Care 335 mg/dl (70-99)
[2025-06-19] MEDS: DECADRON 4 MG IV ×2 (01:12→12:30)
[2025-06-19 03:14] VITALS: BP 129/69
[2025-06-19 05:28] VITALS: BMI 44.6
--- NOTE | 2025-06-19 06:18 | PTCARENOTE ---
Pt awake intermittently t/o the night. Pt ambulating with assist to bathroom with walker. Pt remains stable on 2LO2 NC. IVF infusing as ordered. HR in the 40's SB on the monitor t/o the night. Pt denies any complaints. Will continue to monitor.
[2025-06-19] MEDS: VENTOLIN NEBULES 2.5 MG INH (07:21)
[2025-06-19] MEDS: PULMICORT 0.5 MG INH (07:21)
[2025-06-19 07:46] LABS: Glucose - Point of Care 269 mg/dl (70-99)
[2025-06-19 07:47] VITALS: BP 122/68
--- NOTE | 2025-06-19 07:59 | W.PN.PUL3 ---
Today's Communication / Plan
-
PT/OT, ambulate
Continue inhaler regimen
Transition to oral prednisone, taper to baseline next 7-10 days
Patient has appointment in sarcoid clinic at [place] 07/03/25
Resume nocturnal oxygen at home
We will sign off. Please call with questions
Assessment
-
64-year-old female with history of sarcoidosis diagnosed 2016 with multiorgan involvement (ophthalmology, renal, hepatic) on chronic steroid therapy (intolerant to methotrexate, Humira in the past) followed at [facility], presents with cough,
shortness of breath x 1 week, found to have hypokalemia, being admitted for further management
Cough, shortness of breath x 1 week
Describes worsened orthopnea, PND
Severe hypokalemia, potassium 2.7
Renal insufficiency, creatinine 1.4
Elevated proBNP
Sarcoid with multiorgan involvement
Ophthalmologic (blind), renal, hepatic
Diagnosed 2015 at [facility] eye
Lung biopsy at [place] 2013, inconclusive
Intolerant to methotrexate, Humira therapy in the past
On chronic prednisone therapy
Brain and cardiac MRI pending at [facility]
Ventral hernia, mild tenderness on exam
Conditions present prior to admission
Cardiomyopathy, EF 40% per echo 12/14/2024
Mild pulm hypertension, PA systolic pressure 32
Right bundle branch block, chronic per patient
Diabetes
Atrial fibrillation on anticoagulation
Distant history of DVT
GERD/gastroparesis
Chronic urinary retention with history of Smith catheter placement
Multiple back surgeries
60 pound weight loss, intentional
History of bipolar disorder
Suspected sleep disordered breathing
Nocturnal oxygen currently
Chronic hypoxia for 5 years, improved per patient
DNR
Plan/recommendations
At this time, patient appears to be comfortable. She is feeling better since admission, less short of breath, less cough
Chest x-ray per my review without acute findings
Recent abdominal imaging, lung bases are clear
Chest exam is clear, no wheezing
Moving forward
Differential is broad for her pulmonary symptoms
Cardiomyopathy, elevated proBNP, questionable worsening orthopnea/PND noted
Patient awaiting cardiac MRI at [facility]
For now, would continue with pulmonary management which includes outpatient Pulmicort inhaler therapy twice a day, steroid therapy.
She is currently on IV Decadron 4 mg every 12 hours
Consider transition to oral in the next 24 hours with taper down to baseline Over next 7-10 days
Would not pursue any further pulmonary testing at this time, unless clinical status changes
Patient on chronic anticoagulation for atrial fibrillation
Suspect sleep disordered breathing but patient denies this
She has nocturnal oxygen therapy and pursues positional therapy has lost 60 pounds intentionally
Follow-up with [place] sarcoid clinic (Dr. Chisholm) post discharge.
Patient has appointment 07/03
We will sign off. Please call with questions
Subjective Data
-
Date of Service:
Date of Service: June 19, 2025
Subjective:
Patient is feeling improved since admission. sHe has mild cough and feels breathing is improved. Currently on room air. Denies abdominal pain, nausea.
Objective Data
Data Reviewed
Vital Signs / I&O / Oxygen:
Vital Signs
Temp Pulse Resp BP Pulse Ox
97.5 F 49 18 122/68 100
06/19/25 07:47 06/19/25 07:47 06/19/25 07:47 06/19/25 07:47 06/19/25 07:47
Intake and Output
06/18/25 06/19/25 06/20/25
06:59 06:59 06:59
Intake Total 1200 / 1200
Output Total 500 / 500
Balance 700 / 700
SaO2 100
Nasal Cannula flow liters per 2
minute
Physical Exam
General: Comfortable and Other ( large neck, poor dentition)
HEENT: Normocephalic and Moist Mucous Membranes
Cardiovascular: S1-S2, Regular Rhythm and Murmur (n)
Respiratory: Wheeze (n), Crackles (n), Rhonchi (few) and Non-Labored Respirations
GI: Soft, Non Distended ( obese) and Other ( mild left lower quadrant hernia, reducible)
Neurology: Awake, Alert and No Motor Deficits ( able to sit up without assistance)
Skin: Cyanosis (n), Jaundice (n) and Rash (n)
Labs/Micro/Reports
Microbiology
06/17/25 22:27 Nasal Swab Influenza Types A & B (MARIALUISA) - Final
Negative for Influenza A & B, NAAT
Negative results must be combined with clinical observations
and patient history.
Nucleic Acid Amplification test (NAAT)performed on the
[employer] platform.
[2025-06-19] MEDS: NOVOLOG FLEXPEN-LOW RESISTANCE 3 UNITS SC (08:36)
[2025-06-19] MEDS: DESENEX/MITRAZOL/ZEASORB 1 APPLIC TOPICAL (08:37)
[2025-06-19] MEDS: SENOKOT 17.2 MG PO (08:37)
[2025-06-19] MEDS: PRED FORTE 1% EYE DROPS 1 DROP OPHTH ×2 (08:38→12:31)
[2025-06-19] MEDS: TOPROL XL PO (08:38)
[2025-06-19] MEDS: LAMICTAL 50 MG PO (08:39)
[2025-06-19] MEDS: GEODON 40 MG PO (08:39)
[2025-06-19] MEDS: FLOMAX 0.4 MG PO (08:39)
[2025-06-19] MEDS: LOW STRENGTH ASPIRIN 81 MG PO (08:39)
[2025-06-19] MEDS: PEPCID 20 MG PO (08:39)
[2025-06-19 09:29] LABS: Hematocrit 26.7 % (37.0-47.0); Hemoglobin 8.8 g/dL (12.0-16.0); Mean Corp Hgb Conc. 33.0 g/dL (33.0-37.0); Mean Corpuscular Volume 84.2 fL (81.0-99.0); Platelet Count 258 10^3/uL (130-400); Red Cell Dist. Width 14.6 % (11.5-14.5)
[2025-06-19] MEDS: LINZESS 290 MCG PO (10:14)
[2025-06-19] MEDS: NSS with KCL 40 MEQ 1000 IV (10:14)
[2025-06-19 10:16] LABS: Blood Urea Nitrogen 26 mg/dl (7-17); Calcium 9.1 mg/dl (8.4-10.2); Carbon Dioxide 18 mmol/L (22-30); Chloride 119 mmol/L (98-107); Estimated Creatinine Clearance 61 ml/min; Glucose 260 mg/dl (70-99); Potassium 4.3 mmol/L (3.5-5.1); Sodium 142 mmol/L (135-145); eGFR 46.49
[2025-06-19 11:08] VITALS: BP 114/58
[2025-06-19 11:58] LABS: Glucose - Point of Care 304 mg/dl (70-99)
--- NOTE | 2025-06-19 12:05 | W.PN.HOSP.TC ---
Addendum entered and electronically signed by Karley Montesinos MD 06/19/25 13:52:
total DC time 37 min
Original Note:
Today's Communication/Plan
-
DC back to DC today
Assessment / Plan
Assessment / Plan
64 yo F with PMH significant for multiorgan sarcoidosis, bipolar depression and paroxysmal A-Fib; who presented to ED complaining of cough. Patient states that she has had increasing cough and some SOB since Tuesday. Cough is not productive. She
has some chills but no fever.
No chest pain. No GI or complaints.
Patient notes that she is currently in the process of outpatient evaluation for her sarcoid - including upcoming Rheumatology evaluation.
At present she is on prednisone 5mg daily as well as inhaled and intranasal steroids. Patient denies any recent changes in her medication regimen.
On evaluation in the ED today, she is noted to have significant hypokalemia.
A/P:
# Multiorgan Sarcoidosis
# Non-productive cough
CXR unremarkable.
Patient reports similar symptoms in the past attributed to her sarcoid.
Can transition IV steroids Decadron 4 mg every 12 hours to PO prednisone, taper until reaching LUMBER BUYER home dose at 5 mg daily
Continue inhaled medications outpatient Pulmicort
Appreciate Pulmonary input
Follow-up with [place] sarcoid clinic (Dr. Chisholm) post discharge
# Hypokalemia
Likely secondary to loop diuretic use.
repleted
Hold PPI therapy acutely.
# Cardiomyopathy
# Chronic HFmrEF
Stable. No evidence of volume overload by exam.
Hold diuretic for now given hypokalemia.
Follow I/Os, daily weights, etc.
# CKD III, Stable.
Renal function is at / near known baseline. Follow for changes.
# Paroxysmal Atrial Fibrillation, Stable.
Monitor on telemetry.
Continue Xarelto for stroke risk reduction.
# DM-II, Stable.
Follow glucose and cover with SSI as needed.
Hold oral hypoglycemic agents acutely.
Update A1C.
# Chronic Normocytic Anemia, Stable.
Hgb is at / near known baseline.
Follow for any changes.
# GERD / Gastroparesis
Patient on BID H2 kassy and BID PPI - will hold PPI for now.
Follow for any changes in symptoms.
# Major Depression
Stable on multidrug regimen. Continue with ziprasidone, lamotrigine.
Hold hydroxyzine for now given QT prolongation interactions. (QTC on EKG = 527).
Ativan PRN anxiety for now.
# Morbid Obesity due to excess calories
Affects all aspects of care.
Encourage increased activity as able and healthy diet with goal of weight reduction.
DVT Prophylaxis: Continue LUMBER BUYER Xarelto
Code Status: DNR
DW RN
Anticipated Discharge: Today
Subjective/Interval History
-
Date of Service: June 19, 2025
Objective Data
-
Labs:
Laboratory Results
06/19/25
09:19
WBC 6.3
Hgb 8.8 L
Hct 26.7 L
Plt Count 258
Sodium 142
Potassium 4.3
Chloride 119 H
Carbon Dioxide 18 L
BUN 26 H
Creatinine 1.3 H
Glucose 260 H
Calcium 9.1
Vital Signs:
Vital Signs
Temp Pulse Resp BP Pulse Ox
36.6 C 52 18 114/58 98
06/19/25 11:08 06/19/25 11:08 06/19/25 11:08 06/19/25 11:08 06/19/25 11:08
I&O
06/18/25 06/19/25 06/20/25
06:59 06:59 06:59
Intake Total 1200 / 1200
Output Total 500 / 500
Balance 700 / 700
Review of Systems
-
History Source: Patient
Respiratory: Denies Cough or Trouble Breathing
Physical Exam
-
General: Well Developed, Well Nourished, No Apparent Distress, Comfortable, Conversant and Morbidly Obese
HEENT: Normocephalic and Atraumatic; Negative Oxygen
Respiratory: Clear to Auscultation and Non Labored Respirations; Negative Wheezes, Rales, Rhonchi or Accessory Resp Muscle Use
Cardiac: Regular Rhythm and S1/S2
GI: Soft and Nontender
Musculoskeletal: No Clubbing, No Cyanosis and Other (chronic lymphedema, no pitting edema)
Skin: Warm and Dry
Neuro: Awake and Alert
Psych: Calm and Intact Judgement/Insight
Data Reviewed
-
Diagnostic Radiology: Image personally visualized and interpreted and Report Reviewed by me
Labs: Labs Reviewed by me
[2025-06-19] MEDS: NOVOLOG FLEXPEN-LOW RESISTANCE 300 UNITS SC (12:31)
--- NOTE | 2025-06-19 12:34 | CM ---
Addendum entered by Nell Armstrong 06/19/25 13:02:
Joanne from [facility] updated, nursing updated.
Addendum entered by Nell Armstrong 06/19/25 12:53:
[facility] van arranged for 5 pm transport back to [facility].
Original Note:
Patient seen bedside.
Patient resides at [facility] Longterm/LTC
Prior to admission needs assist with ADLs, ambulates with a RW or mobilizes w/ manual wheelchair; chronic Smith Catheter in place, oxygen 2 liters.
Will need ambulance for transport
Plan: Return to [facility] when medically stable; referral sent via [facility]
report# [phone] 3rd floor

ambulance transport forms completed.
--- NOTE | 2025-06-19 13:34 | W.DCSUMMARY ---
Discharge Summary
Discharge Data
Date of Admission: 06/18/25
Date of Discharge: 06/19/25
Total time spent discharging patient (in min): 40
-
Pending Results: No
Hospital Course
Principal Diagnosis:
Shortness of breath likely due to sarcoid flare; respiratory symptom significantly improved following IV steroid
Chronic Diagnoses:�
# Multiorgan Sarcoidosis
# Cardiomyopathy
# Chronic HFmrEF
# CKD III, Stable.
# Paroxysmal Atrial Fibrillation, Stable.
# DM-II, Stable.
# Chronic Normocytic Anemia, Stable.
# GERD / Gastroparesis
# Major Depression, mood stable
# Morbid Obesity due to excess calories, BMI 44
Consultations:�
Pulmonary
Procedures:�
None
Clinical course:�
This is a 64-year-old female with past medical history as stated above, who presented with dry cough and shortness of breath.
Patient reports similar symptoms in the past attributed to her sarcoid.
Problem 1:
Shortness of breath likely due to sarcoid flare; respiratory symptom significantly improved following IV steroid.
Her CXR was unremarkable.
She received IV Decadron 4 mg every 12 hours while in the hospital and was discharged with oral prednisone (start 50 mg and decrease 10 mg every 2 days) to continue taper back to previous home dose at 5 mg daily.
She can follow-up with [facility] (Dr. Chisholm) post discharge.
As for the rest of her medical problems, they were stable during her hospital stay.
Discharge Plan
-
Patient Disposition: Fpc/SNF
Discharge Diagnosis/Procedures: Non-productive cough likely due to sarcoid flare;
Multiorgan Sarcoidosis
Condition: Fair
Diet: As tolerated and Diabetic, Carb Controlled
Activity: As tolerated
Driving Restrictions: As prior to admission
Referrals:
Eladio Greer DO [Family Provider, Internal Medicine] - in less than 1 week
Additional Discharge Medication Instructions: Continue with prednisone:
take 50 mg for 2 days and decrease 10 mg every 2 days until you are back to your previous home dose at 5 mg, then continue 5 mg daily after that
Prescriptions:
New
prednisone 10 mg Tablet
See Rx Instructions .ROUTE .COMPLEX Qty: 45 0RF
Rx Instructions:
50 mg daily x2 days, 40 mg daily x2 days, 30 mg daily x2 days, 20 mg daily x2 days, 10 mg daily x2 days, then 5 mg going forward
Continued
atorvastatin 40 mg Tablet
40 mg PO HS
acetaminophen 325 mg Tablet
650 mg PO Q6HPRN PRN (Reason: mild pain / temp > 100.4)
baclofen 10 mg Tablet
10 mg PO TIDPRN PRN (Reason: spasms)
triamcinolone acetonide 0.1 % Cream
1 applic TOPICAL BID
lamotrigine 25 mg Tablet
50 mg PO BID
famotidine 20 mg Tablet
20 mg PO BID
tamsulosin 0.4 mg Capsule
0.4 mg PO DAILY
bisacodyl 10 mg Suppository
10 mg ME DAILYPRN PRN (Reason: if no bm aftr mom)
pantoprazole 40 mg Tablet,Delayed Release (Dr/Ec)
40 mg PO BID
ziprasidone HCl 40 mg Capsule
40 mg PO BID
nystatin 100,000 unit/gram Powder
1 applic TOPICAL BID
cholecalciferol (vitamin D3) 25 mcg (1,000 unit) Tablet
25 mcg PO DAILY
hydroxyzine pamoate 25 mg Capsule
25 mg PO HS
hydroxyzine pamoate 25 mg Capsule
25 mg PO Q6HPRN PRN (Reason: anxiety)
aspirin 81 mg Tablet,Chewable
81 mg PO DAILY Qty: 30 0RF
lisinopril 2.5 mg Tablet
2.5 mg PO DAILY Qty: 30 0RF
furosemide [Lasix] 40 mg tablet
40 mg PO DAILY Qty: 30 0RF
sennosides [senna] 8.6 mg Tablet
17.2 mg PO BID
magnesium hydroxide [Milk of Magnesia] 400 mg/5 mL Suspension
400 mg PO [id number] PRN (Reason: if no bm aftr mom)
nitroglycerin 0.4 mg Tablet, Sublingual
0.4 mg SUBLINGUAL [id number] PRN (Reason: chest pain)
docusate sodium [Colace] 100 mg Capsule
100 mg PO BID
budesonide 0.5 mg/2 mL Suspension For Nebulization
0.5 mg INHALATION R BID
fluticasone propionate 50 mcg/actuation Reynolds,Suspension
1 spray INTRANASAL BID
glipizide 5 mg Tablet
5 mg PO DAILY
Fleet Enema 19-7 gram/118 mL Enema
118 ml ME DAILYPRN PRN (Reason: if no bm aftr dulcolax)
lidocaine 4 % Gel
1 applic TOPICAL BIDPRN PRN (Reason: right shoulder)
ondansetron HCl 4 mg Tablet
4 mg PO Q8HPRN PRN (Reason: nausea)
melatonin 3 mg Tablet
6 mg PO HS
meclizine 25 mg Tablet
25 mg PO Q8HPRN PRN (Reason: dizziness)
benzonatate 100 mg Capsule
200 mg PO BID
spironolactone 25 mg Tablet
12.5 mg PO DAILY Qty: 30 0RF
metoprolol succinate 25 mg Tablet Extended Release 24 Hr
12.5 mg PO DAILY Qty: 30 0RF
rivaroxaban [Xarelto] 15 mg Tablet
15 mg PO QPM Qty: 30 0RF
prednisolone acetate 1 % Drops,Suspension
1 drp RIGHT EYE QID
Linzess 290 mcg Capsule
290 mcg PO DAILY
hydroxyzine HCl 25 mg Tablet
75 mg PO DAILYPRN PRN (Reason: before mri)
nystatin 100,000 unit/gram Powder
1 applic TOPICAL DAILYPRN PRN (Reason: sacrum)
sorbitol 70 % Solution
30 ml PO DAILYPRN PRN (Reason: constipation)
Refresh Optive 0.5-0.9 % Drops
1 drp BOTH EYES DAILYPRN PRN (Reason: itching)
Held
prednisone 5 mg Tablet
5 mg PO DAILY
Hold Instructions: Resume on 07/03/25. hold while you are on the prednisone taper
Discharge Orders:
Discharge Patient (As Directed); Ordered 06/19/25
Ordered By: Karley Montesinos
Discharge Date and Time
Print Language: WOLOF
[2025-06-19 15:00] VITALS: BP 121/56
--- NOTE | 2025-06-19 15:27 | VATNOTE ---
Patient on blood thinners quick clot with Midline removal pressure held for 10 mins
== END 2025-06-19 16:55 | DRG 197 ==
LOC: 1 ACUTE 00:33
PROVIDERS: ADMITTING PHYSICIAN Hospitalist; ATTENDING PHYSICIAN Internal Medicine; EMERGENCY PHYSICIAN Emergency Medicine; FAMILY PHYSICIAN Internal Medicine; OTHER PHYSICIAN Internal Medicine Critical Care Medicine
DX: D86.0 Sarcoidosis of lung (principal); I42.9 Cardiomyopathy, unspecified; I50.22 Chronic systolic (congestive) heart failure; Z68.41 Body mass index [BMI] 40.0-44.9, adult; F31.9 Bipolar disorder, unspecified; I48.0 Paroxysmal atrial fibrillation; E87.6 Hypokalemia; E11.22 Type 2 diabetes mellitus with diabetic chronic kidney disease; N18.30 Chronic kidney disease, stage 3 unspecified; D64.9 Anemia, unspecified; K21.9 Gastro-esophageal reflux disease without esophagitis; E11.43 Type 2 diabetes mellitus with diabetic autonomic (poly)neuropathy; K31.84 Gastroparesis; Z66 Do not resuscitate; E66.01 Morbid (severe) obesity due to excess calories; F41.9 Anxiety disorder, unspecified; I45.10 Unspecified right bundle-branch block; M51.369 Other intervertebral disc degeneration, lumbar region without mention of lumbar back pain or lower extremity pain; M21.372 Foot drop, left foot; Z88.1 Allergy status to other antibiotic agents; Z91.040 Latex allergy status; Z88.8 Allergy status to other drugs, medicaments and biological substances; Z79.82 Long term (current) use of aspirin; E78.00 Pure hypercholesterolemia, unspecified; H54.8 Legal blindness, as defined in USA; I27.20 Pulmonary hypertension, unspecified; I95.89 Other hypotension; K43.9 Ventral hernia without obstruction or gangrene; K59.09 Other constipation; R09.02 Hypoxemia; Z79.01 Long term (current) use of anticoagulants; Z79.51 Long term (current) use of inhaled steroids; Z79.52 Long term (current) use of systemic steroids; Z79.84 Long term (current) use of oral hypoglycemic drugs; Z79.899 Other long term (current) drug therapy; Z80.3 Family history of malignant neoplasm of breast; Z82.5 Family history of asthma and other chronic lower respiratory diseases; Z11.52 Encounter for screening for COVID-19; Z86.718 Personal history of other venous thrombosis and embolism; Z90.49 Acquired absence of other specified parts of digestive tract; Z99.81 Dependence on supplemental oxygen
CPT/HCPCS: 71046; 80048; 80053; 82962; 83036; 83735; 83880; 84484; 85025; 85027; 87070; 87502; 87811; 93005; 94640; 97163

== ENCOUNTER 2025-08-23 11:01 | Emergency (ER) | payer OTHER, SELFPAY ==
[2025-08-23 11:05] VITALS: BP 132/95; BMI 44.1
[2025-08-23 11:34] LABS: Hematocrit 32.4 % (37.0-47.0); Hemoglobin 10.2 g/dL (12.0-16.0); Mean Corp Hgb Conc. 31.5 g/dL (33.0-37.0); Mean Corpuscular Volume 84.2 fL (81.0-99.0); Nucleated Red Blood Cells % 0 %; Platelet Count 249 10^3/uL (130-400); Red Cell Dist. Width 15.5 % (11.5-14.5)
--- NOTE | 2025-08-23 11:49 | ED.GENMED ---
History of Present Illness
General
Chief Complaint: Chest Pain
Time Seen by Provider: 08/23/25 11:07
History of Present Illness
History of Present Illness:
65-year-old female with history of A-fib, CHF, hypertension, hyperlipidemia, neurogenic bladder, and [id number] diabetes presents to the emergency department for evaluation of chest pain and a headache that began at approximately 10 AM
today. Describes it as 'tingling and numbness' to the left chest wall. No pleuritic pain, no back pain, no dizziness or lightheadedness. Has a chronic cough due to sarcoidosis denies any acute change, no sputum, no shortness of breath.
Past History
Past History
ED Past Medical History: Arrthythmia (Paroxysmal atrial fibrillation), CHF, Hypercholesterolemia, IDDM, Renal failure (Chronic kidney disease) and Other (Sarcoidosis, neurogenic bladder, chronic constipation, chronic hypotension)
ED Past Surgical History: Other (Hernia repair)
Social History
Tobacco: Non-smoker
Alcohol: None
Drug: None
Personal: Single
Living: assisted
Employment: Disabled
Family History
Family History: Other (Noncontributory)
Review of Systems
Review of Systems
Allergies reviewed?: Yes
All Other Systems: ROS reviewed and negative except as documented in HPI and ROS
Phy Exam
Physical Exam
Physical Exam:
GEN: Well appearing, NAD, WDWN
HEENT: Oral mucosa moist, no scleral icterus
Cardiac: Regular rate and rhythm, no murmur
Lung: No respiratory distress, no tachypnea, lungs clear to auscultation
Abdomen: Soft, nontender
MSK: No gross deformity or injuries
Skin: Good color, no pallor or jaundice, no rashes
Neuro: AO x3, moves all extremities freely
Psych: Calm, cooperative
Scores
Heart Score for Chest Pain Patients
STEMI patient?: No
History: Slightly or Non-Suspicious
ECG: Normal
Age: >45 - <65 years
Risk Factors: >/= 3 Risk Factors or History of CAD
Troponin: </= Normal Limit
Heart Score for Chest Pain Patients: 3
Heart Score Risk: 2.5% MACE over next 6 weeks
Course
Orders/Labs/Results
Orders:
Orders
08/23/25 11:04
Electrocardiogram (*1) Urgent
Reason for Study: Chest Pain
EKG- Treatment ONCE
08/23/25 11:18
CR Chest - 2 Views Urgent
Comment:
Reason For Exam: chest pain
08/23/25 11:26
Basic Metabolic Panel Urgent
Complete Blood Count/With Diff Urgent
Troponin I Urgent
08/23/25 13:03
EKG- Treatment ONCE
08/23/25 14:13
Troponin I Routine
08/23/25 14:30
Electrocardiogram (*1) Urgent
Reason for Study: Chest Pain
Abnormal Lab Results
08/23/25
11:26
RBC 3.85 L 10^6/uL
(4.20-5.40)
Hgb 10.2 L g/dL
(12.0-16.0)
Hct 32.4 L %
(37.0-47.0)
MCH 26.5 L pg
(27.0-31.0)
MCHC 31.5 L g/dL
(33.0-37.0)
RDW 15.5 H %
(11.5-14.5)
Absolute Neuts (auto) 6.7 H 10^3/uL
(1.4-6.5)
Absolute Lymphs (auto) 1.0 L 10^3/uL
(1.2-3.4)
Neutrophils % 78.5 H %
(42.2-75.2)
Lymphocytes % 11.9 L %
(20.5-51.1)
Chloride 109 H mmol/L
(98-107)
BUN 29 H mg/dl
(7-17)
Creatinine 1.5 H mg/dL
(0.6-1.0)
Glucose 147 H mg/dl
(70-99)
08/23/25 11:26
08/23/25 11:26
Vital Signs
Initial and Last Documented VS:
Initial Vital Signs
Temp Pulse Resp BP Pulse Ox
98.2 F 72 18 132/95 99
08/23/25 11:05 08/23/25 11:05 08/23/25 11:05 08/23/25 11:05 08/23/25 11:05
Last Documented Vital Signs
Temp Pulse Resp BP Pulse Ox
98.2 F 64 16 88/63 96
08/23/25 11:05 08/23/25 14:15 08/23/25 14:46 08/23/25 14:00 08/23/25 14:15
MDM/Problems Addressed
MDM/Problems Addressed:
64-year-old female presenting with chest pain, initial and repeat troponin flat with no ischemic changes on EKG. Pain gradually improved while in the ED. Chest x-ray unremarkable. No concern for PE given anticoagulation use. May be
musculoskeletal. Suitable for discharge home
Comment
Comment:
EKG independently interpreted by me shows sinus rhythm at a rate of 66 with first-degree block and a bifascicular block, this is quite similar to previous EKGs from June 2025
*Pulse Oximetry
SaO2: 99
Oxygen Mode of Delivery: Room air
Patient hypoxic: no
*Critical Care Note
Total Time (30-74mins, 75-104mins- exclusive of procedures): Not Applicable
ED Attending Note
-
Portions of this chart may have been created with voice recognition software.� Occasional wrong word or��sound alike� substitutions may have occurred due to the inherent limitations of voice recognition software.
Discharge Plan
Departure
Patient Disposition: Home (Routine Discharge)
Date of Disposition: 08/23/25
Time of Disposition: 14:58
Patient with high blood pressure during this ER visit?: No
Discharge Problem:
Atypical chest pain
Instructions: Chest Pain That Is Not Caused by the Heart (DC)
Prescriptions:
No Action
atorvastatin 40 mg Tablet
40 mg PO HS
acetaminophen 325 mg Tablet
650 mg PO Q6HPRN PRN (Reason: mild pain / temp > 100.4)
baclofen 10 mg Tablet
10 mg PO TIDPRN PRN (Reason: spasms)
triamcinolone acetonide 0.1 % Cream
1 applic TOPICAL BID
lamotrigine 25 mg Tablet
50 mg PO BID
famotidine 20 mg Tablet
20 mg PO BID
tamsulosin 0.4 mg Capsule
0.4 mg PO DAILY
bisacodyl 10 mg Suppository
10 mg AR DAILYPRN PRN (Reason: if no bm aftr mom)
pantoprazole 40 mg Tablet,Delayed Release (Dr/Ec)
40 mg PO BID
ziprasidone HCl 40 mg Capsule
40 mg PO BID
nystatin 100,000 unit/gram Powder
1 applic TOPICAL BID
cholecalciferol (vitamin D3) 25 mcg (1,000 unit) Tablet
25 mcg PO DAILY
hydroxyzine pamoate 25 mg Capsule
25 mg PO HS
hydroxyzine pamoate 25 mg Capsule
25 mg PO Q6HPRN PRN (Reason: anxiety)
aspirin 81 mg Tablet,Chewable
81 mg PO DAILY Qty: 30 0RF
lisinopril 2.5 mg Tablet
2.5 mg PO DAILY Qty: 30 0RF
furosemide [Lasix] 40 mg tablet
40 mg PO DAILY Qty: 30 0RF
sennosides [senna] 8.6 mg Tablet
17.2 mg PO BID
magnesium hydroxide [Milk of Magnesia] 400 mg/5 mL Suspension
400 mg PO [id number] PRN (Reason: if no bm aftr mom)
nitroglycerin 0.4 mg Tablet, Sublingual
0.4 mg SUBLINGUAL [id number] PRN (Reason: chest pain)
docusate sodium [Colace] 100 mg Capsule
100 mg PO BID
budesonide 0.5 mg/2 mL Suspension For Nebulization
0.5 mg INHALATION R BID
fluticasone propionate 50 mcg/actuation Lucan,Suspension
1 spray INTRANASAL BID
glipizide 5 mg Tablet
5 mg PO DAILY
Fleet Enema 19-7 gram/118 mL Enema
118 ml AR DAILYPRN PRN (Reason: if no bm aftr dulcolax)
lidocaine 4 % Gel
1 applic TOPICAL BIDPRN PRN (Reason: right shoulder)
ondansetron HCl 4 mg Tablet
4 mg PO Q8HPRN PRN (Reason: nausea)
prednisone 5 mg Tablet
5 mg PO DAILY
melatonin 3 mg Tablet
6 mg PO HS
meclizine 25 mg Tablet
25 mg PO Q8HPRN PRN (Reason: dizziness)
benzonatate 100 mg Capsule
200 mg PO BID
spironolactone 25 mg Tablet
12.5 mg PO DAILY Qty: 30 0RF
metoprolol succinate 25 mg Tablet Extended Release 24 Hr
12.5 mg PO DAILY Qty: 30 0RF
rivaroxaban [Xarelto] 15 mg Tablet
15 mg PO QPM Qty: 30 0RF
prednisolone acetate 1 % Drops,Suspension
1 drp RIGHT EYE QID
Linzess 290 mcg Capsule
290 mcg PO DAILY
hydroxyzine HCl 25 mg Tablet
75 mg PO DAILYPRN PRN (Reason: before mri)
nystatin 100,000 unit/gram Powder
1 applic TOPICAL DAILYPRN PRN (Reason: sacrum)
sorbitol 70 % Solution
30 ml PO DAILYPRN PRN (Reason: constipation)
Refresh Optive 0.5-0.9 % Drops
1 drp BOTH EYES DAILYPRN PRN (Reason: itching)
prednisone 10 mg Tablet
See Rx Instructions .ROUTE .COMPLEX Qty: 45 0RF
Rx Instructions:
50 mg daily x2 days, 40 mg daily x2 days, 30 mg daily x2 days, 20 mg daily x2 days, 10 mg daily x2 days, then 5 mg going forward
Referrals:
Zeina Neri MD [Family Provider]
Interventions
Interventions:
*Risk Screen - Suicide Last Done: 08/23/25 11:05
*General Assessment Last Done: 08/23/25 11:05
*Neglect/Abuse Screening Last Done: 08/23/25 11:05
*ED- Fall Risk Assessment Last Done: 08/23/25 11:05
*ED COVID-19 Vaccine History Last Done: 08/23/25 11:05
*ED Influenza Vaccine History Last Done: 08/23/25 11:05
ED- Cardiac Assessment Last Done: 08/23/25 11:05
Discharge Date and Time
Print Language: NEPALI
[2025-08-23 11:55] LABS: Blood Urea Nitrogen 29 mg/dl (7-17); Calcium 9.4 mg/dl (8.4-10.2); Carbon Dioxide 24 mmol/L (22-30); Chloride 109 mmol/L (98-107); Estimated Creatinine Clearance 52 ml/min; Glucose 147 mg/dl (70-99); Sodium 140 mmol/L (135-145); eGFR 39.16
[2025-08-23 12:33] VITALS: BP 98/60
[2025-08-23 12:59] LABS: Troponin I 0.016 ng/ml
[2025-08-23 13:00] VITALS: BP 96/48
[2025-08-23 14:00] VITALS: BP 88/63
[2025-08-23 14:46] LABS: Troponin I 0.016 ng/ml
[2025-08-23 15:01] VITALS: BP 96/63
== END 2025-08-23 16:52 | disposition home or self-care (01) ==
LOC: EMR 11:01
PROVIDERS: Physician Assistant; EMERGENCY PHYSICIAN Emergency Medicine; FAMILY PHYSICIAN Internal Medicine
DX: R07.89 Other chest pain (principal); I44.0 Atrioventricular block, first degree; I45.2 Bifascicular block; E11.22 Type 2 diabetes mellitus with diabetic chronic kidney disease; I13.0 Hypertensive heart and chronic kidney disease with heart failure and stage 1 through stage 4 chronic kidney disease, or unspecified chronic kidney disease; N18.9 Chronic kidney disease, unspecified; I50.9 Heart failure, unspecified; I48.0 Paroxysmal atrial fibrillation; E78.00 Pure hypercholesterolemia, unspecified; I95.89 Other hypotension; D86.9 Sarcoidosis, unspecified; N31.9 Neuromuscular dysfunction of bladder, unspecified; K59.09 Other constipation; Z79.01 Long term (current) use of anticoagulants; Z79.82 Long term (current) use of aspirin; Z79.84 Long term (current) use of oral hypoglycemic drugs
CPT/HCPCS: 99284; 71046; 80048; 84484; 85025; 93005

== ENCOUNTER 2025-09-21 09:31 | Emergency (ER) | payer OTHER, SELFPAY ==
[2025-09-21] VITALS (8 sets, daily range): BP systolic 95–130; BP diastolic 34–71; BMI 44.9
--- NOTE | 2025-09-21 09:54 | ED.GENMED ---
Addendum entered and electronically signed by Yefri Alvarez MD 09/22/25 06:33:
Received a call from the intermediate with a question about patient's prescription. Apparently they have a documented history of an allergy to ciprofloxacin although unclear exactly what this reaction was. No documented history of allergy here.
She denied any allergy to Cipro/Levaquin yesterday. She received a dose of Levaquin without any issues yesterday and it sounds like she is doing well this morning. Advised nursing staff to discuss with patient and ask her about her allergy history
again�if she denies any allergy and tolerated Levaquin yesterday I think we can reasonably continue this medication and monitor her.
Original Note:
History of Present Illness
General
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
Source: patient, intermediate and intermediate records
Exam Limitations: none
Time Seen by Provider: 09/21/25 09:34
Nursing documentation reviewed up to this point in time: agreed with
History of Present Illness
History of Present Illness:
64-year-old female with history as noted presents to the ER from [facility] where she lives long-term for evaluation of urinary issues and pain from her catheter. Patient has history of cauda equina syndrome in the past and has a neurogenic
bladder. She says that she does urinate but does not empty her bladder completely. She has been staying at [facility] long-term since November; prior to arriving at [facility] she self catheterized however apparently they did not have access
straight cath equipment at [facility] when patient arrived. Patient says that she was urinating to some degree and so she has basically been urinating without straight caths since November. Apparently she had a follow-up appointment with her
urologist in early August; at that time she was having urinary symptoms and was diagnosed with UTI and she was treated with antibiotics. She also disclosed that she had not been self catheterizing and was told that she needs to self catheterize to
empty her bladder and was ordered to do this twice daily. Unfortunately patient says [facility] did not have equipment for self cath and so was ordered and in the meantime a Smith catheter was placed--catheter was placed on 08/27. In the meantime
she says that her urinary symptoms for which she was treated for UTI never improved with antibiotics (she said she was treated with 2 courses 1 of which was Macrobid but she cannot recall the other antibiotic). She has continued leakage around the
catheter, burning in the urethra where the catheter is located as well as some mild suprapubic pressure. She has not had fever or chills. She denies any other acute complaints. Sent to the ER for evaluation.
Past History
Past History
ED Past Medical History: Arrthythmia (Paroxysmal atrial fibrillation), CHF, Hypercholesterolemia, IDDM, Renal failure (Chronic kidney disease) and Other (Sarcoidosis, neurogenic bladder, chronic constipation, chronic hypotension)
ED Past Surgical History: Other (Hernia repair)
Social History
Tobacco: Non-smoker
Alcohol: None
Drug: None
Personal: Single
Living: intermediate
Employment: Disabled
Family History
Family History: Other (Noncontributory)
Review of Systems
Review of Systems
All Other Systems: ROS reviewed and negative except as documented in HPI and ROS
Constitutional: Denies fever or chills
Respiratory: Denies trouble breathing
Cardiac: Denies chest pain
ABD/GI: Reports abdominal pain; Denies nausea or vomiting
: Reports dysuria and other (Leaking around catheter)
Musculoskeletal: Denies neck pain
Neurological: Denies headache
Phy Exam
Physical Exam
Physical Exam:
General: Awake, alert, oriented x3; no acute distress
Head: Normocephalic, atraumatic
Eyes: Conjunctiva normal
Throat: Airway intact, handling secretions
Neck: Trachea midline, supple without meningismus
Lungs: Breathing comfortably with no evidence of respiratory distress
Heart: Regular rate
Abd: Soft, non distended, nontender; large ventral hernia soft and reducible
Back: No CVA tenderness
: Performed with female nurse in room as aerotriangulation specialist; Smith catheter in place with clear yellow urine some sediment in the bag; no significant erythema or rash noted around the inguinal region or in the vulvovaginal region
Neuro: Warm and well-perfused
Skin: Warm and dry
Extremities: Warm and well-perfused
Scores
Heart Failure Risk
Heart Failure Risk Score: Not Applicable
Heart Score for Chest Pain Patients
STEMI patient?: Not applicable
Withdrawal Assessment of Alcohol
Withdrawal Assessment Completed?: Not applicable
Course
Orders/Labs/Results
Orders:
Orders
09/21/25 10:03
Electrocardiogram (*1) Urgent
Reason for Study: QTc Monitoring
EKG- Treatment ONCE
09/21/25 10:33
Basic Metabolic Panel Urgent
Complete Blood Count/With Diff Urgent
Urinalysis Reflex To Culture Urgent
Date Specimen was Collected: 09/21/25
Time Specimen was Collected: 09:52
Urine Microscopic Reflex Cult Urgent
Urine Culture Urgent
ROZINA Source: U
Specimen Description:
Date Specimen was Collected: 09/21/25
Time Specimen was Collected: 09:52
09/21/25 12:17
LevoFLOXacin [Levaquin] 750 mg PO NOW STA
Abnormal Lab Results
09/21/25
10:33
RBC 3.82 L 10^6/uL
(4.20-5.40)
Hgb 9.9 L g/dL
(12.0-16.0)
Hct 31.3 L %
(37.0-47.0)
MCH 25.9 L pg
(27.0-31.0)
MCHC 31.6 L g/dL
(33.0-37.0)
RDW 15.2 H %
(11.5-14.5)
Absolute Lymphs (auto) 1.0 L 10^3/uL
(1.2-3.4)
Lymphocytes % 16.2 L %
(20.5-51.1)
BUN 24 H mg/dl
(7-17)
Creatinine 1.4 H mg/dL
(0.6-1.0)
Glucose 159 H mg/dl
(70-99)
Ur Occult Blood Reflex 4+ A
(Negative)
Leukocyte Esterase Rfl 3+ A
(Negative)
Urine Albumin (Reflex) 2+ A
(Neg - Trace)
09/21/25 10:33
09/21/25 10:33
Vital Signs
Initial and Last Documented VS:
Initial Vital Signs
BP
130/71
09/21/25 09:34
Last Documented Vital Signs
Temp Pulse Resp BP Pulse Ox
36.7 C 60 14 104/56 94
09/21/25 09:36 09/21/25 12:00 09/21/25 11:01 09/21/25 12:00 09/21/25 12:00
MDM/Problems Addressed
Differential Diagnosis Includes:
UTI, bladder spasm/catheter related pain
MDM/Problems Addressed:
64-year-old female presents with leakage around Smith catheter and burning in the urethra�this has been ongoing for a month but has been worse since Smith catheter was placed few weeks ago. She has neurogenic bladder and is supposed to self cath
but because of equipment shortage a Smith was placed while awaiting the arrival of supplies at [facility]. Vitals and exam are as above. Will check basic labs and urinalysis. Patient is requesting that we remove the Smith catheter that she says
that she is able to urinate and was doing this for months before she was noted to self cath by her urologist. She says that the equipment for self cath is supposed to arrive this week at [facility] and she wants the Smith removed now. I do not
think this is an unreasonable plan; we can also provide some supplies to self cath while awaiting further supplies at [facility].
Labs reviewed: CBC shows anemia which is stable, CMP shows CKD stable. Urinalysis is positive for infection. Patient feeling much better after removing her catheter. Plan to discharge on oral antibiotics, follow-up with urology this week. Spoke
about follow-up plan and return precautions, questions answered.
Chronic conditions affecting care:
Neurogenic bladder
*Pulse Oximetry
SaO2: 98
Oxygen Mode of Delivery: Room air
Patient hypoxic: no (98%)
*Critical Care Note
Total Time (30-74mins, 75-104mins- exclusive of procedures): Not Applicable
Data Reviewed
Source: patient, ambulance crew, intermediate and intermediate records
ED Attending Note
-
Portions of this chart may have been created with voice recognition software.� Occasional wrong word or��sound alike� substitutions may have occurred due to the inherent limitations of voice recognition software.
Discharge Plan
Departure
Patient Disposition: Home (Routine Discharge)
Date of Disposition: 09/21/25
Time of Disposition: 12:20
Patient with high blood pressure during this ER visit?: No
Discharge Problem:
UTI (urinary tract infection)
Instructions: Urinary Tract Infection, Adult (DC)
Prescriptions:
New
levofloxacin 750 mg tablet
750 mg PO DAILY 7 Days Qty: 7 0RF
No Action
atorvastatin 40 mg Tablet
40 mg PO HS
acetaminophen 325 mg Tablet
650 mg PO Q6HPRN PRN (Reason: mild pain / temp > 100.4)
baclofen 10 mg Tablet
10 mg PO TIDPRN PRN (Reason: spasms)
triamcinolone acetonide 0.1 % Cream
1 applic TOPICAL BID
lamotrigine 25 mg Tablet
50 mg PO BID
famotidine 20 mg Tablet
20 mg PO BID
tamsulosin 0.4 mg Capsule
0.4 mg PO DAILY
bisacodyl 10 mg Suppository
10 mg MN DAILYPRN PRN (Reason: if no bm aftr mom)
pantoprazole 40 mg Tablet,Delayed Release (Dr/Ec)
40 mg PO BID
ziprasidone HCl 40 mg Capsule
40 mg PO BID
nystatin 100,000 unit/gram Powder
1 applic TOPICAL BID
cholecalciferol (vitamin D3) 25 mcg (1,000 unit) Tablet
25 mcg PO DAILY
hydroxyzine pamoate 25 mg Capsule
25 mg PO HS
hydroxyzine pamoate 25 mg Capsule
25 mg PO Q6HPRN PRN (Reason: anxiety)
aspirin 81 mg Tablet,Chewable
81 mg PO DAILY Qty: 30 0RF
lisinopril 2.5 mg Tablet
2.5 mg PO DAILY Qty: 30 0RF
furosemide [Lasix] 40 mg tablet
40 mg PO DAILY Qty: 30 0RF
sennosides [senna] 8.6 mg Tablet
17.2 mg PO BID
magnesium hydroxide [Milk of Magnesia] 400 mg/5 mL Suspension
400 mg PO [id number] PRN (Reason: if no bm aftr mom)
nitroglycerin 0.4 mg Tablet, Sublingual
0.4 mg SUBLINGUAL [id number] PRN (Reason: chest pain)
docusate sodium [Colace] 100 mg Capsule
100 mg PO BID
budesonide 0.5 mg/2 mL Suspension For Nebulization
0.5 mg INHALATION R BID
fluticasone propionate 50 mcg/actuation [place],Suspension
1 spray INTRANASAL BID
glipizide 5 mg Tablet
5 mg PO DAILY
Fleet Enema 19-7 gram/118 mL Enema
118 ml MN DAILYPRN PRN (Reason: if no bm aftr dulcolax)
lidocaine 4 % Gel
1 applic TOPICAL BIDPRN PRN (Reason: right shoulder)
ondansetron HCl 4 mg Tablet
4 mg PO Q8HPRN PRN (Reason: nausea)
prednisone 5 mg Tablet
5 mg PO DAILY
melatonin 3 mg Tablet
6 mg PO HS
meclizine 25 mg Tablet
25 mg PO Q8HPRN PRN (Reason: dizziness)
benzonatate 100 mg Capsule
200 mg PO BID
spironolactone 25 mg Tablet
12.5 mg PO DAILY Qty: 30 0RF
metoprolol succinate 25 mg Tablet Extended Release 24 Hr
12.5 mg PO DAILY Qty: 30 0RF
rivaroxaban [Xarelto] 15 mg Tablet
15 mg PO QPM Qty: 30 0RF
prednisolone acetate 1 % Drops,Suspension
1 drp RIGHT EYE QID
Linzess 290 mcg Capsule
290 mcg PO DAILY
hydroxyzine HCl 25 mg Tablet
75 mg PO DAILYPRN PRN (Reason: before mri)
nystatin 100,000 unit/gram Powder
1 applic TOPICAL DAILYPRN PRN (Reason: sacrum)
sorbitol 70 % Solution
30 ml PO DAILYPRN PRN (Reason: constipation)
Refresh Optive 0.5-0.9 % Drops
1 drp BOTH EYES DAILYPRN PRN (Reason: itching)
prednisone 10 mg Tablet
See Rx Instructions .ROUTE .COMPLEX Qty: 45 0RF
Rx Instructions:
50 mg daily x2 days, 40 mg daily x2 days, 30 mg daily x2 days, 20 mg daily x2 days, 10 mg daily x2 days, then 5 mg going forward
Activity Restrictions/Additional Instructions:
You should follow-up with your urologist this week as we discussed. You should take your antibiotic as prescribed. If you feel your symptoms are worsening or if you develop any new symptoms that are concerning to you please return to the ER
immediately.
Thank you for visiting the Emergency Department at [facility].
1. Please schedule a follow up appointment as directed. Call first thing tomorrow morning to make an appointment.
2. If indicated, please take your medications as instructed and indicated on discharge paperwork.
3. If any of your symptoms do not improve, or persist, or become more severe within 6-12 hours, please return to the emergency department for further care.
4. Please return to the emergency department if you develop a headache, neck pain/stiffness, fever greater than 100.4F, chest pain, shortness of breath, persistent nausea, vomiting, slurred speech, difficulty walking, numbness/tingling, weakness,
signs of infection or any other symptoms that are worrisome to you.
Please call [phone] if you have any questions.
Interventions
Interventions:
*Risk Screen - Suicide Last Done: 09/21/25 09:46
*General Assessment Last Done: 09/21/25 09:41
*Neglect/Abuse Screening Last Done: 09/21/25 09:41
*ED- Fall Risk Assessment Last Done: 09/21/25 09:41
*ED COVID-19 Vaccine History Last Done: 09/21/25 09:41
*ED Influenza Vaccine History Last Done: 09/21/25 09:41
ED-Female Genitourinary Assessment Last Done: 09/21/25 09:47
Discharge Date and Time
Print Language: OMANI
[2025-09-21 10:44] LABS: Hematocrit 31.3 % (37.0-47.0); Hemoglobin 9.9 g/dL (12.0-16.0); Mean Corp Hgb Conc. 31.6 g/dL (33.0-37.0); Mean Corpuscular Volume 81.9 fL (81.0-99.0); Nucleated Red Blood Cells % 0 %; Platelet Count 222 10^3/uL (130-400); Red Cell Dist. Width 15.2 % (11.5-14.5)
[2025-09-21 11:07] LABS: Blood Urea Nitrogen 24 mg/dl (7-17); Estimated Creatinine Clearance 57 ml/min; Glucose 159 mg/dl (70-99); eGFR 42.54
[2025-09-21 11:08] LABS: Calcium 9.7 mg/dl (8.4-10.2); Carbon Dioxide 29 mmol/L (22-30); Chloride 106 mmol/L (98-107); Sodium 139 mmol/L (135-145)
[2025-09-21 11:29] LABS: Urine Character Cloudy (Clear)
[2025-09-21 12:38] LABS: Urine Red Blood Cell 21-25 /HPF (0-2); Urine White Cell 30-40 /HPF (0-5)
[2025-09-21] MEDS: LEVAQUIN 750 MG PO (12:42)
== END 2025-09-21 15:33 | disposition home or self-care (01) ==
LOC: EMR 09:31
PROVIDERS: EMERGENCY PHYSICIAN Emergency Medicine; FAMILY PHYSICIAN Internal Medicine
DX: N39.0 Urinary tract infection, site not specified (principal); I50.9 Heart failure, unspecified; E11.22 Type 2 diabetes mellitus with diabetic chronic kidney disease; N18.9 Chronic kidney disease, unspecified; E78.00 Pure hypercholesterolemia, unspecified; I48.0 Paroxysmal atrial fibrillation; Z79.4 Long term (current) use of insulin; G83.4 Cauda equina syndrome; Z96.0 Presence of urogenital implants
CPT/HCPCS: 99284; 80048; 81003; 81015; 85025; 87086; 93005

== ENCOUNTER 2025-10-28 14:44 | Inpatient (IN) | payer OTHER, SELFPAY ==
[2025-10-28] VITALS (11 sets, daily range): BP systolic 81–127; BP diastolic 41–74; BMI 44.4
[2025-10-28 12:01] LABS: Hematocrit 30.9 % (37.0-47.0); Hemoglobin 9.7 g/dL (12.0-16.0); Mean Corp Hgb Conc. 31.4 g/dL (33.0-37.0); Mean Corpuscular Volume 84.9 fL (81.0-99.0); Nucleated Red Blood Cells % 0 %; Platelet Count 194 10^3/uL (130-400); Red Cell Dist. Width 15.2 % (11.5-14.5)
--- NOTE | 2025-10-28 12:01 | ED.GENMED ---
History of Present Illness
General
Chief Complaint: Weakness
Source: patient, ambulance crew and residential records
Exam Limitations: none
Time Seen by Provider: 10/28/25 11:47
Nursing documentation reviewed up to this point in time: agreed with
Past History
Past History
ED Past Medical History: Arrthythmia (Paroxysmal atrial fibrillation), CHF, Hypercholesterolemia, IDDM, Renal failure (Chronic kidney disease) and Other (Sarcoidosis, neurogenic bladder, chronic constipation, chronic hypotension)
ED Past Surgical History: Other (Hernia repair)
Social History
Tobacco: Non-smoker
Alcohol: None
Drug: None
Personal: Single
Living: residential
Employment: Disabled
Family History
Family History: Other (Noncontributory)
Course
Orders/Labs/Results
Orders:
Orders
10/28/25 11:42
Electrocardiogram (*1) Urgent
Reason for Study: Chest Pain
Cardiac Monitoring- Treatment ONCE
EKG- Treatment ONCE
10/28/25 11:51
Complete Blood Count/With Diff Urgent
Comprehensive Metabolic Panel Urgent
10/28/25 12:04
CT Head W/o Iv Contrast Urgent
Comment:
Reason For Exam: weakness
10/28/25 12:05
Straight cath- Treatment ONCE
10/28/25 12:06
Urinalysis Reflex To Culture Urgent
Abnormal Lab Results
10/28/25
11:51
RBC 3.64 L 10^6/uL
(4.20-5.40)
Hgb 9.7 L g/dL
(12.0-16.0)
Hct 30.9 L %
(37.0-47.0)
MCH 26.6 L pg
(27.0-31.0)
MCHC 31.4 L g/dL
(33.0-37.0)
RDW 15.2 H %
(11.5-14.5)
Absolute Lymphs (auto) 0.7 L 10^3/uL
(1.2-3.4)
Neutrophils % 80.5 H %
(42.2-75.2)
Lymphocytes % 10.3 L %
(20.5-51.1)
10/28/25 11:51
Vital Signs
Initial and Last Documented VS:
Initial Vital Signs
Pulse Resp
64 24
10/28/25 11:30 10/28/25 11:30
Last Documented Vital Signs
Temp Pulse Resp BP Pulse Ox
97.8 F 63 19 112/64 94
10/28/25 11:31 10/28/25 11:37 10/28/25 11:37 10/28/25 11:37 10/28/25 12:03
*Pulse Oximetry
SaO2: 94
Oxygen Mode of Delivery: Room air
ED Attending Note
-
Portions of this chart may have been created with voice recognition software.� Occasional wrong word or��sound alike� substitutions may have occurred due to the inherent limitations of voice recognition software.
Discharge Plan
Departure
Prescriptions:
No Action
atorvastatin 40 mg Tablet
40 mg PO HS
acetaminophen 325 mg Tablet
650 mg PO Q6HPRN PRN (Reason: mild pain / temp > 100.4)
baclofen 10 mg Tablet
10 mg PO TIDPRN PRN (Reason: spasms)
triamcinolone acetonide 0.1 % Cream
1 applic TOPICAL BID
lamotrigine 25 mg Tablet
50 mg PO BID
famotidine 20 mg Tablet
20 mg PO BID
tamsulosin 0.4 mg Capsule
0.4 mg PO DAILY
bisacodyl 10 mg Suppository
10 mg MN DAILYPRN PRN (Reason: if no bm aftr mom)
pantoprazole 40 mg Tablet,Delayed Release (Dr/Ec)
40 mg PO BID
ziprasidone HCl 40 mg Capsule
40 mg PO BID
nystatin 100,000 unit/gram Powder
1 applic TOPICAL BID
cholecalciferol (vitamin D3) 25 mcg (1,000 unit) Tablet
25 mcg PO DAILY
hydroxyzine pamoate 25 mg Capsule
25 mg PO HS
hydroxyzine pamoate 25 mg Capsule
25 mg PO Q6HPRN PRN (Reason: anxiety)
aspirin 81 mg Tablet,Chewable
81 mg PO DAILY Qty: 30 0RF
lisinopril 2.5 mg Tablet
2.5 mg PO DAILY Qty: 30 0RF
furosemide [Lasix] 40 mg tablet
40 mg PO DAILY Qty: 30 0RF
sennosides [senna] 8.6 mg Tablet
17.2 mg PO BID
magnesium hydroxide [Milk of Magnesia] 400 mg/5 mL Suspension
30 ml PO DAILYPRN PRN (Reason: if no bm x 3 days)
nitroglycerin 0.4 mg Tablet, Sublingual
0.4 mg SUBLINGUAL [id number] PRN (Reason: chest pain)
docusate sodium [Colace] 100 mg Capsule
200 mg PO BID
budesonide 0.5 mg/2 mL Suspension For Nebulization
0.5 mg INHALATION R BID
fluticasone propionate 50 mcg/actuation [place],Suspension
1 spray INTRANASAL BID
glipizide 5 mg Tablet
5 mg PO DAILY
Fleet Enema 19-7 gram/118 mL Enema
118 ml MN DAILYPRN PRN (Reason: if no bm aftr dulcolax)
lidocaine 4 % Gel
1 applic TOPICAL BIDPRN PRN (Reason: right shoulder)
Rx Instructions:
unsupervised self-admin
ondansetron HCl 4 mg Tablet
4 mg PO Q8HPRN PRN (Reason: nausea)
melatonin 3 mg Tablet
6 mg PO HS
meclizine 25 mg Tablet
25 mg PO Q8HPRN PRN (Reason: dizziness)
benzonatate 100 mg Capsule
200 mg PO BID
spironolactone 25 mg Tablet
12.5 mg PO DAILY Qty: 30 0RF
metoprolol succinate 25 mg Tablet Extended Release 24 Hr
12.5 mg PO DAILY Qty: 30 0RF
Xarelto 15 mg Tablet
15 mg PO QPM Qty: 30 0RF
Linzess 290 mcg Capsule
290 mcg PO DAILY
nystatin 100,000 unit/gram Powder
1 applic TOPICAL DAILYPRN PRN (Reason: sacrum)
sorbitol 70 % Solution
30 ml PO DAILYPRN PRN (Reason: constipation)
azathioprine 50 mg Tablet
25 mg PO DAILY
Biofreeze (menthol) 5 % Gel
1 ea TOPICAL TIDPRN PRN (Reason: mild pain right shoulder/clavicle)
Rx Instructions:
unsupervised self-admin
levofloxacin 750 mg tablet
750 mg PO DAILY 7 Days Qty: 7 0RF
polyethylene glycol 3350 17 gram Powder In Packet
17 g PO DAILY
Rx Instructions:
give daily for 3 days beginning 09/20/25 for colonoscopy prep.
prednisone 5 mg Tablet
5 mg PO DAILY
simethicone 125 mg Tablet,Chewable
125 mg PO BID PRN (Reason: gas)
mupirocin 2 % Ointment
1 applic TOPICAL TID
Rx Instructions:
abdominal wound
Refresh Classic (PF) 1.4-0.6 % Dropperette
1 drp BOTH EYES DAILYPRN PRN (Reason: itching)
Referrals:
UNKNOWN - PT NOT,INTERVIEWE [Family Provider]
Interventions
Interventions:
*General Assessment Last Done: 10/28/25 11:31
*Neglect/Abuse Screening Last Done: 10/28/25 11:31
*ED COVID-19 Vaccine History Last Done: 10/28/25 11:40
*ED Influenza Vaccine History Last Done: 10/28/25 11:40
[facility] Fall Risk Assessment Tool Last Done: 10/28/25 11:40
*Risk Screen - Suicide (C-SSRS) Last Done: 10/28/25 11:41
Discharge Date and Time
Print Language: INDONESIAN
[2025-10-28 12:17] LABS: ALT (SGPT) 15 U/L (0-35); AST (SGOT) 23 U/L (14-36); Albumin 3.7 g/dl (3.5-5.0); Alkaline Phosphatase 210 U/L (38-126); Blood Urea Nitrogen 35 mg/dl (7-17); Calcium 9.7 mg/dl (8.4-10.2); Carbon Dioxide 27 mmol/L (22-30); Chloride 107 mmol/L (98-107); Glucose 127 mg/dl (70-99); Potassium 3.1 mmol/L (3.5-5.1); Sodium 142 mmol/L (135-145); Total Protein 6.2 g/dl (6.3-8.2); eGFR 31.46
[2025-10-28 13:18] LABS: Urine Character Clear (Clear)
[2025-10-28 13:32] LABS: Urine Urothelial Cell 0-2 /LPF (FEW)
[2025-10-28 13:33] LABS: Urine White Cell 16-20 /HPF (0-5)
--- NOTE | 2025-10-28 13:47 | HPS.HSE ---
Family Physician
-
Family Physician: INTERVIEWE UNKNOWN - PT NOT
Chief Complaint
-
Change in mental status
History of Present Illness
Patient is a 64 y/o female past medical history of multiorgan sarcoidosis, atrial fibrillation, chronic heart failure, diabetes mellitus, chronic kidney disease, and mood disorder who presents with change in mental status. Upon my evaluation patient
opens eye briefly to physical stimuli but is otherwise unresponsive. Per triage note patient was sent from [facility] where she is a care home resident for generalized weakness for the past 3 days. Patient reportedly was not answering questions.
Today she had a 'psychiatric moment' where she threw a med cart into the wall and was ripping things off the reddy.
Medical History
Past Medical History
Past Medical History: Reports Other
Additional Past Medical History:
Multiorgan Sarcoidosis
Paroxysmal Atrial Fibrillation
Chronic RBBB
Chronic HFmrEF
Cardiomyopathy - Unknown Type
Diabetes Mellitus, Type II
CKD Stage IIIB
GERD / Gastroparesis
Anxiety / Major Depression
Obesity
Cauda Equina Syndrome
Chronic Urinary Retention
Lumbar DDD
Left 'Drop Foot'
Past Surgical History: Reports Other
Additional Past Surgical History:
Vocal Cord Tumor Excised (benign)
6 Prior Back Surgeries
Hernia Repair
[place] Pouch / Subsequent Reversal
Social History
Tobacco: Non-smoker
Alcohol: None
Drug: None
Living: Retirement
Family History
Family History: Diabetes and Other (Father: COPD Mother: Breast Cancer)
Allergies / Home Medications
Allergies reflects when Allergies were last updated in [employer].
Home Medications with original date entered in [employer]
Allergy/Medication List:
Medications on admission are unable to be verified or confirmed at this time.
If medication reconciliation has not been performed, why?: Unresponsive (Medication list not send from [facility])
Review of Systems
-
Unable to obtain full review of systems at this time due to: Acuity
Physical Exam
Vital Signs
Vital Signs
Temp Pulse Resp BP Pulse Ox
97.8 F 56 15 104/64 94
10/28/25 11:31 10/28/25 13:15 10/28/25 13:15 10/28/25 13:05 10/28/25 13:15
Physical Exam
General: Well Developed and Well Nourished
HEENT: Anicteric and Other (Mucous membranes are dry)
Respiratory: Clear and Non Labored Respirations
Cardiac: S1/S2, Regular Rhythm and Bradycardia (Slightly)
GI: Soft and Non Tender
Rectal: Deferred by Provider
Musculoskeletal: No Clubbing and No Cyanosis
Skin: Warm and Dry
Neuro: Other (Opens eyes briefly to physical stimuli, unable to follow commads)
Laboratory Results
-
10/28/25 11:51
10/28/25 11:51
Laboratory Results
Total Bilirubin 0.4 mg/dl (0.2-1.3) 10/28/25 11:51
AST 23 U/L (14-36) 10/28/25 11:51
ALT 15 U/L (0-35) 10/28/25 11:51
Alkaline Phosphatase 210 U/L (38-126) H 10/28/25 11:51
Data Reviewed
-
Lab Data: Labs Reviewed by me
Old Records: Reviewed
Impression/Plan
-
Hypoactive Encephalopathy, unclear cause
-Differential includes infection, metabolic, adrenal insufficiency and infection
-Hold all sedating medications
-Check ammonia level
-Check VBG
-Check urine drug screen
-Start stress dose steroid with hydrocortisone 50mg q8h
-Keep NPO until mentation improves
Hypokalemia and Acute Renal Insufficiency on CKD III secondary to diuretics
-Replace potassium IV (prior notes indicated inability to tolerate oral potassium
-Give NSS 500mL @ 50cc/hr for one bag
-Recheck labs in AM
Urinalysis equivocal for urinary tract infection
-Sample obtained via straight cath
-As no clear cause will treat with empiric Zosyn (patient has prior ESBL Klebsiella in April 2025)
Paroxysmal Atrial Fibrillation
-Monitor Telemetry
-Continue Xarelto
-Hold metoprolol as heart rate is running on the low side
Chronic HFmrEF
-Diuretics on hold
-Monitor daily weights
Diabetes Mellitus, Type II
-Hold oral meds
-Monitor sugars and continue coverage insulin
Anxiety / Major Depression
-All medications currently on holds
Code Status: DNR per MA paperwork
--- NOTE | 2025-10-28 13:50 | W.PN.UPDATE ---
Addendum entered and electronically signed by Thaddeus Valladares MD 10/29/25 12:19:
Laboratory Tests
10/28/25
13:03
Urine Fentanyl Screen Positive H
U Benzodiazepines Scrn Positive H
Original Note:
Update Note
Progress Note Update
I could not get any information from the patient is not interactive but
Information gathered by chart review and speaking with the ER staff.
This note serves as an addendum to the H&P by cardiology clinical consultant Pepe FIERRO
HPI
64F feom HV SNS
PMx as below plus Major Depression
seen at ER:
[facility] ambulance for weakness over past 3 days and not answering questions of staff and had a 'psychiatric moment today' where pt threw a med cart into the wall and preceded to rip things of the reddy.
- Pt is reported per EMS by staff at [facility] to have speech normal and be at baseline.
- BS Enroute was 131.
- No IV,
- VSS, BP Enroute 100/60
- pt not answering questions from staff.
PHX
Multiorgan Sarcoidosis
Cardiomyopathy
Chronic HFmrEF
CKD 3 Stable.
Paroxysmal Atrial Fibrillation, Stable.
DMT2
Chronic Normocytic Anemia, Stable.
GERD / Gastroparesis
Class III Morbid Obesity BMI 44
Relevant VS
Temp Pulse Resp BP Pulse Ox
97.8 F 56 15 104/64 94
10/28/25 11:31 10/28/25 13:15 10/28/25 13:15 10/28/25 13:05 10/28/25 13:15
PE
Class III Obesity
Gen: Lethargic , but arousable, but non sustained wakefulness , not following commands
HEENT: dry OM
Neck: supple
Lungs: limited exam due to lethargy
Cor: RRR S1S2
Abdomen:� soft abdomen
MORALE OFFICER: lethargic , not interactive
MS: no swathi a, symmetric movement in all limbs
Psych: cannot exam due depressed MS
Relevant data�
09/21/25 10/28/25
10:33 11:51
WBC 7.1
Hgb 9.9 L 9.7 L
Plt Count 222 194
09/21/25 10/28/25
10:33 11:51
Potassium 3.1 L
BUN 24 H 35 H
Creatinine 1.4 H 1.8 H
eGFR 42.54 31.46
Alkaline Phosphatase 210 H
10/28/25
13:03
Urine RBC 11-15 A
Urine WBC (Reflex) 16-20 A
Ur Squamous Epith Cells 11-15
Urine Bacteria (Reflex) Few A
HCT
No acute intracranial abnormality.
EKG
SINUS RHYTHM WITH SINUS ARRHYTHMIA WITH 1ST DEGREE A-V BLOCK
RIGHT BUNDLE BRANCH BLOCK
LEFT ANTERIOR FASCICULAR BLOCK
BIFASCICULAR BLOCK
LEFT VENTRICULAR HYPERTROPHY WITH REPOLARIZATION ABNORMALITY
POSSIBLE LATERAL INFARCT (CITED ON OR BEFORE 14-Dec-2024)
ABNORMAL ECG
WHEN COMPARED WITH ECG OF 21-Sep-2025 10:20,
QUESTIONABLE CHANGE IN INITIAL FORCES OF ANTEROLATERAL LEADS
QT HAS LENGTHENED
Confirmed by MD LILLIANA, EVANGELINA Cartwright ([id number]) on 10/28/2025 12:38:59 PM
Last hospitalist admission:06/18/25 - 06/19/25
PCD: sarcoid flare; respiratory symptom significantly improved following IV steroid
Chr Dxs:
Multiorgan Sarcoidosis
# Cardiomyopathy
# Chronic HFmrEF
# CKD III, Stable.
# Paroxysmal Atrial Fibrillation, Stable.
# DM-II, Stable.
# Chronic Normocytic Anemia, Stable.
# GERD / Gastroparesis
# Major Depression, mood stable
# Morbid Obesity due to excess calories, BMI 44
ASSESSMENT & PLAN
Pending Rx reconciliation
Lethargic presumed hypoactive encephalopathy
Very broad differential origin - Metabolic , Medications , Infective or adrenal insuuficient vs. Psych
- Would hold Baclofen. Hydroxyzine, Lamotrigine , Ziprasidone ( Geodon)
- NPO for aspiration precaution
- supportive care with IV NS 40/H 500 cc
- NH3 level
- VBG
- Nursing to screen for swallowing
SIMÓN on CKD3
Clinically dehydrated ( dry skin, dry OM, relative hypotension
Hypokalemia likely secondary to loop diuretic use.
repleted w IV KCL 40 x1
- Tend K and Cr
- Gentle IV NS 500 @ 40.H
Abn straight cath UA - equivocal for UTI but intention to treat due to no clear etiology for encephalaothy
HX ESBL Klebsiella
- UCX
- Empiric Zosyn
Low dose steroids dependent Sarcoid
HX Multiorgan Sarcoidosis
- risk for adrenal insufficiency
- marginal low BP
- stress dose IV HC 50 q8h
- fu BP
Follow-up with [facility] (Dr. Chisholm)
HX Chronic HFmrEF
Cardiomyopathy
- Stable.
- No evidence of volume overload by exam.
- follow I/Os, daily weights, etc.
In NSR
Paroxysmal AF
- Stable.
- Continue Xarelto for stroke risk reduction.
DMT2
Follow glucose and cover with SSI as needed.
Hold oral hypoglycemic agents acutely.
Update A1C.
Chronic Normocytic Anemia, Stable.
- Hgb is at / near known baseline.
HX GERD / Gastroparesis
Patient on BID H2 kassy and BID PPI
HX Major Depression
- Holding ziprasidone, lamotrigin due to hypoactive encephalopathy
- Hold hydroxyzine
Class III Morbid Obesity due to excess calories
DVT Prophylaxis: Continue BIOMEDICAL SERVICE ENGINEER Xarelto
Code Status: DNR
IP TLM
--- NOTE | 2025-10-28 14:05 | EDRN ---
Dr. Valladares in room w /pt at this time. Zak WELLS was in prior to that and attempting to do pt's med rec.
[2025-10-28] MEDS: NSS 500 IV (14:29)
[2025-10-28] MEDS: KCL 270 MEQ IV (14:31)
[2025-10-28 14:48] LABS: Magnesium 2.0 mg/dl (1.6-2.3)
[2025-10-28] MEDS: SOLU-CORTEF 50 MG IV (14:57)
--- NOTE | 2025-10-28 15:09 | EDCM ---
Reviewed chart, attempted to meet with pt bedside in ED but she was sleeping. Information obtained from chart review.
Pt resides at [facility] in LTC, Needs asslstance with ADLs and personal care. Ambulates with RW or uses manual wheelchair.
Pt has chronic boswell catheter and uses O2 2L NC.
PMH includes Sarcoidosis, Cardiomyopathy, HF, CKD, Afib, DM, GERD and Depression.
PCP: Eladio Greer
Pharmacy: [facility]
Anticipate return to [facility] when medically stable, CM will continue to follow for all discharge planning needs.
--- NOTE | 2025-10-28 16:29 | EDRN ---
VBG and ammonia drawn at this time
[2025-10-28 16:33] LABS: Venous Blood Gas B.E. 0.8 mmol/L (-4 to +4); Venous Blood Gas O2 Sat % 98.0 %
[2025-10-28 16:43] LABS: Ammonia 18 umol/L (9-30)
[2025-10-28 18:02] LABS: Glucose - Point of Care 123 mg/dl (70-99)
[2025-10-28] MEDS: NOVOLOG FLEXPEN-LOW RESISTANCE SC (18:03)
--- NOTE | 2025-10-28 18:04 | PTCARENOTE ---
patient arrived to unit. VSS. Patient is oriented x3. bed alarm in place. call zhao in reach. safety maintained.
[2025-10-28 18:08] LABS: Urine Character Clear (Clear)
[2025-10-28] MEDS: XARELTO PO (18:31)
[2025-10-28] MEDS: ZOSYN 50 IV (18:32)
[2025-10-28] MEDS: XARELTO 15 MG PO (18:38)
[2025-10-28 19:09] LABS: Urine Red Blood Cell 0-2 /HPF (0-2); Urine Squamous Cell >30 /LPF (Few); Urine White Cell 30-40 /HPF (0-5)
[2025-10-28 21:36] LABS: Glucose - Point of Care 193 mg/dl (70-99)
[2025-10-29] MEDS: SOLU-CORTEF 50 MG IV ×2 (00:37→08:51)
[2025-10-29] MEDS: ZOSYN 50 IV ×3 (00:38→11:11)
[2025-10-29 07:00] VITALS: BP 117/63
[2025-10-29 07:09] LABS: Glucose - Point of Care 137 mg/dl (70-99)
--- NOTE | 2025-10-29 07:24 | W.PN.HOSP.TC ---
Today's Communication/Plan
-
Psych eval
Discharge back to SNF if okay with psych
Assessment / Plan
Assessment / Plan
#Hypoactive Encephalopathy, unclear cause
-Resolved
-avoid any sedating medications
-NH3 wnl
- VBg with borderline low PH
#Hypokalemia and Acute Renal Insufficiency on CKD III secondary to diuretics
-HypoK resolved. SIMÓN improving sCr close to baseline
#Urinalysis equivocal for urinary tract infection
-Sample obtained via straight cath
-As no clear cause indentified for AMS she was started on empiric Zosyn ; Patient denies any urinary sxs
#Paroxysmal Atrial Fibrillation
-Monitor Telemetry
-Continue Xarelto
-Hold metoprolol as heart rate is running on the low side
#Chronic HFmrEF
- Continue with home spironolactone
-Monitor daily weights
#Diabetes Mellitus, Type II
-Hold oral meds
-Monitor sugars and continue coverage insulin
-A1c of 6.7
#Anxiety / Major Depression
-resume Lamictal
- will keep hydroxyzine and ziprasidone on hold pending psych evaluation
Code Status: DNR
Anticipated Discharge: Today
Subjective/Interval History
-
Date of Service: October 29, 2025
AFVSS. states that she is feeling much better
Objective Data
-
Labs:
Laboratory Results
10/29/25
06:00
WBC Pending
Hgb Pending
Hct Pending
Plt Count Pending
Sodium Pending
Potassium Pending
Chloride Pending
Carbon Dioxide Pending
BUN Pending
Creatinine Pending
Glucose Pending
Calcium Pending
Vital Signs:
Vital Signs
Temp Pulse Resp BP Pulse Ox
98.6 F 52 16 120/58 100
10/28/25 22:51 10/28/25 22:51 10/28/25 22:51 10/28/25 22:51 10/28/25 22:51
I&O
10/28/25 10/29/25 10/30/25
06:59 06:59 06:59
Output Total 1150 / 1150
Balance -1150 / -1150
Review of Systems
-
History Source: Patient
Respiratory: Denies Cough or Trouble Breathing
Abdomen/GI: Reports No Symptoms
Genitourinary: Reports No Symptoms
Neuro: Denies Dizzy, Headache, Weakness or Numbness
Physical Exam
-
General: Well Nourished, No Apparent Distress, Comfortable, Conversant and Morbidly Obese
HEENT: Normocephalic and Atraumatic; Negative Oxygen
Respiratory: Clear to Auscultation and Non Labored Respirations; Negative Wheezes, Rales, Rhonchi or Accessory Resp Muscle Use
Cardiac: Regular Rhythm and S1/S2
GI: Soft and Nontender
Musculoskeletal: No Clubbing, No Cyanosis and Other (chronic lymphedema)
Skin: Warm
Neuro: Awake and Alert
Psych: Calm and Intact Judgement/Insight
Data Reviewed
-
CT Scan: Report Reviewed by me, Discussed with Physician and Discussed with Patient
Labs: Labs Reviewed by me, Discussed with Physician and Discussed with Patient
[2025-10-29 08:47] LABS: Hematocrit 29.6 % (37.0-47.0); Hemoglobin 9.3 g/dL (12.0-16.0); Mean Corp Hgb Conc. 31.4 g/dL (33.0-37.0); Mean Corpuscular Volume 82.2 fL (81.0-99.0); Platelet Count 196 10^3/uL (130-400); Red Cell Dist. Width 15.0 % (11.5-14.5)
[2025-10-29] MEDS: NOVOLOG FLEXPEN-LOW RESISTANCE SC ×2 (08:51→11:11)
[2025-10-29 09:20] LABS: Blood Urea Nitrogen 29 mg/dl (7-17); Calcium 9.4 mg/dl (8.4-10.2); Carbon Dioxide 25 mmol/L (22-30); Chloride 109 mmol/L (98-107); Estimated Creatinine Clearance 52 ml/min; Glucose 131 mg/dl (70-99); Potassium 3.9 mmol/L (3.5-5.1); Sodium 141 mmol/L (135-145); eGFR 39.16
[2025-10-29] MEDS: PULMICORT 0.5 MG INH (10:54)
[2025-10-29 11:06] LABS: Glucose - Point of Care 142 mg/dl (70-99)
[2025-10-29] MEDS: DELTASONE 5 MG PO (11:09)
[2025-10-29] MEDS: TYLENOL 650 MG PO (11:09)
[2025-10-29] MEDS: FLOMAX 0.4 MG PO (11:09)
[2025-10-29] MEDS: PROTONIX 40 MG PO (11:09)
[2025-10-29] MEDS: LOW STRENGTH ASPIRIN 81 MG PO (11:09)
[2025-10-29] MEDS: PEPCID 20 MG PO (11:09)
[2025-10-29 11:20] LABS: Glycohemoglobin (HgbA1c) 6.7 % (4.0-5.9)
[2025-10-29 11:54] VITALS: BP 107/51
[2025-10-29] MEDS: LAMICTAL 150 MG PO (12:32)
[2025-10-29] MEDS: IMURAN 25 MG PO (12:53)
--- NOTE | 2025-10-29 14:09 | CS.PSYCHR ---
Consult Summary - Psychiatry
-
pt seen in consultation due to concern about behaviors prior to admission
64 yo woman known to me for past 30 years--has severe borderline personality disorder with somatization, shows up in ED all the time for a variety of physical complaints as well as occasional temper outburst (as happened this time.)
Long history of cutting, od's, repeated hospitalizations, and problematic behaviors. Over past year had been at snf in [place], then got own apt briefly, then admitted to [facility] in [place] for dk month of November
2024, and since then placed at [place]. Does not like it there, is planning on getting own place again. Has a number of case assistant/therapists/resource coordinators at her command trying to make this happen for her.
Admitted here afte event at [facility] when she pushed med cart, swept everything off top of it onto floor, then swept books off desk onto floor. 'I don't know why it happened. WHY? WHY?'
Has had many similar episodes in past, occasionally called temporal lobe seizure, more accurately ascribed to her personality disorder.
Long history of extremely problematic behaviors, in slightly better control as she has aged.
On exam pt lying in bed, calm, cooperative. States she has heard she is going back to [facility], hopes it is not for too long, wants own place again. No cognitive impairment, limited insight and judgment. No psychotic symptoms or signs.
Impression: borderline personality disorder with somatization
Rec: would try to limit ihospital visits as snf is able; pt's problematic behaviors are positively reinforced by ED and hospital visits.
--- NOTE | 2025-10-29 15:00 | W.DCSUMMARY ---
Discharge Summary
Discharge Data
Date of Admission: 10/28/25
Date of Discharge: 10/29/25
-
Pending Results: No
Hospital Course
Discharging Physician : Jon Robin MD ; Cade Tripp MD
Disposition : [facility]
Primary care physician : Acute toxic metabolic encephalopathy
Principal Discharge diagnosis : Multiorgan Sarcoidosis
Chronic Discharge diagnosis : Cardiomyopathy
Chronic HFmrEF
CKD III, Stable.
Paroxysmal Atrial Fibrillation, Stable.
DM-II, Stable.
Chronic Normocytic Anemia, Stable.
GERD / Gastroparesis
Major Depression, mood stable
Morbid Obesity due to excess calories, BMI 44
Hospital Course : 64 y/o female past medical history of multiorgan sarcoidosis, atrial fibrillation, chronic heart failure, diabetes mellitus, chronic kidney disease, and mood disorder who presented with change in mental status.
Initial workup including blood ammonia levels unremarkable, urinalysis not concerning, CMP with some hypokalemia. She was admitted was started on empiric IV Zosyn. Her psychiatric medications were placed on hold. Psych was consulted. Given the
change in mental status CT head was obtained however it was negative
After she was cleared by the psychiatrist. Her home medications were resumed. It is very likely that she was taking Lamictal 100 mg twice daily as well as 150 mg twice daily and potentially was getting overdosed. In reality her 100 mg twice daily
dose was changed to 150 mg twice daily and she was never supposed to be on both doses. It was made clear at the time of discharge. Medications were resumed.
She did receive IV hydrocortisone but it was later switched to her home steroid dose.
Labs showed mild hypokalemia which was repleted with IV potassium chloride.
She also had an SIMÓN with serum creatinine of 1.8 and received IV fluid and it was corrected with repeat serum creatinine of 1.5 at the time of discharge which appears to be her baseline.
She was very adamant of going back to [facility]. combat control manager helped arrange the transport back to the nursing facility where she is a long-term resident.
On the day of discharge patient did not had any new acute issues.
On the day of discharge serum creatinine was 1.5, hemoglobin A1c of 6.7, potassium of 3.9, hemoglobin of 9.3
Important imaging findings : CT head without contrast: no acute intracranial abnormality.
Procedure findings : n/A
Discharge Plan
-
Patient Disposition: Halfway/SNF
Discharge Diagnosis/Procedures: Acute toxic encephalopathy, Hypokalemia, SIMÓN
Condition: Fair
Diet: As tolerated and Diabetic, Carb Controlled
Activity: As tolerated
Driving Restrictions: As prior to admission
Referrals:
Eladio Greer, [Non-Admitting Privileges, Internal Medicine] - in one week
Additional Discharge Medication Instructions: Please use only lamictal 150mg bid as dose was recently changed before hospital visit. DO NOT USE 100 mg and 150 mg together.
You may continue other home meds.
Prescriptions:
Continued
atorvastatin 40 mg Tablet
40 mg PO HS
acetaminophen 325 mg Tablet
650 mg PO Q6HPRN MDD 3 gms PRN (Reason: mild pain / temp > 100.4)
baclofen 10 mg Tablet
10 mg PO Q8HPRN PRN (Reason: spasms)
famotidine 20 mg Tablet
20 mg PO BID
tamsulosin 0.4 mg Capsule
0.4 mg PO DAILY
bisacodyl 10 mg Suppository
10 mg IL DAILYPRN PRN (Reason: if no bm aftr mom)
pantoprazole 40 mg Tablet,Delayed Release (Dr/Ec)
40 mg PO BID
ziprasidone HCl 40 mg Capsule
40 mg PO BID
nystatin 100,000 unit/gram Powder
1 applic TOPICAL DAILYPRN PRN (Reason: apply to sacrum)
cholecalciferol (vitamin D3) 25 mcg (1,000 unit) Tablet
25 mcg PO DAILY
hydroxyzine pamoate 25 mg Capsule
25 mg PO HS
hydroxyzine pamoate 25 mg Capsule
25 mg PO Q6HPRN PRN (Reason: anxiety)
aspirin 81 mg Tablet,Chewable
81 mg PO DAILY Qty: 30 0RF
sennosides [senna] 8.6 mg Tablet
17.2 mg PO BID
magnesium hydroxide [Milk of Magnesia] 400 mg/5 mL Suspension
30 ml PO DAILYPRN PRN (Reason: if no bm x 3 days)
nitroglycerin 0.4 mg Tablet, Sublingual
0.4 mg SUBLINGUAL [id number] PRN (Reason: chest pain)
docusate sodium [Colace] 100 mg Capsule
200 mg PO BID
budesonide 0.5 mg/2 mL Suspension For Nebulization
0.5 mg INHALATION R BID
fluticasone propionate 50 mcg/actuation [place],Suspension
1 spray INTRANASAL BID
glipizide 5 mg Tablet
5 mg PO DAILY
Patient Comments:
10/28/2025, hold if resident does not eat breakfast or if BS<100.
Fleet Enema 19-7 gram/118 mL Enema
118 ml IL DAILYPRN PRN (Reason: if no bm aftr dulcolax supp)
lidocaine 4 % Gel
1 applic TOPICAL BID
ondansetron HCl 4 mg Tablet
4 mg PO Q8HPRN PRN (Reason: nausea/vomiting)
melatonin 3 mg Tablet
6 mg PO HS
meclizine 25 mg Tablet
25 mg PO Q8HPRN PRN (Reason: dizziness)
benzonatate 100 mg Capsule
200 mg PO Q12H
Linzess 290 mcg Capsule
290 mcg PO DAILY
sorbitol 70 % Solution
30 ml PO DAILYPRN PRN (Reason: constipation)
azathioprine 50 mg Tablet
25 mg PO DAILY
Biofreeze (menthol) 5 % Gel
1 ea TOPICAL Q8HPRN PRN (Reason: right shoulder/clavicle)
prednisone 5 mg Tablet
5 mg PO DAILY
simethicone 125 mg Tablet,Chewable
125 mg PO [id number] PRN (Reason: gas)
mupirocin 2 % Ointment
1 applic TOPICAL BID
Rx Instructions:
apply to medial abdominal and left lateral abdominal wounds.
Refresh Classic (PF) 1.4-0.6 % Dropperette
1 drp BOTH EYES DAILYPRN PRN (Reason: itching)
lamotrigine [Lamictal] 150 mg Tablet
150 mg PO BID
rivaroxaban 15 mg Tablet
15 mg PO QPM
metoprolol succinate 25 mg Capsule,Sprinkle,Er 24hr
12.5 mg PO DAILY
Rx Instructions:
hold if BP<100 and HR<60.
furosemide [Lasix] 40 mg tablet
40 mg PO BID
spironolactone 25 mg tablet
12.5 mg PO DAILY
Rx Instructions:
hold if BP<110.
lisinopril 2.5 mg tablet
2.5 mg PO DAILY
Discontinued
lamotrigine [Lamictal] 100 mg Tablet
100 mg PO BID
Discharge Orders:
Discharge Patient (As Directed); Ordered 10/29/25
Ordered By: Jon Robin
Discharge Date and Time
Print Language: SIER[place] LEONEAN
[2025-10-29 15:01] LABS: Glucose - Point of Care 226 mg/dl (70-99)
--- NOTE | 2025-10-29 15:02 | CM ---
CM reviewed chart, patient for d/c back to [facility].
Patient seen by Psych- updates sent to [facility].
Patient will require ambulance transport- forms provided to community liaison.
CM will continue to follow.
Plan; return to [facility]
report# [phone] 3rd floor
[2025-10-29 15:38] VITALS: BP 111/54
[2025-10-29] MEDS: NOVOLOG FLEXPEN-LOW RESISTANCE 2 UNITS SC (16:59)
[2025-10-29] MEDS: XARELTO 15 MG PO (16:59)
[2025-10-29] MEDS: ZOSYN IV (17:03)
[2025-10-29 19:00] VITALS: BP 111/75
[2025-10-29] MEDS: PULMICORT INH (19:47)
== END 2025-10-29 20:32 | DRG 92 ==
LOC: 4 WEST ACU 14:44
PROVIDERS: Physician Assistant Medical; ADMITTING PHYSICIAN Internal Medicine; ATTENDING PHYSICIAN Hospitalist; CONSULT PHYSICIAN Psychiatry & Neurology Psychiatry; EMERGENCY PHYSICIAN Emergency Medicine
DX: G92.9 Unspecified toxic encephalopathy (principal); G83.4 Cauda equina syndrome; I42.9 Cardiomyopathy, unspecified; I50.22 Chronic systolic (congestive) heart failure; Z68.41 Body mass index [BMI] 40.0-44.9, adult; N17.9 Acute kidney failure, unspecified; N39.0 Urinary tract infection, site not specified; D86.9 Sarcoidosis, unspecified; I48.0 Paroxysmal atrial fibrillation; N18.32 Chronic kidney disease, stage 3b; K21.9 Gastro-esophageal reflux disease without esophagitis; K31.84 Gastroparesis; E11.43 Type 2 diabetes mellitus with diabetic autonomic (poly)neuropathy; D64.9 Anemia, unspecified; F32.9 Major depressive disorder, single episode, unspecified; E66.01 Morbid (severe) obesity due to excess calories; E87.6 Hypokalemia; Z66 Do not resuscitate; F41.9 Anxiety disorder, unspecified; E11.22 Type 2 diabetes mellitus with diabetic chronic kidney disease; E86.0 Dehydration; F60.3 Borderline personality disorder; I45.10 Unspecified right bundle-branch block; M21.372 Foot drop, left foot; M51.369 Other intervertebral disc degeneration, lumbar region without mention of lumbar back pain or lower extremity pain; T50.2X5A Adverse effect of carbonic-anhydrase inhibitors, benzothiadiazides and other diuretics, initial encounter; Z79.01 Long term (current) use of anticoagulants; Z79.52 Long term (current) use of systemic steroids; Z80.3 Family history of malignant neoplasm of breast; Z82.5 Family history of asthma and other chronic lower respiratory diseases
CPT/HCPCS: 70450; 80048; 80053; 80306; 80307; 81003; 81015; 82140; 82805; 82962; 83036; 83735; 85025; 85027; 87077; 87086; 87186; 93005; 94640; 99285; J7500